=== PATIENT | female | born 1940 | race African-American/Black ===

== ENCOUNTER 2018-11-12 23:02 | Inpatient (IN) | payer MEDICARE, OTHER ==
[~2018-11-12] VITALS: Ht 160 cm; Wt 95.5 kg
[~2018-11-12 23:02] MED LIST: GABA300C18 PO; GLIP10TA13 PO; GLIP5TAB10 PO; INSU100I17 SQ; LISI10TA2 PO; METF500T16 PO; SIMV10TA3 PO
[2018-11-13] VITALS (13 sets, daily range): BP systolic 113–149; BP diastolic 53–65
--- NOTE | 2018-11-13 02:07 | NUR ---
The patient, JOHN IRBY, 77 y/o, F admitted by JOYCE RICHARDS MD, was given written information regarding hospital policies, unit procedures and contact persons. Lizetgowzahida , slippers left in room with patient. Patient did not bring eyeglasses or partials during transfer. Vitals stable, call light in reach, patient resting in bed.
[2018-11-13] MEDS: IV NORMAL SALINE 1000ML BAG 1,000 ML IV SCH ×2 (02:30→07:56)
[2018-11-13 06:31] LABS: BASO % 0 % (0-3); EOS % 0 % (0-3); HEMATOCRIT 25.1 % (36.0-47.0); HEMOGLOBIN 7.8 g/dL (12.0-15.5); LYMPH # 0.9 x10^3/uL (1.0-4.8); LYMPH % 9 % (24-48); MEAN CORPUSCULAR HEMOGLOBIN 29 pg (25-35); MEAN CORPUSCULAR HGB CONC 31 g/dL (31-37); MEAN CORPUSCULAR VOLUME 95 fL (79-100); MONO # 2.2 x10^3/uL (0.0-1.1); MONO % 22 % (0-9); NEUT % 69 % (31-73); PLATELET COUNT 392 x10^3/uL (140-400); RED BLOOD COUNT 2.65 x10^6/uL (3.50-5.40); RED CELL DISTRIBUTION WIDTH 15.9 % (11.5-14.5); WHITE BLOOD COUNT 10.1 x10^3/uL (4.0-11.0)
[2018-11-13 06:49] LABS: CALCIUM 8.4 mg/dL (8.5-10.1); CREATININE 1.1 mg/dL (0.6-1.0); GFR 58.3; POTASSIUM 4.3 mmol/L (3.5-5.1)
[2018-11-13] MEDS: glipiZIDE 5 MG TABLET PO SCH (07:55)
[2018-11-13] MEDS: LISINOPRIL 10 MG TABLET PO SCH (07:56)
[2018-11-13] MEDS: GABAPENTIN 300 MG CAPSULE. PO SCH ×2 (07:56→21:11)
--- NOTE | 2018-11-13 09:06 | PDOC1 ---
History and Physical Date of Admission Date of Admission DATE: 11/13/18 TIME: 09:05 Source Source: Chart review, Patient History of Present Illness History of Present Illness "Genesis" is a 77-year-old female transferred here from [place] with fever, altered mental status. The patient developed a fever of 102 yesterday. and fever in ER, recent COPD exac admit here, confusion per family was worse t benitez baseline, just DC 4 days ago, this AM she reports feeling well, is sitting up, vital better Past Medical History Cardiovascular: CHF, HTN Pulmonary: COPD, Other GI: GERD Musculoskeletal: Osteoarthritis Rheumatologic: Fibromyalgia Endocrine: Diabetes Past Surgical History Past Surgical History: Total hip replacement, Hysterectomy Family History Family History: Diabetes, Hypertension Social History Smoke: Quit ALCOHOL: none Drugs: None Current Medications Current Medications Current Medications Sodium Chloride 1,000 ml @ 100 mls/hr Q10H IV Last administered on 11/13/18at 07:56; Start 11/13/18 at 02:30 Gabapentin (Neurontin) 300 mg BID PO Last administered on 11/13/18at 07:56; Start 11/13/18 at 09:00 Lisinopril (Prinivil) 10 mg DAILY PO Last administered on 11/13/18at 07:56; Start 11/13/18 at 09:00 Simvastatin (Zocor) 10 mg QHS PO ; Start 11/13/18 at 21:00 Glipizide (Glucotrol) 10 mg DAILYAC PO Last administered on 11/13/18at 07:55; Start 11/13/18 at 07:30 Active Scripts Active Simvastatin 10 Mg Tablet 1 Tab PO QHS 30 Days Glipizide 10 Mg Tablet 10 Mg PO DAILY 3 Days Gabapentin 300 Mg Capsule 300 Mg PO TID 30 Days Lisinopril 10 Mg Tablet 1 Tab PO DAILY Reported Novolog Flexpen (Insulin Aspart) 100 Unit/1 Ml Insuln.pen 100 Unit SQ Metformin Hcl 500 Mg Tablet 500 Mg PO Allergies Allergies: Coded Allergies: Penicillins (Verified Allergy, Severe, 11/13/18) THROAT SWELL amoxicillin trihydrate (Verified Allergy, Intermediate, 10/22/18) famotidine (Verified Allergy, Intermediate, 10/22/18) potassium clavulanate (Verified Allergy, Intermediate, 10/22/18) sulfamethoxazole (Verified Allergy, Intermediate, 10/22/18) trimethoprim (Verified Allergy, Intermediate, 10/22/18) I S O L A T I O N *CONTACT* (Verified Allergy, Unknown, 10/21/18) mrsa ROS General: YES: Chills, Night Sweats, Fatigue, Malaise PSYCHOLOGICAL ROS: No: Anxiety, Behavioral Disorder, Concentration difficultie, Decreased libido, Depression, Disorientation, Hallucinations, Hostility, Irritablity, Memory difficulties, Mood Swings, Obsessive thoughts, Physical abuse, Sexual abuse, Sleep disturbances, Suicidal ideation, Other Eyes: No Blurry vision, No Decreased vision, No Double vision, No Dry eyes, No Excessive tearing, No Eye Pain, No Itchy Eyes, No Loss of vision, No Photophobia, No Scotomata, No Uses contacts, No Uses glasses, No Other HEENT: No: Heacaches, Visual Changes, Hearing change, Nasal congestion, Nasal discharge, Oral lesions, Sinus pain, Sore Throat, Epistaxis, Sneezing, Snoring, Tinnitus, Vertigo, Vocal changes, Other Respiratory: No: Cough, Hemoptysis, Orthopnea, Pleuritic Pain, Shortness of breath, SOB with excertion, Sputum Changes, Stridor, Tachypnea, Wheezing, Other Cardiovascular: No Chest Pain, No Palpitations, No Orthopnea, No Paroxysmal Noc. Dyspnea, No Edema, No Lt Headedness, No Other Gastrointestinal: No Nausea, No Vomiting, No Abdominal Pain, No Diarrhea, No Constipation, No Melena, No Hematochezia, No Other Genitourinary: No Dysuria, No Frequency, No Incontinence, No Hematuria, No Retention, No Discharge, No Urgency, No Pain, No Flank Pain, No Other, No , No , No , No , No , No , No Musculoskeletal: No Gait Disturbance, No Joint Pain, No Joint Stiffness, No Joint Swelling, No Muscle Pain, No Muscular Weakness, No Pain In:, No Swelling In:, No Other Neurological: No Behavorial Changes, No Bowel/Bladder ControlChng, No Confusion, No Dizziness, No Gait Disturbance, No Headaches, No Impaired Coord/ balance, No Memory Loss, No Numbness/Tingling, No Seizures, No Speech Problems, No Tremors, No Visual Changes, No Weakness, No Other Skin: Yes Dry Skin; No Eczema, No Hair Changes, No Lumps, No Mole Changes, No Mottling, No Nail Changes, No Pruritus, No Rash, No Skin Lesion Changes, No Other, No Acne Physical Exam General: Alert, Cooperative, mild distress HEENT: Atraumatic Lungs: Clear to auscultation Heart: S1S2 Abdomen: Normal bowel sounds, Soft (obese) Extremities: No clubbing, Normal pulses Skin: No rashes, No significant lesion Neuro: Cranial nerves 3-12 NL Psych/Mental Status: Mood NL Vitals Vitals Vital Signs Date Time Temp Pulse Resp B/P (MAP) Pulse Ox O2 Delivery O2 Flow Rate FiO2 11/13/18 08:02 3.0 11/13/18 07:56 109 141/62 11/13/18 07:00 99.5 24 95 Nasal Cannula 99.5 Labs Labs Laboratory Tests Test 11/13/18 01:45 11/13/18 05:45 11/13/18 07:50 Lactic Acid Level 0.8 mmol/L (0.4-2.0) White Blood Count 10.1 x10^3/uL (4.0-11.0) Red Blood Count 2.65 x10^6/uL (3.50-5.40) Hemoglobin 7.8 g/dL (12.0-15.5) Hematocrit 25.1 % (36.0-47.0) Mean Corpuscular Volume 95 fL (79-100) Mean Corpuscular Hemoglobin 29 pg (25-35) Mean Corpuscular Hemoglobin Concent 31 g/dL (31-37) Red Cell Distribution Width 15.9 % (11.5-14.5) Platelet Count 392 x10^3/uL (140-400) Neutrophils (%) (Auto) 69 % (31-73) Lymphocytes (%) (Auto) 9 % (24-48) Monocytes (%) (Auto) 22 % (0-9) Eosinophils (%) (Auto) 0 % (0-3) Basophils (%) (Auto) 0 % (0-3) Neutrophils # (Auto) 7.0 x10^3/uL (1.8-7.7) Lymphocytes # (Auto) 0.9 x10^3/uL (1.0-4.8) Monocytes # (Auto) 2.2 x10^3/uL (0.0-1.1) Eosinophils # (Auto) 0.0 x10^3/uL (0.0-0.7) Basophils # (Auto) 0.0 x10^3/uL (0.0-0.2) Sodium Level 139 mmol/L (136-145) Potassium Level 4.3 mmol/L (3.5-5.1) Chloride Level 102 mmol/L (98-107) Carbon Dioxide Level 32 mmol/L (21-32) Anion Gap 5 (6-14) Blood Urea Nitrogen 11 mg/dL (7-20) Creatinine 1.1 mg/dL (0.6-1.0) Estimated GFR (Cockcroft-Gault) 58.3 Glucose Level 85 mg/dL (70-99) Calcium Level 8.4 mg/dL (8.5-10.1) Glucose (Fingerstick) 68 mg/dL (70-99) Laboratory Tests Test 11/13/18 01:45 11/13/18 05:45 11/13/18 07:50 Lactic Acid Level 0.8 mmol/L (0.4-2.0) White Blood Count 10.1 x10^3/uL (4.0-11.0) Red Blood Count 2.65 x10^6/uL (3.50-5.40) Hemoglobin 7.8 g/dL (12.0-15.5) Hematocrit 25.1 % (36.0-47.0) Mean Corpuscular Volume 95 fL (79-100) Mean Corpuscular Hemoglobin 29 pg (25-35) Mean Corpuscular Hemoglobin Concent 31 g/dL (31-37) Red Cell Distribution Width 15.9 % (11.5-14.5) Platelet Count 392 x10^3/uL (140-400) Neutrophils (%) (Auto) 69 % (31-73) Lymphocytes (%) (Auto) 9 % (24-48) Monocytes (%) (Auto) 22 % (0-9) Eosinophils (%) (Auto) 0 % (0-3) Basophils (%) (Auto) 0 % (0-3) Neutrophils # (Auto) 7.0 x10^3/uL (1.8-7.7) Lymphocytes # (Auto) 0.9 x10^3/uL (1.0-4.8) Monocytes # (Auto) 2.2 x10^3/uL (0.0-1.1) Eosinophils # (Auto) 0.0 x10^3/uL (0.0-0.7) Basophils # (Auto) 0.0 x10^3/uL (0.0-0.2) Sodium Level 139 mmol/L (136-145) Potassium Level 4.3 mmol/L (3.5-5.1) Chloride Level 102 mmol/L (98-107) Carbon Dioxide Level 32 mmol/L (21-32) Anion Gap 5 (6-14) Blood Urea Nitrogen 11 mg/dL (7-20) Creatinine 1.1 mg/dL (0.6-1.0) Estimated GFR (Cockcroft-Gault) 58.3 Glucose Level 85 mg/dL (70-99) Calcium Level 8.4 mg/dL (8.5-10.1) Glucose (Fingerstick) 68 mg/dL (70-99) VTE Prophylaxis Ordered VTE Prophylaxis Devices: No VTE Pharmacological Prophylaxi: Yes Assessment/Plan Assessment/Plan sepsis hx COPD treat COPD with acute bronchitis, check CXR again PCN allergy acute on chronic encephalopathy obesity, BMI 36 DM2 CAD, recent ND admitted to ICU in transfer from [place], [place] to [facility] KYRIE HUSSEIN MD Nov 13, 2018 09:05
[2018-11-13] MEDS ORDERED: PIP/TAZO PER PHARMACY MC PRN (09:30)
[2018-11-13] MEDS ORDERED: DEXTROSE 50% 25 GM / 50ML DISP.SYRIN. IV PRN (09:30)
[2018-11-13] MEDS: predniSONE 20 MG TABLET PO SCH (09:57)
[2018-11-13] MEDS ORDERED: VANCOMYCIN 2 GM in IV NORMAL SALINE 500ML BAG 500 ML IV ONE (10:00)
[2018-11-13] MEDS: ENOXAPARIN 40 MG/0.4 ML SYRINGE. SQ SCH (10:16)
[2018-11-13] MEDS: AZITHROMYCIN 500 MG in IV NORMAL SALINE 250ML 250 ML IV SCH (10:16)
--- NOTE | 2018-11-13 10:28 | RAD ---
Indication: Sepsis TECHNIQUE: Single AP view of the chest COMPARISON: 10/25/2018 FINDINGS: Heart is normal in size. Evaluation of left lower lobe is limited due to overlying cardiac silhouette. Mild bilateral interstitial opacities. No pneumothorax. Visualized bony thorax within normal limits. IMPRESSION: 1. Limited evaluation of left lung base due to enlarged cardiac silhouette. Underlying consolidation from atelectasis or pneumonia not ruled out. Findings not significantly changed compared to previous exam from 10/25/2018. 2. Mild interstitial edema. Electronically signed by: Kd Ott DO (11/13/2018 10:25 AM) [facility]
[2018-11-13 10:52] LABS: % LYMPHS 6 % (24-48); % MONOS 19 % (0-10); % SEGS 75 % (35-66)
[2018-11-13 10:53] LABS: PLT ESTIMATE ADEQUATE (ADEQUATE)
[2018-11-13] MEDS: VANCOMYCIN PER PHARMACY MC PRN (11:00)
[2018-11-13] MEDS: oxyCODONE/APAP 5/325 1 TAB TABLET PO PRN (11:01)
--- NOTE | 2018-11-13 11:04 | NUR ---
Pharmacy Vancomycin Dosing Note S:Consulted to monitor and dose vancomycin started 11/13/18. O:JOHN IRBY is a 77 year old F with Sepsis Pneumonia . Height: 5 feet, 3 inches Weight: 92.177470 kg [place] Body Weight: 52.40 Adjusted Body Weight: 68.60 Dosing Weight: Actual Other Antibiotics: ZITHROMAX LABS: Last BUN: Last Creatinine: 1.1 Creatinine Clearance: 46 mL/min Last WBC: 10.1 Last Procalcitonin: Tmax (past 24 hours): 99.5 Microbiology: I/O: 0/900 Drug Levels: Last level: on at Last dose given 11/13/18 at 1000 Vancomycin Dosing: Loading Dose: 2000 mg x1 Dosing Weight: Actual Target Trough: 15-20 A: Based on: WEIGHT AND RENAL FUNCTION, 2GM IV VANCOMYCIN BOLUS GIVEN, P: 1. START Vancomycin 1500 mg IV q24h 2. Follow up Trough level on 11/15/18 at 0930 3. Pharmacy will continue to monitor, follow and adjust therapy as needed. ABHILASH [facility], 11/13/18 [id number]
[2018-11-13] MEDS ORDERED: FUROSEMIDE 20 MG/2 ML VIAL. IVP ONE (11:45)
[2018-11-13] MEDS: INSULIN LISPRO 300 UNITS/3 ML INSULN.PEN. SQ SCH ×2 (12:00→17:35)
[2018-11-13] MEDS: IPRATRPIUM/ALBUTEROL 0.5/2.5MG 3 ML NEBU. NEB SCH ×3 (12:14→20:41)
--- NOTE | 2018-11-13 12:39 | CONS ---
DATE OF CONSULTATION: PULMONARY CONSULTATION LOCATION: She is in room #106. ATTENDING PHYSICIAN: Josefina Hurtado M.D. HISTORY OF PRESENT ILLNESS: The patient is a 77-year-old female, who is referred for respiratory distress. She was admitted to [facility] as a transfer from [facility] with fever, altered mental status and sepsis. The patient was a longtime smoker, ending several years ago. She has a diagnosis of COPD. She was diagnosed with lung cancer 4 years ago that was inoperable. She was treated with radiation therapy and chemotherapy. Per the patient and her daughter, who provides much of the history, the tumor has not reoccurred after chemotherapy and radiation therapy. Also, of note, the medical record notes a history of congestive heart failure. However, both the patient and her daughter state that she has not had any heart problems in the past. Previously, the patient did not have shortness of breath several months ago. However, she was very sedentary and typically the most active thing she would be walking room to room. She has had more shortness of breath for the past 2 months. She does note a cough productive of yellow sputum. However, that has not changed in recent days or weeks. The patient was transferred with sepsis. She has been treated with vancomycin and azithromycin. She also is on prednisone 40 mg daily. She notes that her breathing is better since she was admitted to [facility]. PAST MEDICAL HISTORY: Significant for the COPD and lung cancer mentioned above. She also has hypertension and diabetes. Of question as noted is the history of congestive heart failure. She also notes that she has had ovarian cancer in the past. She has also had a total hip replacement and a hysterectomy. FAMILY HISTORY: Positive for hypertension and diabetes. There is no family history of lung problems including lung cancer or COPD. SOCIAL HISTORY: She is a former smoker. 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 REVIEW OF SYSTEMS: A 12-point review of systems was obtained. In addition to what is noted above, she complains of pain in her right hip radiating down her leg. Otherwise, the review of systems was negative. PHYSICAL EXAMINATION: GENERAL: Reveals a female, on oxygen, in no acute distress. VITAL SIGNS: At present, her temperature is 99.8, her heart rate is 106 per minute and regular, her respiratory rate is 20 per minute and nonlabored, her blood pressure is 114/63, her oxygen saturation is 95% on 3 L of oxygen. HEENT: Unremarkable. NECK: There is no obvious JVD, although she is obese. There is no lymphadenopathy. CHEST: She has equal, somewhat diminished breath sounds with bibasilar rales. There are no wheezes, rhonchi or rubs. CARDIOVASCULAR: She has regular rate and rhythm without appreciable murmur or gallop. ABDOMEN: Soft. There are no masses or organomegaly. EXTREMITIES: She has trace pretibial edema. There is no cyanosis or clubbing. LABORATORY DATA: She had a chest x-ray that was done today. She has enlarged cardiovascular silhouette. She has vascular redistribution and possible bilateral edema and possible effusions. Her white blood cell count was 10,100; her hemoglobin was 7.8. Her creatinine is 1.1. IMPRESSION: 1. Acute respiratory failure secondary to chronic obstructive pulmonary disease. Also, I am concerned that she has congestive heart failure contributing to her respiratory failure. By history, the chronic obstructive pulmonary disease likely is an acute exacerbation. 2. Sepsis. 3. Chronic dementia. PLAN: I agree with the empiric antibiotic therapy and prednisone. I am going to add nebulized albuterol and ipratropium 4 times a day. Additionally, I am going to give her 20 mg of Lasix and obtain a BNP and an echocardiogram. I will repeat her chest x-ray tomorrow. Thank you for consulting on this nice lady. If you have any questions, please do not hesitate to contact me. NEGRITO LINDSEY MD DR: CRUZ/doug JOB#: [id number] / [id number]
[2018-11-13] MEDS ORDERED: LACTOBACILLUS RHAMNOSUS GG 1 CAPSULE. PO SCH (21:00)
[2018-11-13] MEDS: SIMVASTATIN 10 MG TABLET PO SCH (21:11)
[2018-11-14 03:41] VITALS: BP 132/60
[2018-11-14 07:17] VITALS: BP 149/65
[2018-11-14] MEDS: IPRATRPIUM/ALBUTEROL 0.5/2.5MG 3 ML NEBU. NEB SCH ×4 (07:26→19:36)
[2018-11-14] MEDS: LISINOPRIL 10 MG TABLET PO SCH (08:31)
[2018-11-14] MEDS: glipiZIDE 5 MG TABLET PO SCH (08:31)
[2018-11-14] MEDS: predniSONE 20 MG TABLET PO SCH (08:31)
[2018-11-14] MEDS: GABAPENTIN 300 MG CAPSULE. PO SCH ×2 (08:31→21:41)
[2018-11-14] MEDS: oxyCODONE/APAP 5/325 1 TAB TABLET PO PRN ×2 (08:32→17:25)
[2018-11-14] MEDS: INSULIN LISPRO 300 UNITS/3 ML INSULN.PEN. SQ SCH ×4 (08:33→17:30)
[2018-11-14 10:25] VITALS: BP 143/67
[2018-11-14] MEDS ORDERED: fentaNYL 25MCG/HR PATCH 1 PATCH PATCH.TD72 TD SCH (10:51)
[2018-11-14] MEDS: AZITHROMYCIN 500 MG in IV NORMAL SALINE 250ML 250 ML IV SCH (11:13)
[2018-11-14] MEDS: ONDANSETRON PF 4 MG/2 ML VIAL. IV PRN ×2 (11:13→17:26)
[2018-11-14] MEDS: ENOXAPARIN 40 MG/0.4 ML SYRINGE. SQ SCH (11:14)
[2018-11-14] MEDS: VANCOMYCIN 1.5 GM in IV NORMAL SALINE 500ML BAG 500 ML IV SCH (11:14)
--- NOTE | 2018-11-14 11:16 | PDOC ---
PULMONARY PROGRESS NOTES Subjective 77 yo female who was admitted to [facility] as transfer from [facility] for sepsis and COPD exacerbation. She was treated with IV antibiotics and steroids with improvement in confusion. In addition to COPD exacerbation, I suspected an element of CHF. She is on steroids, inhaled bronchodilators, and antibiotics. Additionally I gave her a dose of lasix with good urine diuresis. Her BNP was modestly elevated at 494. Her echocardiogram is pending. She is less short of breath. Vitals Vital Signs Date Time Temp Pulse Resp B/P (MAP) Pulse Ox O2 Delivery O2 Flow Rate FiO2 11/14/18 10:25 98.1 95 16 143/67 (92) 96 Nasal Cannula 3.5 98.1 Comments she does complain of nausea General: Alert, No acute distress Lungs: Clear, Other (comfortable, non labored rr of 15 per minute) Cardiovascular: S1, S2 Abdomen: Soft, Non-tender Neuro Exam: Alert, Oriented Extremities: No Edema Labs Laboratory Tests Test 11/13/18 01:30 11/13/18 01:45 11/13/18 05:45 11/13/18 07:50 Nasal Screen MRSA (PCR) Negative (Negative) Lactic Acid Level 0.8 mmol/L (0.4-2.0) White Blood Count 10.1 x10^3/uL (4.0-11.0) Red Blood Count 2.65 x10^6/uL (3.50-5.40) Hemoglobin 7.8 g/dL (12.0-15.5) Hematocrit 25.1 % (36.0-47.0) Mean Corpuscular Volume 95 fL (79-100) Mean Corpuscular Hemoglobin 29 pg (25-35) Mean Corpuscular Hemoglobin Concent 31 g/dL (31-37) Red Cell Distribution Width 15.9 % (11.5-14.5) Platelet Count 392 x10^3/uL (140-400) Neutrophils (%) (Auto) 69 % (31-73) Lymphocytes (%) (Auto) 9 % (24-48) Monocytes (%) (Auto) 22 % (0-9) Eosinophils (%) (Auto) 0 % (0-3) Basophils (%) (Auto) 0 % (0-3) Neutrophils # (Auto) 7.0 x10^3/uL (1.8-7.7) Lymphocytes # (Auto) 0.9 x10^3/uL (1.0-4.8) Monocytes # (Auto) 2.2 x10^3/uL (0.0-1.1) Eosinophils # (Auto) 0.0 x10^3/uL (0.0-0.7) Basophils # (Auto) 0.0 x10^3/uL (0.0-0.2) Segmented Neutrophils % 75 % (35-66) Lymphocytes % 6 % (24-48) Monocytes % 19 % (0-10) Platelet Estimate Adequate (ADEQUATE) Large Platelets Present Sodium Level 139 mmol/L (136-145) Potassium Level 4.3 mmol/L (3.5-5.1) Chloride Level 102 mmol/L (98-107) Carbon Dioxide Level 32 mmol/L (21-32) Anion Gap 5 (6-14) Blood Urea Nitrogen 11 mg/dL (7-20) Creatinine 1.1 mg/dL (0.6-1.0) Estimated GFR (Cockcroft-Gault) 58.3 Glucose Level 85 mg/dL (70-99) Calcium Level 8.4 mg/dL (8.5-10.1) PE-Aot-R-Type Natriuretic Peptide 456 pg/mL (0-449) Procalcitonin < 0.10 ng/mL (0.00-0.10) Glucose (Fingerstick) 68 mg/dL (70-99) Test 11/13/18 12:06 11/13/18 16:42 11/13/18 20:27 11/14/18 07:22 Glucose (Fingerstick) 120 mg/dL (70-99) 299 mg/dL (70-99) 330 mg/dL (70-99) 179 mg/dL (70-99) Laboratory Tests Test 11/13/18 12:06 11/13/18 16:42 11/13/18 20:27 11/14/18 07:22 Glucose (Fingerstick) 120 mg/dL (70-99) 299 mg/dL (70-99) 330 mg/dL (70-99) 179 mg/dL (70-99) Medications Active Scripts Medications Dose Route/Sig Max Daily Dose Days Date Category Simvastatin 10 Mg Tablet 1 Tab PO QHS 30 10/23/18 Rx Glipizide 10 Mg Tablet 10 Mg PO DAILY 3 10/23/18 Rx Gabapentin 300 Mg Capsule 300 Mg PO TID 30 10/23/18 Rx Lisinopril 10 Mg Tablet 1 Tab PO DAILY 10/23/18 Rx Novolog Flexpen (Insulin Aspart) 100 Unit/1 Ml Insuln.pen 100 Unit SQ 07/18/13 Reported Metformin Hcl 500 Mg Tablet 500 Mg PO 07/18/13 Reported Comments no new imaging but again I believe CXR of 11/13 suggestive of CHF Impression . 1. Acute COPD exacerbation -- improving 2. CHF improving 3. Sepsis improving 4. History of lung cancer s/p chemotherapy and radiation therapy Plan . Continue antibiotics, bronchodilators and steroids echocardiogram pending will titrate O2 as tolerated Obtain repeat PA and Lat CXR in NEGRITO DUARTE MD Nov 14, 2018 11:16
[2018-11-14] MEDS: VANCOMYCIN PER PHARMACY MC PRN ×2 (11:47→11:48)
[2018-11-14 14:26] VITALS: BP 139/59
[2018-11-14] MEDS ORDERED: INSULIN LISPRO 300 UNITS/3 ML INSULN.PEN. SQ ONE (17:00)
--- NOTE | 2018-11-14 17:16 | PDOC ---
PROGRESS NOTES Chief Complaint Chief Complaint sepsis COPD with acute bronchitis, acute on chronic encephalopathy improved obesity, BMI 36 DM2, w. hyperglycemia CAD, recent [facility] History of Present Illness History of Present Illness on CVC, better, cont current increase insulin, home dose, add lantus restart metoformin, labs in AM Vitals Vitals Vital Signs Date Time Temp Pulse Resp B/P (MAP) Pulse Ox O2 Delivery O2 Flow Rate FiO2 11/14/18 16:22 Nasal Cannula 3.0 11/14/18 15:28 94 11/14/18 14:26 98.4 106 16 139/59 (85) 98.4 Physical Exam General: Alert, Cooperative, No acute distress Lungs: Clear, Other (comfortable, non labored rr of 15 per minute) Abdomen: Normal bowel sounds, Soft (obese) Extremities: No clubbing, Normal pulses Skin: No rashes, No significant lesion Labs LABS Laboratory Tests Test 11/13/18 20:27 11/14/18 07:22 11/14/18 11:21 11/14/18 16:41 Glucose (Fingerstick) 330 mg/dL (70-99) 179 mg/dL (70-99) 206 mg/dL (70-99) 351 mg/dL (70-99) Comment Review of Relevant I have reviewed the following items myesha (where applicable) has been applied. Labs Laboratory Tests Test 11/13/18 01:30 11/13/18 01:45 11/13/18 05:45 11/13/18 07:50 Nasal Screen MRSA (PCR) Negative (Negative) Lactic Acid Level 0.8 mmol/L (0.4-2.0) White Blood Count 10.1 x10^3/uL (4.0-11.0) Red Blood Count 2.65 x10^6/uL (3.50-5.40) Hemoglobin 7.8 g/dL (12.0-15.5) Hematocrit 25.1 % (36.0-47.0) Mean Corpuscular Volume 95 fL (79-100) Mean Corpuscular Hemoglobin 29 pg (25-35) Mean Corpuscular Hemoglobin Concent 31 g/dL (31-37) Red Cell Distribution Width 15.9 % (11.5-14.5) Platelet Count 392 x10^3/uL (140-400) Neutrophils (%) (Auto) 69 % (31-73) Lymphocytes (%) (Auto) 9 % (24-48) Monocytes (%) (Auto) 22 % (0-9) Eosinophils (%) (Auto) 0 % (0-3) Basophils (%) (Auto) 0 % (0-3) Neutrophils # (Auto) 7.0 x10^3/uL (1.8-7.7) Lymphocytes # (Auto) 0.9 x10^3/uL (1.0-4.8) Monocytes # (Auto) 2.2 x10^3/uL (0.0-1.1) Eosinophils # (Auto) 0.0 x10^3/uL (0.0-0.7) Basophils # (Auto) 0.0 x10^3/uL (0.0-0.2) Segmented Neutrophils % 75 % (35-66) Lymphocytes % 6 % (24-48) Monocytes % 19 % (0-10) Platelet Estimate Adequate (ADEQUATE) Large Platelets Present Sodium Level 139 mmol/L (136-145) Potassium Level 4.3 mmol/L (3.5-5.1) Chloride Level 102 mmol/L (98-107) Carbon Dioxide Level 32 mmol/L (21-32) Anion Gap 5 (6-14) Blood Urea Nitrogen 11 mg/dL (7-20) Creatinine 1.1 mg/dL (0.6-1.0) Estimated GFR (Cockcroft-Gault) 58.3 Glucose Level 85 mg/dL (70-99) Calcium Level 8.4 mg/dL (8.5-10.1) UF-Inv-U-Type Natriuretic Peptide 456 pg/mL (0-449) Procalcitonin < 0.10 ng/mL (0.00-0.10) Glucose (Fingerstick) 68 mg/dL (70-99) Test 11/13/18 12:06 11/13/18 16:42 11/13/18 20:27 11/14/18 07:22 Glucose (Fingerstick) 120 mg/dL (70-99) 299 mg/dL (70-99) 330 mg/dL (70-99) 179 mg/dL (70-99) Test 11/14/18 11:21 11/14/18 16:41 Glucose (Fingerstick) 206 mg/dL (70-99) 351 mg/dL (70-99) Laboratory Tests Test 11/13/18 20:27 11/14/18 07:22 11/14/18 11:21 11/14/18 16:41 Glucose (Fingerstick) 330 mg/dL (70-99) 179 mg/dL (70-99) 206 mg/dL (70-99) 351 mg/dL (70-99) Medications Current Medications Sodium Chloride 1,000 ml @ 100 mls/hr Q10H IV Last administered on 11/13/18 07:56; Start 11/13/18 at 02:30; Stop 11/13/18 at 14:33; Status DC Gabapentin (Neurontin) 300 mg BID PO Last administered on 11/14/18 08:31; Start 11/13/18 at 09:00 Lisinopril (Prinivil) 10 mg DAILY PO Last administered on 11/14/18 08:31; Start 11/13/18 at 09:00 Simvastatin (Zocor) 10 mg QHS PO Last administered on 11/13/18 21:11; Start 11/13/18 at 21:00 Glipizide (Glucotrol) 10 mg DAILYAC PO Last administered on 11/14/18 08:31; Start 11/13/18 at 07:30 Insulin Human Lispro (HumaLOG) 0-5 UNITS TIDWMEALS SQ Last administered on 11/14/18 11:55; Start 11/13/18 at 12:00 Dextrose (Dextrose 50%-Water Syringe) 12.5 gm PRN Q15MIN PRN IV SEE COMMENTS; Start 11/13/18 at 09:30 Vancomycin HCl (Vanco Per Pharmacy) 1 each PRN DAILY PRN MC SEE COMMENTS Last administered on 11/14/18 11:48; Start 11/13/18 at 09:30 Piperacillin Sod/ Tazobactam Sod (Zosyn Per Pharmacy) 1 each PRN DAILY PRN MC SEE COMMENTS; Start 11/13/18 at 09:30; Status UNV Prednisone (Prednisone) 40 mg DAILY PO Last administered on 11/14/18 08:31; Start 11/13/18 at 09:30 Vancomycin HCl 2 gm/Sodium Chloride 500 ml @ 250 mls/hr 1X ONCE IV Last administered on 11/13/18 09:58; Start 11/13/18 at 10:00; Stop 11/13/18 at 11:59; Status DC Azithromycin 500 mg/Sodium Chloride 250 ml @ 250 mls/hr Q24H IV Last administered on 11/14/18 11:13; Start 11/13/18 at 10:00 Enoxaparin Sodium (Lovenox Per Pharmacy Prophylaxis Dosing) 1 each PRN DAILY PRN MC SEE COMMENTS; Start 11/13/18 at 10:15 Enoxaparin Sodium (Lovenox 40mg Syringe) 40 mg Q24H SQ Last administered on 11/14/18 11:14; Start 11/13/18 at 10:15 Oxycodone/ Acetaminophen (Percocet 5/325) 1 tab PRN Q4HRS PRN PO PAIN Last administered on 11/14/18 08:32; Start 11/13/18 at 10:30 Vancomycin HCl 1.5 gm/Sodium Chloride 500 ml @ 250 mls/hr Q24H IV Last administered on 11/14/18 11:14; Start 11/14/18 at 10:00 Vancomycin HCl (Vancomycin Trough Level) 1 each 1X ONCE MC ; Start 11/15/18 at 09:30; Stop 11/15/18 at 09:31 Lactobacillus Rhamnosus (Culturelle) 1 cap BID PO ; Start 11/13/18 at 21:00; Status Cancel Albuterol/ Ipratropium (Duoneb) 3 ml RTQID NEB Last administered on 11/14/18 16:21; Start 11/13/18 at 12:00 Furosemide (Lasix) 20 mg 1X ONCE IVP Last administered on 11/13/18 12:09; Start 11/13/18 at 11:45; Stop 11/13/18 at 11:49; Status DC Fentanyl (Duragesic 25mcg/ Hr Patch) 1 patch Q3DAYS TD Last administered on 11/14/18 11:14; Start 11/14/18 at 10:51 Ondansetron HCl (Zofran) 4 mg PRN Q6HRS PRN IV NAUSEA/VOMITING Last a dministered on 11/14/18 11:13; Start 11/14/18 at 10:45 Insulin Human Lispro (HumaLOG) 13 units 1X ONCE SQ ; Start 11/14/18 at 17:00; Stop 11/14/18 at 17:04; Status DC Active Scripts Active Simvastatin 10 Mg Tablet 1 Tab PO QHS 30 Days Glipizide 10 Mg Tablet 10 Mg PO DAILY 3 Days Gabapentin 300 Mg Capsule 300 Mg PO TID 30 Days Lisinopril 10 Mg Tablet 1 Tab PO DAILY Reported Novolog Flexpen (Insulin Aspart) 100 Unit/1 Ml Insuln.pen 100 Unit SQ Metformin Hcl 500 Mg Tablet 500 Mg PO Vitals/I & O Vital Sign - Last 24 Hours 11/13/18 11/13/18 11/13/18 11/13/18 19:13 20:00 20:41 22:00 Temp 98.8 99.0 98.8 99.0 Pulse 99 106 Resp 16 18 B/P (MAP) 140/64 (89) 123/63 (83) Pulse Ox 97 95 96 O2 Delivery Nasal Cannula Nasal Cannula Nasal Cannula Nasal Cannula O2 Flow Rate 3.0 3.0 3.0 3.5 11/14/18 11/14/18 11/14/18 11/14/18 03:41 07:17 07:27 08:00 Temp 98.7 98.6 98.7 98.6 Pulse 94 96 Resp 16 16 B/P (MAP) 132/60 (84) 149/65 (93) Pulse Ox 97 98 95 O2 Delivery Nasal Cannula Nasal Cannula Nasal Cannula Nasal Cannula O2 Flow Rate 3.5 3.5 3.0 3.0 11/14/18 11/14/18 11/14/18 11/14/18 08:31 08:32 09:39 10:25 Temp 98.1 98.1 Pulse 96 95 Resp 22 16 B/P (MAP) 149/65 143/67 (92) Pulse Ox 95 95 96 O2 Delivery Nasal Cannula Nasal Cannula Nasal Cannula O2 Flow Rate 3.0 3.0 3.5 11/14/18 11/14/18 11/14/18 11/14/18 11:14 12:58 14:26 15:28 Temp 98.4 98.4 Pulse 106 Resp 16 B/P (MAP) 139/59 (85) Pulse Ox 96 94 94 O2 Delivery Nasal Cannula Nasal Cannula Nasal Cannula Nasal Cannula O2 Flow Rate 3.5 3.0 3.5 3.5 11/14/18 16:22 O2 Delivery Nasal Cannula O2 Flow Rate 3.0 Intake and Output 7/20/19 7/20/19 7/21/19 15:00 23:00 07:00 Intake Total 400 ml 100 ml Output Total 150 ml 1650 ml 800 ml Balance 250 ml -1650 ml -700 ml KYRIE HUSSEIN MD Nov 14, 2018 17:16
[2018-11-14] MEDS: metFORMIN 500 MG TABLET PO SCH (17:25)
[2018-11-14 19:17] VITALS: BP 145/70
[2018-11-14] MEDS: SIMVASTATIN 10 MG TABLET PO SCH (21:43)
[2018-11-14] MEDS: INSULIN GLARGINE 300 UNITS/3 ML INSULN.PEN. SQ SCH (21:46)
[2018-11-14 22:10] VITALS: BP 154/72
[2018-11-15 02:01] VITALS: BP 131/83
[2018-11-15 05:19] LABS: BASO % 0 % (0-3); EOS % 0 % (0-3); HEMATOCRIT 23.2 % (36.0-47.0); HEMOGLOBIN 7.3 g/dL (12.0-15.5); LYMPH # 0.7 x10^3/uL (1.0-4.8); LYMPH % 11 % (24-48); MEAN CORPUSCULAR HEMOGLOBIN 29 pg (25-35); MEAN CORPUSCULAR HGB CONC 31 g/dL (31-37); MEAN CORPUSCULAR VOLUME 93 fL (79-100); MONO % 16 % (0-9); NEUT # 4.8 x10^3/uL (1.8-7.7); NEUT % 73 % (31-73); PLATELET COUNT 484 x10^3/uL (140-400); RED BLOOD COUNT 2.49 x10^6/uL (3.50-5.40); RED CELL DISTRIBUTION WIDTH 15.3 % (11.5-14.5); WHITE BLOOD COUNT 6.6 x10^3/uL (4.0-11.0)
[2018-11-15 05:55] LABS: ALBUMIN 2.4 g/dL (3.4-5.0); ALBUMIN/GLOBULIN RATIO 0.6 (1.0-1.7); CALCIUM 8.9 mg/dL (8.5-10.1); CREATININE 1.2 mg/dL (0.6-1.0); GFR 52.7; POTASSIUM 4.4 mmol/L (3.5-5.1); TOTAL BILIRUBIN 0.2 mg/dL (0.2-1.0); TOTAL PROTEIN 6.7 g/dL (6.4-8.2)
[2018-11-15 07:00] VITALS: BP 144/63
[2018-11-15] MEDS: IPRATRPIUM/ALBUTEROL 0.5/2.5MG 3 ML NEBU. NEB SCH ×4 (07:27→20:31)
[2018-11-15] MEDS: INSULIN LISPRO 300 UNITS/3 ML INSULN.PEN. SQ SCH ×6 (08:00→17:34)
[2018-11-15] MEDS: predniSONE 20 MG TABLET PO SCH (08:51)
[2018-11-15] MEDS: LISINOPRIL 10 MG TABLET PO SCH (08:52)
[2018-11-15] MEDS: metFORMIN 500 MG TABLET PO SCH ×2 (08:52→17:28)
[2018-11-15] MEDS: GABAPENTIN 300 MG CAPSULE. PO SCH ×2 (08:52→21:13)
[2018-11-15] MEDS: glipiZIDE 5 MG TABLET PO SCH (08:52)
[2018-11-15] MEDS: oxyCODONE/APAP 5/325 1 TAB TABLET PO PRN ×2 (08:53→17:28)
--- NOTE | 2018-11-15 09:38 | RAD ---
EXAM: PA and Lateral Views of the Chest DATE: 11/15/2018 5:00 AM INDICATION: COPD, dyspnea COMPARISON: 11/13/2018, 10/25/2018 FINDINGS: Exam is limited given technique as exam was performed in wheelchair. In addition the patient's chin obscures the lung apices. Stable moderate cardiomegaly. Aorta is moderately tortuous. There are wedge-shaped opacities in the right hilum extending to the left upper lobe. In addition wedge-shaped airspace opacities are seen in the right upper lobe and bilateral lung bases, particularly dense in the left lung base, likely stable to 11/13/2018. Small left pleural effusion. No obvious pneumothorax. IMPRESSION: 1. Left suprahilar wedge-shaped airspace opacity with associated parenchymal architectural distortion is nonspecific but may be seen with underlying mass. Following resolution of acute process, CT chest is recommended. 2. Bilateral parenchymal airspace opacities, particularly dense in the left lung base, likely stable to 11/13/2018 accounting for differences in projection/technique. Electronically signed by: Emile Perales MD (11/15/2018 9:35 AM) [facility]
--- NOTE | 2018-11-15 09:45 | NUR ---
IP: Pt has a recent hx of + mrsa screen done at [facility] on 10/19/18. Current screen is negative. Pt to remain in contact precautions until a second screen is obtained and verified after 11/20/18.
[2018-11-15] MEDS: AZITHROMYCIN 500 MG in IV NORMAL SALINE 250ML 250 ML IV SCH (09:49)
[2018-11-15] MEDS: VANCOMYCIN 1.5 GM in IV NORMAL SALINE 500ML BAG 500 ML IV SCH (10:00)
[2018-11-15] MEDS: ENOXAPARIN 40 MG/0.4 ML SYRINGE. SQ SCH (10:15)
[2018-11-15 10:39] LABS: VANC TR 12.4 mcg/mL (10.0-20.0)
--- NOTE | 2018-11-15 10:39 | PDOC ---
PULMONARY PROGRESS NOTES Subjective 77 yo female who was admitted to [facility] as transfer from [facility] for sepsis and COPD exacerbation. no soa today Vitals Vital Signs Date Time Temp Pulse Resp B/P (MAP) Pulse Ox O2 Delivery O2 Flow Rate FiO2 11/15/18 08:53 20 Nasal Cannula 3.0 11/15/18 08:52 103 144/63 11/15/18 07:27 99 11/15/18 07:00 98.0 98.0 General: Alert, No acute distress Lungs: Clear Cardiovascular: S1, S2 Abdomen: Soft, Non-tender Neuro Exam: Alert, Oriented Extremities: No Edema Labs Laboratory Tests Test 11/13/18 12:06 11/13/18 16:42 11/13/18 20:27 11/14/18 07:22 Glucose (Fingerstick) 120 mg/dL (70-99) 299 mg/dL (70-99) 330 mg/dL (70-99) 179 mg/dL (70-99) Test 11/14/18 11:21 11/14/18 16:41 11/14/18 21:10 11/15/18 04:45 Glucose (Fingerstick) 206 mg/dL (70-99) 351 mg/dL (70-99) 344 mg/dL (70-99) White Blood Count 6.6 x10^3/uL (4.0-11.0) Red Blood Count 2.49 x10^6/uL (3.50-5.40) Hemoglobin 7.3 g/dL (12.0-15.5) Hematocrit 23.2 % (36.0-47.0) Mean Corpuscular Volume 93 fL (79-100) Mean Corpuscular Hemoglobin 29 pg (25-35) Mean Corpuscular Hemoglobin Concent 31 g/dL (31-37) Red Cell Distribution Width 15.3 % (11.5-14.5) Platelet Count 484 x10^3/uL (140-400) Neutrophils (%) (Auto) 73 % (31-73) Lymphocytes (%) (Auto) 11 % (24-48) Monocytes (%) (Auto) 16 % (0-9) Eosinophils (%) (Auto) 0 % (0-3) Basophils (%) (Auto) 0 % (0-3) Neutrophils # (Auto) 4.8 x10^3/uL (1.8-7.7) Lymphocytes # (Auto) 0.7 x10^3/uL (1.0-4.8) Monocytes # (Auto) 1.0 x10^3/uL (0.0-1.1) Eosinophils # (Auto) 0.0 x10^3/uL (0.0-0.7) Basophils # (Auto) 0.0 x10^3/uL (0.0-0.2) Sodium Level 139 mmol/L (136-145) Potassium Level 4.4 mmol/L (3.5-5.1) Chloride Level 102 mmol/L (98-107) Carbon Dioxide Level 33 mmol/L (21-32) Anion Gap 4 (6-14) Blood Urea Nitrogen 13 mg/dL (7-20) Creatinine 1.2 mg/dL (0.6-1.0) Estimated GFR (Cockcroft-Gault) 52.7 BUN/Creatinine Ratio 11 (6-20) Glucose Level 149 mg/dL (70-99) Calcium Level 8.9 mg/dL (8.5-10.1) Total Bilirubin 0.2 mg/dL (0.2-1.0) Aspartate Amino Transf (AST/SGOT) 19 U/L (15-37) Alanine Aminotransferase (ALT/SGPT) 20 U/L (14-59) Alkaline Phosphatase 56 U/L (46-116) Total Protein 6.7 g/dL (6.4-8.2) Albumin 2.4 g/dL (3.4-5.0) Albumin/Globulin Ratio 0.6 (1.0-1.7) Test 11/15/18 07:51 Glucose (Fingerstick) 89 mg/dL (70-99) Laboratory Tests Test 11/14/18 11:21 11/14/18 16:41 11/14/18 21:10 11/15/18 04:45 Glucose (Fingerstick) 206 mg/dL (70-99) 351 mg/dL (70-99) 344 mg/dL (70-99) White Blood Count 6.6 x10^3/uL (4.0-11.0) Red Blood Count 2.49 x10^6/uL (3.50-5.40) Hemoglobin 7.3 g/dL (12.0-15.5) Hematocrit 23.2 % (36.0-47.0) Mean Corpuscular Volume 93 fL (79-100) Mean Corpuscular Hemoglobin 29 pg (25-35) Mean Corpuscular Hemoglobin Concent 31 g/dL (31-37) Red Cell Distribution Width 15.3 % (11.5-14.5) Platelet Count 484 x10^3/uL (140-400) Neutrophils (%) (Auto) 73 % (31-73) Lymphocytes (%) (Auto) 11 % (24-48) Monocytes (%) (Auto) 16 % (0-9) Eosinophils (%) (Auto) 0 % (0-3) Basophils (%) (Auto) 0 % (0-3) Neutrophils # (Auto) 4.8 x10^3/uL (1.8-7.7) Lymphocytes # (Auto) 0.7 x10^3/uL (1.0-4.8) Monocytes # (Auto) 1.0 x10^3/uL (0.0-1.1) Eosinophils # (Auto) 0.0 x10^3/uL (0.0-0.7) Basophils # (Auto) 0.0 x10^3/uL (0.0-0.2) Sodium Level 139 mmol/L (136-145) Potassium Level 4.4 mmol/L (3.5-5.1) Chloride Level 102 mmol/L (98-107) Carbon Dioxide Level 33 mmol/L (21-32) Anion Gap 4 (6-14) Blood Urea Nitrogen 13 mg/dL (7-20) Creatinine 1.2 mg/dL (0.6-1.0) Estimated GFR (Cockcroft-Gault) 52.7 BUN/Creatinine Ratio 11 (6-20) Glucose Level 149 mg/dL (70-99) Calcium Level 8.9 mg/dL (8.5-10.1) Total Bilirubin 0.2 mg/dL (0.2-1.0) Aspartate Amino Transf (AST/SGOT) 19 U/L (15-37) Alanine Aminotransferase (ALT/SGPT) 20 U/L (14-59) Alkaline Phosphatase 56 U/L (46-116) Total Protein 6.7 g/dL (6.4-8.2) Albumin 2.4 g/dL (3.4-5.0) Albumin/Globulin Ratio 0.6 (1.0-1.7) Test 11/15/18 07:51 Glucose (Fingerstick) 89 mg/dL (70-99) Medications Active Scripts Medications Dose Route/Sig Max Daily Dose Days Date Category Simvastatin 10 Mg Tablet 1 Tab PO QHS 30 10/23/18 Rx Glipizide 10 Mg Tablet 10 Mg PO DAILY 3 10/23/18 Rx Gabapentin 300 Mg Capsule 300 Mg PO TID 30 10/23/18 Rx Lisinopril 10 Mg Tablet 1 Tab PO DAILY 10/23/18 Rx Novolog Flexpen (Insulin Aspart) 100 Unit/1 Ml Insuln.pen 100 Unit SQ 07/18/13 Reported Metformin Hcl 500 Mg Tablet 500 Mg PO 07/18/13 Reported Comments no new imaging but again I believe CXR of 11/13 suggestive of CHF Impression . 1. Acute COPD exacerbation -- improving 2. CHF improving 3. Sepsis improving 4. History of lung cancer s/p chemotherapy and radiation therapy Plan . Continue antibiotics, bronchodilators and steroids echocardiogram pending will titrate O2 as tolerated Repeat cxr reviewed. will do ct chest LOLI CESPEDES MD Nov 15, 2018 10:39
[2018-11-15 11:00] VITALS: BP 110/53
[2018-11-15] MEDS ORDERED: VANCOMYCIN 2 GM in IV NORMAL SALINE 500ML BAG 500 ML IV SCH (12:00)
[2018-11-15] MEDS: VANCOMYCIN PER PHARMACY MC PRN (12:06)
--- NOTE | 2018-11-15 12:13 | NUR ---
Pharmacy Vancomycin Dosing Note S:Consulted to monitor and dose vancomycin started 11/13/18. O:JOHN IRBY is a 77 year old F with Sepsis Pneumonia . Height: 5 feet, 3 inches Weight: 95.392373 kg [place] Body Weight: 52.40 Adjusted Body Weight: 68.60 Dosing Weight: Actual Other Antibiotics: ZITHROMAX LABS: Last BUN: 13 Last Creatinine: 1.2 Creatinine Clearance: 46 mL/min Last WBC: 6.6 Last Procalcitonin: <0.10 Tmax (past 24 hours): 99.8 Microbiology: 11/15 NONE I/O: 1040/3000 Drug Levels: Last Trough level: 12.4 on 11/15/18 at 1000 Last dose given 11/13/18 at 1000 Vancomycin Dosing: Loading Dose: 2000 mg x1 Dosing Weight: Actual Target Trough: 15-20 A: Based on: SUBTHERAPEUTIC TROUGH FOR INDICATION, P: 1. INCREASE DOSE TO Vancomycin 2000 mg IV q24h 2. Follow up Trough level NEEDED IF VANCOMYCIN CONTINUES 3. Pharmacy will continue to monitor, follow and adjust therapy as needed. ANNE STEIN RPH, 11/15/18 [id number]
--- NOTE | 2018-11-15 12:20 | PDOC ---
PROGRESS NOTES Chief Complaint Chief Complaint sepsis COPD with acute bronchitis, acute on chronic encephalopathy improved obesity, BMI 36 DM2, w. hyperglycemia CAD, recent [place] History of Present Illness History of Present Illness on CVC, better, cont current increase insulin, home dose, add lantus restart metoformin, OOB to chair [facility] has CT chest ordered, has PET scan sched for Vitals Vitals Vital Signs Date Time Temp Pulse Resp B/P (MAP) Pulse Ox O2 Delivery O2 Flow Rate FiO2 11/15/18 11:00 98.0 103 20 110/53 (72) 98 Nasal Cannula 2.5 98.0 Physical Exam General: Alert, Cooperative, No acute distress Lungs: Clear Abdomen: Normal bowel sounds, Soft (obese) Extremities: No clubbing, Normal pulses Skin: No rashes, No significant lesion Labs LABS Laboratory Tests Test 11/14/18 16:41 11/14/18 21:10 11/15/18 04:45 11/15/18 07:51 Glucose (Fingerstick) 351 mg/dL (70-99) 344 mg/dL (70-99) 89 mg/dL (70-99) White Blood Count 6.6 x10^3/uL (4.0-11.0) Red Blood Count 2.49 x10^6/uL (3.50-5.40) Hemoglobin 7.3 g/dL (12.0-15.5) Hematocrit 23.2 % (36.0-47.0) Mean Corpuscular Volume 93 fL (79-100) Mean Corpuscular Hemoglobin 29 pg (25-35) Mean Corpuscular Hemoglobin Concent 31 g/dL (31-37) Red Cell Distribution Width 15.3 % (11.5-14.5) Platelet Count 484 x10^3/uL (140-400) Neutrophils (%) (Auto) 73 % (31-73) Lymphocytes (%) (Auto) 11 % (24-48) Monocytes (%) (Auto) 16 % (0-9) Eosinophils (%) (Auto) 0 % (0-3) Basophils (%) (Auto) 0 % (0-3) Neutrophils # (Auto) 4.8 x10^3/uL (1.8-7.7) Lymphocytes # (Auto) 0.7 x10^3/uL (1.0-4.8) Monocytes # (Auto) 1.0 x10^3/uL (0.0-1.1) Eosinophils # (Auto) 0.0 x10^3/uL (0.0-0.7) Basophils # (Auto) 0.0 x10^3/uL (0.0-0.2) Sodium Level 139 mmol/L (136-145) Potassium Level 4.4 mmol/L (3.5-5.1) Chloride Level 102 mmol/L (98-107) Carbon Dioxide Level 33 mmol/L (21-32) Anion Gap 4 (6-14) Blood Urea Nitrogen 13 mg/dL (7-20) Creatinine 1.2 mg/dL (0.6-1.0) Estimated GFR (Cockcroft-Gault) 52.7 BUN/Creatinine Ratio 11 (6-20) Glucose Level 149 mg/dL (70-99) Calcium Level 8.9 mg/dL (8.5-10.1) Total Bilirubin 0.2 mg/dL (0.2-1.0) Aspartate Amino Transf (AST/SGOT) 19 U/L (15-37) Alanine Aminotransferase (ALT/SGPT) 20 U/L (14-59) Alkaline Phosphatase 56 U/L (46-116) Total Protein 6.7 g/dL (6.4-8.2) Albumin 2.4 g/dL (3.4-5.0) Albumin/Globulin Ratio 0.6 (1.0-1.7) Test 11/15/18 10:00 Vancomycin Level Trough 12.4 mcg/mL (10.0-20.0) Vancomycin Last Dose Date 11/14/18 Vancomycin Last Dose Time 1000 Assessment and Plan Assessmemt and Plan Problems Medical Problems: (1) COPD exacerbation Status: Acute (2) Sepsis Status: Acute Comment Review of Relevant I have reviewed the following items myesha (where applicable) has been applied. Labs Laboratory Tests Test 11/13/18 16:42 11/13/18 20:27 11/14/18 07:22 11/14/18 11:21 Glucose (Fingerstick) 299 mg/dL (70-99) 330 mg/dL (70-99) 179 mg/dL (70-99) 206 mg/dL (70-99) Test 11/14/18 16:41 11/14/18 21:10 11/15/18 04:45 11/15/18 07:51 Glucose (Fingerstick) 351 mg/dL (70-99) 344 mg/dL (70-99) 89 mg/dL (70-99) White Blood Count 6.6 x10^3/uL (4.0-11.0) Red Blood Count 2.49 x10^6/uL (3.50-5.40) Hemoglobin 7.3 g/dL (12.0-15.5) Hematocrit 23.2 % (36.0-47.0) Mean Corpuscular Volume 93 fL (79-100) Mean Corpuscular Hemoglobin 29 pg (25-35) Mean Corpuscular Hemoglobin Concent 31 g/dL (31-37) Red Cell Distribution Width 15.3 % (11.5-14.5) Platelet Count 484 x10^3/uL (140-400) Neutrophils (%) (Auto) 73 % (31-73) Lymphocytes (%) (Auto) 11 % (24-48) Monocytes (%) (Auto) 16 % (0-9) Eosinophils (%) (Auto) 0 % (0-3) Basophils (%) (Auto) 0 % (0-3) Neutrophils # (Auto) 4.8 x10^3/uL (1.8-7.7) Lymphocytes # (Auto) 0.7 x10^3/uL (1.0-4.8) Monocytes # (Auto) 1.0 x10^3/uL (0.0-1.1) Eosinophils # (Auto) 0.0 x10^3/uL (0.0-0.7) Basophils # (Auto) 0.0 x10^3/uL (0.0-0.2) Sodium Level 139 mmol/L (136-145) Potassium Level 4.4 mmol/L (3.5-5.1) Chloride Level 102 mmol/L (98-107) Carbon Dioxide Level 33 mmol/L (21-32) Anion Gap 4 (6-14) Blood Urea Nitrogen 13 mg/dL (7-20) Creatinine 1.2 mg/dL (0.6-1.0) Estimated GFR (Cockcroft-Gault) 52.7 BUN/Creatinine Ratio 11 (6-20) Glucose Level 149 mg/dL (70-99) Calcium Level 8.9 mg/dL (8.5-10.1) Total Bilirubin 0.2 mg/dL (0.2-1.0) Aspartate Amino Transf (AST/SGOT) 19 U/L (15-37) Alanine Aminotransferase (ALT/SGPT) 20 U/L (14-59) Alkaline Phosphatase 56 U/L (46-116) Total Protein 6.7 g/dL (6.4-8.2) Albumin 2.4 g/dL (3.4-5.0) Albumin/Globulin Ratio 0.6 (1.0-1.7) Test 11/15/18 10:00 Vancomycin Level Trough 12.4 mcg/mL (10.0-20.0) Vancomycin Last Dose Date 11/14/18 Vancomycin Last Dose Time 1000 Laboratory Tests Test 11/14/18 16:41 11/14/18 21:10 11/15/18 04:45 11/15/18 07:51 Glucose (Fingerstick) 351 mg/dL (70-99) 344 mg/dL (70-99) 89 mg/dL (70-99) White Blood Count 6.6 x10^3/uL (4.0-11.0) Red Blood Count 2.49 x10^6/uL (3.50-5.40) Hemoglobin 7.3 g/dL (12.0-15.5) Hematocrit 23.2 % (36.0-47.0) Mean Corpuscular Volume 93 fL (79-100) Mean Corpuscular Hemoglobin 29 pg (25-35) Mean Corpuscular Hemoglobin Concent 31 g/dL (31-37) Red Cell Distribution Width 15.3 % (11.5-14.5) Platelet Count 484 x10^3/uL (140-400) Neutrophils (%) (Auto) 73 % (31-73) Lymphocytes (%) (Auto) 11 % (24-48) Monocytes (%) (Auto) 16 % (0-9) Eosinophils (%) (Auto) 0 % (0-3) Basophils (%) (Auto) 0 % (0-3) Neutrophils # (Auto) 4.8 x10^3/uL (1.8-7.7) Lymphocytes # (Auto) 0.7 x10^3/uL (1.0-4.8) Monocytes # (Auto) 1.0 x10^3/uL (0.0-1.1) Eosinophils # (Auto) 0.0 x10^3/uL (0.0-0.7) Basophils # (Auto) 0.0 x10^3/uL (0.0-0.2) Sodium Level 139 mmol/L (136-145) Potassium Level 4.4 mmol/L (3.5-5.1) Chloride Level 102 mmol/L (98-107) Carbon Dioxide Level 33 mmol/L (21-32) Anion Gap 4 (6-14) Blood Urea Nitrogen 13 mg/dL (7-20) Creatinine 1.2 mg/dL (0.6-1.0) Estimated GFR (Cockcroft-Gault) 52.7 BUN/Creatinine Ratio 11 (6-20) Glucose Level 149 mg/dL (70-99) Calcium Level 8.9 mg/dL (8.5-10.1) Total Bilirubin 0.2 mg/dL (0.2-1.0) Aspartate Amino Transf (AST/SGOT) 19 U/L (15-37) Alanine Aminotransferase (ALT/SGPT) 20 U/L (14-59) Alkaline Phosphatase 56 U/L (46-116) Total Protein 6.7 g/dL (6.4-8.2) Albumin 2.4 g/dL (3.4-5.0) Albumin/Globulin Ratio 0.6 (1.0-1.7) Test 11/15/18 10:00 Vancomycin Level Trough 12.4 mcg/mL (10.0-20.0) Vancomycin Last Dose Date 11/14/18 Vancomycin Last Dose Time 1000 Medications Current Medications Sodium Chloride 1,000 ml @ 100 mls/hr Q10H IV Last administered on 11/13/18at 07:56; Start 11/13/18 at 02:30; Stop 11/13/18 at 14:33; Status DC Gabapentin (Neurontin) 300 mg BID PO Last administered on 11/15/18at 08:52; Start 11/13/18 at 09:00 Lisinopril (Prinivil) 10 mg DAILY PO Last administered on 11/15/18at 08:52; Start 11/13/18 at 09:00 Simvastatin (Zocor) 10 mg QHS PO Last administered on 11/14/18 21:43; Start 11/13/18 at 21:00 Glipizide (Glucotrol) 10 mg DAILYAC PO Last administered on 11/15/18 08:52; Start 11/13/18 at 07:30 Insulin Human Lispro (HumaLOG) 0-5 UNITS TIDWMEALS SQ Last administered on 11/14at 11:55; Start 11/13/18 at 12:00 Dextrose (Dextrose 50%-Water Syringe) 12.5 gm PRN Q15MIN PRN IV SEE COMMENTS; Start 11/13/18 at 09:30 Vancomycin HCl (Vanco Per Pharmacy) 1 each PRN DAILY PRN MC SEE COMMENTS Last administered on 11/15/18 12:06; Start 11/13/18 at 09:30 Piperacillin Sod/ Tazobactam Sod (Zosyn Per Pharmacy) 1 each PRN DAILY PRN MC SEE COMMENTS; Start 11/13/18 at 09:30; Status UNV Prednisone (Prednisone) 40 mg DAILY PO Last administered on 11/15/18 08:51; Start 11/13/18 at 09:30 Vancomycin HCl 2 gm/Sodium Chloride 500 ml @ 250 mls/hr 1X ONCE IV Last administered on 11/13/18 09:58; Start 11/13/18 at 10:00; Stop 11/13/18 at 11:59; Status DC Azithromycin 500 mg/Sodium Chloride 250 ml @ 250 mls/hr Q24H IV Last administered on 11/15/18 09:49; Start 11/13/18 at 10:00 Enoxaparin Sodium (Lovenox Per Pharmacy Prophylaxis Dosing) 1 each PRN DAILY PRN MC SEE COMMENTS; Start 11/13/18 at 10:15 Enoxaparin Sodium (Lovenox 40mg Syringe) 40 mg Q24H SQ Last administered on 11/14/18at 11:14; Start 11/13/18 at 10:15 Oxycodone/ Acetaminophen (Percocet 5/325) 1 tab PRN Q4HRS PRN PO PAIN Last administered on 11/15/18 08:53; Start 11/13/18 at 10:30 Vancomycin HCl 1.5 gm/Sodium Chloride 500 ml @ 250 mls/hr Q24H IV Last administered on 11/14/18at 11:14; Start 11/14/18 at 10:00; Stop 11/15/18 at 11:17; Status DC Vancomycin HCl (Vancomycin Trough Level) 1 each 1X ONCE MC Last administered on 11/15/18at 09:30; Start 11/15/18 at 09:30; Stop 11/15/18 at 09:31; Status DC Lactobacillus Rhamnosus (Culturelle) 1 cap BID PO ; Start 11/13/18 at 21:00; Status Cancel Albuterol/ Ipratropium (Duoneb) 3 ml RTQID NEB Last administered on 11/15/18at 07:27; Start 11/13/18 at 12:00 Furosemide (Lasix) 20 mg 1X ONCE IVP Last administered on 11/13/18at 12:09; Start 11/13/18 at 11:45; Stop 11/13/18 at 11:49; Status DC Fentanyl (Duragesic 25mcg/ Hr Patch) 1 patch Q3DAYS TD Last administered on at 11:14; Start 11/14/18 at 10:51 Ondansetron HCl (Zofran) 4 mg PRN Q6HRS PRN IV NAUSEA/VOMITING Last administered on 11/14/18at 17:26; Start 11/14/18 at 10:45 Insulin Human Lispro (HumaLOG) 13 units 1X ONCE SQ Last administered on 11/14/18at 17:31; Start 11/14/18 at 17:00; Stop 11/14/18 at 17:04; Status DC Insulin Glargine (Lantus) 10 units QHS SQ Last administered on 11/14/18at 21:46; Start 11/14/18 at 21:00 Metformin HCl (Glucophage) 500 mg BIDWMEALS PO Last administered on 11/15/18at 08:52; Start 11/14/18 at 17:15 Insulin Human Lispro (HumaLOG) 8 units TIDWMEALS SQ ; Start 11/14/18 at 17:30 Lactobacillus Rhamnosus (Culturelle) 1 cap BID PO ; Start 11/15/18 at 21:00 Vancomycin HCl 2 gm/Sodium Chloride 500 ml @ 250 mls/hr Q24H IV ; Start 11/15/18 at 12:00 Active Scripts Active Simvastatin 10 Mg Tablet 1 Tab PO QHS 30 Days Glipizide 10 Mg Tablet 10 Mg PO DAILY 3 Days Gabapentin 300 Mg Capsule 300 Mg PO TID 30 Days Lisinopril 10 Mg Tablet 1 Tab PO DAILY Reported Novolog Flexpen (Insulin Aspart) 100 Unit/1 Ml Insuln.pen 100 Unit SQ Metformin Hcl 500 Mg Tablet 500 Mg PO Vitals/I & O Vital Sign - Last 24 Hours 11/14/18 11/14/18 11/14/18 11/14/18 12:58 14:26 15:28 16:22 Temp 98.4 98.4 Pulse 106 Resp 16 B/P (MAP) 139/59 (85) Pulse Ox 94 94 O2 Delivery Nasal Cannula Nasal Cannula Nasal Cannula Nasal Cannula O2 Flow Rate 3.0 3.5 3.5 3.0 11/14/18 11/14/18 11/14/18 11/14/18 17:25 18:49 19:17 19:36 Temp 98.4 98.4 Pulse 112 Resp B/P (MAP) 145/70 (95) Pulse Ox 94 94 94 O2 Delivery Nasal Cannula Nasal Cannula Nasal Cannula Nasal Cannula O2 Flow Rate 3.0 3.0 3.0 3.0 11/14/18 11/14/18 11/15/18 11/15/18 20:00 22:10 02:01 07:00 Temp 98.9 98.7 98.0 98.9 98.7 98.0 Pulse 106 102 97 Resp 18 18 20 B/P (MAP) 154/72 (99) 131/83 (99) 144/63 (90) Pulse Ox 92 94 97 O2 Delivery Nasal Cannula Nasal Cannula Nasal Cannula Nasal Cannula O2 Flow Rate 3.0 2.5 2.5 2.5 11/15/18 11/15/18 11/15/18 11/15/18 07:27 08:00 08:52 08:53 Pulse 103 Resp 20 B/P (MAP) 144/63 Pulse Ox 99 O2 Delivery Nasal Cannula Nasal Cannula Nasal Cannula O2 Flow Rate 3.0 4.0 3.0 11/15/18 11:00 Temp 98.0 98.0 Pulse 103 Resp 20 B/P (MAP) 110/53 (72) Pulse Ox 98 O2 Delivery Nasal Cannula O2 Flow Rate 2.5 Intake and Output 11/14/18 11/14/1811/15/19 14:59 22:59 06:59 Intake Total 240 ml 800 ml Output Total 1750 ml 1275 ml Balance 240 ml -1750 ml -475 ml KYRIE HUSSEIN MD Nov 15, 2018 12:20
--- NOTE | 2018-11-15 12:49 | NUR ---
SS following for discharge planning. SS reviewed pt chart. Pt is from home and is currently requiring oxygen. Pt has had recent stay at [facility]. PT/OT recommending senior living unit. SS contacted [facility] and spoke with Nori Ziegler. Nori reported that they would not accept back due to non compliance. SS met with pt and family in room to discuss discharge planning, participation, and senior living unit. Pt assured SS she would participate and pt and family requested referral be phoned and faxed to [facility], ; fax [phone]. SS phoned and faxed referral. Pt's family chose [facility] as a second option if denied at [facility]. SS will await acceptance decision from [facility] and will proceed accordingly with discharge planning.
[2018-11-15 15:00] VITALS: BP 146/68
--- NOTE | 2018-11-15 17:12 | RAD ---
CT CHEST WO CONTRAST INDICATION: lung cancer COMPARISON STUDY: CT 10/19/2018. TECHNIQUE: Unenhanced axial images were obtained through the lungs and upper abdomen. Coronal MIP images and coronal and sagittal multiplanar reconstructions were also obtained. FINDINGS: Lungs and Airways: Stable left perihilar opacities with some architectural distortion consistent with posttreatment change. Stable bilateral basilar predominant fibrotic changes. Normal central airways. Pleura: Slightly improved small left pleural effusion with features of loculation. No pneumothorax. Heart and Mediastinum: The visualized thyroid gland is normal in size and attenuation. No axillary or supraclavicular lymphadenopathy. Stable mildly enlarged right lower paratracheal lymph node measuring 1.0 cm (series 2 image 22). Previously described enlarged right hilar lymph node is not well evaluated on this exam due to lack of intravenous contrast. Cardiomegaly. No pericardial effusion. Coronary artery atherosclerotic disease. Atherosclerosis of the thoracic aorta. Small hiatal hernia. Abdomen: The visualized abdominal organs demonstrate no abnormality. Bones and Soft Tissues: Multilevel degenerative changes of the spine. IMPRESSION: 1. No evidence of disease progression. Stable left perihilar post radiation changes. Stable mediastinal lymphadenopathy. Previously described hilar lymphadenopathy is not well evaluated on this exam due to lack of intravenous contrast. 2. Slightly improved small left pleural effusion with features of loculation. Electronically signed by: Patrick Alfonso MD (11/15/2018 5:10 PM) [email or web address]
[2018-11-15 19:00] VITALS: BP 142/61
[2018-11-15] MEDS: SIMVASTATIN 10 MG TABLET PO SCH (21:13)
[2018-11-15] MEDS: LACTOBACILLUS RHAMNOSUS GG 1 CAPSULE. PO SCH (21:13)
[2018-11-15] MEDS: INSULIN GLARGINE 300 UNITS/3 ML INSULN.PEN. SQ SCH (21:19)
[2018-11-15 22:50] VITALS: BP 102/63
[2018-11-16 01:07] LABS: HEMOGLOBIN A1C 8.1 % (4.8-5.6)
[2018-11-16 02:32] VITALS: BP 137/71
[2018-11-16] MEDS ORDERED: POLYETHYLENE GLYCOL 3350 17 GM PACKET. PO PRN (06:30)
[2018-11-16 07:00] VITALS: BP 149/71
[2018-11-16] MEDS ORDERED: PSYLLIUM HUSK (SUGAR FREE) 1 PKT PACKET PO ONE (07:00)
[2018-11-16] MEDS: IPRATRPIUM/ALBUTEROL 0.5/2.5MG 3 ML NEBU. NEB SCH ×2 (07:51→11:39)
[2018-11-16] MEDS: INSULIN LISPRO 300 UNITS/3 ML INSULN.PEN. SQ SCH ×4 (08:00→12:39)
--- NOTE | 2018-11-16 08:24 | PDOC ---
PROGRESS NOTES Chief Complaint Chief Complaint Sepsis COPD with acute bronchitis, acute on chronic encephalopathy improved obesity, BMI 36 DM2, w. hyperglycemia CAD, recent [place] History of Present Illness History of Present Illness Still on O2, decreasing, improved increased insulin, home dose, add lantus OOB to chair DC'd jauregui, no urinary retention. plan SNU has CT chest ordered, has PET scan schedule for Vitals Vitals Vital Signs Date Time Temp Pulse Resp B/P (MAP) Pulse Ox O2 Delivery O2 Flow Rate FiO2 11/16/18 07:52 98 Nasal Cannula 3.0 11/16/18 07:00 97.8 97 18 149/71 (97) 97.8 Physical Exam General: Alert, Cooperative, No acute distress Lungs: Clear Abdomen: Normal bowel sounds, Soft (obese) Extremities: No clubbing, Normal pulses Skin: No rashes, No significant lesion Labs LABS Laboratory Tests Test 11/15/18 10:00 11/15/18 12:37 11/15/18 17:27 11/15/18 20:43 Vancomycin Level Trough 12.4 mcg/mL (10.0-20.0) Vancomycin Last Dose Date 11/14/18 Vancomycin Last Dose Time 1000 Glucose (Fingerstick) 120 mg/dL (70-99) 301 mg/dL (70-99) 282 mg/dL (70-99) Test 11/16/18 07:29 Glucose (Fingerstick) 98 mg/dL (70-99) Assessment and Plan Assessmemt and Plan Problems Medical Problems: (1) CAD (coronary artery disease) Status: Chronic (2) COPD exacerbation Status: Acute (3) DM2 (diabetes mellitus, type 2) Status: Chronic (4) Encephalopathy chronic Status: Acute (5) Myocardial infarction Status: Chronic (6) Obesity (BMI 30-39.9) Status: Chronic (7) Sepsis Status: Acute Comment Review of Relevant I have reviewed the following items myesha (where applicable) has been applied. Labs Laboratory Tests Test 11/14/18 11:21 11/14/18 16:41 11/14/18 21:10 11/15/18 04:45 Glucose (Fingerstick) 206 mg/dL (70-99) 351 mg/dL (70-99) 344 mg/dL (70-99) White Blood Count 6.6 x10^3/uL (4.0-11.0) Red Blood Count 2.49 x10^6/uL (3.50-5.40) Hemoglobin 7.3 g/dL (12.0-15.5) Hematocrit 23.2 % (36.0-47.0) Mean Corpuscular Volume 93 fL (79-100) Mean Corpuscular Hemoglobin 29 pg (25-35) Mean Corpuscular Hemoglobin Concent 31 g/dL (31-37) Red Cell Distribution Width 15.3 % (11.5-14.5) Platelet Count 484 x10^3/uL (140-400) Neutrophils (%) (Auto) 73 % (31-73) Lymphocytes (%) (Auto) 11 % (24-48) Monocytes (%) (Auto) 16 % (0-9) Eosinophils (%) (Auto) 0 % (0-3) Basophils (%) (Auto) 0 % (0-3) Neutrophils # (Auto) 4.8 x10^3/uL (1.8-7.7) Lymphocytes # (Auto) 0.7 x10^3/uL (1.0-4.8) Monocytes # (Auto) 1.0 x10^3/uL (0.0-1.1) Eosinophils # (Auto) 0.0 x10^3/uL (0.0-0.7) Basophils # (Auto) 0.0 x10^3/uL (0.0-0.2) Sodium Level 139 mmol/L (136-145) Potassium Level 4.4 mmol/L (3.5-5.1) Chloride Level 102 mmol/L (98-107) Carbon Dioxide Level 33 mmol/L (21-32) Anion Gap 4 (6-14) Blood Urea Nitrogen 13 mg/dL (7-20) Creatinine 1.2 mg/dL (0.6-1.0) Estimated GFR (Cockcroft-Gault) 52.7 BUN/Creatinine Ratio 11 (6-20) Glucose Level 149 mg/dL (70-99) Hemoglobin A1c 8.1 % (4.8-5.6) Calcium Level 8.9 mg/dL (8.5-10.1) Total Bilirubin 0.2 mg/dL (0.2-1.0) Aspartate Amino Transf (AST/SGOT) 19 U/L (15-37) Alanine Aminotransferase (ALT/SGPT) 20 U/L (14-59) Alkaline Phosphatase 56 U/L (46-116) Total Protein 6.7 g/dL (6.4-8.2) Albumin 2.4 g/dL (3.4-5.0) Albumin/Globulin Ratio 0.6 (1.0-1.7) Test 11/15/18 07:51 11/15/18 10:00 11/15/18 12:37 11/15/18 17:27 Glucose (Fingerstick) 89 mg/dL (70-99) 120 mg/dL (70-99) 301 mg/dL (70-99) Vancomycin Level Trough 12.4 mcg/mL (10.0-20.0) Vancomycin Last Dose Date 11/14/18 Vancomycin Last Dose Time 1000 Test 11/15/18 20:43 11/16/18 07:29 Glucose (Fingerstick) 282 mg/dL (70-99) 98 mg/dL (70-99) Laboratory Tests Test 11/15/18 10:00 11/15/18 12:37 11/15/18 17:27 11/15/18 20:43 Vancomycin Level Trough 12.4 mcg/mL (10.0-20.0) Vancomycin Last Dose Date 11/14/18 Vancomycin Last Dose Time 1000 Glucose (Fingerstick) 120 mg/dL (70-99) 301 mg/dL (70-99) 282 mg/dL (70-99) Test 11/16/18 07:29 Glucose (Fingerstick) 98 mg/dL (70-99) Medications Current Medications Sodium Chloride 1,000 ml @ 100 mls/hr Q10H IV Last administered on 11/13/18at 07:56; Start 11/13/18 at 02:30; Stop 11/13/18 at 14:33; Status DC Gabapentin (Neurontin) 300 mg BID PO Last administered on 11/15/18at 21:13; Start 11/13/18 at 09:00 Lisinopril (Prinivil) 10 mg DAILY PO Last administered on 11/15/18at 08:52; Start 11/13/18 at 09:00 Simvastatin (Zocor) 10 mg QHS PO Last administered on 11/15/18at 21:13; Start 11/13/18 at 21:00 Glipizide (Glucotrol) 10 mg DAILYAC PO Last administered on 11/15/18 08:52; Start 11/13/18 at 07:30 Insulin Human Lispro (HumaLOG) 0-5 UNITS TIDWMEALS SQ Last administered on 11/15/18at 17:32; Start 11/13/18 at 12:00 Dextrose (Dextrose 50%-Water Syringe) 12.5 gm PRN Q15MIN PRN IV SEE COMMENTS; Start 11/13/18 at 09:30 Vancomycin HCl (Vanco Per Pharmacy) 1 each PRN DAILY PRN MC SEE COMMENTS Last administered on 11/15/18at 12:06; Start 11/13/18 at 09:30 Piperacillin Sod/ Tazobactam Sod (Zosyn Per Pharmacy) 1 each PRN DAILY PRN MC SEE COMMENTS; Start 11/13/18 at 09:30; Status UNV Prednisone (Prednisone) 40 mg DAILY PO Last administered on 11/15/18 08:51; Start 11/13/18 at 09:30 Vancomycin HCl 2 gm/Sodium Chloride 500 ml @ 250 mls/hr 1X ONCE IV Last administered on 11/13/18 09:58; Start 11/13/18 at 10:00; Stop 11/13/18 at 11:59; Status DC Azithromycin 500 mg/Sodium Chloride 250 ml @ 250 mls/hr Q24H IV Last administered on 11/15/18at 09:49; Start 11/13/18 at 10:00 Enoxaparin Sodium (Lovenox Per Pharmacy Prophylaxis Dosing) 1 each PRN DAILY PRN MC SEE COMMENTS; Start 11/13/18 at 10:15 Enoxaparin Sodium (Lovenox 40mg Syringe) 40 mg Q24H SQ Last administered on 11/14/18at 11:14; Start 11/13/18 at 10:15 Oxycodone/ Acetaminophen (Percocet 5/325) 1 tab PRN Q4HRS PRN PO PAIN Last administered on 11/15/18 17:28; Start 11/13/18 at 10:30 Vancomycin HCl 1.5 gm/Sodium Chloride 500 ml @ 250 mls/hr Q24H IV Last administered on 11/14/18at 11:14; Start 11/14/18 at 10:00; Stop 11/15/18 at 11:17; Status DC Vancomycin HCl (Vancomycin Trough Level) 1 each 1X ONCE MC Last administered on 11/15/18 09:30; Start 11/15/18 at 09:30; Stop 11/15/18 at 09:31; Status DC Lactobacillus Rhamnosus (Culturelle) 1 cap BID PO ; Start 11/13/18 at 21:00; Status Cancel Albuterol/ Ipratropium (Duoneb) 3 ml RTQID NEB Last administered on 11/16/18 07:51; Start 11/13/18 at 12:00 Furosemide (Lasix) 20 mg 1X ONCE IVP Last administered on 11/13/18 12:09; Start 11/13/18 at 11:45; Stop 11/13/18 at 11:49; Status DC Fentanyl (Duragesic 25mcg/ Hr Patch) 1 patch Q3DAYS TD Last administered on 11/14/18 11:14; Start 11/14/18 at 10:51 Ondansetron HCl (Zofran) 4 mg PRN Q6HRS PRN IV NAUSEA/VOMITING Last administered on 11/14/18 17:26; Start 11/14/18 at 10:45 Insulin Human Lispro (HumaLOG) 13 units 1X ONCE SQ Last administered on 11/14/18 17:31; Start 11/14/18 at 17:00; Stop 11/14/18 at 17:04; Status DC Insulin Glargine (Lantus) 10 units QHS SQ Last administered on 11/15/18 21:19; Start 11/14/18 at 21:00 Metformin HCl (Glucophage) 500 mg BIDWMEALS PO Last administered on 11/15/18 17:28; Start 11/14/18 at 17:15 Insulin Human Lispro (HumaLOG) 8 units TIDWMEALS SQ Last administered on 11/15/18 17:34; Start 11/14/18 at 17:30 Lactobacillus Rhamnosus (Culturelle) 1 cap BID PO Last administered on 11/15/18at 21:13; Start 11/15/18 at 21:00 Vancomycin HCl 2 gm/Sodium Chloride 500 ml @ 250 mls/hr Q24H IV Last administered on 11/15/18at 12:37; Start 11/15/18 at 12:00 Polyethylene Glycol (miraLAX PACKET) 17 gm PRN BID PRN PO CONSTIPATION 1ST CHOICE Last administered on 11/16/18at 06:33; Start 11/16/18 at 06:30 Psyllium Hydrophilic Mucilloid (Metamucil Fiber Packet) 1 pkt 1X ONCE PO Last administered on 11/16/18at 06:33; Start 11/16/18 at 07:00; Stop 11/16/18 at 07:01; Status DC Active Scripts Active Simvastatin 10 Mg Tablet 1 Tab PO QHS 30 Days Glipizide 10 Mg Tablet 10 Mg PO DAILY 3 Days Gabapentin 300 Mg Capsule 300 Mg PO TID 30 Days Lisinopril 10 Mg Tablet 1 Tab PO DAILY Reported Novolog Flexpen (Insulin Aspart) 100 Unit/1 Ml Insuln.pen 100 Unit SQ Metformin Hcl 500 Mg Tablet 500 Mg PO Vitals/I & O Vital Sign - Last 24 Hours 11/15/18 11/15/18 11/15/18 11/15/18 08:52 08:53 11:00 12:26 Temp 98.0 98.0 Pulse 103 103 Resp 20 20 B/P (MAP) 144/63 110/53 (72) Pulse Ox 98 O2 Delivery Nasal Cannula Nasal Cannula Nasal Cannula O2 Flow Rate 3.0 2.5 3.0 11/15/18 11/15/18 11/15/18 11/15/18 15:00 15:55 17:28 19:00 Temp 98.4 98.3 98.4 98.3 Pulse 101 109 Resp 20 18 18 B/P (MAP) 146/68 (94) 142/61 (88) Pulse Ox 92 96 93 O2 Delivery Room Air Nasal Cannula Nasal Cannula Nasal Cannula O2 Flow Rate 3.0 3.0 3.0 11/15/18 11/15/18 11/15/18 11/16/18 20:32 21:59 22:50 02:32 Temp 97.5 98.2 97.5 98.2 Pulse 96 91 Resp 18 18 B/P (MAP) 102/63 (76) 137/71 (93) Pulse Ox 95 93 97 O2 Delivery Nasal Cannula Nasal Cannula Nasal Cannula Nasal Cannula O2 Flow Rate 3.0 3.0 3.0 3.0 11/16/18 11/16/18 07:00 07:52 Temp 97.8 97.8 Pulse 97 Resp 18 B/P (MAP) 149/71 (97) Pulse Ox 99 98 O2 Delivery Nasal Cannula Nasal Cannula O2 Flow Rate 3.0 3.0 Intake and Output 11/15/18 11/15/18 11/16/18 15:00 23:00 07:00 Intake Total 120 ml 240 ml Output Total 1050 ml Balance 120 ml -810 ml EMRE HODGE MD Nov 16, 2018 08:24
[2018-11-16] MEDS: GABAPENTIN 300 MG CAPSULE. PO SCH (09:38)
[2018-11-16] MEDS: metFORMIN 500 MG TABLET PO SCH (09:38)
[2018-11-16] MEDS: LISINOPRIL 10 MG TABLET PO SCH (09:38)
[2018-11-16] MEDS: predniSONE 20 MG TABLET PO SCH (09:39)
[2018-11-16] MEDS: LACTOBACILLUS RHAMNOSUS GG 1 CAPSULE. PO SCH (09:39)
[2018-11-16] MEDS: glipiZIDE 5 MG TABLET PO SCH (09:39)
[2018-11-16] MEDS: AZITHROMYCIN 500 MG in IV NORMAL SALINE 250ML 250 ML IV SCH (09:40)
[2018-11-16] MEDS: ENOXAPARIN 40 MG/0.4 ML SYRINGE. SQ SCH (09:43)
--- NOTE | 2018-11-16 10:11 | PDOC ---
PULMONARY PROGRESS NOTES Subjective 77 yo female who was admitted to [facility] as transfer from [facility] for sepsis and COPD exacerbation. no soa clinically better Vitals Vital Signs Date Time Temp Pulse Resp B/P (MAP) Pulse Ox O2 Delivery O2 Flow Rate FiO2 11/16/18 09:38 97 149/71 11/16/18 07:52 98 Nasal Cannula 3.0 11/16/18 07:00 97.8 18 97.8 General: Alert, No acute distress Lungs: Clear Cardiovascular: S1, S2 Abdomen: Soft, Non-tender Neuro Exam: Alert, Oriented Extremities: No Edema Labs Laboratory Tests Test 11/14/18 11:21 11/14/18 16:41 11/14/18 21:10 11/15/18 04:45 Glucose (Fingerstick) 206 mg/dL (70-99) 351 mg/dL (70-99) 344 mg/dL (70-99) White Blood Count 6.6 x10^3/uL (4.0-11.0) Red Blood Count 2.49 x10^6/uL (3.50-5.40) Hemoglobin 7.3 g/dL (12.0-15.5) Hematocrit 23.2 % (36.0-47.0) Mean Corpuscular Volume 93 fL (79-100) Mean Corpuscular Hemoglobin 29 pg (25-35) Mean Corpuscular Hemoglobin Concent 31 g/dL (31-37) Red Cell Distribution Width 15.3 % (11.5-14.5) Platelet Count 484 x10^3/uL (140-400) Neutrophils (%) (Auto) 73 % (31-73) Lymphocytes (%) (Auto) 11 % (24-48) Monocytes (%) (Auto) 16 % (0-9) Eosinophils (%) (Auto) 0 % (0-3) Basophils (%) (Auto) 0 % (0-3) Neutrophils # (Auto) 4.8 x10^3/uL (1.8-7.7) Lymphocytes # (Auto) 0.7 x10^3/uL (1.0-4.8) Monocytes # (Auto) 1.0 x10^3/uL (0.0-1.1) Eosinophils # (Auto) 0.0 x10^3/uL (0.0-0.7) Basophils # (Auto) 0.0 x10^3/uL (0.0-0.2) Sodium Level 139 mmol/L (136-145) Potassium Level 4.4 mmol/L (3.5-5.1) Chloride Level 102 mmol/L (98-107) Carbon Dioxide Level 33 mmol/L (21-32) Anion Gap 4 (6-14) Blood Urea Nitrogen 13 mg/dL (7-20) Creatinine 1.2 mg/dL (0.6-1.0) Estimated GFR (Cockcroft-Gault) 52.7 BUN/Creatinine Ratio 11 (6-20) Glucose Level 149 mg/dL (70-99) Hemoglobin A1c 8.1 % (4.8-5.6) Calcium Level 8.9 mg/dL (8.5-10.1) Total Bilirubin 0.2 mg/dL (0.2-1.0) Aspartate Amino Transf (AST/SGOT) 19 U/L (15-37) Alanine Aminotransferase (ALT/SGPT) 20 U/L (14-59) Alkaline Phosphatase 56 U/L (46-116) Total Protein 6.7 g/dL (6.4-8.2) Albumin 2.4 g/dL (3.4-5.0) Albumin/Globulin Ratio 0.6 (1.0-1.7) Test 11/15/18 07:51 11/15/18 10:00 11/15/18 12:37 11/15/18 17:27 Glucose (Fingerstick) 89 mg/dL (70-99) 120 mg/dL (70-99) 301 mg/dL (70-99) Vancomycin Level Trough 12.4 mcg/mL (10.0-20.0) Vancomycin Last Dose Date 11/14/18 Vancomycin Last Dose Time 1000 Test 11/15/18 20:43 11/16/18 07:29 Glucose (Fingerstick) 282 mg/dL (70-99) 98 mg/dL (70-99) Laboratory Tests Test 11/15/18 12:37 11/15/18 17:27 11/15/18 20:43 11/16/18 07:29 Glucose (Fingerstick) 120 mg/dL (70-99) 301 mg/dL (70-99) 282 mg/dL (70-99) 98 mg/dL (70-99) Medications Active Scripts Medications Dose Route/Sig Max Daily Dose Days Date Category Simvastatin 10 Mg Tablet 1 Tab PO QHS 30 10/23/18 Rx Glipizide 10 Mg Tablet 10 Mg PO DAILY 3 10/23/18 Rx Gabapentin 300 Mg Capsule 300 Mg PO TID 30 10/23/18 Rx Lisinopril 10 Mg Tablet 1 Tab PO DAILY 10/23/18 Rx Novolog Flexpen (Insulin Aspart) 100 Unit/1 Ml Insuln.pen 100 Unit SQ 07/18/13 Reported Metformin Hcl 500 Mg Tablet 500 Mg PO 07/18/[address] CHEST 1. No evidence of disease progression. Stable left perihilar post radiation changes. Stable mediastinal lymphadenopathy. Previously described hilar lymphadenopathy is not well evaluated on this exam due to lack of intravenous contrast. 2. Slightly improved small left pleural effusion with features of loculation. Electronically signed by: Patrick Alfonso MD (11/15/2018 5:10 PM) [id number] Impression . 1. Acute COPD exacerbation -- improved 2. ?CHF 3. Sepsis improved 4. History of lung cancer s/p chemotherapy and radiation therapy Plan . Continue antibiotics, bronchodilators and steroids echocardiogram P will titrate O2 as tolerated ct chest reviewed. post radiation changes left. no disease progression stable. dc plans per PCP LOLI CESPEDES MD Nov 16, 2018 10:11
[2018-11-16 11:00] VITALS: BP 132/75
[2018-11-16] MEDS ORDERED: DOXY100C2 PO (13:56)
[2018-11-16] MEDS ORDERED: INSU100I13 SQ (13:56)
[2018-11-16] MEDS ORDERED: IPRA3AMP29 NEB (13:56)
[2018-11-16] MEDS ORDERED: PRED20TA PO (13:56)
[2018-11-16] MEDS ORDERED: INSU100I11 SQ (13:56)
[2018-11-16] MEDS ORDERED: LACT1CAP19 PO (13:56)
[2018-11-16] MEDS ORDERED: POLY17PO28 PO (13:56)
--- NOTE | 2018-11-16 13:57 | SNU/HH DC ---
DISCHARGE ORDERS DISCHARGE INFORMATION: DISCHARGE DATE: Nov 16, 2018 FINAL DIAGNOSIS Problems Medical Problems: (1) CAD (coronary artery disease) Status: Chronic (2) COPD exacerbation Status: Acute (3) DM2 (diabetes mellitus, type 2) Status: Chronic (4) Encephalopathy chronic Status: Acute (5) Myocardial infarction Status: Chronic (6) Obesity (BMI 30-39.9) Status: Chronic (7) Sepsis Status: Acute CONDITION ON DISCHARGE: Stable CODE STATUS: Code Status: Full USP: SNF STAY <30 DAYS: Yes POST DISCHARGE ORDERS: ACTIVITY ORDERS: Activity as tolerated WEIGHT BEARING STATUS: As tolerated DIET AFTER DISCHARGE: ADA CHECKS AFTER DISCHARGE: CHECKS AFTER DISCHARGE: Check blood press - daily, Check blood sugar, ac/hs, Weigh Yourself Daily TREATMENT/EQUIPMENT ORDERS: RESPIRATORY EQUIPMENT NEEDED: Oxygen, Nebulizer Physical Therapy For: Evalulation/Treatment Occupational Therapy For: Evaluation/Treatment DISCHARGE MEDICATIONS: Home Meds Active Scripts Doxycycline Hyclate (DOXYCYCLINE HYCLATE) 100 Mg Capsule, 1 CAP PO BID for COPD for 7 Days, #14 CAP Prov:EMRE HODGE MD 11/16/18 Prednisone (PREDNISONE) 20 Mg Tablet, 40 MG PO DAILY for COPD for 5 Days, #10 TAB Prov:EMRE HODGE MD 11/16/18 Insulin Lispro (HUMALOG) 100 Unit/1 Ml Insuln.pen, 8 UNITS SQ TIDWMEALS for DM2 for 30 Days, #1 EACH + Sliding scale 1u for every 50mg/dL > 150mg/dL Call MD for glucose > 350 If glucose < 100, sliding scale only Prov:EMRE HODGE MD 11/16/18 Insulin Glargine,Hum.rec.anlog (LANTUS SOLOSTAR) 100 Unit/1 Ml Insuln.pen, 10 UNITS SQ QHS for DM2 for 30 Days, #1 EACH Prov:EMRE HODGE MD 11/16/18 Lactobacillus Rhamnosus Gg (CULTURELLE) 1 Each Cap.sprink, 1 CAP PO BID for antibiotic diarrhea for 10 Days, #20 CAP Prov:EMRE HODGE MD 11/16/18 Polyethylene Glycol 3350 (POLYETHYLENE GLYCOL 3350) 17 Gm Powd.pack, 17 GM PO PRN BID PRN for CONSTIPATION 1ST CHOICE for 30 Days, #60 PKT Prov:EMRE HODGE MD 11/16/18 Ipratropium/Albuterol Sulfate (DUONEB 0.5-3(2.5) MG/3 ML) 3 Ml Ampul.neb, 3 ML NEB RTQID for COPD for 30 Days, #120 EACH Prov:EMRE HODGE MD 11/16/18 Simvastatin (SIMVASTATIN) 10 Mg Tablet, 1 TAB PO QHS for hld for 30 Days, #30 TAB 5 Refills Prov:WOODROW JACOB MD 10/23/18 Glipizide (GLIPIZIDE) 10 Mg Tablet, 10 MG PO DAILY for dm for 3 Days, #3 TAB Prov:WOODROW JACOB MD 10/23/18 Gabapentin (GABAPENTIN) 300 Mg Capsule, 300 MG PO TID for NEUROGENIC PAIN for 30 Days, #90 CAP Prov:WOODROW JACOB MD 10/23/18 Lisinopril (LISINOPRIL) 10 Mg Tablet, 1 TAB PO DAILY for htn, #30 TAB 5 Refills Prov:WOODROW JACOB MD 10/23/18 Reported Medications Metformin Hcl (METFORMIN HCL) 500 Mg Tablet, 500 MG PO 07/18/13 Discontinued Reported Medications Insulin Aspart (NOVOLOG FLEXPEN) 100 Unit/1 Ml Insuln.pen, 100 UNIT SQ 07/18/13 EMRE HODGE MD Nov 16, 2018 13:57
--- NOTE | 2018-11-16 14:04 | PDOC3 ---
Discharge Summary Visit Information Date of Admission: Nov 13, 2018 Date of Discharge: Nov 16, 2018 Admitting Diagnosis: Acute hypoxic respiratory failure Final Diagnosis Problems Medical Problems: (1) CAD (coronary artery disease) Status: Chronic (2) COPD exacerbation Status: Acute (3) DM2 (diabetes mellitus, type 2) Status: Chronic (4) Encephalopathy chronic Status: Acute (5) Myocardial infarction Status: Chronic (6) Obesity (BMI 30-39.9) Status: Chronic (7) Sepsis Status: Acute Brief Hospital Course Allergies Allergies Coded Allergies Type Severity Reaction Last Updated Verified Penicillins Allergy Severe 11/13/18 Yes amoxicillin trihydrate Allergy Intermediate 10/22/18 Yes famotidine Allergy Intermediate 10/22/18 Yes potassium clavulanate Allergy Intermediate 10/22/18 Yes sulfamethoxazole Allergy Intermediate 10/22/18 Yes trimethoprim Allergy Intermediate 10/22/18 Yes I S O L A T I O N *CONTACT* Allergy Unknown 10/21/18 Yes Vital Signs Vital Signs Date Time Temp Pulse Resp B/P (MAP) Pulse Ox O2 Delivery O2 Flow Rate FiO2 11/16/18 11:40 96 Nasal Cannula 3.0 11/16/18 11:00 97.7 101 20 132/75 (94) 97.7 Lab Results Laboratory Tests Test 11/14/18 16:41 11/14/18 21:10 11/15/18 04:45 11/15/18 07:51 Glucose (Fingerstick) 351 mg/dL (70-99) 344 mg/dL (70-99) 89 mg/dL (70-99) White Blood Count 6.6 x10^3/uL (4.0-11.0) Red Blood Count 2.49 x10^6/uL (3.50-5.40) Hemoglobin 7.3 g/dL (12.0-15.5) Hematocrit 23.2 % (36.0-47.0) Mean Corpuscular Volume 93 fL (79-100) Mean Corpuscular Hemoglobin 29 pg (25-35) Mean Corpuscular Hemoglobin Concent 31 g/dL (31-37) Red Cell Distribution Width 15.3 % (11.5-14.5) Platelet Count 484 x10^3/uL (140-400) Neutrophils (%) (Auto) 73 % (31-73) Lymphocytes (%) (Auto) 11 % (24-48) Monocytes (%) (Auto) 16 % (0-9) Eosinophils (%) (Auto) 0 % (0-3) Basophils (%) (Auto) 0 % (0-3) Neutrophils # (Auto) 4.8 x10^3/uL (1.8-7.7) Lymphocytes # (Auto) 0.7 x10^3/uL (1.0-4.8) Monocytes # (Auto) 1.0 x10^3/uL (0.0-1.1) Eosinophils # (Auto) 0.0 x10^3/uL (0.0-0.7) Basophils # (Auto) 0.0 x10^3/uL (0.0-0.2) Sodium Level 139 mmol/L (136-145) Potassium Level 4.4 mmol/L (3.5-5.1) Chloride Level 102 mmol/L (98-107) Carbon Dioxide Level 33 mmol/L (21-32) Anion Gap 4 (6-14) Blood Urea Nitrogen 13 mg/dL (7-20) Creatinine 1.2 mg/dL (0.6-1.0) Estimated GFR (Cockcroft-Gault) 52.7 BUN/Creatinine Ratio 11 (6-20) Glucose Level 149 mg/dL (70-99) Hemoglobin A1c 8.1 % (4.8-5.6) Calcium Level 8.9 mg/dL (8.5-10.1) Total Bilirubin 0.2 mg/dL (0.2-1.0) Aspartate Amino Transf (AST/SGOT) 19 U/L (15-37) Alanine Aminotransferase (ALT/SGPT) 20 U/L (14-59) Alkaline Phosphatase 56 U/L (46-116) Total Protein 6.7 g/dL (6.4-8.2) Albumin 2.4 g/dL (3.4-5.0) Albumin/Globulin Ratio 0.6 (1.0-1.7) Test 11/15/18 10:00 11/15/18 12:37 11/15/18 17:27 11/15/18 20:43 Vancomycin Level Trough 12.4 mcg/mL (10.0-20.0) Vancomycin Last Dose Date 11/14/18 Vancomycin Last Dose Time 1000 Glucose (Fingerstick) 120 mg/dL (70-99) 301 mg/dL (70-99) 282 mg/dL (70-99) Test 11/16/18 07:29 11/16/18 11:01 Glucose (Fingerstick) 98 mg/dL (70-99) 117 mg/dL (70-99) Laboratory Tests Test 11/15/18 17:27 11/15/18 20:43 11/16/18 07:29 11/16/18 11:01 Glucose (Fingerstick) 301 mg/dL (70-99) 282 mg/dL (70-99) 98 mg/dL (70-99) 117 mg/dL (70-99) Brief Hospital Course Ms Abbott is a 77-year-old female w/ PMHx COPD, DM2, Chronic encephalopathy, lung cancer, who was admitted for respiratory distress. She was admitted to [facility] as a transfer from [facility] with fever, altered mental status and sepsis. The patient was a longtime smoker, ending several years ago. She has a diagnosis of COPD. She was diagnosed with lung cancer 4 years ago that was inoperable. She was treated with radiation therapy and chemotherapy. Per the patient and her daughter, who provides much of the history, the tumor has not reoccurred after chemotherapy and radiation therapy. Also, of note, the medical record notes a history of congestive heart failure. However, both the patient and her daughter state that she has not had any heart problems in the past. Previously, the patient did not have shortness of breath several months ago. However, she was very sedentary and typically the most active thing she would be walking room to room. She has had more shortness of breath for the past 2 months. She does note a cough productive of yellow sputum. However, that has not changed in recent days or weeks. The patient was transferred with sepsis. She was been treated with vancomycin and azithromycin. She also is on prednisone 40 mg daily. She notes that her breathing is better since she was admitted to [facility]. She underwent CT chest showing radiation changes and small left pleural effusion present for years. Sepsis COPD with acute bronchitis, acute on chronic encephalopathy improved obesity, BMI 36 DM2, w. hyperglycemia CAD, recent [facility] Has PET scan schedule for Greater than 30 minutes spent on discharge. Discharge Information Condition at Discharge: Improved Follow Up: Weeks (2) Disposition/Orders: D/C to Another Facility Scheduled Doxycycline Hyclate (Doxycycline Hyclate) 100 Mg Capsule, 1 CAP PO BID for COPD for 7 Days, #14 Prescribed by: EMRE HODGE MD on 11/16/18 1356 Gabapentin (Gabapentin) 300 Mg Capsule, 300 MG PO TID for NEUROGENIC PAIN for 30 Days, #90 Prescribed by: NIDIA TROY on 10/23/18 1000 Last Action: Continued on 11/13/18219 by Rina Arredondo Glipizide (Glipizide) 10 Mg Tablet, 10 MG PO DAILY for dm for 3 Days, #3 Prescribed by: NIDIA TROY on 10/23/18999 Last Action: Converted on 11/13/18219 by Rina Arredondo Insulin Glargine,Hum.rec.anlog (Lantus Solostar) 100 Unit/1 Ml Insuln.pen, 10 UNITS SQ QHS for DM2 for 30 Days, #1 Prescribed by: EMRE HODGE MD on 11/16/18 1356 Insulin Lispro (Humalog) 100 Unit/1 Ml Insuln.pen, 8 UNITS SQ TIDWMEALS for DM2 for 30 Days, #1 + Sliding scale 1u for every 50mg/dL > 150mg/dL Call MD for glucose > 350 If glucose < 100, sliding scale only Prescribed by: EMRE HODGE MD on 11/16/18 1356 Ipratropium/Albuterol Sulfate (Duoneb 0.5-3(2.5) Mg/3 Ml) 3 Ml Ampul.neb, 3 ML NEB RTQID for COPD for 30 Days, #120 Prescribed by: EMRE HODGE MD on 11/16/18 1356 Lactobacillus Rhamnosus Gg (Culturelle) 1 Each Cap.sprink, 1 CAP PO BID for antibiotic diarrhea for 10 Days, #20 Prescribed by: EMRE HODGE MD on 11/16/18 1356 Lisinopril (Lisinopril) 10 Mg Tablet, 1 TAB PO DAILY for htn, #30 Ref 5 Prescribed by: NIDIA TROY on 10/23/18 1000 Last Action: Continued on 11/13/18219 by Rina Arredondo Prednisone (Prednisone) 20 Mg Tablet, 40 MG PO DAILY for COPD for 5 Days, #10 Prescribed by: EMRE HODGE MD on 11/16/18 1356 Simvastatin (Simvastatin) 10 Mg Tablet, 1 TAB PO QHS for hld for 30 Days, #30 Ref 5 Prescribed by: NIDIA TROY on 10/23/18 1000 Last Action: Continued on 11/13/18 0220 by Rina Arredondo Scheduled PRN Polyethylene Glycol 3350 (Polyethylene Glycol 3350) 17 Gm Powd.pack, 17 GM PO PRN BID PRN for CONSTIPATION 1ST CHOICE for 30 Days, #60 Prescribed by: EMRE HODGE MD on 11/16/18 1356 Miscellaneous Medications Metformin Hcl (Metformin Hcl) 500 Mg Tablet, 500 MG PO, (Reported) Entered as Reported by: DEXTER PRINCE on 07/18/13 1022 Discontinued Medications Insulin Aspart (Novolog Flexpen) 100 Unit/1 Ml Insuln.pen, 100 UNIT SQ, (Reported) Entered as Reported by: DEXTER PRINCE on 07/18/13 1022 EMRE HODGE MD Nov 16, 2018 14:04
--- NOTE | 2018-11-16 14:38 | NUR ---
SS following up with discharge planning. Discharge orders received for [facility]pc unit. Pt accepted at [facility]. SS phoned and faxed discharge orders to [facility], ; fax [phone]. Pt will discharge today and go to [facility] at 1515 via wheelchair transport arranged by [facility]. Pt, pt's family, and pt's RN notified.
== END 2018-11-16 15:30 | DRG 871 ==
LOC: 1 WEST ICU 11-13 01:03 → 2 NORTH 11-13 13:31 → 5 NORTH 11-15 19:36
PROVIDERS: ADMIT Internal Medicine; ATTEND Internal Medicine
DX: A41.9 Sepsis, unspecified organism (principal); J96.00 Acute respiratory failure, unspecified whether with hypoxia or hypercapnia; G93.40 Encephalopathy, unspecified; J44.1 Chronic obstructive pulmonary disease with (acute) exacerbation; J44.0 Chronic obstructive pulmonary disease with (acute) lower respiratory infection; J20.9 Acute bronchitis, unspecified; I50.9 Heart failure, unspecified; I11.0 Hypertensive heart disease with heart failure; E11.65 Type 2 diabetes mellitus with hyperglycemia; E66.9 Obesity, unspecified; F03.90 Unspecified dementia, unspecified severity, without behavioral disturbance, psychotic disturbance, mood disturbance, and anxiety; I25.10 Atherosclerotic heart disease of native coronary artery without angina pectoris; K21.9 Gastro-esophageal reflux disease without esophagitis; Z96.649 Presence of unspecified artificial hip joint; M19.90 Unspecified osteoarthritis, unspecified site; M79.7 Fibromyalgia; Z82.49 Family history of ischemic heart disease and other diseases of the circulatory system; Z68.37 Body mass index [BMI] 37.0-37.9, adult; I25.2 Old myocardial infarction; Z83.3 Family history of diabetes mellitus; Z85.118 Personal history of other malignant neoplasm of bronchus and lung; Z85.43 Personal history of malignant neoplasm of ovary; Z87.891 Personal history of nicotine dependence; Z88.0 Allergy status to penicillin; Z90.710 Acquired absence of both cervix and uterus; Z92.21 Personal history of antineoplastic chemotherapy; Z92.3 Personal history of irradiation; Z79.899 Other long term (current) drug therapy; Z79.84 Long term (current) use of oral hypoglycemic drugs; Z88.1 Allergy status to other antibiotic agents; Z88.8 Allergy status to other drugs, medicaments and biological substances
CPT/HCPCS: 36415; 71045; 71046; 71250; 80048; 80053; 80202; 82962; 83036; 83605; 83880; 84145; 85007; 85025; 87641; 94640; 94760; J0456; J1650; J1815; J1940; J2405; J3370; J7030; J7040; J7050; J7512; J7620

== ENCOUNTER → 2019-01-06 | Outpatient (CLI) | payer MEDICARE, OTHER ==
[~2019-01-06] MED LIST changes: +DOXY100C2 PO; +INSU100I11 SQ; +INSU100I13 SQ; +IPRA3AMP29 NEB; +LACT1CAP19 PO; +POLY17PO28 PO; +PRED20TA PO
--- NOTE | 2019-01-07 11:18 | RAD ---
Examination: PET W CT SKULL TO MIDTHIGH History: Left lower lobe cancer initial staging Comparison/Correlation: 11/15/2018 CT chest without contrast FINDINGS: Net dose 15.82 mCi F-18 FDG was administered intravenously for purposes of PET/CT exam. Blood glucose level at the time of radiotracer administration was 179 mg/dL. Imaging was performed from the skull base to the proximal thighs. Hepatic reference uptake is SUV max of 1.7 . Uptake of radiotracer involving visualized head and neck is unremarkable. Left perihilar scarring and posterior basilar pleural thickening is evident. SUV max of up to 1.6 is noted. There is no suspicious intense uptake of radiotracer. No abnormal uptake involving mediastinal lymph nodes. No enlarged lymph nodes. Right paratracheal lymph node reported on CT chest exam without contrast 8 11/15/2018 is slightly smaller in size in the interval with no abnormal uptake. Left thoracoplasty at the posterior region noted. Hiatal hernia is moderate size. No abnormal uptake identified within the abdomen or pelvis. Umbilical hernia containing omental fat and nonstrenuous noted bowel loops noted. Diverticulosis of the colon is present. Right hip and prosthesis is present. Surgical clips at the left lower pelvic region evident. No radiopaque collecting system calculi. Abdominal aortic morphology is unremarkable. Minimal anterolisthesis of L4 relation L5. IMPRESSION: No abnormal uptake of radiotracer to suggest active primary neoplastic process, metastatic disease, or lymphadenopathy. PQRS Compliance Statement: One or more of the following individualized dose reduction techniques were utilized for this examination: 1. Automated exposure control 2. Adjustment of the mA and/or kV according to patient size 3. Use of iterative reconstruction technique Electronically signed by: Miguel Angel Salazar MD (01/07/2019 11:15 AM) [facility]
== END | disposition home or self-care (01) ==
LOC: PETSC 08:18
PROVIDERS: ATTEND Internal Medicine Hematology & Oncology
DX: C34.32 Malignant neoplasm of lower lobe, left bronchus or lung (principal); J98.4 Other disorders of lung; K42.9 Umbilical hernia without obstruction or gangrene; K57.30 Diverticulosis of large intestine without perforation or abscess without bleeding; R59.0 Localized enlarged lymph nodes; Z88.0 Allergy status to penicillin; Z88.2 Allergy status to sulfonamides; Z88.8 Allergy status to other drugs, medicaments and biological substances
CPT/HCPCS: 78815; A9552

== ENCOUNTER 2019-02-03 21:22 | Inpatient (IN) | payer MEDICARE, OTHER ==
[~2019-02-03] VITALS: Ht 160 cm; Wt 89.8 kg
[~2019-02-03 21:22] MED LIST changes: +SIMV10TA15 PO; -SIMV10TA3 PO
[2019-02-04] VITALS (23 sets, daily range): BP systolic 125–183; BP diastolic 48–90
[2019-02-04] MEDS ORDERED: ACETAMINOPHEN 325 MG TABLET. PO PRN (02:30)
[2019-02-04] MEDS ORDERED: ONDANSETRON PF 4 MG/2 ML VIAL. IVP PRN (02:30)
--- NOTE | 2019-02-04 02:30 | NUR ---
Pt arrived on unit at 0040. Alert to self, VSS, on 3LNC , accompanied by 2 EMS workers via [employer]. Pt settled into room and hooked up to monitors. Pt oriented to ICU routines, safety policies, no smoking policy, visitation rules, diet, call light, and bathroom usage. NIH stroke scale conducted and score of 14 concluded. Provider paged at [phone]. Provider paged again at [phone]. Connected to provider via answering service. Provider updated on pt status, care and interventions from [facility] to [facility], TPA infusion information and NIH information. Provider ordered consult of Dr. Marlow in AM, MRI w/o contrast during day, NPO diet status, Speech, OT, & PT consult, lipid panel, CBC, and BMP lab testing in am. Provider also ordered NS 1000 mL bag to run at 80 mL's/ hr one time, Zofran 4 mg IVP Q6H PRN, Tylenol 650mg Q6H PRN, and Morphine 1 mg IVP Q2H PRN. Will continue to assess and monitor for pt status change.
[2019-02-04] MEDS ORDERED: IV NORMAL SALINE 1000ML BAG 1,000 ML IV ONE (03:00)
[2019-02-04 06:36] LABS: BASO % 0 % (0-3); EOS % 1 % (0-3); HEMATOCRIT 27.2 % (36.0-47.0); HEMOGLOBIN 8.5 g/dL (12.0-15.5); LYMPH # 0.9 x10^3/uL (1.0-4.8); LYMPH % 10 % (24-48); MEAN CORPUSCULAR HEMOGLOBIN 27 pg (25-35); MEAN CORPUSCULAR HGB CONC 31 g/dL (31-37); MEAN CORPUSCULAR VOLUME 87 fL (79-100); MONO % 12 % (0-9); NEUT # 6.6 x10^3/uL (1.8-7.7); NEUT % 78 % (31-73); PLATELET COUNT 526 x10^3/uL (140-400); RED BLOOD COUNT 3.14 x10^6/uL (3.50-5.40); RED CELL DISTRIBUTION WIDTH 16.4 % (11.5-14.5); WHITE BLOOD COUNT 8.5 x10^3/uL (4.0-11.0)
[2019-02-04 06:53] LABS: CALCIUM 8.7 mg/dL (8.5-10.1); CREATININE 1.1 mg/dL (0.6-1.0); GFR 58.1; POTASSIUM 4.3 mmol/L (3.5-5.1)
[2019-02-04 07:23] LABS: CHOLESTEROL/HDL RATIO 2.8
[2019-02-04] MEDS ORDERED: CONTRAST GIVEN. MC PRN (09:00)
[2019-02-04] MEDS ORDERED: IOHEXOL 350 MG/ML 100 ML VIAL. IV ONE (09:00)
--- NOTE | 2019-02-04 09:13 | NUR ---
IP: Pt has a hx of + mrsa screen on 10/19/18 with one documented negative on 11/13/18. Pt to remain in contact precautions. Due to initiation of Nozin on admission, the second mrsa screen will need to wait until next adm.
--- NOTE | 2019-02-04 09:44 | RAD ---
CLINICAL HISTORY: code stroke- post TPA- no improvement COMPARISON: None available. TECHNIQUE: CT angiogram of the head and neck was performed following the administration of IV contrast. Multiplanar reconstructed images were obtained including 3D reconstructed images performed on an independent work station. Stenosis if present in the carotid arteries were measured using NASCET criteria. PQRS compliance statement - One or more of the following individualized dose reduction techniques were utilized for this study: 1. Automated exposure control 2. Adjustment of the mA and/or kV according to patient size 3. Use of iterative reconstruction technique FINDINGS: Exam is limited by extensive venous contamination, may be related to phase of contrast bolus. No definite AV malformation or AV fistula is identified. CTA of the intracranial circulation reveals no obvious high-grade stenosis or occlusion of the intracranial internal carotid arteries. The anterior cerebral arteries are well visualized and without evidence of stenosis or occlusion. The middle cerebral arteries are well visualized and without evidence of stenosis or occlusion. The posterior cerebral arteries are well visualized and without evidence of stenosis or occlusion. The vertebral basilar system is normal with no evidence of stenosis or occlusion. In the neck, the origins of the great vessels are unremarkable. The common carotid arteries, bilaterally are normal with no evidence of significant stenosis or occlusion. The internal carotid arteries are normal bilaterally with no evidence of stenosis. The vertebral arteries in the neck are well visualized bilaterally and unremarkable. Small left pleural effusion. Biapical airspace opacities are partially profiled IMPRESSION: 1. Limited examination given extensive venous contamination, possibly related to phase of contrast. No obvious AV malformation or AV fistula is seen. 2. Within these constraints, no evidence for high-grade stenosis of the intracranial circulation or the extracranial carotid or vertebral arteries. 3. Small left pleural effusion. Nonspecific biapical airspace opacities are partially profiled Electronically signed by: Emile Perales MD (02/04/2019 9:41 AM) [facility]
--- NOTE | 2019-02-04 11:21 | NUR ---
Order received from Dr. Hoover to have PICC line placed. Patient failed ST eval. TPN ordered.
--- NOTE | 2019-02-04 11:38 | HP ---
ADMIT DATE: 02/04/2019 CHIEF COMPLAINT: Right-sided weakness and shortness of breath. HISTORY OF PRESENT ILLNESS: The patient is a pleasant 78-year-old female, who presented to [facility] ER with stroke symptoms. She was given TPA, but really did not improve her symptoms much. She also developed respiratory failure and was brought to our Intensive Care Unit where she is currently being examined in room-107. PAST MEDICAL HISTORY: Asthma, hyperlipidemia, hypertension, neuropathy, diabetes. ALLERGIES: MULTIPLE, INCLUDING PENICILLIN, AMOXICILLIN, FAMOTIDINE, CLAVULANIC ACID, SULFA, TRIMETHOPRIM. FAMILY HISTORY: Hypertension. SOCIAL HISTORY: I do not think she drinks, smokes or take drugs. MEDICATIONS: Reviewed, please refer to the MRAD. REVIEW OF SYSTEMS: Unable to obtain. The patient is very obtunded. She is in the ICU on a Ventimask. PHYSICAL EXAMINATION: VITALS: Within normal limits and are stable. GENERAL: She is very weak and not talking. HEENT: She has a Ventimask on. NECK: Supple, no JVD, no thyromegaly was noted. LUNGS: She has some wheezing. HEART: RRR, S1, S2 present. Peripheral pulses intact, no obvious murmurs were noted. ABDOMEN: Her abdomen is distended and obese. EXTREMITIES: Without any cyanosis, clubbing, or edema. Pedal pulses intact, Homans sign is negative. NEUROLOGIC: She is not responding much. She does move the left a little bit. Pupils are equally round and reactive to light and accommodation. PSYCHIATRIC: Normal affect, normal mood. Stable. SKIN: No ulcerations or rashes, good skin turgor, no jaundice. VASCULAR: Good capillary refill, neurovascular bundle appears to be intact. LABORATORY DATA: White count is 8.5, hemoglobin 8.5 as well, platelets 526. Electrolytes: Sodium 146, potassium 4.3, chloride 108, bicarb 31, BUN 10, creatinine 1.1, glucose 116. ASSESSMENT AND PLAN: Stroke and respiratory failure. The patient has been admitted. We will consult Neurology and Pulmonary Medicine. DuoNebs, O2 per Ventimask, PT, OT, and speech therapy. We are going to get a PICC line to start TPN because I do not think she is going to be able to swallow well. DVT prophylaxis. Home meds if possible. Prognosis is extremely guarded at best. TOTAL TIME: 32 minutes. CLAY LEMUS DO DR: JUSTIN/doug JOB#: [id number] / [id number]
--- NOTE | 2019-02-04 12:14 | NUR ---
PICC Pre-Insertion Note Allergies and reactions PCN, Augmentin, Bactrim, Pepcid INR n/a BUN 10 Cr 1.1 Platelets 526 Blood culture done n/a blood culture results Order Verified yes Consent signed yes Previous PICC placement unknown Past Medical/Surgical history and current diagnosis reviewed yes Patient Medical /Surgical History Related to PICC line placement Cancer Diabetes Special considerations for PICC line placement none PICC placement indication Multiple/ Frequent blood draws, Poor peripheral intravenous access name of PICC Nurse Amy Ferguson RN Addendum: 02/04/19 at 1255 by KHANH FERGUSON RN Amended: Links added.
[2019-02-04 12:27] LABS: MAGNESIUM 1.8 mg/dL (1.8-2.4); PHOSPHORUS 4.4 mg/dL (2.6-4.7)
--- NOTE | 2019-02-04 12:37 | NUR ---
PICC Insertion Note Procedure: Following complete explanation of the PICC procedure including the indications, risks, and potential complications, informed consent was obtained. The possibility for infection was discussed along with signs, symptoms, and prevention. All the questions were answered. Written and verbal patient education was provided. Hand hygiene performed. Standardized central line checklist was utilized. The patient was placed in the supine position, the arm was prepped with chlorhexidine and patient draped with maximum sterile barrier. 2 mL 1% lidocaine was infiltrated into the skin to provide local anesthesia. A thorough assessment of Right upper extremity completed. Using real-time ultrasound guidance and standardized micro puncture set, the Basilic vein was punctured and a peel away sheath was placed using the modified Seldinger technique. A tip location device was used to ensure adequate catheter placement. The catheter was secured using a securement device and an antimicrobial patch was applied directly on the insertion site followed by a transparent dressing. All ports withdraw blood and flush without resistance. Patient tolerated the procedure without apparent complication(s). Triple Lumen Power PICC placement successful and uncomplicated. Placement verified by EKG tip confirmation system and/or chest x-ray. Tip located in the CAJ/SVC. Complications: none Catheter trimmed at 41cm with 1cm visible at insertion site.
[2019-02-04] MEDS: TPN PER PHARMACY MC PRN (13:03)
--- NOTE | 2019-02-04 13:03 | NUR ---
Pharmacy TPN Dosing Note S: JOHN IRBY is a 78 year old F Currently receiving Central Continuous TPN started 02/04/19 B:Pertinent PMH: CVA, failed swallow study Height: 5 feet, 3 inches Weight: 90.2 kg Current diet: NPO LABS: Sodium: 146 Potassium: 4.3 Chloride: 108 Calcium: 8.7 Magnesium: 1.8 CO2: 31 SCr: 1.1 Glucose: 114 TPN FORMULA: TPN TYPE: Central Continuous AMINO ACIDS: 60 gm DEXTROSE: 195 gm LIPIDS: 20 gm SODIUM CHLORIDE: 45 mEq POTASSIUM CHLORIDE: 50 mEq POTASSIUM PHOSPHATE: 13.6 mmol MAGNESIUM: 10 mEq CALCIUM: 10 mEq MULTIPLE VITAMIN: 10 ml TRACE ELEMENTS: 1 ml TPN PLAN: -Start standard macronutrients. -Start standard TPN with a reduced amount of NaCl. -CMP, mag, phos, triglycerides tomorrow. R: Begin TPN @ 63 ml/hr and above formula. Will monitor electrolytes, glucose, and tolerance to TPN. DOMINICK OLSON [facility], 02/04/19 [id number]
--- NOTE | 2019-02-04 14:53 | RAD ---
EXAMINATION: Magnetic resonance imaging (MRI) of the brain and brainstem without contrast 02/04/2019 1:25 PM HISTORY: CVA syndrome with right-sided weakness. TECHNIQUE: Multiplanar multi-weighted MRI of the brain and brainstem was performed without intravenous contrast using the general brain protocol. COMPARISON: None available. FINDINGS: Evaluation is limited by motion. The scalp and calvarium are normal. The superior sagittal sinus demonstrates normal venous flow. The corpus callosum is normal in shape and signal intensity. The posterior fossa is unremarkable. The pituitary and sella are normal. The brainstem and craniocervical junction are unremarkable. A small to moderate territory of diffusion signal hyperintensity is identified involving the left parietal lobe with involvement of the left post central gyrus. There is a small focus of diffusion signal hyperintensity involving the right parietal lobe. There is corresponding low signal on ADC maps. Corresponding areas of cytotoxic edema are noted in the left parietal lobe and to a far lesser extent right parietal lobe. The susceptibility weighted sequences reveal no evidence of acute or chronic hemorrhage. The ventricles are normal in size and position without evidence of hydrocephalus. The paranasal sinuses are normal. The visualized portions of the mastoids are unremarkable. The orbits appear normal. Normal flow voids are demonstrated in the carotid arteries and basilar artery. IMPRESSION: Acute small to moderate territory infarct is noted involving the left parietal lobe with involvement of the left post central gyrus. Acute small territory infarct noted in the right parietal lobe. There is associated cytotoxic edema without significant mass effect or midline shift. No acute intracranial hemorrhage. FOR INTERNAL CODING PURPOSES Critical result: Findings discussed with Tejal , the patient's nurse, at 02/04/2019 2:47 PM. RESULT CODE: (C) Electronically signed by: Sara Luna MD (02/04/2019 2:50 PM) [id number]
--- NOTE | 2019-02-04 15:45 | PDOC2 ---
NEUROLOGY CONSULT Date of Admission Date of Admission IMPRESSION: Acute small to moderate territory infarct involving the left parietal lobe, left post central gyrus. Acute small territory infarct in the right parietal lobe. Embolic stroke etiology. Cerebral cytotoxic edema. Metabolic encephalopathy. Respiratory failure/distress. HTN. HLD. DM? Thrombocytosis? Obesity. RECOMMENDATIONS/PLAN: TPA was administrated on 02/03/19. ASA 300 mg RC daily, 1st dose 24-hours after TPA. Statin HS. Echo + Bubble study. Treat medical diseases. Please consult Cardiology. OT/PT. Discussed with her daughter and granddaughter in all detail at bedside in ICU on 02/04/19. CTA: No acute large vessel blockage. MRI: See above infarcts. HISTORY OF PRESENT ILLNESS: The patient is a 78-year-old AA female who was brought to [place]'s ER with symptoms of chest pain. While in the ER of [place], she has symptoms of mental status changes and right side weakness. Her NIH scores were 17. After all criteria were met, TPA was offered and was administrated. She was then transfe rred to [facility]. Her symptoms slightly improved. CTA was performed in [facility] which did not showed acute abnormalities. MRI revealed above infarcts. PAST MEDICAL HISTORY: Asthma, hyperlipidemia, hypertension, neuropathy, diabetes. PAST SURGERY HISTORY: No major surgery recently. ALLERGIES: MULTIPLE, INCLUDING PENICILLIN, AMOXICILLIN, FAMOTIDINE, CLAVULANIC ACID, SULFA, TRIMETHOPRIM. FAMILY HISTORY: Hypertension. MEDICATIONS: Refer to [facility] SOCIAL HISTORY: Lives at home. Denies current smoking, drinking, and illicit drug use. REVIEW OF SYSTEMS: Constitutional: Obesity. Head: No traumatic brain or head injury. Skin: No edema, or rash. Ear: No infection. Eyes: No vision loss or color blindness. Nose: No bleeding or purulent discharges. Hearing: Hearing decrease. Neck: No injury. Breast: No history of cancer, masses,or discharges. Cardiac: HTN, HLD. Pulmonary: No COPD. GI: No GI ulcer, GI bleeding. Urinary/genital: UTI. Endocrinologic: Diabetes Mellitus? Obesity. Skeletomuscular: Generalized weakness. Neurological: see HP. Psychiatric: Denies drug use/abuse. Otherwise, not [id number] review of systems. PHYSICAL EXAMINATION: General appearance is in acute distress. HEENT: Normocephalic and nontraumatic. Eyes, nose, ears, and throat are unremarkable. Neck is supple. No lymphadenopathy. No crepitus. Cardiovascular: S1, S2, seemed regular rate and rhythm. Pulmonary: Decreased to auscultation bilaterally. Abdomen: Bowel sounds are positive. Extremities: No rash, lesions, or edema. No restriction of range of motion NEUROLOGICAL EXAMINATION: Decreased response. Not able to follow commands. Not oriented to time, place and person. PERRL. EOMI. CN: no acute focal findings. Muscle tone: decreased. Muscle strength: Unable to access. DTR: 1 Plantar reflex: Neutral response bilaterally Gait: not examined in bed. Sensory exam: Withdraw response noted to stimuli.. Not able to access cerebellar signs.. F-T-N test not performed due to not follow commands. Current Medications Current Medications Current Medications Ondansetron HCl (Zofran) 4 mg PRN Q6HRS PRN IVP NAUSEA/VOMITING 1ST CHOICE; Start 02/04/19 at 02:30 Acetaminophen (Tylenol) 650 mg PRN Q6HRS PRN PO MILD PAIN 1-3; Start 02/04/19 at 02:30 Sodium Chloride 1,000 ml @ 80 mls/hr 1X ONCE IV Last administered on 02/04/19at 04:07; Start 02/04/19 at 03:00; Stop 02/04/19 at 15:29 Morphine Sulfate (Morphine Sulfate) 1 mg PRN Q2HR PRN IV SEVERE PAIN 7-10; Start 02/04/19 at 02:30 Iohexol (Omnipaque 350 Mg/ml) 75 ml 1X ONCE IV Last administered on 02/04/19at 09:07; Start 02/04/19 at 09:00; Stop 02/04/19 at 09:01; Status DC Info (CONTRAST GIVEN -- Rx MONITORING) 1 each PRN DAILY PRN MC SEE COMMENTS; Start 02/04/19 at 09:00; Stop 02/06/19 at 08:59 Info (Tpn Per Pharmacy) 1 each PRN DAILY PRN MC SEE COMMENTS Last administered on 02/04/19at 13:03; Start 02/04/19 at 11:30 Sodium Chloride 45 meq/Potassium Chloride 50 meq/ Potassium Phosphate 13.6 mmol/Magnesium Sulfate 10 meq/ Calcium Gluconate 10 meq/ Multivitamins 10 ml/Chromium/ Copper/Manganese/ Seleni/Zn 1 ml/ Total Parenteral Nutrition/Amino Acids/Dextrose/ Fat Emulsion Intravenous 1,512 ml @ 63 mls/hr TPN CONT IV ; Start 02/04/19 at 22:00; Stop 02/05/19 at 21:59 Aspirin (Aspirin Rectal Supp) 300 mg DAILY [place] ; Start 02/05/19 at 01:00; Status UNV Active Scripts Active Doxycycline Hyclate 100 Mg Capsule 1 Cap PO BID 7 Days Prednisone 20 Mg Tablet 40 Mg PO DAILY 5 Days Humalog (Insulin Lispro) 100 Unit/1 Ml Insuln.pen 8 Units SQ TIDWMEALS 30 Days + Sliding scale 1u for every 50mg/dL > 150mg/dL Call MD for glucose > 350 If glucose < 100, sliding scale only Lantus Solostar (Insulin Glargine,Hum.rec.anlog) 100 Unit/1 Ml Insuln.pen 10 Units SQ QHS 30 Days Culturelle (Lactobacillus Rhamnosus Gg) 1 Each Cap.sprink 1 Cap PO BID 10 Days Polyethylene Glycol 3350 17 Gm Powd.pack 17 Gm PO PRN BID PRN 30 Days Duoneb 0.5-3(2.5) Mg/3 Ml (Albuterol/Ipratropium) 3 Ml Ampul.neb 3 Ml NEB RTQID 30 Days Simvastatin 10 Mg Tablet 1 Tab PO QHS 30 Days Glipizide 10 Mg Tablet 10 Mg PO DAILY 3 Days Gabapentin 300 Mg Capsule 300 Mg PO TID 30 Days Lisinopril 10 Mg Tablet 1 Tab PO DAILY Reported Metformin Hcl 500 Mg Tablet 500 Mg PO Allergies Allergies: Allergies Coded Allergies Type Severity Reaction Last Updated Verified Penicillins Allergy Severe 11/13/18 Yes amoxicillin trihydrate Allergy Intermediate 10/22/18 Yes famotidine Allergy Intermediate 10/22/18 Yes potassium clavulanate Allergy Intermediate 10/22/18 Yes sulfamethoxazole Allergy Intermediate 10/22/18 Yes trimethoprim Allergy Intermediate 10/22/18 Yes I S O L A T I O N *CONTACT* Allergy Unknown 02/04/19 Yes ROS Review of System The patient denies any associated fevers, chills, headache, ear pain, rhinorrhea, sore throat, stiff neck, productive cough, chest pain, shortness of breath, back or flank pain, abdominal pain, nausea, vomiting, diarrhea, constipation, dysuria, rash, numbness, weakness, tingling, incontinence, difficulty ambulating, or diaphoresis. Physical Exam Physical Exam General: Well developed, well nourished, no acute distress, well appearing HEENT: Pupils equally round and reactive to light, EOMI, no discharge, normal conjunctiva Neck: Supple, no nuchal rigidity, no JVD, trachea midline, no tenderness Cardiac: RRR, no murmurs, no gallops, no rubs Chest/Lungs: CTAB, no wheeze, no rhonchi, no crackles Abdomen: soft, non-distended, no guarding, no peritoneal signs, non-tender Back: No tenderness Extremities: no edema, pulses intact, non-tender,capillary refill <3 sec bilateral upper and lower extremities, Neuro: Alert and oriented x 4, no focal deficits, normal speech Vitals Vitals: Vital Signs Date Time Temp Pulse Resp B/P (MAP) Pulse Ox O2 Delivery O2 Flow Rate FiO2 02/04/19 12:00 Venturi Mask 15.0 02/04/19 10:00 102 25 127/48 (74) 96 02/04/19 08:00 99.2 99.2 Labs Labs Laboratory Tests Test 02/04/19 06:25 White Blood Count 8.5 x10^3/uL (4.0-11.0) Red Blood Count 3.14 x10^6/uL (3.50-5.40) Hemoglobin 8.5 g/dL (12.0-15.5) Hematocrit 27.2 % (36.0-47.0) Mean Corpuscular Volume 87 fL (79-100) Mean Corpuscular Hemoglobin 27 pg (25-35) Mean Corpuscular Hemoglobin Concent 31 g/dL (31-37) Red Cell Distribution Width 16.4 % (11.5-14.5) Platelet Count 526 x10^3/uL (140-400) Neutrophils (%) (Auto) 78 % (31-73) Lymphocytes (%) (Auto) 10 % (24-48) Monocytes (%) (Auto) 12 % (0-9) Eosinophils (%) (Auto) 1 % (0-3) Basophils (%) (Auto) 0 % (0-3) Neutrophils # (Auto) 6.6 x10^3/uL (1.8-7.7) Lymphocytes # (Auto) 0.9 x10^3/uL (1.0-4.8) Monocytes # (Auto) 1.0 x10^3/uL (0.0-1.1) Eosinophils # (Auto) 0.0 x10^3/uL (0.0-0.7) Basophils # (Auto) 0.0 x10^3/uL (0.0-0.2) Sodium Level 146 mmol/L (136-145) Potassium Level 4.3 mmol/L (3.5-5.1) Chloride Level 108 mmol/L (98-107) Carbon Dioxide Level 31 mmol/L (21-32) Anion Gap 7 (6-14) Blood Urea Nitrogen 10 mg/dL (7-20) Creatinine 1.1 mg/dL (0.6-1.0) Estimated GFR (Cockcroft-Gault) 58.1 Glucose Level 114 mg/dL (70-99) Calcium Level 8.7 mg/dL (8.5-10.1) Phosphorus Level 4.4 mg/dL (2.6-4.7) Magnesium Level 1.8 mg/dL (1.8-2.4) Triglycerides Level 70 mg/dL (0-150) Cholesterol Level 113 mg/dL (0-200) LDL Cholesterol, Calculated 59 mg/dL (0-100) VLDL Cholesterol, Calculated 14 mg/dL (0-40) Non-HDL Cholesterol Calculated 73 mg/dL (0-129) HDL Cholesterol 40 mg/dL (40-60) Cholesterol/HDL Ratio 2.8 Laboratory Tests Test 02/04/19 06:25 White Blood Count 8.5 x10^3/uL (4.0-11.0) Red Blood Count 3.14 x10^6/uL (3.50-5.40) Hemoglobin 8.5 g/dL (12.0-15.5) Hematocrit 27.2 % (36.0-47.0) Mean Corpuscular Volume 87 fL (79-100) Mean Corpuscular Hemoglobin 27 pg (25-35) Mean Corpuscular Hemoglobin Concent 31 g/dL (31-37) Red Cell Distribution Width 16.4 % (11.5-14.5) Platelet Count 526 x10^3/uL (140-400) Neutrophils (%) (Auto) 78 % (31-73) Lymphocytes (%) (Auto) 10 % (24-48) Monocytes (%) (Auto) 12 % (0-9) Eosinophils (%) (Auto) 1 % (0-3) Basophils (%) (Auto) 0 % (0-3) Neutrophils # (Auto) 6.6 x10^3/uL (1.8-7.7) Lymphocytes # (Auto) 0.9 x10^3/uL (1.0-4.8) Monocytes # (Auto) 1.0 x10^3/uL (0.0-1.1) Eosinophils # (Auto) 0.0 x10^3/uL (0.0-0.7) Basophils # (Auto) 0.0 x10^3/uL (0.0-0.2) Sodium Level 146 mmol/L (136-145) Potassium Level 4.3 mmol/L (3.5-5.1) Chloride Level 108 mmol/L (98-107) Carbon Dioxide Level 31 mmol/L (21-32) Anion Gap 7 (6-14) Blood Urea Nitrogen 10 mg/dL (7-20) Creatinine 1.1 mg/dL (0.6-1.0) Estimated GFR (Cockcroft-Gault) 58.1 Glucose Level 114 mg/dL (70-99) Calcium Level 8.7 mg/dL (8.5-10.1) Phosphorus Level 4.4 mg/dL (2.6-4.7) Magnesium Level 1.8 mg/dL (1.8-2.4) Triglycerides Level 70 mg/dL (0-150) Cholesterol Level 113 mg/dL (0-200) LDL Cholesterol, Calculated 59 mg/dL (0-100) VLDL Cholesterol, Calculated 14 mg/dL (0-40) Non-HDL Cholesterol Calculated 73 mg/dL (0-129) HDL Cholesterol 40 mg/dL (40-60) Cholesterol/HDL Ratio 2.8 SUSAN GU MD Feb 04, 2019 15:45
--- NOTE | 2019-02-04 16:23 | NUR ---
SS following for discharge planning. SS reviewed pt chart. Pt is from home and is currently requiring oxygen support. Pt had previous stay at [place], ; fax [phone], in October of 2018. SS will continue to follow for discharge planning.
[2019-02-04] MEDS ORDERED: FENT1PAT17 TD (17:12)
[2019-02-04] MEDS ORDERED: OMEP20CA10 PO (17:12)
[2019-02-04] MEDS ORDERED: IBUP-1060 PO (17:12)
[2019-02-04] MEDS: fentaNYL 50MCG/HR PATCH 1 PATCH PATCH.TD72 TD SCH (19:20)
[2019-02-04] MEDS: SIMVASTATIN 10 MG TABLET PO SCH (20:10)
[2019-02-04] MEDS: MORPHINE SULFATE 2 MG/ML VIAL. IV PRN (20:57)
[2019-02-04] MEDS ORDERED: AMINO ACID IV SCH ×10 (22:00)
[2019-02-04] MEDS ORDERED: DEXTROSE 70% IV SCH ×10 (22:00)
[2019-02-04] MEDS ORDERED: [UNRECOGNIZED DRUG - OTHER] IV SCH ×10 (22:00)
[2019-02-04] MEDS ORDERED: TOTAL PARENTERAL NUTRITION IV SCH ×10 (22:00)
[2019-02-05] VITALS (14 sets, daily range): BP systolic 106–180; BP diastolic 49–80
[2019-02-05 06:51] LABS: ALBUMIN 2.9 g/dL (3.4-5.0); ALBUMIN/GLOBULIN RATIO 0.6 (1.0-1.7); CALCIUM 8.8 mg/dL (8.5-10.1); GFR 64.9; POTASSIUM 4.2 mmol/L (3.5-5.1); TOTAL BILIRUBIN 0.3 mg/dL (0.2-1.0); TOTAL PROTEIN 7.4 g/dL (6.4-8.2)
[2019-02-05 06:55] LABS: MAGNESIUM 1.7 mg/dL (1.8-2.4); PHOSPHORUS 2.7 mg/dL (2.6-4.7)
[2019-02-05 07:18] LABS: BASO # 0.1 x10^3/uL (0.0-0.2); BASO % 1 % (0-3); EOS % 0 % (0-3); HEMATOCRIT 25.7 % (36.0-47.0); LYMPH # 1.4 x10^3/uL (1.0-4.8); LYMPH % 18 % (24-48); MEAN CORPUSCULAR HEMOGLOBIN 27 pg (25-35); MEAN CORPUSCULAR HGB CONC 31 g/dL (31-37); MEAN CORPUSCULAR VOLUME 87 fL (79-100); MONO % 12 % (0-9); NEUT # 5.3 x10^3/uL (1.8-7.7); NEUT % 68 % (31-73); PLATELET COUNT 386 x10^3/uL (140-400); RED BLOOD COUNT 2.95 x10^6/uL (3.50-5.40); RED CELL DISTRIBUTION WIDTH 16.1 % (11.5-14.5); WHITE BLOOD COUNT 7.8 x10^3/uL (4.0-11.0)
[2019-02-05] MEDS ORDERED: ALTEPLASE 1MG SYRINGE. INT CAT ONE (11:00)
--- NOTE | 2019-02-05 11:07 | PDOC ---
[employer] PROGRESS NOTE Chief Complaint Chief Complaint Stroke History of Present Illness History of Present Illness 02/05/19 Pt was seen and examined in the ICU Pt is pleasantly confused, but awake Mg2+: 1.7 Echo and bubble study recommended by neurology Acute small to moderate territorial infarct involving left parietal lobe Charts and labs reviewed DW RN Vitals/I&O Vitals/I&O: Vital Signs Date Time Temp Pulse Resp B/P (MAP) Pulse Ox O2 Delivery O2 Flow Rate FiO2 02/05/19 10:00 96 22 154/72 (99) 98 Nasal Cannula 3.0 02/05/19 08:00 99.0 99.0 I & O 02/04/19 02/04/19 02/05/19 14:59 22:59 06:59 Intake Total 900 ml Output Total 2 ml 1 ml Balance -2 ml -1 ml 900 ml Physical Exam General: Alert, No acute distress Lungs: Clear Abdomen: Normal bowel sounds Extremities: No clubbing, No cyanosis Skin: No rashes, No breakdown Labs Labs: Laboratory Tests Test 02/04/19 16:04 02/05/19 06:15 Glucose (Fingerstick) 115 mg/dL (70-99) White Blood Count 7.8 x10^3/uL (4.0-11.0) Red Blood Count 2.95 x10^6/uL (3.50-5.40) Hemoglobin 8.0 g/dL (12.0-15.5) Hematocrit 25.7 % (36.0-47.0) Mean Corpuscular Volume 87 fL (79-100) Mean Corpuscular Hemoglobin 27 pg (25-35) Mean Corpuscular Hemoglobin Concent 31 g/dL (31-37) Red Cell Distribution Width 16.1 % (11.5-14.5) Platelet Count 386 x10^3/uL (140-400) Neutrophils (%) (Auto) 68 % (31-73) Lymphocytes (%) (Auto) 18 % (24-48) Monocytes (%) (Auto) 12 % (0-9) Eosinophils (%) (Auto) 0 % (0-3) Basophils (%) (Auto) 1 % (0-3) Neutrophils # (Auto) 5.3 x10^3/uL (1.8-7.7) Lymphocytes # (Auto) 1.4 x10^3/uL (1.0-4.8) Monocytes # (Auto) 1.0 x10^3/uL (0.0-1.1) Eosinophils # (Auto) 0.0 x10^3/uL (0.0-0.7) Basophils # (Auto) 0.1 x10^3/uL (0.0-0.2) Sodium Level 142 mmol/L (136-145) Potassium Level 4.2 mmol/L (3.5-5.1) Chloride Level 103 mmol/L (98-107) Carbon Dioxide Level 32 mmol/L (21-32) Anion Gap 7 (6-14) Blood Urea Nitrogen 6 mg/dL (7-20) Creatinine 1.0 mg/dL (0.6-1.0) Estimated GFR (Cockcroft-Gault) 64.9 BUN/Creatinine Ratio 6 (6-20) Glucose Level 150 mg/dL (70-99) Calcium Level 8.8 mg/dL (8.5-10.1) Phosphorus Level 2.7 mg/dL (2.6-4.7) Magnesium Level 1.7 mg/dL (1.8-2.4) Total Bilirubin 0.3 mg/dL (0.2-1.0) Aspartate Amino Transf (AST/SGOT) 19 U/L (15-37) Alanine Aminotransferase (ALT/SGPT) 11 U/L (14-59) Alkaline Phosphatase 47 U/L (46-116) Total Protein 7.4 g/dL (6.4-8.2) Albumin 2.9 g/dL (3.4-5.0) Albumin/Globulin Ratio 0.6 (1.0-1.7) Triglycerides Level 91 mg/dL (0-150) Review of Systems Review of Systems: No nausea, no vomiting No chest pain, no palpitations Assessment and Plan Assessmemt and Plan Assessment Acute ischemic stroke Right sided hemiparesis Plan ICU monitoring PT/OT ASA 300 mg RC daily Speech therapy Home meds DVT prophylaxis Full code Comment Review of Relevant I have reviewed the following items myesha (where applicable) has been applied. Medications: Current Medications Medications (Trade) Dose Ordered Sig/James Route PRN Reason Start Time Stop Time Status Last Admin Dose Admin Info (Tpn Per Pharmacy) 1 each PRN DAILY PRN MC SEE COMMENTS 02/04/19 11:30 02/04/19 13:03 Sodium Chloride 45 meq/Potassium Chloride 50 meq/ Potassium Phosphate 13.6 mmol/Magnesium Sulfate 10 meq/ Calcium Gluconate 10 meq/ Multivitamins 10 ml/Chromium/ Copper/Manganese/ Seleni/Zn 1 ml/ Total Parenteral Nutrition/Amino Acids/Dextrose/ Fat Emulsion Intravenous 1,512 ml @ 63 mls/hr TPN CONT IV 02/04/19 22:00 02/05/19 21:59 02/04/19 22:37 Fentanyl (Duragesic 50mcg/ Hr Patch) 1 patch Q72H TD 02/04/19 18:45 02/04/19 19:20 CLAY LEMUS III DO Feb 05, 2019 11:06
[2019-02-05] MEDS ORDERED: MAGNESIUM SULFATE 2GM 50 ML IV ONE (11:30)
--- NOTE | 2019-02-05 12:21 | PDOC ---
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 Status-post alteplase HTN. HLD. DM? Thrombocytosis? Obesity. Plan ASA 300 mg RC daily, 1st dose 24-hours after TPA. Statin HS. Echo + Bubble study. Consult Cardiology for embolic workup, discussed with Dr Mejia. OT/PT/ST. Okay to transfer to [facility]. Subjective No complaints Objective Vital Signs Date Time Temp Pulse Resp B/P (MAP) Pulse Ox O2 Delivery O2 Flow Rate FiO2 02/05/19 11:00 96 20 159/66 (97) 98 Nasal Cannula 3.0 02/05/19 08:00 99.0 99.0 Intake and Output 02/05/19 07:00 Intake Total 900 ml Output Total 3 ml Balance 897 ml Intake IV Total 900 ml Output Urine Total 3 ml # Voids 2 PHYSICAL EXAM Alert. Echolalia and perseveration, no meaningful response to questions. He does follow some simple commands PERRL. EOMI. CN: no focal findings. Muscle tone: normal. Muscle strength: 3/5, worse on right DTR: 1+ Plantar reflex: silent Gait: not examined in bed. Sensory exam: no abnormal findings. Cerebellar: not cooperative Review of Relevant I have reviewed the following items myesha (where applicable) has been applied. Labs Laboratory Tests Test 02/04/19 06:25 02/04/19 16:04 02/05/19 06:15 White Blood Count 8.5 x10^3/uL (4.0-11.0) 7.8 x10^3/uL (4.0-11.0) Red Blood Count 3.14 x10^6/uL (3.50-5.40) 2.95 x10^6/uL (3.50-5.40) Hemoglobin 8.5 g/dL (12.0-15.5) 8.0 g/dL (12.0-15.5) Hematocrit 27.2 % (36.0-47.0) 25.7 % (36.0-47.0) Mean Corpuscular Volume 87 fL (79-100) 87 fL (79-100) Mean Corpuscular Hemoglobin 27 pg (25-35) 27 pg (25-35) Mean Corpuscular Hemoglobin Concent 31 g/dL (31-37) 31 g/dL (31-37) Red Cell Distribution Width 16.4 % (11.5-14.5) 16.1 % (11.5-14.5) Platelet Count 526 x10^3/uL (140-400) 386 x10^3/uL (140-400) Neutrophils (%) (Auto) 78 % (31-73) 68 % (31-73) Lymphocytes (%) (Auto) 10 % (24-48) 18 % (24-48) Monocytes (%) (Auto) 12 % (0-9) 12 % (0-9) Eosinophils (%) (Auto) 1 % (0-3) 0 % (0-3) Basophils (%) (Auto) 0 % (0-3) 1 % (0-3) Neutrophils # (Auto) 6.6 x10^3/uL (1.8-7.7) 5.3 x10^3/uL (1.8-7.7) Lymphocytes # (Auto) 0.9 x10^3/uL (1.0-4.8) 1.4 x10^3/uL (1.0-4.8) Monocytes # (Auto) 1.0 x10^3/uL (0.0-1.1) 1.0 x10^3/uL (0.0-1.1) Eosinophils # (Auto) 0.0 x10^3/uL (0.0-0.7) 0.0 x10^3/uL (0.0-0.7) Basophils # (Auto) 0.0 x10^3/uL (0.0-0.2) 0.1 x10^3/uL (0.0-0.2) Sodium Level 146 mmol/L (136-145) 142 mmol/L (136-145) Potassium Level 4.3 mmol/L (3.5-5.1) 4.2 mmol/L (3.5-5.1) Chloride Level 108 mmol/L (98-107) 103 mmol/L (98-107) Carbon Dioxide Level 31 mmol/L (21-32) 32 mmol/L (21-32) Anion Gap 7 (6-14) 7 (6-14) Blood Urea Nitrogen 10 mg/dL (7-20) 6 mg/dL (7-20) Creatinine 1.1 mg/dL (0.6-1.0) 1.0 mg/dL (0.6-1.0) Estimated GFR (Cockcroft-Gault) 58.1 64.9 Glucose Level 114 mg/dL (70-99) 150 mg/dL (70-99) Calcium Level 8.7 mg/dL (8.5-10.1) 8.8 mg/dL (8.5-10.1) Phosphorus Level 4.4 mg/dL (2.6-4.7) 2.7 mg/dL (2.6-4.7) Magnesium Level 1.8 mg/dL (1.8-2.4) 1.7 mg/dL (1.8-2.4) Triglycerides Level 70 mg/dL (0-150) 91 mg/dL (0-150) Cholesterol Level 113 mg/dL (0-200) LDL Cholesterol, Calculated 59 mg/dL (0-100) VLDL Cholesterol, Calculated 14 mg/dL (0-40) Non-HDL Cholesterol Calculated 73 mg/dL (0-129) HDL Cholesterol 40 mg/dL (40-60) Cholesterol/HDL Ratio 2.8 Vitamin B12 Level 226 pg/mL (247-911) Thyroid Stimulating Hormone (TSH) 0.863 uIU/mL (0.358-3.74) Glucose (Fingerstick) 115 mg/dL (70-99) BUN/Creatinine Ratio 6 (6-20) Total Bilirubin 0.3 mg/dL (0.2-1.0) Aspartate Amino Transf (AST/SGOT) 19 U/L (15-37) Alanine Aminotransferase (ALT/SGPT) 11 U/L (14-59) Alkaline Phosphatase 47 U/L (46-116) Total Protein 7.4 g/dL (6.4-8.2) Albumin 2.9 g/dL (3.4-5.0) Albumin/Globulin Ratio 0.6 (1.0-1.7) Laboratory Tests Test 02/04/19 16:04 02/05/19 06:15 Glucose (Fingerstick) 115 mg/dL (70-99) White Blood Count 7.8 x10^3/uL (4.0-11.0) Red Blood Count 2.95 x10^6/uL (3.50-5.40) Hemoglobin 8.0 g/dL (12.0-15.5) Hematocrit 25.7 % (36.0-47.0) Mean Corpuscular Volume 87 fL (79-100) Mean Corpuscular Hemoglobin 27 pg (25-35) Mean Corpuscular Hemoglobin Concent 31 g/dL (31-37) Red Cell Distribution Width 16.1 % (11.5-14.5) Platelet Count 386 x10^3/uL (140-400) Neutrophils (%) (Auto) 68 % (31-73) Lymphocytes (%) (Auto) 18 % (24-48) Monocytes (%) (Auto) 12 % (0-9) Eosinophils (%) (Auto) 0 % (0-3) Basophils (%) (Auto) 1 % (0-3) Neutrophils # (Auto) 5.3 x10^3/uL (1.8-7.7) Lymphocytes # (Auto) 1.4 x10^3/uL (1.0-4.8) Monocytes # (Auto) 1.0 x10^3/uL (0.0-1.1) Eosinophils # (Auto) 0.0 x10^3/uL (0.0-0.7) Basophils # (Auto) 0.1 x10^3/uL (0.0-0.2) Sodium Level 142 mmol/L (136-145) Potassium Level 4.2 mmol/L (3.5-5.1) Chloride Level 103 mmol/L (98-107) Carbon Dioxide Level 32 mmol/L (21-32) Anion Gap 7 (6-14) Blood Urea Nitrogen 6 mg/dL (7-20) Creatinine 1.0 mg/dL (0.6-1.0) Estimated GFR (Cockcroft-Gault) 64.9 BUN/Creatinine Ratio 6 (6-20) Glucose Level 150 mg/dL (70-99) Calcium Level 8.8 mg/dL (8.5-10.1) Phosphorus Level 2.7 mg/dL (2.6-4.7) Magnesium Level 1.7 mg/dL (1.8-2.4) Total Bilirubin 0.3 mg/dL (0.2-1.0) Aspartate Amino Transf (AST/SGOT) 19 U/L (15-37) Alanine Aminotransferase (ALT/SGPT) 11 U/L (14-59) Alkaline Phosphatase 47 U/L (46-116) Total Protein 7.4 g/dL (6.4-8.2) Albumin 2.9 g/dL (3.4-5.0) Albumin/Globulin Ratio 0.6 (1.0-1.7) Triglycerides Level 91 mg/dL (0-150) Medications Current Medications Ondansetron HCl (Zofran) 4 mg PRN Q6HRS PRN IVP NAUSEA/VOMITING 1ST CHOICE; Start 02/04/19 at 02:30 Acetaminophen (Tylenol) 650 mg PRN Q6HRS PRN PO MILD PAIN 1-3; Start 02/04/19 at 02:30 Sodium Chloride 1,000 ml @ 80 mls/hr 1X ONCE IV Last administered on 02/04/19at 04:07; Start 02/04/19 at 03:00; Stop 02/04/19 at 15:29; Status DC Morphine Sulfate (Morphine Sulfate) 1 mg PRN Q2HR PRN IV SEVERE PAIN 7-10 Last administered on 02/04/19at 20:57; Start 02/04/19 at 02:30 Iohexol (Omnipaque 350 Mg/ml) 75 ml 1X ONCE IV Last administered on 02/04/19at 09:07; Start 02/04/19 at 09:00; Stop 02/04/19 at 09:01; Status DC Info (CONTRAST GIVEN -- Rx MONITORING) 1 each PRN DAILY PRN MC SEE COMMENTS; Start 02/04/19 at 09:00; Stop 02/06/19 at 08:59 Info (Tpn Per Pharmacy) 1 each PRN DAILY PRN MC SEE COMMENTS Last administered on 02/04/19at 13:03; Start 02/04/19 at 11:30 Sodium Chloride 45 meq/Potassium Chloride 50 meq/ Potassium Phosphate 13.6 mmol/Magnesium Sulfate 10 meq/ Calcium Gluconate 10 meq/ Multivitamins 10 ml/Chromium/ Copper/Manganese/ Seleni/Zn 1 ml/ Total Parenteral Nutrition/Amino Acids/Dextrose/ Fat Emulsion Intravenous 1,512 ml @ 63 mls/hr TPN CONT IV Last administered on 02/04/19at 22:37; Start 02/04/19 at 22:00; Stop 02/05/19 at 21:59 Aspirin (Aspirin Rectal Supp) 300 mg DAILY [place] ; Start 02/05/19 at 09:00 Simvastatin (Zocor) 10 mg QHS PO ; Start 02/04/19 at 21:00 Fentanyl (Duragesic 50mcg/ Hr Patch) 1 patch Q72H TD Last administered on 02/04/19at 19:20; Start 02/04/19 at 18:45 Alteplase, Recombinant (Cathflo For Central Catheter Clearance) 1 mg 1X ONCE INT CAT Last administered on 02/05/19at 12:08; Start 02/05/19 at 11:00; Stop 02/05/19 at 11:01; Status DC Magnesium Sulfate 50 ml @ 25 mls/hr 1X ONCE IV Last administered on 02/05/19at 12:08; Start 02/05/19 at 11:30; Stop 02/05/19 at 13:29 Sodium Chloride 45 meq/Potassium Chloride 40 meq/ Potassium Phosphate 17 mmol/ Magnesium Sulfate 10 meq/Calcium Gluconate 10 meq/ Multivitamins 10 ml/Chromium/ Copper/Manganese/ Seleni/Zn 1 ml/ Total Parenteral Nutrition/Amino Acids/D extrose/ Fat Emulsion Intravenous 1,512 ml @ 63 mls/hr TPN CONT IV ; Start 02/05/19 at 22:00; Stop 02/06/19 at 21:59 Active Scripts Active Doxycycline Hyclate 100 Mg Capsule 1 Cap PO BID 7 Days Prednisone 20 Mg Tablet 40 Mg PO DAILY 5 Days Humalog (Insulin Lispro) 100 Unit/1 Ml Insuln.pen 8 Units SQ TIDWMEALS 30 Days + Sliding scale 1u for every 50mg/dL > 150mg/dL Call MD for glucose > 350 If glucose < 100, sliding scale only Lantus Solostar (Insulin Glargine,Hum.rec.anlog) 100 Unit/1 Ml Insuln.pen 10 Units SQ QHS 30 Days Culturelle (Lactobacillus Rhamnosus Gg) 1 Each Cap.sprink 1 Cap PO BID 10 Days Polyethylene Glycol 3350 17 Gm Powd.pack 17 Gm PO PRN BID PRN 30 Days Duoneb 0.5-3(2.5) Mg/3 Ml (Albuterol/Ipratropium) 3 Ml Ampul.neb 3 Ml NEB RTQID 30 Days Simvastatin 10 Mg Tablet 1 Tab PO QHS 30 Days Glipizide 10 Mg Tablet 10 Mg PO DAILY 3 Days Gabapentin 300 Mg Capsule 300 Mg PO TID 30 Days Lisinopril 10 Mg Tablet 1 Tab PO DAILY Reported FENTANYL 50mcg/hr (Fentanyl) 1 Each Patch.td72 1 Patch TD Q72H Ibuprofen 800 Mg Tablet 800 Mg PO PRN Q8HRS PRN Omeprazole 20 Mg Capsule.dr 2 Cap PO DAILY Metformin Hcl 500 Mg Tablet 500 Mg PO BID Vitals/I & O Vital Sign - Last 24 Hours 02/04/19 02/04/19 02/04/19 02/04/19 15:00 15:00 16:00 17:00 Temp 98.7 99.0 98.7 99.0 Pulse 101 105 104 Resp 12 16 25 B/P (MAP) 133/54 (80) 151/59 (89) 155/58 (90) Pulse Ox 98 98 96 O2 Delivery Venturi Mask Venturi Mask Venturi Mask Venturi Mask O2 Flow Rate 15.0 15.0 15.0 15.0 02/04/19 02/04/19 02/04/19 02/04/19 18:00 19:00 19:20 20:00 Temp 99.1 99.1 Pulse 103 100 104 Resp 28 28 16 B/P (MAP) 148/60 (89) 161/62 (95) 159/59 (92) Pulse Ox 96 96 96 98 O2 Delivery Venturi Mask Venturi Mask Venturi Mask Venturi Mask O2 Flow Rate 15.0 15.0 15.0 15.0 02/04/19 02/04/19 02/04/19 02/04/19 20:00 20:57 21:00 21:00 Pulse 100 102 Resp 28 20 B/P (MAP) 161/62 (95) 156/71 (99) Pulse Ox 96 96 96 O2 Delivery Venturi Mask Venturi Mask Venturi Mask Venturi Mask O2 Flow Rate 15.0 15.0 15.0 15.0 02/04/19 02/04/19 02/04/19 02/04/19 21:27 22:00 23:00 23:20 Pulse 104 100 Resp 15 15 B/P (MAP) 158/68 (98) 161/65 (97) Pulse Ox 96 96 96 96 O2 Delivery Venturi Mask Venturi Mask Venturi Mask Venturi Mask O2 Flow Rate 15.0 15.0 15.0 15.0 02/04/19 02/05/19 02/05/19 02/05/19 23:58 01:00 02:00 03:00 Pulse 105 99 99 Resp 15 15 15 B/P (MAP) 141/61 (87) 157/63 (94) Pulse Ox 96 96 100 O2 Delivery Venturi Mask Venturi Mask Venturi Mask Nasal Cannula O2 Flow Rate 15.0 15.0 15.0 5.0 02/05/19 02/05/19 02/05/19 02/05/19 04:00 04:01 05:00 06:00 Temp 98.6 98.6 Pulse 90 90 98 Resp 16 16 24 B/P (MAP) 118/49 (72) 106/55 (72) 177/76 (109) Pulse Ox 98 98 98 O2 Delivery Nasal Cannula Nasal Cannula Nasal Cannula Nasal Cannula O2 Flow Rate 5.0 3.0 3.0 3.0 02/05/19 02/05/19 02/05/19 02/05/19 07:00 08:00 08:00 09:00 Temp 99.0 99.0 Pulse 99 96 98 Resp 24 20 24 B/P (MAP) 140/63 (88) 135/60 (85) 160/74 (102) Pulse Ox 98 98 98 O2 Delivery Nasal Cannula Nasal Cannula Nasal Cannula Nasal Cannula O2 Flow Rate 3.0 3.0 3.0 3.0 02/05/19 02/05/19 10:00 11:00 Pulse 96 96 Resp 22 20 B/P (MAP) 154/72 (99) 159/66 (97) Pulse Ox 98 98 O2 Delivery Nasal Cannula Nasal Cannula O2 Flow Rate 3.0 3.0 Intake and Output 02/04/19 02/04/19 02/05/19 15:00 23:00 07:00 Intake Total 900 ml Output Total 2 ml 1 ml Balance -2 ml -1 ml 900 ml Images Magnetic resonance imaging (MRI) of the brain and brainstem without contrast 02/04/2019 1:25 PM HISTORY: CVA syndrome with right-sided weakness. TECHNIQUE: Multiplanar multi-weighted MRI of the brain and brainstem was performed without intravenous contrast using the general brain protocol. COMPARISON: None available. FINDINGS: Evaluation is limited by motion. The scalp and calvarium are normal. The superior sagittal sinus demonstrates normal venous flow. The corpus callosum is normal in shape and signal intensity. The posterior fossa is unremarkable. The pituitary and sella are normal. The brainstem and craniocervical junction are unremarkable. A small to moderate territory of diffusion signal hyperintensity is identified involving the left parietal lobe with involvement of the left post central gyrus. There is a small focus of diffusion signal hyperintensity involving the right parietal lobe. There is corresponding low signal on ADC maps. Corresponding areas of cytotoxic edema are noted in the left parietal lobe and to a far lesser extent right parietal lobe. The susceptibility weighted sequences reveal no evidence of acute or chronic hemorrhage. The ventricles are normal in size and position without evidence of hydrocephalus. The paranasal sinuses are normal. The visualized portions of the mastoids are unremarkable. The orbits appear normal. Normal flow voids are demonstrated in the carotid arteries and basilar artery. IMPRESSION: Acute small to moderate territory infarct is noted involving the left parietal lobe with involvement of the left post central gyrus. Acute small territory infarct noted in the right parietal lobe. There is associated cytotoxic edema without significant mass effect or midline shift. No acute intracranial hemorrhage. CT ANGIOGRAPHY HEAD AND NECK CLINICAL HISTORY: code stroke- post TPA- no improvement COMPARISON: None available. TECHNIQUE: CT angiogram of the head and neck was performed following the administration of IV contrast. Multiplanar reconstructed images were obtained including 3D reconstructed images performed on an independent work station. Stenosis if present in the carotid arteries were measured using NASCET criteria. PQRS compliance statement - One or more of the following individualized dose reduction techniques were utilized for this study: 1. Automated exposure control 2. Adjustment of the mA and/or kV according to patient size 3. Use of iterative reconstruction technique FINDINGS: Exam is limited by extensive venous contamination, may be related to phase of contrast bolus. No definite AV malformation or AV fistula is identified. CTA of the intracranial circulation reveals no obvious high-grade stenosis or occlusion of the intracranial internal carotid arteries. The anterior cerebral arteries are well visualized and without evidence of stenosis or occlusion. The middle cerebral arteries are well visualized and without evidence of stenosis or occlusion. The posterior cerebral arteries are well visualized and without evidence of stenosis or occlusion. The vertebral basilar system is normal with no evidence of stenosis or occlusion. In the neck, the origins of the great vessels are unremarkable. The common carotid arteries, bilaterally are normal with no evidence of significant stenosis or occlusion. The internal carotid arteries are normal bilaterally with no evidence of stenosis. The vertebral arteries in the neck are well visualized bilaterally and unremarkable. Small left pleural effusion. Biapical airspace opacities are partially profiled IMPRESSION: 1. Limited examination given extensive venous contamination, possibly related to phase of contrast. No obvious AV malformation or AV fistula is seen. 2. Within these constraints, no evidence for high-grade stenosis of the intracranial circulation or the extracranial carotid or vertebral arteries. 3. Small left pleural effusion. Nonspecific biapical airspace opacities are partially profiled ABRAHAM FAIRBANKS MD Feb 05, 2019 12:21
[2019-02-05] MEDS: ASPIRIN RECTAL 300 MG SUPP. PR SCH (12:28)
[2019-02-05] MEDS: TPN PER PHARMACY MC PRN (13:20)
--- NOTE | 2019-02-05 13:20 | NUR ---
Pharmacy TPN Dosing Note S: JOHN IRBY is a 78 year old F Currently receiving Central Continuous TPN started 02/04/19 B:Pertinent PMH: CVA, failed swallow study Height: 5 feet, 3 inches Weight: 89.8 kg Current diet: NPO LABS: Sodium: 142 Potassium: 4.2 Chloride: 103 Calcium: 8.8 Corrected Calcium: 9.68 Magnesium: 1.7 CO2: 32 SCr: 1.0 Glucose: 150 Albumin: 2.9 AST: 19 ALT: 11 TPN FORMULA: TPN TYPE: Central Continuous AMINO ACIDS: 70 gm DEXTROSE: 225 gm LIPIDS: 20 gm SODIUM CHLORIDE: 45 mEq POTASSIUM CHLORIDE: 40 mEq POTASSIUM PHOSPHATE: 17 mmol MAGNESIUM: 10 mEq CALCIUM: 10 mEq MULTIPLE VITAMIN: 10 ml TRACE ELEMENTS: 1 ml TPN PLAN: -Macros adjusted per dietary recs. -Serum mag low - bolus ordered for outside of TPN. No change to TPN. -Serum phos trending down, increase KPhos to 17 mmol/day. Reduce KCl as serum potassium is stable. -BMP, mag, phos tomorrow. R: Continue TPN @ current rate and with above changes. Will monitor electrolytes, glucose, and tolerance to TPN. DOMINICK OLSON [facility], 02/05/19 1321
--- NOTE | 2019-02-05 13:57 | PDOC2 ---
CARDIOLOGY CONSULT NOTE CHEIF COMPLAINT: Evaluate for embolic stroke HPI: 78-year-old woman with strokes and multiple areas and cardial disease and asked to evaluate her for embolic phenomenon. History is quite limited as the patient is confused. She only nods yes to her name. Denies any chest pain. She was admitted in October with a near syncopal episode and workup at that time including echocardiogram did not reveal any significant cardiac pathology. PMHX: Lung cancer status post chemoradiation Hypertension Dyslipidemia COPD Chronic diastolic heart failure SOCHX: Prior smoker. No alcohol, tobacco or illicit drug use FAMHX: Noncontributory CURRENT MEDS: Current Medications Medications (Trade) Dose Ordered Sig/James Route PRN Reason Start Time Stop Time Status Last Admin Dose Admin Sodium Chloride 45 meq/Potassium Chloride 50 meq/ Potassium Phosphate 13.6 mmol/Magnesium Sulfate 10 meq/ Calcium Gluconate 10 meq/ Multivitamins 10 ml/Chromium/ Copper/Manganese/ Seleni/Zn 1 ml/ Total Parenteral Nutrition/Amino Acids/Dextrose/ Fat Emulsion Intravenous 1,512 ml @ 63 mls/hr TPN CONT IV 02/04/19 22:00 02/05/19 21:59 02/04/19 22:37 Aspirin (Aspirin Rectal Supp) 300 mg DAILY [place] 02/05/19 09:00 02/05/19 12:28 Fentanyl (Duragesic 50mcg/ Hr Patch) 1 patch Q72H TD 02/04/19 18:45 02/04/19 19:20 Alteplase, Recombinant (Cathflo For Central Catheter Clearance) 1 mg 1X ONCE INT CAT 02/05/19 11:00 02/05/19 11:01 DC 02/05/19 12:08 Magnesium Sulfate 50 ml @ 25 mls/hr 1X ONCE IV 02/05/19 11:30 02/05/19 13:29 DC 02/05/19 12:08 ALLERGIES: Allergies Coded Allergies Type Severity Reaction Last Updated Verified Penicillins Allergy Severe 11/13/18 Yes amoxicillin trihydrate Allergy Intermediate 10/22/18 Yes famotidine Allergy Intermediate 10/22/18 Yes potassium clavulanate Allergy Intermediate 10/22/18 Yes sulfamethoxazole Allergy Intermediate 10/22/18 Yes trimethoprim Allergy Intermediate 10/22/18 Yes I S O L A T I O N *CONTACT* Allergy Unknown 02/04/19 Yes ROS: Unable to be obtained PHYSICAL EXAM: Vital Signs/I&O: Vital Signs Date Time Temp Pulse Resp B/P (MAP) Pulse Ox O2 Delivery O2 Flow Rate FiO2 02/05/19 11:00 96 20 159/66 (97) 98 Nasal Cannula 3.0 02/05/19 08:00 99.0 99.0 I & O 02/04/19 02/04/19 02/05/19 15:00 23:00 07:00 Intake Total 900 ml Output Total 2 ml 1 ml Balance -2 ml -1 ml 900 ml Physical Exam: Alert and oriented to self only Head and neck exam unremarkable cardiac regular rate and rhythm without any murmurs Lungs are clear anteriorly Abdomen is soft Trace lower extremity edema bilaterally Neurologic exam deferred DIAGNOSTIC TESTING: Lab Laboratory Tests Test 02/04/19 16:04 02/05/19 06:15 Glucose (Fingerstick) 115 mg/dL (70-99) H White Blood Count 7.8 x10^3/uL (4.0-11.0) Red Blood Count 2.95 x10^6/uL (3.50-5.40) L Hemoglobin 8.0 g/dL (12.0-15.5) L Hematocrit 25.7 % (36.0-47.0) L Mean Corpuscular Volume 87 fL (79-100) Mean Corpuscular Hemoglobin 27 pg (25-35) Mean Corpuscular Hemoglobin Concent 31 g/dL (31-37) Red Cell Distribution Width 16.1 % (11.5-14.5) H Platelet Count 386 x10^3/uL (140-400) Neutrophils (%) (Auto) 68 % (31-73) Lymphocytes (%) (Auto) 18 % (24-48) L Monocytes (%) (Auto) 12 % (0-9) H Eosinophils (%) (Auto) 0 % (0-3) Basophils (%) (Auto) 1 % (0-3) Neutrophils # (Auto) 5.3 x10^3/uL (1.8-7.7) Lymphocytes # (Auto) 1.4 x10^3/uL (1.0-4.8) Monocytes # (Auto) 1.0 x10^3/uL (0.0-1.1) Eosinophils # (Auto) 0.0 x10^3/uL (0.0-0.7) Basophils # (Auto) 0.1 x10^3/uL (0.0-0.2) Sodium Level 142 mmol/L (136-145) Potassium Level 4.2 mmol/L (3.5-5.1) Chloride Level 103 mmol/L (98-107) Carbon Dioxide Level 32 mmol/L (21-32) Anion Gap 7 (6-14) Blood Urea Nitrogen 6 mg/dL (7-20) L Creatinine 1.0 mg/dL (0.6-1.0) Estimated GFR (Cockcroft-Gault) 64.9 BUN/Creatinine Ratio 6 (6-20) Glucose Level 150 mg/dL (70-99) H Calcium Level 8.8 mg/dL (8.5-10.1) Phosphorus Level 2.7 mg/dL (2.6-4.7) Total Bilirubin 0.3 mg/dL (0.2-1.0) Aspartate Amino Transf (AST/SGOT) 19 U/L (15-37) Alkaline Phosphatase 47 U/L (46-116) Total Protein 7.4 g/dL (6.4-8.2) Albumin 2.9 g/dL (3.4-5.0) L Albumin/Globulin Ratio 0.6 (1.0-1.7) L Laboratory Tests 02/05/19 06:15 ASSESSMENT: 1. Multiple area of cerebrovascular infarcts 2. Prior history of malignancy in multiple cardiovascular comorbidities as noted above. PLAN: 1. At her last visit in October she was due to have a event monitor and this did not occur is a patient was unable to follow-up with us. 2. After discussion of goals of care based on family's wishes we could consider a transesophageal echocardiogram on Thursday with a outpatient event recorder to rule out any occult atrial fibrillation. Otherwise continue risk factor modification. Supportive care from a cardiac standpoint. STEFANO DODD MD Feb 05, 2019 13:57
[2019-02-05] MEDS: SIMVASTATIN 10 MG TABLET PO SCH (21:00)
[2019-02-05] MEDS: MORPHINE SULFATE 2 MG/ML VIAL. IV PRN (21:04)
[2019-02-05] MEDS ORDERED: TOTAL PARENTERAL NUTRITION IV SCH ×10 (22:00)
[2019-02-05] MEDS ORDERED: DEXTROSE 70% IV SCH ×10 (22:00)
[2019-02-05] MEDS ORDERED: [UNRECOGNIZED DRUG - OTHER] IV SCH ×10 (22:00)
[2019-02-05] MEDS ORDERED: AMINO ACID IV SCH ×10 (22:00)
[2019-02-06] MEDS ORDERED: ALTEPLASE 1MG SYRINGE. INT CAT ONE ×4 (02:30→13:00)
[2019-02-06 03:09] VITALS: BP 141/55
[2019-02-06 08:20] VITALS: BP 154/66
--- NOTE | 2019-02-06 08:37 | RAD ---
PORTABLE CHEST 1V History: PICC placement Comparison: 02/03/2019 Findings: Single view of the chest is submitted. There is now a right upper extremity PICC with the tip in the superior aspect of the superior vena cava. Pericardial cardiac silhouette is again enlarged. Left hemidiaphragm is again obscured with left base opacity as seen previously. There is improved aeration of the mid left hemithorax and right lung base. There is probable small right pleural effusion as seen previously. No pneumothorax is identified. Perihilar opacity greater on the left is similar. Impression: 1. There is now a right upper extremity PICC, tip in the superior aspect of the superior vena cava. 2. There is again obscuration of the left hemidiaphragm likely component of pleural fluid with adjacent atelectasis/infiltrate although somewhat improved aeration of the right lung base and mid left hemithorax. 3. There is again enlargement of the pericardial cardiac silhouette. Electronically signed by: Patrick Olson MD (02/06/2019 8:33 AM) [facility]
[2019-02-06] MEDS: ASPIRIN RECTAL 300 MG SUPP. PR SCH (10:08)
--- NOTE | 2019-02-06 10:29 | PDOC ---
PROGRESS NOTES Chief Complaint Chief Complaint impression Stroke Acute small to moderate territory infarct is noted involving the left parietal lobe with involvement of the left post central gyrus. Acute small territory infarct noted in the right parietal lobe. There is associated cytotoxic edema without significant mass effect or midline shift. No acute intracranial hemorrhage. mild pulmonary hypertension morbid obesity no evidence for high-grade stenosis of the intracranial circulation or the extracranial carotid or vertebral arteries. problems * Lethargic * Confused * Agitated * * * plan transesophageal echo 02/07 History of Present Illness History of Present Illness 02/06/19 Pt examined Acute small to moderate territory infarct is noted involving the left parietal lobe with involvement of the left post central gyrus. Acute small territory infarct noted in the right parietal lobe. There is associated cytotoxic edema without significant mass effect or midline shift. No acute intracranial hemorrhage. Pt is pleasantly confused, but awake Mg2+: 1.7 recheck pending B12 LOW Echo and bubble study recommended by neurology Acute small to moderate territorial infarct involving left parietal lobe Charts and labs reviewed npo await transthoracic and transesophageal echocardiograms, and placement of event monitor OT/PT/ST. 36 min pt exam, chart review, > 50% of time spent with exam, chart review, pt care coordination Vitals Vitals Vital Signs Date Time Temp Pulse Resp B/P (MAP) Pulse Ox O2 Delivery O2 Flow Rate FiO2 02/06/19 08:20 98.9 95 20 154/66 (95) 99 Room Air 98.9 02/05/19 21:34 4.0 Physical Exam General: Alert, Cooperative, No acute distress Lungs: Clear Abdomen: Normal bowel sounds, Soft Extremities: No clubbing, No cyanosis Skin: No rashes, No breakdown Labs LABS Tricuspid Valve TR P. Velocity 287cm/s RAP ESTIMATE 3mmHg TR Peak Gr. 33mmHg RVSP 36mmHg Pulmonary Vein S1 Velocity 47.0cm/s S2 Velocity 34.55cm/s D2 Velocity 34.5cm/s LEFT VENTRICLE The left ventricle is normal size. There is mild concentric left ventricular hypertrophy. LV systolic function is low normal. EF 50% There is normal LV segmental wall motion. Transmitral Doppler flow pattern is Grade I-abnormal relaxation pattern. RIGHT VENTRICLE The right ventricle is normal size. The right ventricular systolic function is normal. ATRIA The left atrium size is normal. The right atrium size is normal. The interatrial septum is intact with no evidence for an atrial septal defect or patent foramen ovale as noted on 2-D or Doppler imaging. AORTIC VALVE The aortic valve is calcified but opens well. Doppler and Color Flow revealed no significant aortic regurgitation. There is no significant aortic valvular stenosis. MITRAL VALVE The mitral valve is calcified but opens well. There is no evidence of mitral valve prolapse. There is no mitral valve stenosis. Doppler and Color-flow revealed trace mitral regurgitation. TRICUSPID VALVE The tricuspid valve is normal in structure and function. Doppler and Color Flow revealed trace tricuspid regurgitation. There is mild pulmonary hypertension. The PA pressure was estimated at 36 mmHg. There is no tricuspid valve stenosis. PULMONIC VALVE Doppler and Color Flow revealed trace pulmonic valvular regurgitation. There is no pulmonic valvular stenosis. GREAT VESSELS The aortic root is normal in size. The ascending aorta is normal in size. The IVC is normal in size and collapses >50% with inspiration. PERICARDIAL EFFUSION There is no evidence of significant pericardial effusion. Critical Notification Critical Value: No <Conclusion> LV systolic function is low normal. EF 50% There is normal LV segmental wall motion. Doppler and Color Flow revealed trace tricuspid regurgitation. There is mild pulmonary hypertension. The PA pressure was estimated at 36 mmHg. Signed by : Stefano Mejia, Electronically Approved : 10/25/2018 14:07:36 FINDINGS: Exam is limited by extensive venous contamination, may be related to phase of contrast bolus. No definite AV malformation or AV fistula is identified. CTA of the intracranial circulation reveals no obvious high-grade stenosis or occlusion of the intracranial internal carotid arteries. The anterior cerebral arteries are well visualized and without evidence of stenosis or occlusion. The middle cerebral arteries are well visualized and without evidence of stenosis or occlusion. The posterior cerebral arteries are well visualized and without evidence of stenosis or occlusion. The vertebral basilar system is normal with no evidence of stenosis or occlusion. In the neck, the origins of the great vessels are unremarkable. The common carotid arteries, bilaterally are normal with no evidence of significant stenosis or occlusion. The internal carotid arteries are normal bilaterally with no evidence of stenosis. The vertebral arteries in the neck are well visualized bilaterally and unremarkable. Small left pleural effusion. Biapical airspace opacities are partially profiled IMPRESSION: 1. Limited examination given extensive venous contamination, possibly related to phase of contrast. No obvious AV malformation or AV fistula is seen. 2. Within these constraints, no evidence for high-grade stenosis of the intracranial circulation or the extracranial carotid or vertebral arteries. 3. Small left pleural effusion. Nonspecific biapical airspace opacities are partially profiled Electronically signed by: Emile Perales MD (02/04/2019 9:41 AM) [facility] APPROVED REPORT EXAM: Two-dimensional and M-mode echocardiogram with Doppler and color Doppler. Other Information Quality : Fair Technically limited study due to body habitus. INDICATION COPD Lung Cancer, Unresponsive 2D DIMENSIONS RVDd 2.9 (2.9-3.5cm) Left Atrium(2D) 3.1 (1.6-4.0cm) IVSd 1.3 (0.7-1.1cm) Aortic Root(2D) 3.3 (2.0-3.7cm) LVDd 4.1 (3.9-5.9cm) LVOT Diameter 2.1 (1.8-2.4cm) PWd 1.2 (0.7-1.1cm) LVDs 3.2 (2.5-4.0cm) FS (%) 22.4 % SV 33.9 ml LVEF(%) 55.0 (>50%) Aortic Valve AoV Peak Bishop. 115.8cm/s AoV VTI 19.5cm AO Peak GR. 5.4mmHg LVOT VTI 21.79cm AO Mean GR. 3mmHg JAZZ (VTI) 3.78cm2 Mitral Valve MV E Velocity 91.4cm/s MV DECEL TIME 143ms MV A Velocity 110.8cm/s E/A Ratio 0.8 TDI Lateral E' P. V 10.82cm/s Medial E' P. V 9.71cm/s E/Lateral E' 8.4 E/Medial E' 9.4 Tricuspid Valve TR P. Velocity 287cm/s RAP ESTIMATE 3mmHg TR Peak Gr. 33mmHg RVSP 36mmHg Pulmonary Vein S1 Velocity 47.0cm/s S2 Velocity 34.55cm/s D2 Velocity 34.5cm/s LEFT VENTRICLE The left ventricle is normal size. There is mild concentric left ventricular hypertrophy. LV systolic function is low normal. EF 50% There is normal LV segmental wall motion. Transmitral Doppler flow pattern is Grade I-abnormal relaxation pattern. RIGHT VENTRICLE The right ventricle is normal size. The right ventricular systolic function is normal. ATRIA The left atrium size is normal. The right atrium size is normal. The interatrial septum is intact with no evidence for an atrial septal defect or patent foramen ovale as noted on 2-D or Doppler imaging. AORTIC VALVE The aortic valve is calcified but opens well. Doppler and Color Flow revealed no significant aortic regurgitation. There is no significant aortic valvular stenosis. MITRAL VALVE The mitral valve is calcified but opens well. There is no evidence of mitral valve prolapse. There is no mitral valve stenosis. Doppler and Color-flow revealed trace mitral regurgitation. TRICUSPID VALVE The tricuspid valve is normal in structure and function. Doppler and Color Flow revealed trace tricuspid regurgitation. There is mild pulmonary hypertension. The PA pressure was estimated at 36 mmHg. There is no tricuspid valve stenosis. PULMONIC VALVE Doppler and Color Flow revealed trace pulmonic valvular regurgitation. There is no pulmonic valvular stenosis. GREAT VESSELS The aortic root is normal in size. The ascending aorta is normal in size. The IVC is normal in size and collapses >50% with inspiration. PERICARDIAL EFFUSION There is no evidence of significant pericardial effusion. Critical Notification Critical Value: No <Conclusion> LV systolic function is low normal. EF 50% There is normal LV segmental wall motion. Doppler and Color Flow revealed trace tricuspid regurgitation. There is mild pulmonary hypertension. The PA pressure was estimated at 36 mmHg. Signed by : Stefano Mejia, Electronically Approved : 10/25/2018 14:07:36 DICTATED and SIGNED BY: STEFANO MEJIA MD DATE: 10/25/18 1407 PATIENT: JOHN IRBY ACCOUNT: [id number] : 1940 LOCATION: [facility] ICU AGE: 78 SEX: F EXAM STATUS: ADM IN ORD. 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 *CALL [phone] PROCEDURE: BRAIN W/O CONTRAST EXAMINATION: Magnetic resonance imaging (MRI) of the brain and brainstem without contrast 02/04/2019 1:25 PM HISTORY: CVA syndrome with right-sided weakness. TECHNIQUE: Multiplanar multi-weighted MRI of the brain and brainstem was performed without intravenous contrast using the general brain protocol. COMPARISON: None available. FINDINGS: Evaluation is limited by motion. The scalp and calvarium are normal. The superior sagittal sinus demonstrates normal venous flow. The corpus callosum is normal in shape and signal intensity. The posterior fossa is unremarkable. The pituitary and sella are normal. The brainstem and craniocervical junction are unremarkable. A small to moderate territory of diffusion signal hyperintensity is identified involving the left parietal lobe with involvement of the left post central gyrus. There is a small focus of diffusion signal hyperintensity involving the right parietal lobe. There is corresponding low signal on ADC maps. Corresponding areas of cytotoxic edema are noted in the left parietal lobe and to a far lesser extent right parietal lobe. The susceptibility weighted sequences reveal no evidence of acute or chronic hemorrhage. The ventricles are normal in size and position without evidence of hydrocephalus. The paranasal sinuses are normal. The visualized portions of the mastoids are unremarkable. The orbits appear normal. Normal flow voids are demonstrated in the carotid arteries and basilar artery. IMPRESSION: Acute small to moderate territory infarct is noted involving the left parietal lobe with involvement of the left post central gyrus. Acute small territory infarct noted in the right parietal lobe. There is associated cytotoxic edema without significant mass effect or midline shift. No acute intracranial hemorrhage. FOR INTERNAL CODING PURPOSES Critical result: Findings discussed with Tejal , the patient's nurse, at 02/04/2019 2:47 PM. RESULT CODE: (C) Electronically signed by: Sara Luna MD (02/04/2019 2:50 PM) [facility] Assessment and Plan Assessmemt and Plan * Carol Quesada MA, L/CCC-[employer] Medical Dx. * Adm from [facility] p.TPA for CVA; respiratory failure at adm. PMHx: Asthma, hyperlipidemia, hypertension, neuropathy, diabetes. MRI 02/04: Acute small to moderate territory infarct is noted involving the left parietal lobe with involvement of the left post central gyrus. Acute small territory infarct noted in the right parietal lobe. There is associated cytotoxic edema without significant mass effect or midline shift. No acute intracranial hemorrhage. Current Chest Xray * none this adm Reason For Referral * acute CVA Relevant Precautions * Communication Impaired O2 Requirements * Nasal Cannula Behavioral Characteristics * Lethargic * Confused * Agitated Current Diet Consistency * NPO Prior Functional Status * No known sp/sw deficit Other Related Factors * Pt put lips together tightly& turned head Pain Score * 0 Pain Scale Type * PAINAD Additional Information * No verbalizations. Pt said "um-hmm" several times w/intermit eye opening. Additional Information - Oral Motor * Refused to open mouth for Additional Information - Swallowing - General * Dtr Peaches present. Will re-attempt 02/06 as pt able,available. Comment Review of Relevant I have reviewed the following items myesha (where applicable) has been applied. Labs Laboratory Tests Test 02/04/19 16:04 02/05/19 06:15 Glucose (Fingerstick) 115 mg/dL (70-99) White Blood Count 7.8 x10^3/uL (4.0-11.0) Red Blood Count 2.95 x10^6/uL (3.50-5.40) Hemoglobin 8.0 g/dL (12.0-15.5) Hematocrit 25.7 % (36.0-47.0) Mean Corpuscular Volume 87 fL (79-100) Mean Corpuscular Hemoglobin 27 pg (25-35) Mean Corpuscular Hemoglobin Concent 31 g/dL (31-37) Red Cell Distribution Width 16.1 % (11.5-14.5) Platelet Count 386 x10^3/uL (140-400) Neutrophils (%) (Auto) 68 % (31-73) Lymphocytes (%) (Auto) 18 % (24-48) Monocytes (%) (Auto) 12 % (0-9) Eosinophils (%) (Auto) 0 % (0-3) Basophils (%) (Auto) 1 % (0-3) Neutrophils # (Auto) 5.3 x10^3/uL (1.8-7.7) Lymphocytes # (Auto) 1.4 x10^3/uL (1.0-4.8) Monocytes # (Auto) 1.0 x10^3/uL (0.0-1.1) Eosinophils # (Auto) 0.0 x10^3/uL (0.0-0.7) Basophils # (Auto) 0.1 x10^3/uL (0.0-0.2) Sodium Level 142 mmol/L (136-145) Potassium Level 4.2 mmol/L (3.5-5.1) Chloride Level 103 mmol/L (98-107) Carbon Dioxide Level 32 mmol/L (21-32) Anion Gap 7 (6-14) Blood Urea Nitrogen 6 mg/dL (7-20) Creatinine 1.0 mg/dL (0.6-1.0) Estimated GFR (Cockcroft-Gault) 64.9 BUN/Creatinine Ratio 6 (6-20) Glucose Level 150 mg/dL (70-99) Calcium Level 8.8 mg/dL (8.5-10.1) Phosphorus Level 2.7 mg/dL (2.6-4.7) Magnesium Level 1.7 mg/dL (1.8-2.4) Total Bilirubin 0.3 mg/dL (0.2-1.0) Aspartate Amino Transf (AST/SGOT) 19 U/L (15-37) Alanine Aminotransferase (ALT/SGPT) 11 U/L (14-59) Alkaline Phosphatase 47 U/L (46-116) Total Protein 7.4 g/dL (6.4-8.2) Albumin 2.9 g/dL (3.4-5.0) Albumin/Globulin Ratio 0.6 (1.0-1.7) Triglycerides Level 91 mg/dL (0-150) Medications Current Medications Ondansetron HCl (Zofran) 4 mg PRN Q6HRS PRN IVP NAUSEA/VOMITING 1ST CHOICE; Start 02/04/19 at 02:30 Acetaminophen (Tylenol) 650 mg PRN Q6HRS PRN PO MILD PAIN 1-3; Start 02/04/19 at 02:30 Sodium Chloride 1,000 ml @ 80 mls/hr 1X ONCE IV Last administered on 02/04/19at 04:07; Start 02/04/19 at 03:00; Stop 02/04/19 at 15:29; Status DC Morphine Sulfate (Morphine Sulfate) 1 mg PRN Q2HR PRN IV SEVERE PAIN 7-10 Last administered on 02/05/19at 21:04; Start 02/04/19 at 02:30 Iohexol (Omnipaque 350 Mg/ml) 75 ml 1X ONCE IV Last administered on 02/04/19at 09:07; Start 02/04/19 at 09:00; Stop 02/04/19 at 09:01; Status DC Info (CONTRAST GIVEN -- Rx MONITORING) 1 each PRN DAILY PRN MC SEE COMMENTS; Start 02/04/19 at 09:00; Stop 02/06/19 at 08:59; Status DC Info (Tpn Per Pharmacy) 1 each PRN DAILY PRN MC SEE COMMENTS Last administered on 02/05/19at 13:20; Start 02/04/19 at 11:30 Sodium Chloride 45 meq/Potassium Chloride 50 meq/ Potassium Phosphate 13.6 mmol/Magnesium Sulfate 10 meq/ Calcium Gluconate 10 meq/ Multivitamins 10 ml/Chromium/ Copper/Manganese/ Seleni/Zn 1 ml/ Total Parenteral Nutrition/Amino Acids/Dextrose/ Fat Emulsion Intravenous 1,512 ml @ 63 mls/hr TPN CONT IV Last administered on 02/04/19at 22:37; Start 02/04/19 at 22:00; Stop 02/05/19 at 21:59; Status DC Aspirin (Aspirin Rectal Supp) 300 mg DAILY ME Last administered on 02/06/19at 10:08; Start 02/05/19 at 09:00 Simvastatin (Zocor) 10 mg QHS PO Last administered on 02/05/19at 21:00; Start 02/04/19 at 21:00 Fentanyl (Duragesic 50mcg/ Hr Patch) 1 patch Q72H TD Last administered on 02/04/19at 19:20; Start 02/04/19 at 18:45 Alteplase, Recombinant (Cathflo For Central Catheter Clearance) 1 mg 1X ONCE INT CAT Last administered on 02/05/19at 12:08; Start 02/05/19 at 11:00; Stop 02/05/19 at 11:01; Status DC Magnesium Sulfate 50 ml @ 25 mls/hr 1X ONCE IV Last administered on 02/05/19at 12:08; Start 02/05/19 at 11:30; Stop 02/05/19 at 13:29; Status DC Sodium Chloride 45 meq/Potassium Chloride 40 meq/ Potassium Phosphate 17 mmol/ Magnesium Sulfate 10 meq/Calcium Gluconate 10 meq/ Multivitamins 10 ml/Chromium/ Copper/Manganese/ Seleni/Zn 1 ml/ Total Parenteral Nutrition/Amino Acids/Dextrose/ Fat Emulsion Intravenous 1,512 ml @ 63 mls/hr TPN CONT IV Last administered on 02/05/19at 22:35; Start 02/05/19 at 22:00; Stop 02/06/19 at 21:59 Alteplase, Recombinant (Cathflo For Central Catheter Clearance) 1 mg 1X ONCE INT CAT Last administered on 02/06/19at 02:39; Start 02/06/19 at 02:30; Stop 02/06/19 at 02:31; Status DC Alteplase, Recombinant (Cathflo For Central Catheter Clearance) 1 mg 1X ONCE INT CAT Last administered on 02/06/19at 04:14; Start 02/06/19 at 05:00; Stop 02/06/19 at 05:01; Status DC Alteplase, Recombinant (Cathflo For Central Catheter Clearance) 1 mg 1X ONCE INT CAT Last administered on 02/06/19at 10:13; Start 02/06/19 at 10:30; Stop 02/06/19 at 10:31 Active Scripts Active Doxycycline Hyclate 100 Mg Capsule 1 Cap PO BID 7 Days Prednisone 20 Mg Tablet 40 Mg PO DAILY 5 Days Humalog (Insulin Lispro) 100 Unit/1 Ml Insuln.pen 8 Units SQ TIDWMEALS 30 Days + Sliding scale 1u for every 50mg/dL > 150mg/dL Call MD for glucose > 350 If glucose < 100, sliding scale only Lantus Solostar (Insulin Glargine,Hum.rec.anlog) 100 Unit/1 Ml Insuln.pen 10 Units SQ QHS 30 Days Culturelle (Lactobacillus Rhamnosus Gg) 1 Each Cap.sprink 1 Cap PO BID 10 Days Polyethylene Glycol 3350 17 Gm Powd.pack 17 Gm PO PRN BID PRN 30 Days Duoneb 0.5-3(2.5) Mg/3 Ml (Albuterol/Ipratropium) 3 Ml Ampul.neb 3 Ml NEB RTQID 30 Days Simvastatin 10 Mg Tablet 1 Tab PO QHS 30 Days Glipizide 10 Mg Tablet 10 Mg PO DAILY 3 Days Gabapentin 300 Mg Capsule 300 Mg PO TID 30 Days Lisinopril 10 Mg Tablet 1 Tab PO DAILY Reported FENTANYL 50mcg/hr (Fentanyl) 1 Each Patch.td72 1 Patch TD Q72H Ibuprofen 800 Mg Tablet 800 Mg PO PRN Q8HRS PRN Omeprazole 20 Mg Capsule.dr 2 Cap PO DAILY Metformin Hcl 500 Mg Tablet 500 Mg PO BID Vitals/I & O Vital Sign - Last 24 Hours 10/12/19 02/05/19 02/05/19 02/05/19 11:00 14:45 16:00 19:47 Temp 98.0 98.0 98.7 98.0 98.0 98.7 Pulse 96 99 99 99 Resp 20 16 60 18 B/P (MAP) 159/66 (97) 180/80 (113) 180/80 (113) 146/60 (88) Pulse Ox 98 96 96 95 O2 Delivery Nasal Cannula Nasal Cannula Nasal Cannula Room Air O2 Flow Rate 3.0 3.0 3.0 02/05/19 02/05/19 02/06/19 02/06/19 21:34 23:00 03:09 08:20 Temp 99.4 99.1 98.9 99.4 99.1 98.9 Pulse 99 90 95 Resp 18 20 20 B/P (MAP) 130/52 (78) 141/55 (83) 154/66 (95) Pulse Ox 95 96 99 O2 Delivery Nasal Cannula Room Air Room Air Room Air O2 Flow Rate 4.0 MICHELLE PINZON MD Feb 06, 2019 10:29
--- NOTE | 2019-02-06 11:32 | PDOC ---
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 Status-post alteplase HTN. HLD. DM? Thrombocytosis? Obesity. Plan ASA 300 mg RC daily Statin HS. Echo + Bubble study. Cardiology consult appreciated await transthoracic and transesophageal echocardiograms, and placement of event monitor OT/PT/ST. Subjective none Objective Vital Signs Date Time Temp Pulse Resp B/P (MAP) Pulse Ox O2 Delivery O2 Flow Rate FiO2 02/06/19 08:20 98.9 95 20 154/66 (95) 99 Room Air 98.9 02/05/19 21:34 4.0 PHYSICAL EXAM Alert. Expressive and receptive aphasia, does follow a few commands. PERRL. EOMI. CN: no focal findings. Muscle tone: normal. Muscle strength: 3/5, worse on right DTR: 1+ Plantar reflex: silent Gait: not examined in bed. Sensory exam: no abnormal findings. Cerebellar: not cooperative Review of Relevant I have reviewed the following items myesha (where applicable) has been applied. Labs Laboratory Tests Test 02/04/19 16:04 02/05/19 06:15 02/06/19 10:48 Glucose (Fingerstick) 115 mg/dL (70-99) 176 mg/dL (70-99) White Blood Count 7.8 x10^3/uL (4.0-11.0) Red Blood Count 2.95 x10^6/uL (3.50-5.40) Hemoglobin 8.0 g/dL (12.0-15.5) Hematocrit 25.7 % (36.0-47.0) Mean Corpuscular Volume 87 fL (79-100) Mean Corpuscular Hemoglobin 27 pg (25-35) Mean Corpuscular Hemoglobin Concent 31 g/dL (31-37) Red Cell Distribution Width 16.1 % (11.5-14.5) Platelet Count 386 x10^3/uL (140-400) Neutrophils (%) (Auto) 68 % (31-73) Lymphocytes (%) (Auto) 18 % (24-48) Monocytes (%) (Auto) 12 % (0-9) Eosinophils (%) (Auto) 0 % (0-3) Basophils (%) (Auto) 1 % (0-3) Neutrophils # (Auto) 5.3 x10^3/uL (1.8-7.7) Lymphocytes # (Auto) 1.4 x10^3/uL (1.0-4.8) Monocytes # (Auto) 1.0 x10^3/uL (0.0-1.1) Eosinophils # (Auto) 0.0 x10^3/uL (0.0-0.7) Basophils # (Auto) 0.1 x10^3/uL (0.0-0.2) Sodium Level 142 mmol/L (136-145) Potassium Level 4.2 mmol/L (3.5-5.1) Chloride Level 103 mmol/L (98-107) Carbon Dioxide Level 32 mmol/L (21-32) Anion Gap 7 (6-14) Blood Urea Nitrogen 6 mg/dL (7-20) Creatinine 1.0 mg/dL (0.6-1.0) Estimated GFR (Cockcroft-Gault) 64.9 BUN/Creatinine Ratio 6 (6-20) Glucose Level 150 mg/dL (70-99) Calcium Level 8.8 mg/dL (8.5-10.1) Phosphorus Level 2.7 mg/dL (2.6-4.7) Magnesium Level 1.7 mg/dL (1.8-2.4) Total Bilirubin 0.3 mg/dL (0.2-1.0) Aspartate Amino Transf (AST/SGOT) 19 U/L (15-37) Alanine Aminotransferase (ALT/SGPT) 11 U/L (14-59) Alkaline Phosphatase 47 U/L (46-116) Total Protein 7.4 g/dL (6.4-8.2) Albumin 2.9 g/dL (3.4-5.0) Albumin/Globulin Ratio 0.6 (1.0-1.7) Triglycerides Level 91 mg/dL (0-150) Laboratory Tests Test 02/06/19 10:48 Glucose (Fingerstick) 176 mg/dL (70-99) Medications Current Medications Ondansetron HCl (Zofran) 4 mg PRN Q6HRS PRN IVP NAUSEA/VOMITING 1ST CHOICE; Start 02/04/19 at 02:30 Acetaminophen (Tylenol) 650 mg PRN Q6HRS PRN PO MILD PAIN 1-3; Start 02/04/19 at 02:30 Sodium Chloride 1,000 ml @ 80 mls/hr 1X ONCE IV Last administered on 02/04/19 04:07; Start 02/04/19 at 03:00; Stop 02/04/19 at 15:29; Status DC Morphine Sulfate (Morphine Sulfate) 1 mg PRN Q2HR PRN IV SEVERE PAIN 7-10 Last administered on 02/05/19at 21:04; Start 02/04/19 at 02:30 Iohexol (Omnipaque 350 Mg/ml) 75 ml 1X ONCE IV Last administered on 02/04/19at 09:07; Start 02/04/19 at 09:00; Stop 02/04/19 at 09:01; Status DC Info (CONTRAST GIVEN -- Rx MONITORING) 1 each PRN DAILY PRN MC SEE COMMENTS; Start 02/04/19 at 09:00; Stop 02/06/19 at 08:59; Status DC Info (Tpn Per Pharmacy) 1 each PRN DAILY PRN MC SEE COMMENTS Last administered on 02/05/19at 13:20; Start 02/04/19 at 11:30 Sodium Chloride 45 meq/Potassium Chloride 50 meq/ Potassium Phosphate 13.6 mmol /Magnesium Sulfate 10 meq/ Calcium Gluconate 10 meq/ Multivitamins 10 ml/Chromium/ Copper/Manganese/ Seleni/Zn 1 ml/ Total Parenteral Nutrition/Amino Acids/Dextrose/ Fat Emulsion Intravenous 1,512 ml @ 63 mls/hr TPN CONT IV Last administered on 02/04/19 22:37; Start 02/04/19 at 22:00; Stop 02/05/19 at 21:59; Status DC Aspirin (Aspirin Rectal Supp) 300 mg DAILY DE Last administered on 02/06/19at 10:08; Start 02/05/19 at 09:00 Simvastatin (Zocor) 10 mg QHS PO Last administered on 02/05/19 21:00; Start 02/04/19 at 21:00 Fentanyl (Duragesic 50mcg/ Hr Patch) 1 patch Q72H TD Last administered on 02/04/19at 19:20; Start 02/04/19 at 18:45 Alteplase, Recombinant (Cathflo For Central Catheter Clearance) 1 mg 1X ONCE INT CAT Last administered on 02/05/19at 12:08; Start 02/05/19 at 11:00; Stop 02/05/19 at 11:01; Status DC Magnesium Sulfate 50 ml @ 25 mls/hr 1X ONCE IV Last administered on 02/05/19at 12:08; Start 02/05/19 at 11:30; Stop 02/05/19 at 13:29; Status DC Sodium Chloride 45 meq/Potassium Chloride 40 meq/ Potassium Phosphate 17 mmol/ Magnesium Sulfate 10 meq/Calcium Gluconate 10 meq/ Multivitamins 10 ml/Chromium/ Copper/Manganese/ Seleni/Zn 1 ml/ Total Parenteral Nutrition/Amino Acids/Dextrose/ Fat Emulsion Intravenous 1,512 ml @ 63 mls/hr TPN CONT IV Last administered on 02/05/19at 22:35; Start 02/05/19 at 22:00; Stop 02/06/19 at 21:59 Alteplase, Recombinant (Cathflo For Central Catheter Clearance) 1 mg 1X ONCE INT CAT Last administered on 02/06/19at 02:39; Start 02/06/19 at 02:30; Stop 02/06/19 at 02:31; Status DC Alteplase, Recombinant (Cathflo For Central Catheter Clearance) 1 mg 1X ONCE INT CAT Last administered on 02/06/19at 04:14; Start 02/06/19 at 05:00; Stop 02/06/19 at 05:01; Status DC Alteplase, Recombinant (Cathflo For Central Catheter Clearance) 1 mg 1X ONCE INT CAT Last administered on 02/06/19at 10:13; Start 02/06/19 at 10:30; Stop 02/06/19 at 10:31; Status DC Active Scripts Active Doxycycline Hyclate 100 Mg Capsule 1 Cap PO BID 7 Days Prednisone 20 Mg Tablet 40 Mg PO DAILY 5 Days Humalog (Insulin Lispro) 100 Unit/1 Ml Insuln.pen 8 Units SQ TIDWMEALS 30 Days + Sliding scale 1u for every 50mg/dL > 150mg/dL Call MD for glucose > 350 If glucose < 100, sliding scale only Lantus Solostar (Insulin Glargine,Hum.rec.anlog) 100 Unit/1 Ml Insuln.pen 10 Units SQ QHS 30 Days Culturelle (Lactobacillus Rhamnosus Gg) 1 Each Cap.sprink 1 Cap PO BID 10 Days Polyethylene Glycol 3350 17 Gm Powd.pack 17 Gm PO PRN BID PRN 30 Days Duoneb 0.5-3(2.5) Mg/3 Ml (Albuterol/Ipratropium) 3 Ml Ampul.neb 3 Ml NEB RTQID 30 Days Simvastatin 10 Mg Tablet 1 Tab PO QHS 30 Days Glipizide 10 Mg Tablet 10 Mg PO DAILY 3 Days Gabapentin 300 Mg Capsule 300 Mg PO TID 30 Days Lisinopril 10 Mg Tablet 1 Tab PO DAILY Reported FENTANYL 50mcg/hr (Fentanyl) 1 Each Patch.td72 1 Patch TD Q72H Ibuprofen 800 Mg Tablet 800 Mg PO PRN Q8HRS PRN Omeprazole 20 Mg Capsule.dr 2 Cap PO DAILY Metformin Hcl 500 Mg Tablet 500 Mg PO BID Vitals/I & O Vital Sign - Last 24 Hours 02/05/19 02/05/19 02/05/19 02/05/19 14:45 16:00 19:47 21:34 Temp 98.0 98.0 98.7 98.0 98.0 98.7 Pulse 99 99 99 Resp 16 60 18 B/P (MAP) 180/80 (113) 180/80 (113) 146/60 (88) Pulse Ox 96 96 95 O2 Delivery Nasal Cannula Nasal Cannula Room Air Nasal Cannula O2 Flow Rate 3.0 3.0 4.0 02/05/19 02/06/19 02/06/19 23:00 03:09 08:20 Temp 99.4 99.1 98.9 99.4 99.1 98.9 Pulse 99 90 95 Resp 18 20 20 B/P (MAP) 130/52 (78) 141/55 (83) 154/66 (95) Pulse Ox 95 96 99 O2 Delivery Room Air Room Air Room Air ABRAHAM FAIRBANKS MD Feb 06, 2019 11:32
[2019-02-06 12:01] VITALS: BP 147/64
[2019-02-06 12:47] LABS: BASO # 0.1 x10^3/uL (0.0-0.2); BASO % 1 % (0-3); EOS # 0.1 x10^3/uL (0.0-0.7); EOS % 1 % (0-3); HEMATOCRIT 24.5 % (36.0-47.0); HEMOGLOBIN 7.9 g/dL (12.0-15.5); LYMPH % 12 % (24-48); MEAN CORPUSCULAR HEMOGLOBIN 28 pg (25-35); MEAN CORPUSCULAR HGB CONC 32 g/dL (31-37); MEAN CORPUSCULAR VOLUME 86 fL (79-100); MONO # 0.9 x10^3/uL (0.0-1.1); MONO % 11 % (0-9); NEUT # 6.3 x10^3/uL (1.8-7.7); NEUT % 76 % (31-73); PLATELET COUNT 407 x10^3/uL (140-400); RED BLOOD COUNT 2.85 x10^6/uL (3.50-5.40); RED CELL DISTRIBUTION WIDTH 15.7 % (11.5-14.5); WHITE BLOOD COUNT 8.3 x10^3/uL (4.0-11.0)
[2019-02-06 13:00] LABS: MAGNESIUM 1.8 mg/dL (1.8-2.4); PHOSPHORUS 1.8 mg/dL (2.6-4.7)
[2019-02-06 13:01] LABS: ALBUMIN 2.8 g/dL (3.4-5.0); ALBUMIN/GLOBULIN RATIO 0.6 (1.0-1.7); CALCIUM 9.5 mg/dL (8.5-10.1); CREATININE 0.9 mg/dL (0.6-1.0); GFR 73.3; TOTAL BILIRUBIN 0.3 mg/dL (0.2-1.0); TOTAL PROTEIN 7.3 g/dL (6.4-8.2)
[2019-02-06] MEDS ORDERED: POLYETHYLENE GLYCOL 3350 17 GM PACKET. PO PRN (13:15)
[2019-02-06] MEDS: TPN PER PHARMACY MC PRN (13:39)
--- NOTE | 2019-02-06 13:40 | NUR ---
Pharmacy TPN Dosing Note S: JOHN IRBY is a 78 year old F Currently receiving Central Continuous TPN started 02/04/19 B:Pertinent PMH: CVA, failed swallow study Height: 5 feet, 3 inches Weight: 89.994244 kg Current diet: NPO LABS: Sodium: 140 Potassium: 4.0 Chloride: 102 Calcium: 9.5 Corrected Calcium: 10.46 Magnesium: 1.8 CO2: 35 SCr: 0.9 Glucose: 180 Albumin: 2.8 AST: 21 ALT: 9 TPN FORMULA: TPN TYPE: Central Continuous AMINO ACIDS: 70 gm DEXTROSE: 225 gm LIPIDS: 20 gm SODIUM CHLORIDE: 45 mEq SODIUM ACETATE: mEq SODIUM PHOSPHATE: mmol POTASSIUM CHLORIDE: 40 mEq POTASSIUM ACETATE: mEq POTASSIUM PHOSPHATE: 27 mmol MAGNESIUM: 15 mEq CALCIUM: 10 mEq INSULIN: - units MULTIPLE VITAMIN: 10 ml TRACE ELEMENTS: 1 ml(s) TPN PLAN: -Phos has been dropping rapidly, today 1.8, will give 20mmol NaPhos bolus and increase KPhos to 27mmol -Received mag bolus yesterday, still borderline low at 1.8, will increase mag to 15meq -labs in the am R: Continue TPN as written above. Will monitor electrolytes, glucose, and tolerance to TPN. SEBASTIAN BRANTLEY RPH, 02/06/19 [id number]
[2019-02-06] MEDS ORDERED: SODIUM PHOSPHATE 20 MMOL in IV DEXTROSE 5% 250 ML IV ONE (14:00)
[2019-02-06] MEDS: LACTOBACILLUS RHAMNOSUS GG 1 CAPSULE. PO SCH ×2 (14:17→21:45)
[2019-02-06] MEDS: GABAPENTIN 300 MG CAPSULE. PO SCH ×2 (14:17→21:45)
[2019-02-06] MEDS: PANTOPRAZOLE 40 MG TABLET.DR. PO SCH (14:17)
[2019-02-06] MEDS: LISINOPRIL 10 MG TABLET PO SCH (14:17)
[2019-02-06 16:02] VITALS: BP 172/78
[2019-02-06] MEDS: IPRATRPIUM/ALBUTEROL 0.5/2.5MG 3 ML NEBU. NEB SCH ×2 (16:57→19:38)
[2019-02-06] MEDS: INSULIN LISPRO 300 UNITS/3 ML VIAL. SQ SCH (17:00)
--- NOTE | 2019-02-06 19:36 | NUR ---
Pt PICC line still hard to flush and draw back blood after multiple cathflo administrations. Dr. Degroot notified, orders recieved, and contacted the director of campus recreation PICC nurse. Cameron from [facility] called in to assess PICC line. Over wire exchange attempted but unsuccessful so PICC placed in the right brachial with no complications. 41 cm inserted internally with 6 cm externally. Ok to use PICC per MONALISA Barnes.
[2019-02-06 19:47] VITALS: BP 169/65
[2019-02-06] MEDS ORDERED: ONDANSETRON PF 4 MG/2 ML VIAL. IVP PRN (20:15)
[2019-02-06] MEDS ORDERED: cloNIDine HCL 0.1 MG TABLET PO PRN (20:15)
[2019-02-06] MEDS ORDERED: DEXTROSE 50% 25 GM / 50ML DISP.SYRIN. IV PRN (20:15)
[2019-02-06] MEDS ORDERED: SIMVASTATIN 10 MG TABLET PO SCH (21:00)
[2019-02-06] MEDS: SIMVASTATIN 10 MG TABLET PO SCH (21:45)
[2019-02-06] MEDS: INSULIN GLARGINE SYRINGE. SQ SCH (21:54)
[2019-02-06] MEDS ORDERED: [UNRECOGNIZED DRUG - OTHER] IV SCH ×10 (22:00)
[2019-02-06] MEDS ORDERED: AMINO ACID IV SCH ×10 (22:00)
[2019-02-06] MEDS ORDERED: DEXTROSE 70% IV SCH ×10 (22:00)
[2019-02-06] MEDS ORDERED: TOTAL PARENTERAL NUTRITION IV SCH ×10 (22:00)
[2019-02-06 23:00] VITALS: BP 186/85
--- NOTE | 2019-02-06 23:51 | RAD ---
Chest AP portable at 1756: Reason for examination: Verify PICC line placement. Comparison is made to previous study dated 02/06/2019 at 0728. PICC line is present on the right with the tip in the region of superior vena cava/right atrial junction. Heart size continues to be enlarged but unchanged. Lung duval show increased interstitial markings and bilateral pleural effusions with minimal change since previous exam. No acute bony abnormalities are seen. IMPRESSION: Right PICC line present with the tip at the superior vena cava/right atrial junction. Cardiomegaly. Increased interstitial markings and bilateral pleural effusions without change. Electronically signed by: Marie Dolan MD (02/06/2019 11:48 PM) [id number]
[2019-02-07 03:44] VITALS: BP 160/88
[2019-02-07 05:36] LABS: BASO % 1 % (0-3); EOS # 0.3 x10^3/uL (0.0-0.7); EOS % 4 % (0-3); HEMATOCRIT 23.7 % (36.0-47.0); HEMOGLOBIN 7.7 g/dL (12.0-15.5); LYMPH # 0.9 x10^3/uL (1.0-4.8); LYMPH % 12 % (24-48); MEAN CORPUSCULAR HEMOGLOBIN 27 pg (25-35); MEAN CORPUSCULAR HGB CONC 32 g/dL (31-37); MEAN CORPUSCULAR VOLUME 85 fL (79-100); MONO % 13 % (0-9); NEUT # 5.3 x10^3/uL (1.8-7.7); NEUT % 71 % (31-73); PLATELET COUNT 425 x10^3/uL (140-400); WHITE BLOOD COUNT 7.6 x10^3/uL (4.0-11.0)
[2019-02-07 05:53] LABS: ALBUMIN 2.6 g/dL (3.4-5.0); ALBUMIN/GLOBULIN RATIO 0.6 (1.0-1.7); CALCIUM 8.8 mg/dL (8.5-10.1); CREATININE 0.9 mg/dL (0.6-1.0); GFR 73.3; MAGNESIUM 1.7 mg/dL (1.8-2.4); PHOSPHORUS 2.4 mg/dL (2.6-4.7); POTASSIUM 3.8 mmol/L (3.5-5.1); TOTAL BILIRUBIN 0.3 mg/dL (0.2-1.0); TOTAL PROTEIN 7.1 g/dL (6.4-8.2)
[2019-02-07 07:00] VITALS: BP 156/85
[2019-02-07] MEDS: IPRATRPIUM/ALBUTEROL 0.5/2.5MG 3 ML NEBU. NEB SCH ×4 (07:34→19:24)
--- NOTE | 2019-02-07 08:23 | PDOC ---
PROGRESS NOTES Chief Complaint Chief Complaint Acute CVA - s/p tPA on 02/03/19 -Acute small to moderate territory infarct is noted involving the left parietal lobe with involvement of the left post central gyrus. Pulmonary hypertension Cerebral cytotoxic edema Metabolic encephalopathy Respiratory failure/distress HTN. HLD. DM Thrombocytosis Obesity plan transesophageal echo 02/07 History of Present Illness History of Present Illness Today Pt is pleasantly confused, but awake Mg2+: 1.7 recheck pending B12 LOW Echo and bubble study recommended by neurology Acute small to moderate territorial infarct involving left parietal lobe Charts and labs reviewed npo await transthoracic and transesophageal echocardiograms, and placement of event monitor OT/PT/ST. 02/06/19 - Pt examined. Acute small to moderate territory infarct is noted involving the left parietal lobe with involvement of the left post central gyrus. Acute small territory infarct noted in the right parietal lobe. There is associated cytotoxic edema without significant mass effect or midline shift. No acute intracranial hemorrhage. 36 min pt exam, chart review, > 50% of time spent with exam, chart review, pt care coordination Vitals Vitals Vital Signs Date Time Temp Pulse Resp B/P (MAP) Pulse Ox O2 Delivery O2 Flow Rate FiO2 02/07/19 07:35 98 Nasal Cannula 3.0 02/07/19 07:00 97.2 93 18 156/85 (108) 97.2 Physical Exam General: Alert, Cooperative, No acute distress Lungs: Clear Abdomen: Normal bowel sounds, Soft Extremities: No clubbing, No cyanosis Skin: No rashes, No breakdown Labs LABS Laboratory Tests Test 02/06/19 10:48 02/06/19 12:30 02/06/19 16:31 02/06/19 20:57 Glucose (Fingerstick) 176 mg/dL (70-99) 177 mg/dL (70-99) 164 mg/dL (70-99) White Blood Count 8.3 x10^3/uL (4.0-11.0) Red Blood Count 2.85 x10^6/uL (3.50-5.40) Hemoglobin 7.9 g/dL (12.0-15.5) Hematocrit 24.5 % (36.0-47.0) Mean Corpuscular Volume 86 fL (79-100) Mean Corpuscular Hemoglobin 28 pg (25-35) Mean Corpuscular Hemoglobin Concent 32 g/dL (31-37) Red Cell Distribution Width 15.7 % (11.5-14.5) Platelet Count 407 x10^3/uL (140-400) Neutrophils (%) (Auto) 76 % (31-73) Lymphocytes (%) (Auto) 12 % (24-48) Monocytes (%) (Auto) 11 % (0-9) Eosinophils (%) (Auto) 1 % (0-3) Basophils (%) (Auto) 1 % (0-3) Neutrophils # (Auto) 6.3 x10^3/uL (1.8-7.7) Lymphocytes # (Auto) 1.0 x10^3/uL (1.0-4.8) Monocytes # (Auto) 0.9 x10^3/uL (0.0-1.1) Eosinophils # (Auto) 0.1 x10^3/uL (0.0-0.7) Basophils # (Auto) 0.1 x10^3/uL (0.0-0.2) Sodium Level 140 mmol/L (136-145) Potassium Level 4.0 mmol/L (3.5-5.1) Chloride Level 102 mmol/L (98-107) Carbon Dioxide Level 35 mmol/L (21-32) Anion Gap 3 (6-14) Blood Urea Nitrogen 11 mg/dL (7-20) Creatinine 0.9 mg/dL (0.6-1.0) Estimated GFR (Cockcroft-Gault) 73.3 BUN/Creatinine Ratio 12 (6-20) Glucose Level 180 mg/dL (70-99) Calcium Level 9.5 mg/dL (8.5-10.1) Phosphorus Level 1.8 mg/dL (2.6-4.7) Magnesium Level 1.8 mg/dL (1.8-2.4) Total Bilirubin 0.3 mg/dL (0.2-1.0) Aspartate Amino Transf (AST/SGOT) 21 U/L (15-37) Alanine Aminotransferase (ALT/SGPT) 9 U/L (14-59) Alkaline Phosphatase 48 U/L (46-116) Total Protein 7.3 g/dL (6.4-8.2) Albumin 2.8 g/dL (3.4-5.0) Albumin/Globulin Ratio 0.6 (1.0-1.7) Test 02/07/19 00:56 02/07/19 04:51 02/07/19 05:29 02/07/19 07:16 Glucose (Fingerstick) 266 mg/dL (70-99) 272 mg/dL (70-99) 272 mg/dL (70-99) White Blood Count 7.6 x10^3/uL (4.0-11.0) Red Blood Count 2.80 x10^6/uL (3.50-5.40) Hemoglobin 7.7 g/dL (12.0-15.5) Hematocrit 23.7 % (36.0-47.0) Mean Corpuscular Volume 85 fL (79-100) Mean Corpuscular Hemoglobin 27 pg (25-35) Mean Corpuscular Hemoglobin Concent 32 g/dL (31-37) Red Cell Distribution Width 16.0 % (11.5-14.5) Platelet Count 425 x10^3/uL (140-400) Neutrophils (%) (Auto) 71 % (31-73) Lymphocytes (%) (Auto) 12 % (24-48) Monocytes (%) (Auto) 13 % (0-9) Eosinophils (%) (Auto) 4 % (0-3) Basophils (%) (Auto) 1 % (0-3) Neutrophils # (Auto) 5.3 x10^3/uL (1.8-7.7) Lymphocytes # (Auto) 0.9 x10^3/uL (1.0-4.8) Monocytes # (Auto) 1.0 x10^3/uL (0.0-1.1) Eosinophils # (Auto) 0.3 x10^3/uL (0.0-0.7) Basophils # (Auto) 0.0 x10^3/uL (0.0-0.2) Sodium Level 139 mmol/L (136-145) Potassium Level 3.8 mmol/L (3.5-5.1) Chloride Level 102 mmol/L (98-107) Carbon Dioxide Level 36 mmol/L (21-32) Anion Gap 1 (6-14) Blood Urea Nitrogen 9 mg/dL (7-20) Creatinine 0.9 mg/dL (0.6-1.0) Estimated GFR (Cockcroft-Gault) 73.3 BUN/Creatinine Ratio 10 (6-20) Glucose Level 273 mg/dL (70-99) Calcium Level 8.8 mg/dL (8.5-10.1) Phosphorus Level 2.4 mg/dL (2.6-4.7) Magnesium Level 1.7 mg/dL (1.8-2.4) Total Bilirubin 0.3 mg/dL (0.2-1.0) Aspartate Amino Transf (AST/SGOT) 18 U/L (15-37) Alanine Aminotransferase (ALT/SGPT) 11 U/L (14-59) Alkaline Phosphatase 43 U/L (46-116) Total Protein 7.1 g/dL (6.4-8.2) Albumin 2.6 g/dL (3.4-5.0) Albumin/Globulin Ratio 0.6 (1.0-1.7) Comment Review of Relevant I have reviewed the following items myesha (where applicable) has been applied. Labs Laboratory Tests Test 02/06/19 10:48 02/06/19 12:30 02/06/19 16:31 02/06/19 20:57 Glucose (Fingerstick) 176 mg/dL (70-99) 177 mg/dL (70-99) 164 mg/dL (70-99) White Blood Count 8.3 x10^3/uL (4.0-11.0) Red Blood Count 2.85 x10^6/uL (3.50-5.40) Hemoglobin 7.9 g/dL (12.0-15.5) Hematocrit 24.5 % (36.0-47.0) Mean Corpuscular Volume 86 fL (79-100) Mean Corpuscular Hemoglobin 28 pg (25-35) Mean Corpuscular Hemoglobin Concent 32 g/dL (31-37) Red Cell Distribution Width 15.7 % (11.5-14.5) Platelet Count 407 x10^3/uL (140-400) Neutrophils (%) (Auto) 76 % (31-73) Lymphocytes (%) (Auto) 12 % (24-48) Monocytes (%) (Auto) 11 % (0-9) Eosinophils (%) (Auto) 1 % (0-3) Basophils (%) (Auto) 1 % (0-3) Neutrophils # (Auto) 6.3 x10^3/uL (1.8-7.7) Lymphocytes # (Auto) 1.0 x10^3/uL (1.0-4.8) Monocytes # (Auto) 0.9 x10^3/uL (0.0-1.1) Eosinophils # (Auto) 0.1 x10^3/uL (0.0-0.7) Basophils # (Auto) 0.1 x10^3/uL (0.0-0.2) Sodium Level 140 mmol/L (136-145) Potassium Level 4.0 mmol/L (3.5-5.1) Chloride Level 102 mmol/L (98-107) Carbon Dioxide Level 35 mmol/L (21-32) Anion Gap 3 (6-14) Blood Urea Nitrogen 11 mg/dL (7-20) Creatinine 0.9 mg/dL (0.6-1.0) Estimated GFR (Cockcroft-Gault) 73.3 BUN/Creatinine Ratio 12 (6-20) Glucose Level 180 mg/dL (70-99) Calcium Level 9.5 mg/dL (8.5-10.1) Phosphorus Level 1.8 mg/dL (2.6-4.7) Magnesium Level 1.8 mg/dL (1.8-2.4) Total Bilirubin 0.3 mg/dL (0.2-1.0) Aspartate Amino Transf (AST/SGOT) 21 U/L (15-37) Alanine Aminotransferase (ALT/SGPT) 9 U/L (14-59) Alkaline Phosphatase 48 U/L (46-116) Total Protein 7.3 g/dL (6.4-8.2) Albumin 2.8 g/dL (3.4-5.0) Albumin/Globulin Ratio 0.6 (1.0-1.7) Test 02/07/19 00:56 02/07/19 04:51 02/07/19 05:29 02/07/19 07:16 Glucose (Fingerstick) 266 mg/dL (70-99) 272 mg/dL (70-99) 272 mg/dL (70-99) White Blood Count 7.6 x10^3/uL (4.0-11.0) Red Blood Count 2.80 x10^6/uL (3.50-5.40) Hemoglobin 7.7 g/dL (12.0-15.5) Hematocrit 23.7 % (36.0-47.0) Mean Corpuscular Volume 85 fL (79-100) Mean Corpuscular Hemoglobin 27 pg (25-35) Mean Corpuscular Hemoglobin Concent 32 g/dL (31-37) Red Cell Distribution Width 16.0 % (11.5-14.5) Platelet Count 425 x10^3/uL (140-400) Neutrophils (%) (Auto) 71 % (31-73) Lymphocytes (%) (Auto) 12 % (24-48) Monocytes (%) (Auto) 13 % (0-9) Eosinophils (%) (Auto) 4 % (0-3) Basophils (%) (Auto) 1 % (0-3) Neutrophils # (Auto) 5.3 x10^3/uL (1.8-7.7) Lymphocytes # (Auto) 0.9 x10^3/uL (1.0-4.8) Monocytes # (Auto) 1.0 x10^3/uL (0.0-1.1) Eosinophils # (Auto) 0.3 x10^3/uL (0.0-0.7) Basophils # (Auto) 0.0 x10^3/uL (0.0-0.2) Sodium Level 139 mmol/L (136-145) Potassium Level 3.8 mmol/L (3.5-5.1) Chloride Level 102 mmol/L (98-107) Carbon Dioxide Level 36 mmol/L (21-32) Anion Gap 1 (6-14) Blood Urea Nitrogen 9 mg/dL (7-20) Creatinine 0.9 mg/dL (0.6-1.0) Estimated GFR (Cockcroft-Gault) 73.3 BUN/Creatinine Ratio 10 (6-20) Glucose Level 273 mg/dL (70-99) Calcium Level 8.8 mg/dL (8.5-10.1) Phosphorus Level 2.4 mg/dL (2.6-4.7) Magnesium Level 1.7 mg/dL (1.8-2.4) Total Bilirubin 0.3 mg/dL (0.2-1.0) Aspartate Amino Transf (AST/SGOT) 18 U/L (15-37) Alanine Aminotransferase (ALT/SGPT) 11 U/L (14-59) Alkaline Phosphatase 43 U/L (46-116) Total Protein 7.1 g/dL (6.4-8.2) Albumin 2.6 g/dL (3.4-5.0) Albumin/Globulin Ratio 0.6 (1.0-1.7) Laboratory Tests Test 02/06/19 10:48 02/06/19 12:30 02/06/19 16:31 02/06/19 20:57 Glucose (Fingerstick) 176 mg/dL (70-99) 177 mg/dL (70-99) 164 mg/dL (70-99) White Blood Count 8.3 x10^3/uL (4.0-11.0) Red Blood Count 2.85 x10^6/uL (3.50-5.40) Hemoglobin 7.9 g/dL (12.0-15.5) Hematocrit 24.5 % (36.0-47.0) Mean Corpuscular Volume 86 fL (79-100) Mean Corpuscular Hemoglobin 28 pg (25-35) Mean Corpuscular Hemoglobin Concent 32 g/dL (31-37) Red Cell Distribution Width 15.7 % (11.5-14.5) Platelet Count 407 x10^3/uL (140-400) Neutrophils (%) (Auto) 76 % (31-73) Lymphocytes (%) (Auto) 12 % (24-48) Monocytes (%) (Auto) 11 % (0-9) Eosinophils (%) (Auto) 1 % (0-3) Basophils (%) (Auto) 1 % (0-3) Neutrophils # (Auto) 6.3 x10^3/uL (1.8-7.7) Lymphocytes # (Auto) 1.0 x10^3/uL (1.0-4.8) Monocytes # (Auto) 0.9 x10^3/uL (0.0-1.1) Eosinophils # (Auto) 0.1 x10^3/uL (0.0-0.7) Basophils # (Auto) 0.1 x10^3/uL (0.0-0.2) Sodium Level 140 mmol/L (136-145) Potassium Level 4.0 mmol/L (3.5-5.1) Chloride Level 102 mmol/L (98-107) Carbon Dioxide Level 35 mmol/L (21-32) Anion Gap 3 (6-14) Blood Urea Nitrogen 11 mg/dL (7-20) Creatinine 0.9 mg/dL (0.6-1.0) Estimated GFR (Cockcroft-Gault) 73.3 BUN/Creatinine Ratio 12 (6-20) Glucose Level 180 mg/dL (70-99) Calcium Level 9.5 mg/dL (8.5-10.1) Phosphorus Level 1.8 mg/dL (2.6-4.7) Magnesium Level 1.8 mg/dL (1.8-2.4) Total Bilirubin 0.3 mg/dL (0.2-1.0) Aspartate Amino Transf (AST/SGOT) 21 U/L (15-37) Alanine Aminotransferase (ALT/SGPT) 9 U/L (14-59) Alkaline Phosphatase 48 U/L (46-116) Total Protein 7.3 g/dL (6.4-8.2) Albumin 2.8 g/dL (3.4-5.0) Albumin/Globulin Ratio 0.6 (1.0-1.7) Test 02/07/19 00:56 02/07/19 04:51 02/07/19 05:29 02/07/19 07:16 Glucose (Fingerstick) 266 mg/dL (70-99) 272 mg/dL (70-99) 272 mg/dL (70-99) White Blood Count 7.6 x10^3/uL (4.0-11.0) Red Blood Count 2.80 x10^6/uL (3.50-5.40) Hemoglobin 7.7 g/dL (12.0-15.5) Hematocrit 23.7 % (36.0-47.0) Mean Corpuscular Volume 85 fL (79-100) Mean Corpuscular Hemoglobin 27 pg (25-35) Mean Corpuscular Hemoglobin Concent 32 g/dL (31-37) Red Cell Distribution Width 16.0 % (11.5-14.5) Platelet Count 425 x10^3/uL (140-400) Neutrophils (%) (Auto) 71 % (31-73) Lymphocytes (%) (Auto) 12 % (24-48) Monocytes (%) (Auto) 13 % (0-9) Eosinophils (%) (Auto) 4 % (0-3) Basophils (%) (Auto) 1 % (0-3) Neutrophils # (Auto) 5.3 x10^3/uL (1.8-7.7) Lymphocytes # (Auto) 0.9 x10^3/uL (1.0-4.8) Monocytes # (Auto) 1.0 x10^3/uL (0.0-1.1) Eosinophils # (Auto) 0.3 x10^3/uL (0.0-0.7) Basophils # (Auto) 0.0 x10^3/uL (0.0-0.2) Sodium Level 139 mmol/L (136-145) Potassium Level 3.8 mmol/L (3.5-5.1) Chloride Level 102 mmol/L (98-107) Carbon Dioxide Level 36 mmol/L (21-32) Anion Gap 1 (6-14) Blood Urea Nitrogen 9 mg/dL (7-20) Creatinine 0.9 mg/dL (0.6-1.0) Estimated GFR (Cockcroft-Gault) 73.3 BUN/Creatinine Ratio 10 (6-20) Glucose Level 273 mg/dL (70-99) Calcium Level 8.8 mg/dL (8.5-10.1) Phosphorus Level 2.4 mg/dL (2.6-4.7) Magnesium Level 1.7 mg/dL (1.8-2.4) Total Bilirubin 0.3 mg/dL (0.2-1.0) Aspartate Amino Transf (AST/SGOT) 18 U/L (15-37) Alanine Aminotransferase (ALT/SGPT) 11 U/L (14-59) Alkaline Phosphatase 43 U/L (46-116) Total Protein 7.1 g/dL (6.4-8.2) Albumin 2.6 g/dL (3.4-5.0) Albumin/Globulin Ratio 0.6 (1.0-1.7) Medications Current Medications Ondansetron HCl (Zofran) 4 mg PRN Q6HRS PRN IVP NAUSEA/VOMITING 1ST CHOICE; Start 02/04/19 at 02:30 Acetaminophen (Tylenol) 650 mg PRN Q6HRS PRN PO MILD PAIN 1-3; Start 02/04/19 at 02:30 Sodium Chloride 1,000 ml @ 80 mls/hr 1X ONCE IV Last administered on 02/04/19at 04:07; Start 02/04/19 at 03:00; Stop 02/04/19 at 15:29; Status DC Morphine Sulfate (Morphine Sulfate) 1 mg PRN Q2HR PRN IV SEVERE PAIN 7-10 Last administered on 02/05/19at 21:04; Start 02/04/19 at 02:30 Iohexol (Omnipaque 350 Mg/ml) 75 ml 1X ONCE IV Last administered on 02/04/19 09:07; Start 02/04/19 at 09:00; Stop 02/04/19 at 09:01; Status DC Info (CONTRAST GIVEN -- Rx MONITORING) 1 each PRN DAILY PRN MC SEE COMMENTS; Start 02/04/19 at 09:00; Stop 02/06/19 at 08:59; Status DC Info (Tpn Per Pharmacy) 1 each PRN DAILY PRN MC SEE COMMENTS Last administered on 02/06/19at 13:39; Start 02/04/19 at 11:30 Sodium Chloride 45 meq/Potassium Chloride 50 meq/ Potassium Phosphate 13.6 mmol/Magnesium Sulfate 10 meq/ Calcium Gluconate 10 meq/ Multivitamins 10 ml/Chromium/ Copper/Manganese/ Seleni/Zn 1 ml/ Total Parenteral Nutrition/Amino Acids/Dextrose/ Fat Emulsion Intravenous 1,512 ml @ 63 mls/hr TPN CONT IV Last administered on 02/04/19 22:37; Start 02/04/19 at 22:00; Stop 02/05/19 at 21:59; Status DC Aspirin (Aspirin Rectal Supp) 300 mg DAILY DC Last administered on 02/06/19at 10:08; Start 02/05/19 at 09:00 Simvastatin (Zocor) 10 mg QHS PO Last administered on 02/06/19 21:45; Start 02/04/19 at 21:00 Fentanyl (Duragesic 50mcg/ Hr Patch) 1 patch Q72H TD Last administered on 02/04/19at 19:20; Start 02/04/19 at 18:45 Alteplase, Recombinant (Cathflo For Central Catheter Clearance) 1 mg 1X ONCE INT CAT Last administered on 02/05/19at 12:08; Start 02/05/19 at 11:00; Stop 02/05/19 at 11:01; Status DC Magnesium Sulfate 50 ml @ 25 mls/hr 1X ONCE IV Last administered on 02/05/19at 12:08; Start 02/05/19 at 11:30; Stop 02/05/19 at 13:29; Status DC Sodium Chloride 45 meq/Potassium Chloride 40 meq/ Potassium Phosphate 17 mmol/ Magnesium Sulfate 10 meq/Calcium Gluconate 10 meq/ Multivitamins 10 ml/Chromium/ Copper/Manganese/ Seleni/Zn 1 ml/ Total Parenteral Nutrition/Amino Acids/Dextrose/ Fat Emulsion Intravenous 1,512 ml @ 63 mls/hr TPN CONT IV Last administered on 02/05/19at 22:35; Start 02/05/19 at 22:00; Stop 02/06/19 at 21:59; Status DC Alteplase, Recombinant (Cathflo For Central Catheter Clearance) 1 mg 1X ONCE INT CAT Last administered on 02/06/19at 02:39; Start 02/06/19 at 02:30; Stop 02/06/19 at 02:31; Status DC Alteplase, Recombinant (Cathflo For Central Catheter Clearance) 1 mg 1X ONCE INT CAT Last administered on 02/06/19at 04:14; Start 02/06/19 at 05:00; Stop 02/06/19 at 05:01; Status DC Alteplase, Recombinant (Cathflo For Central Catheter Clearance) 1 mg 1X ONCE INT CAT Last administered on 02/06/19at 10:13; Start 02/06/19 at 10:30; Stop 02/06/19 at 10:31; Status DC Alteplase, Recombinant (Cathflo For Central Catheter Clearance) 1 mg 1X ONCE INT CAT Last administered on 02/06/19at 13:21; Start 02/06/19 at 13:00; Stop 02/06/19 at 13:01; Status DC Gabapentin (Neurontin) 300 mg TID PO Last administered on 02/06/19at 21:45; Start 02/06/19 at 14:00 Insulin Human Lispro (HumaLOG) 8 units TIDWMEALS SQ ; Start 02/06/19 at 17:00 Albuterol/ Ipratropium (Duoneb) 3 ml RTQID NEB Last administered on 02/07/19at 07:34; Start 02/06/19 at 16:00 Lactobacillus Rhamnosus (Culturelle) 1 cap BID PO Last administered on 02/06/19at 21:45; Start 02/06/19 at 14:00 Lisinopril (Prinivil) 10 mg DAILY PO Last administered on 02/06/19at 14:17; Start 02/06/19 at 15:00 Polyethylene Glycol (miraLAX PACKET) 17 gm PRN BID PRN PO CONSTIPATION 1ST CHOICE; Start 02/06/19 at 13:15 Simvastatin (Zocor) 10 mg QHS PO ; Start 02/06/19 at 21:00; Stop 02/06/19 at 13:30; Status DC Insulin Glargine (Lantus Syringe) 10 unit QHS SQ Last administered on at 21:54; Start 02/06/19 at 21:00 Pantoprazole Sodium (Protonix) 40 mg DAILYAC PO Last administered on 02/06/19at 14:17; Start 02/06/19 at 14:00 Sodium Phosphate 20 mmol/Dextrose 256.6667 ml @ 64.167 m... 1X ONCE IV Last administered on 02/06/19at 19:14; Start 02/06/19 at 14:00; Stop 02/06/19 at 17:59; Status DC Sodium Chloride 45 meq/Potassium Chloride 40 meq/ Potassium Phosphate 27 mmol/ Magnesium Sulfate 15 meq/Calcium Gluconate 10 meq/ Multivitamins 10 ml/Chromium/ Copper/Manganese/ Seleni/Zn 1 ml/ Total Parenteral Nutrition/Amino Acids/Dextrose/ Fat Emulsion Intravenous 1,512 ml @ 63 mls/hr TPN CONT IV Last administered on 02/06/19at 22:32; Start 02/06/19 at 22:00; Stop 02/07/19 at 21:59 Clonidine HCl (Catapres) 0.1 mg PRN Q1HR PRN PO HYPERTENSION; Start 02/06/19 at 20:15 Ondansetron HCl (Zofran) 4 mg PRN Q6HRS PRN IVP NAUSEA/VOMITING; Start 02/06/19 at 20:15; Status UNV Insulin Human Lispro (HumaLOG) 0-9 UNITS TIDWMEALS SQ ; Start 02/07/19 at 08:00 Dextrose (Dextrose 50%-Water Syringe) 12.5 gm PRN Q15MIN PRN IV SEE COMMENTS; Start 02/06/19 at 20:15 Active Scripts Active Doxycycline Hyclate 100 Mg Capsule 1 Cap PO BID 7 Days Prednisone 20 Mg Tablet 40 Mg PO DAILY 5 Days Humalog (Insulin Lispro) 100 Unit/1 Ml Insuln.pen 8 Units SQ TIDWMEALS 30 Days + Sliding scale 1u for every 50mg/dL > 150mg/dL Call MD for glucose > 350 If glucose < 100, sliding scale only Lantus Solostar (Insulin Glargine,Hum.rec.anlog) 100 Unit/1 Ml Insuln.pen 10 Units SQ QHS 30 Days Culturelle (Lactobacillus Rhamnosus Gg) 1 Each Cap.sprink 1 Cap PO BID 10 Days Polyethylene Glycol 3350 17 Gm Powd.pack 17 Gm PO PRN BID PRN 30 Days Duoneb 0.5-3(2.5) Mg/3 Ml (Albuterol/Ipratropium) 3 Ml Ampul.neb 3 Ml NEB RTQID 30 Days Simvastatin 10 Mg Tablet 1 Tab PO QHS 30 Days Glipizide 10 Mg Tablet 10 Mg PO DAILY 3 Days Gabapentin 300 Mg Capsule 300 Mg PO TID 30 Days Lisinopril 10 Mg Tablet 1 Tab PO DAILY Reported FENTANYL 50mcg/hr (Fentanyl) 1 Each Patch.td72 1 Patch TD Q72H Ibuprofen 800 Mg Tablet 800 Mg PO PRN Q8HRS PRN Omeprazole 20 Mg Capsule.dr 2 Cap PO DAILY Metformin Hcl 500 Mg Tablet 500 Mg PO BID Vitals/I & O Vital Sign - Last 24 Hours 02/06/19 02/06/19 02/06/19 02/06/19 12:01 14:17 16:02 16:57 Temp 99.5 99.5 99.5 99.5 Pulse 91 91 95 Resp 18 20 B/P (MAP) 147/64 (91) 147/64 172/78 (109) Pulse Ox 98 98 98 O2 Delivery Nasal Cannula Nasal Cannula Nasal Cannula O2 Flow Rate 4.0 4.0 4.0 02/06/19 02/06/19 02/06/19 02/06/19 19:39 19:47 20:00 23:00 Temp 98.6 98.7 98.6 98.7 Pulse 98 109 Resp 20 20 B/P (MAP) 169/65 (99) 186/85 (118) Pulse Ox 100 97 95 O2 Delivery Nasal Cannula Room Air Nasal Cannula Nasal Cannula O2 Flow Rate 3.0 3.0 2.0 02/07/19 02/07/19 02/07/19 03:44 07:00 07:35 Temp 98.8 97.2 98.8 97.2 Pulse 95 93 Resp 20 18 B/P (MAP) 160/88 (112) 156/85 (108) Pulse Ox 98 96 98 O2 Delivery Nasal Cannula Nasal Cannula Nasal Cannula O2 Flow Rate 2.0 2.0 3.0 Intake and Output 02/06/19 02/06/19 02/07/19 14:59 22:59 06:59 Intake Total 0 ml 0 ml Balance 0 ml 0 ml EMRE HODGE MD Feb 07, 2019 08:23
[2019-02-07] MEDS ORDERED: MAGNESIUM SULFATE 4GM 100 ML IV ONE (08:30)
[2019-02-07] MEDS: PANTOPRAZOLE 40 MG TABLET.DR. PO SCH (08:38)
[2019-02-07] MEDS: LACTOBACILLUS RHAMNOSUS GG 1 CAPSULE. PO SCH ×2 (08:38→21:44)
[2019-02-07] MEDS: ASPIRIN RECTAL 300 MG SUPP. PR SCH (08:38)
[2019-02-07] MEDS: LISINOPRIL 10 MG TABLET PO SCH (08:39)
[2019-02-07] MEDS: GABAPENTIN 300 MG CAPSULE. PO SCH ×3 (08:39→21:44)
[2019-02-07] MEDS: INSULIN LISPRO 300 UNITS/3 ML VIAL. SQ SCH ×6 (08:57→17:00)
--- NOTE | 2019-02-07 10:35 | NUR ---
Communication Evaluation: Please refer to full report in intervention section for additional information. Impressions: Moderate Aphasia. Pt evaluated at bedside. Western Aphasia Battery Bedside-Revised administered w/ pt having a score of 30 (100=normal). Pt exhibited deficits in spontaneous speech (both content and fluency) as well as auditory comprehension. Pt's repetition was limited to 1-3 words, she was able to name basic objects at 75% but unable to produce any items in categories. Pt recognizes her name in writing but was unable to read a sentence. Recommendations: ST to f/u for dysphagia and aphasia per POC. Recommend ST services at discharge. D/w pt's daughter Mary Mayer via phone. Extensive conversion w/ daughter reporting pt has had a significant change in communication, that she was a "real big talker prior to hospitalization and would have long conversations". Pt's dysphagia also d/w daughter who reports pt is a very picky eater and daughter will provide a list of preferences to RN when she visits this afternoon.
[2019-02-07] MEDS: TPN PER PHARMACY MC PRN (10:52)
--- NOTE | 2019-02-07 10:52 | NUR ---
Pharmacy TPN Dosing Note S: JOHN IRBY is a 78 year old F Currently receiving Central Continuous TPN started 02/04/19 B:Pertinent PMH: CVA, failed swallow study Current diet: DYSPHAGIA LABS: Sodium: 139 Potassium: 3.8 Chloride: 102 Calcium: 8.8 Corrected Calcium: 9.92 Magnesium: 1.7 CO2: 36 SCr: 0.9 Glucose: 272 Albumin: 2.6 AST: 18 ALT: 11 TPN FORMULA: TPN TYPE: Central Continuous AMINO ACIDS: 70 gm DEXTROSE: 225 gm LIPIDS: 20 gm SODIUM CHLORIDE: 45 mEq SODIUM ACETATE: - mEq SODIUM PHOSPHATE: - mmol POTASSIUM CHLORIDE: 40 mEq POTASSIUM ACETATE: - mEq POTASSIUM PHOSPHATE: 27 mmol MAGNESIUM: 15 mEq CALCIUM: 10 mEq INSULIN: - units MULTIPLE VITAMIN: 10 ml TRACE ELEMENTS: 1 ml(s) TPN PLAN: -Phos up slightly, today 2.4, will repeat 20mmol NaPhos bolus. -Mag bolus 4gm today per provider. -cont same TPN -labs in the am R: Continue TPN Will monitor electrolytes, glucose, and tolerance to TPN. RENAE ENGLE RP, 02/07/19 1050
--- NOTE | 2019-02-07 11:24 | CARD ---
MR#: [id number] Date of Study: 02/06/2019 Ordering Physician: SUSAN GU, Referring Physician: SUSAN GU, Tech: Blanca Avila APPROVED REPORT EXAM: Two-dimensional and M-mode echocardiogram with Doppler and color Doppler. Other Information HR: 98bpm Technically limited study due to body habitus. INDICATION neurologic changes Echo Enhancing Agent Indication: Rule Out Septal Defect Agent/Amount Used: Agitated Saline 10mL 2D DIMENSIONS RVDd3.6 (2.9-3.5cm)Left Atrium(2D)2.7 (1.6-4.0cm) IVSd1.1 (0.7-1.1cm)Aortic Root(2D)3.3 (2.0-3.7cm) LVDd4.5 (3.9-5.9cm)LVOT Diameter2.0 (1.8-2.4cm) PWd1.0 (0.7-1.1cm)LVDs2.5 (2.5-4.0cm) FS (%) 44.9 %SV72.2 ml Aortic Valve AoV Peak Bishop.115.8cm/sAoV VTI23.6cm AO Peak GR.5.4mmHgLVOT VTI 18.75cm AO Mean GR.4mmHg Mitral Valve MV E Uacnwmhe70.1cm/sMV A Ffssjtxw854.0cm/s E/A Ratio0.8 TDI Lateral E' P. V7.14cm/sMedial E' P. V5.41cm/s E/Lateral E'12.1E/Medial E'15.9 Tricuspid Valve TR P. Eujpqcdc874mp/sRAP EBNIBBGV3elOh TR Peak Gr.55dmViEXEG38yvAl Pulmonary Vein S1 Wfkwkksd55.2cm/sS2 Lwvlxope12.93cm/s D2 Jlafyaik79.9cm/sPVa [id number] LEFT VENTRICLE The left ventricle is normal size. There is borderline to mild concentric left ventricular hypertroph y. The left ventricular systolic function is normal and the ejection fraction is within normal range. The Ejection Fraction is 60-65%. There is normal LV segmental wall motion. Transmitral Doppler flow pattern is Grade I-abnormal relaxation pattern. RIGHT VENTRICLE The right ventricle is borderline dilated. The right ventricle is borderline hypertrophied. The right ventricular systolic function is normal. ATRIA The left atrium is borderline dilated. The right atrium size is normal. The interatrial septum is int act with no evidence for an atrial septal defect or patent foramen ovale as noted on 2-D or Doppler i maging. Bubble study was negative. AORTIC VALVE The aortic valve is normal in structure and function. Doppler and Color Flow revealed no significant aortic regurgitation. There is no significant aortic valvular stenosis. MITRAL VALVE The mitral valve is normal in structure and function. There is no evidence of mitral valve prolapse. There is no mitral valve stenosis. Doppler and Color-flow revealed trace mitral regurgitation. TRICUSPID VALVE The tricuspid valve is not well visualized. Doppler and Color Flow revealed trace tricuspid regurgita tion with an estimated PAP of 44 mmHg. There is no tricuspid valve stenosis. PULMONIC VALVE The pulmonic valve is not well visualized. Doppler and Color Flow revealed no pulmonic valvular regur gitation. GREAT VESSELS The aortic root is normal in size. The IVC is normal in size and collapses >50% with inspiration. PERICARDIAL EFFUSION There is a trace pericardial effusion with no hemodynamic significance. Critical Notification Critical Value: No <Conclusion> The left ventricle is normal size. The left ventricular systolic function is normal and the ejection fraction is within normal range. The Ejection Fraction is 60-65%. There is borderline to mild concentric left ventricular hypertrophy. The left atrium is borderline dilated. The right atrium size is normal. The interatrial septum is intact with no evidence for an atrial septal defect or patent foramen ovale as noted on 2-D or Doppler imaging. Bubble study was negative. Doppler and Color Flow revealed no significant aortic regurgitation. There is no significant aortic valvular stenosis. Doppler and Color-flow revealed trace mitral regurgitation. Doppler and Color Flow revealed trace tricuspid regurgitation with an estimated PAP of 44 mmHg. Signed by : Jarvis Lee MD Electronically Approved : 02/07/2019 09:34:28
[2019-02-07 11:45] VITALS: BP 148/80
[2019-02-07] MEDS ORDERED: SODIUM PHOSPHATE 20 MMOL in IV DEXTROSE 5% 250 ML IV ONE (12:00)
--- NOTE | 2019-02-07 13:26 | PDOC ---
CARDIO Progress Notes Date and Time Date of Service 02/07/19 Time of Evaluation 1310 Subjective Subjective: No Chest Pain, No shortness of breath, No Palpitations Vitals Vitals Vital Signs Date Time Temp Pulse Resp B/P (MAP) Pulse Ox O2 Delivery O2 Flow Rate FiO2 02/07/19 11:45 97.9 92 18 148/80 (102) 96 Nasal Cannula 2.0 97.9 Weight Weight [ ] Input and Output Intake and Output Intake and Output 02/07/19 07:00 Intake Total 0 ml Balance 0 ml Intake Oral 0 ml # Voids 2 Laboratory Labs Laboratory Tests Test 02/06/19 16:31 02/06/19 20:57 02/07/19 00:56 02/07/19 04:51 Glucose (Fingerstick) 177 mg/dL (70-99) 164 mg/dL (70-99) 266 mg/dL (70-99) 272 mg/dL (70-99) Test 02/07/19 05:29 02/07/19 07:16 02/07/19 11:02 White Blood Count 7.6 x10^3/uL (4.0-11.0) Red Blood Count 2.80 x10^6/uL (3.50-5.40) Hemoglobin 7.7 g/dL (12.0-15.5) Hematocrit 23.7 % (36.0-47.0) Mean Corpuscular Volume 85 fL (79-100) Mean Corpuscular Hemoglobin 27 pg (25-35) Mean Corpuscular Hemoglobin Concent 32 g/dL (31-37) Red Cell Distribution Width 16.0 % (11.5-14.5) Platelet Count 425 x10^3/uL (140-400) Neutrophils (%) (Auto) 71 % (31-73) Lymphocytes (%) (Auto) 12 % (24-48) Monocytes (%) (Auto) 13 % (0-9) Eosinophils (%) (Auto) 4 % (0-3) Basophils (%) (Auto) 1 % (0-3) Neutrophils # (Auto) 5.3 x10^3/uL (1.8-7.7) Lymphocytes # (Auto) 0.9 x10^3/uL (1.0-4.8) Monocytes # (Auto) 1.0 x10^3/uL (0.0-1.1) Eosinophils # (Auto) 0.3 x10^3/uL (0.0-0.7) Basophils # (Auto) 0.0 x10^3/uL (0.0-0.2) Sodium Level 139 mmol/L (136-145) Potassium Level 3.8 mmol/L (3.5-5.1) Chloride Level 102 mmol/L (98-107) Carbon Dioxide Level 36 mmol/L (21-32) Anion Gap 1 (6-14) Blood Urea Nitrogen 9 mg/dL (7-20) Creatinine 0.9 mg/dL (0.6-1.0) Estimated GFR (Cockcroft-Gault) 73.3 BUN/Creatinine Ratio 10 (6-20) Glucose Level 273 mg/dL (70-99) Calcium Level 8.8 mg/dL (8.5-10.1) Phosphorus Level 2.4 mg/dL (2.6-4.7) Magnesium Level 1.7 mg/dL (1.8-2.4) Total Bilirubin 0.3 mg/dL (0.2-1.0) Aspartate Amino Transf (AST/SGOT) 18 U/L (15-37) Alanine Aminotransferase (ALT/SGPT) 11 U/L (14-59) Alkaline Phosphatase 43 U/L (46-116) Total Protein 7.1 g/dL (6.4-8.2) Albumin 2.6 g/dL (3.4-5.0) Albumin/Globulin Ratio 0.6 (1.0-1.7) Glucose (Fingerstick) 272 mg/dL (70-99) 261 mg/dL (70-99) Physical Exam HEENT: Neck Supple W Full Motion Chest: Symmetric LUNGS: Clear to Auscultation, Other (diminished bases) Heart: S1S2, RRR Abdomen: Soft N/T Extremities: No Edema, Other (right-sided weakness) Neurology: alert, follow commands, other ( Expressive aphasia) Assessment Assessment 1. Acute CVA; infarcts involving multiple areas. s/p tPA. Bubble study negative, no evidence of ASD/PFO. Burst of SVT noted on tele, but not AFIB thus far per recorded events 2. Hypertension; mildly elevated 3. Hyperlipidemia; statin 4. Chronic diastolic CHF; Echo with preserved LV systolic function. Appears compensated 5. Diabetes, II 6. Hypomagnesemia 7. Non-small cell lung CA; stage III. s/p previous chemo, radiation therapy 8. COPD Recommendations Secondary prevention Convert ASA to oral Increase lisinopril for better BP control Add low-dose BB for rate control Supportive care Will arrange outpatient event monitor prior to DC SEBASTIAN WILD APRN Feb 07, 2019 13:25
--- NOTE | 2019-02-07 13:35 | PDOC ---
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 Status-post alteplase HTN. HLD. DM? Thrombocytosis? Obesity. Is on dysphagia I diet No atrial septal defect on TTE Plan ASA 300 mg RC daily Statin HS. Cardiology consult appreciated await transthoracic and transesophageal echocardiograms, and placement of event monitor OT/PT/ST. Needs SNU Subjective No complaints Objective Vital Signs Date Time Temp Pulse Resp B/P (MAP) Pulse Ox O2 Delivery O2 Flow Rate FiO2 02/07/19 11:45 97.9 92 18 148/80 (102) 96 Nasal Cannula 2.0 97.9 Intake and Output 02/07/19 07:00 Intake Total 0 ml Balance 0 ml Intake Oral 0 ml # Voids 2 PHYSICAL EXAM Alert. Aphasia is much better, she could name and repeat and follow commands, even knows that she is in the hospital. PERRL. EOMI. CN: no focal findings. Muscle tone: normal. Muscle strength: 3/5, worse on right DTR: 1+ Plantar reflex: silent Gait: not examined in bed. Sensory exam: no abnormal findings. Cerebellar: not cooperative Review of Relevant I have reviewed the following items myesha (where applicable) has been applied. Labs Laboratory Tests Test 02/06/19 10:48 02/06/19 12:30 02/06/19 16:31 02/06/19 20:57 Glucose (Fingerstick) 176 mg/dL (70-99) 177 mg/dL (70-99) 164 mg/dL (70-99) White Blood Count 8.3 x10^3/uL (4.0-11.0) Red Blood Count 2.85 x10^6/uL (3.50-5.40) Hemoglobin 7.9 g/dL (12.0-15.5) Hematocrit 24.5 % (36.0-47.0) Mean Corpuscular Volume 86 fL (79-100) Mean Corpuscular Hemoglobin 28 pg (25-35) Mean Corpuscular Hemoglobin Concent 32 g/dL (31-37) Red Cell Distribution Width 15.7 % (11.5-14.5) Platelet Count 407 x10^3/uL (140-400) Neutrophils (%) (Auto) 76 % (31-73) Lymphocytes (%) (Auto) 12 % (24-48) Monocytes (%) (Auto) 11 % (0-9) Eosinophils (%) (Auto) 1 % (0-3) Basophils (%) (Auto) 1 % (0-3) Neutrophils # (Auto) 6.3 x10^3/uL (1.8-7.7) Lymphocytes # (Auto) 1.0 x10^3/uL (1.0-4.8) Monocytes # (Auto) 0.9 x10^3/uL (0.0-1.1) Eosinophils # (Auto) 0.1 x10^3/uL (0.0-0.7) Basophils # (Auto) 0.1 x10^3/uL (0.0-0.2) Sodium Level 140 mmol/L (136-145) Potassium Level 4.0 mmol/L (3.5-5.1) Chloride Level 102 mmol/L (98-107) Carbon Dioxide Level 35 mmol/L (21-32) Anion Gap 3 (6-14) Blood Urea Nitrogen 11 mg/dL (7-20) Creatinine 0.9 mg/dL (0.6-1.0) Estimated GFR (Cockcroft-Gault) 73.3 BUN/Creatinine Ratio 12 (6-20) Glucose Level 180 mg/dL (70-99) Calcium Level 9.5 mg/dL (8.5-10.1) Phosphorus Level 1.8 mg/dL (2.6-4.7) Magnesium Level 1.8 mg/dL (1.8-2.4) Total Bilirubin 0.3 mg/dL (0.2-1.0) Aspartate Amino Transf (AST/SGOT) 21 U/L (15-37) Alanine Aminotransferase (ALT/SGPT) 9 U/L (14-59) Alkaline Phosphatase 48 U/L (46-116) Total Protein 7.3 g/dL (6.4-8.2) Albumin 2.8 g/dL (3.4-5.0) Albumin/Globulin Ratio 0.6 (1.0-1.7) Test 02/07/19 00:56 02/07/19 04:51 02/07/19 05:29 02/07/19 07:16 Glucose (Fingerstick) 266 mg/dL (70-99) 272 mg/dL (70-99) 272 mg/dL (70-99) White Blood Count 7.6 x10^3/uL (4.0-11.0) Red Blood Count 2.80 x10^6/uL (3.50-5.40) Hemoglobin 7.7 g/dL (12.0-15.5) Hematocrit 23.7 % (36.0-47.0) Mean Corpuscular Volume 85 fL (79-100) Mean Corpuscular Hemoglobin 27 pg (25-35) Mean Corpuscular Hemoglobin Concent 32 g/dL (31-37) Red Cell Distribution Width 16.0 % (11.5-14.5) Platelet Count 425 x10^3/uL (140-400) Neutrophils (%) (Auto) 71 % (31-73) Lymphocytes (%) (Auto) 12 % (24-48) Monocytes (%) (Auto) 13 % (0-9) Eosinophils (%) (Auto) 4 % (0-3) Basophils (%) (Auto) 1 % (0-3) Neutrophils # (Auto) 5.3 x10^3/uL (1.8-7.7) Lymphocytes # (Auto) 0.9 x10^3/uL (1.0-4.8) Monocytes # (Auto) 1.0 x10^3/uL (0.0-1.1) Eosinophils # (Auto) 0.3 x10^3/uL (0.0-0.7) Basophils # (Auto) 0.0 x10^3/uL (0.0-0.2) Sodium Level 139 mmol/L (136-145) Potassium Level 3.8 mmol/L (3.5-5.1) Chloride Level 102 mmol/L (98-107) Carbon Dioxide Level 36 mmol/L (21-32) Anion Gap 1 (6-14) Blood Urea Nitrogen 9 mg/dL (7-20) Creatinine 0.9 mg/dL (0.6-1.0) Estimated GFR (Cockcroft-Gault) 73.3 BUN/Creatinine Ratio 10 (6-20) Glucose Level 273 mg/dL (70-99) Calcium Level 8.8 mg/dL (8.5-10.1) Phosphorus Level 2.4 mg/dL (2.6-4.7) Magnesium Level 1.7 mg/dL (1.8-2.4) Total Bilirubin 0.3 mg/dL (0.2-1.0) Aspartate Amino Transf (AST/SGOT) 18 U/L (15-37) Alanine Aminotransferase (ALT/SGPT) 11 U/L (14-59) Alkaline Phosphatase 43 U/L (46-116) Total Protein 7.1 g/dL (6.4-8.2) Albumin 2.6 g/dL (3.4-5.0) Albumin/Globulin Ratio 0.6 (1.0-1.7) Test 02/07/19 11:02 Glucose (Fingerstick) 261 mg/dL (70-99) Laboratory Tests Test 02/06/19 16:31 02/06/19 20:57 02/07/19 00:56 02/07/19 04:51 Glucose (Fingerstick) 177 mg/dL (70-99) 164 mg/dL (70-99) 266 mg/dL (70-99) 272 mg/dL (70-99) Test 02/07/19 05:29 02/07/19 07:16 02/07/19 11:02 White Blood Count 7.6 x10^3/uL (4.0-11.0) Red Blood Count 2.80 x10^6/uL (3.50-5.40) Hemoglobin 7.7 g/dL (12.0-15.5) Hematocrit 23.7 % (36.0-47.0) Mean Corpuscular Volume 85 fL (79-100) Mean Corpuscular Hemoglobin 27 pg (25-35) Mean Corpuscular Hemoglobin Concent 32 g/dL (31-37) Red Cell Distribution Width 16.0 % (11.5-14.5) Platelet Count 425 x10^3/uL (140-400) Neutrophils (%) (Auto) 71 % (31-73) Lymphocytes (%) (Auto) 12 % (24-48) Monocytes (%) (Auto) 13 % (0-9) Eosinophils (%) (Auto) 4 % (0-3) Basophils (%) (Auto) 1 % (0-3) Neutrophils # (Auto) 5.3 x10^3/uL (1.8-7.7) Lymphocytes # (Auto) 0.9 x10^3/uL (1.0-4.8) Monocytes # (Auto) 1.0 x10^3/uL (0.0-1.1) Eosinophils # (Auto) 0.3 x10^3/uL (0.0-0.7) Basophils # (Auto) 0.0 x10^3/uL (0.0-0.2) Sodium Level 139 mmol/L (136-145) Potassium Level 3.8 mmol/L (3.5-5.1) Chloride Level 102 mmol/L (98-107) Carbon Dioxide Level 36 mmol/L (21-32) Anion Gap 1 (6-14) Blood Urea Nitrogen 9 mg/dL (7-20) Creatinine 0.9 mg/dL (0.6-1.0) Estimated GFR (Cockcroft-Gault) 73.3 BUN/Creatinine Ratio 10 (6-20) Glucose Level 273 mg/dL (70-99) Calcium Level 8.8 mg/dL (8.5-10.1) Phosphorus Level 2.4 mg/dL (2.6-4.7) Magnesium Level 1.7 mg/dL (1.8-2.4) Total Bilirubin 0.3 mg/dL (0.2-1.0) Aspartate Amino Transf (AST/SGOT) 18 U/L (15-37) Alanine Aminotransferase (ALT/SGPT) 11 U/L (14-59) Alkaline Phosphatase 43 U/L (46-116) Total Protein 7.1 g/dL (6.4-8.2) Albumin 2.6 g/dL (3.4-5.0) Albumin/Globulin Ratio 0.6 (1.0-1.7) Glucose (Fingerstick) 272 mg/dL (70-99) 261 mg/dL (70-99) Medications Current Medications Ondansetron HCl (Zofran) 4 mg PRN Q6HRS PRN IVP NAUSEA/VOMITING 1ST CHOICE; Start 02/04/19 at 02:30 Acetaminophen (Tylenol) 650 mg PRN Q6HRS PRN PO MILD PAIN 1-3; Start 02/04/19 at 02:30 Sodium Chloride 1,000 ml @ 80 mls/hr 1X ONCE IV Last administered on 02/04/19at 04:07; Start 02/04/19 at 03:00; Stop 02/04/19 at 15:29; Status DC Morphine Sulfate (Morphine Sulfate) 1 mg PRN Q2HR PRN IV PAIN Last administered on 02/05/19 21:04; Start 02/04/19 at 02:30 Iohexol (Omnipaque 350 Mg/ml) 75 ml 1X ONCE IV Last administered on 02/04/19 09:07; Start 02/04/19 at 09:00; Stop 02/04/19 at 09:01; Status DC Info (CONTRAST GIVEN -- Rx MONITORING) 1 each PRN DAILY PRN MC SEE COMMENTS; Start 02/04/19 at 09:00; Stop 02/06/19 at 08:59; Status DC Info (Tpn Per Pharmacy) 1 each PRN DAILY PRN MC SEE COMMENTS Last administered on 02/07/19 10:52; Start 02/04/19 at 11:30 Sodium Chloride 45 meq/Potassium Chloride 50 meq/ Potassium Phosphate 13.6 mmol/Magnesium Sulfate 10 meq/ Calcium Gluconate 10 meq/ Multivitamins 10 ml/Chromium/ Copper/Manganese/ Seleni/Zn 1 ml/ Total Parenteral Nutrition/Amino Acids/Dextrose/ Fat Emulsion Intravenous 1,512 ml @ 63 mls/hr TPN CONT IV Last administered on 02/04/19 22:37; Start 02/04/19 at 22:00; Stop 02/05/19 at 21:59; Status DC Aspirin (Aspirin Rectal Supp) 300 mg DAILY TN Last administered on 02/07/19 08:38; Start 02/05/19 at 09:00 Simvastatin (Zocor) 10 mg QHS PO Last administered on 02/06/19 21:45; Start 02/04/19 at 21:00 Fentanyl (Duragesic 50mcg/ Hr Patch) 1 patch Q72H TD Last administered on 02/04/19 19:20; Start 02/04/19 at 18:45 Alteplase, Recombinant (Cathflo For Central Catheter Clearance) 1 mg 1X ONCE INT CAT Last administered on 02/05/19 12:08; Start 02/05/19 at 11:00; Stop 02/05/19 at 11:01; Status DC Magnesium Sulfate 50 ml @ 25 mls/hr 1X ONCE IV Last administered on 10/12/19at 12:08; Start 02/05/19 at 11:30; Stop 02/05/19 at 13:29; Status DC Sodium Chloride 45 meq/Potassium Chloride 40 meq/ Potassium Phosphate 17 mmol/ Magnesium Sulfate 10 meq/Calcium Gluconate 10 meq/ Multivitamins 10 ml/Chromium/ Copper/Manganese/ Seleni/Zn 1 ml/ Total Parenteral Nutrition/Amino Acids/Dextrose/ Fat Emulsion Intravenous 1,512 ml @ 63 mls/hr TPN CONT IV Last administered on 02/05/19at 22:35; Start 02/05/19 at 22:00; Stop 02/06/19 at 21:59; Status DC Alteplase, Recombinant (Cathflo For Central Catheter Clearance) 1 mg 1X ONCE INT CAT Last administered on 02/06/19at 02:39; Start 02/06/19 at 02:30; Stop 02/06/19 at 02:31; Status DC Alteplase, Recombinant (Cathflo For Central Catheter Clearance) 1 mg 1X ONCE INT CAT Last administered on 02/06/19at 04:14; Start 02/06/19 at 05:00; Stop 02/06/19 at 05:01; Status DC Alteplase, Recombinant (Cathflo For Central Catheter Clearance) 1 mg 1X ONCE INT CAT Last administered on 02/06/19at 10:13; Start 02/06/19 at 10:30; Stop 02/06/19 at 10:31; Status DC Alteplase, Recombinant (Cathflo For Central Catheter Clearance) 1 mg 1X ONCE INT CAT Last administered on 02/06/19at 13:21; Start 02/06/19 at 13:00; Stop 02/06/19 at 13:01; Status DC Gabapentin (Neurontin) 300 mg TID PO Last administered on 02/07/19at 08:39; Start 02/06/19 at 14:00 Insulin Human Lispro (HumaLOG) 8 units TIDWMEALS SQ Last administered on 02/07/19at 12:40; Start 02/06/19 at 17:00 Albuterol/ Ipratropium (Duoneb) 3 ml RTQID NEB Last administered on 02/07/19at 11:44; Start 02/06/19 at 16:00 Lactobacillus Rhamnosus (Culturelle) 1 cap BID PO Last administered on 02/07/19 08:38; Start 02/06/19 at 14:00 Lisinopril (Prinivil) 10 mg DAILY PO Last administered on 02/07/19 08:39; Start 02/06/19 at 15:00 Polyethylene Glycol (miraLAX PACKET) 17 gm PRN BID PRN PO CONSTIPATION 1ST CHOICE; Start 02/06/19 at 13:15 Simvastatin (Zocor) 10 mg QHS PO ; Start 02/06/19 at 21:00; Stop 02/06/19 at 13:30; Status DC Insulin Glargine (Lantus Syringe) 10 unit QHS SQ Last administered on 02/06/19 21:54; Start 02/06/19 at 21:00 Pantoprazole Sodium (Protonix) 40 mg DAILYAC PO Last administered on 02/07/19 08:38; Start 02/06/19 at 14:00 Sodium Phosphate 20 mmol/Dextrose 256.6667 ml @ 64.167 m... 1X ONCE IV Last administered on 02/06/19at 19:14; Start 02/06/19 at 14:00; Stop 02/06/19 at 17:59; Status DC Sodium Chloride 45 meq/Potassium Chloride 40 meq/ Potassium Phosphate 27 mmol/ Magnesium Sulfate 15 meq/Calcium Gluconate 10 meq/ Multivitamins 10 ml/Chromium/ Copper/Manganese/ Seleni/Zn 1 ml/ Total Parenteral Nutrition/Amino Acids/De xtrose/ Fat Emulsion Intravenous 1,512 ml @ 63 mls/hr TPN CONT IV Last administered on 02/06/19at 22:32; Start 02/06/19 at 22:00; Stop 02/07/19 at 21:59 Clonidine HCl (Catapres) 0.1 mg PRN Q1HR PRN PO HYPERTENSION; Start 02/06/19 at 20:15 Ondansetron HCl (Zofran) 4 mg PRN Q6HRS PRN IVP NAUSEA/VOMITING; Start 02/06/19 at 20:15; Status UNV Insulin Human Lispro (HumaLOG) 0-9 UNITS TIDWMEALS SQ Last administered on 02/07/19at 12:41; Start 02/07/19 at 08:00 Dextrose (Dextrose 50%-Water Syringe) 12.5 gm PRN Q15MIN PRN IV SEE COMMENTS; Start 02/06/19 at 20:15 Magnesium Sulfate 100 ml @ 25 mls/hr 1X ONCE IV Last administered on 02/07/19at 08:39; Start 02/07/19 at 08:30; Stop 02/07/19 at 12:29; Status DC Sodium Phosphate 20 mmol/Dextrose 256.6667 ml @ 64.167 m... 1X ONCE IV Last administered on 02/07/19at 12:30; Start 02/07/19 at 12:00; Stop 02/07/19 at 15:59 Sodium Chloride 45 meq/Potassium Chloride 40 meq/ Potassium Phosphate 27 mmol/ Magnesium Sulfate 15 meq/Calcium Gluconate 10 meq/ Multivitamins 10 ml/Chromium/ Copper/Manganese/ Seleni/Zn 1 ml/ Total Parenteral Nutrition/Amino Acids/Dextrose/ Fat Emulsion Intravenous 1,512 ml @ 63 mls/hr TPN CONT IV ; Start 02/07/19 at 22:00; Stop 02/08/19 at 21:59 Active Scripts Active Doxycycline Hyclate 100 Mg Capsule 1 Cap PO BID 7 Days Prednisone 20 Mg Tablet 40 Mg PO DAILY 5 Days Humalog (Insulin Lispro) 100 Unit/1 Ml Insuln.pen 8 Units SQ TIDWMEALS 30 Days + Sliding scale 1u for every 50mg/dL > 150mg/dL Call MD for glucose > 350 If glucose < 100, sliding scale only Lantus Solostar (Insulin Glargine,Hum.rec.anlog) 100 Unit/1 Ml Insuln.pen 10 Units SQ QHS 30 Days Culturelle (Lactobacillus Rhamnosus Gg) 1 Each Cap.sprink 1 Cap PO BID 10 Days Polyethylene Glycol 3350 17 Gm Powd.pack 17 Gm PO PRN BID PRN 30 Days Duoneb 0.5-3(2.5) Mg/3 Ml (Albuterol/Ipratropium) 3 Ml Ampul.neb 3 Ml NEB RTQID 30 Days Simvastatin 10 Mg Tablet 1 Tab PO QHS 30 Days Glipizide 10 Mg Tablet 10 Mg PO DAILY 3 Days Gabapentin 300 Mg Capsule 300 Mg PO TID 30 Days Lisinopril 10 Mg Tablet 1 Tab PO DAILY Reported FENTANYL 50mcg/hr (Fentanyl) 1 Each Patch.td72 1 Patch TD Q72H Ibuprofen 800 Mg Tablet 800 Mg PO PRN Q8HRS PRN Omeprazole 20 Mg Capsule.dr 2 Cap PO DAILY Metformin Hcl 500 Mg Tablet 500 Mg PO BID Vitals/I & O Vital Sign - Last 24 Hours 02/06/19 02/06/19 02/06/19 02/06/19 14:17 16:02 16:57 19:39 Temp 99.5 99.5 Pulse 91 95 Resp 20 B/P (MAP) 147/64 172/78 (109) Pulse Ox 98 98 100 O2 Delivery Nasal Cannula Nasal Cannula Nasal Cannula O2 Flow Rate 4.0 4.0 3.0 02/06/19 02/06/19 02/06/19 02/07/19 19:47 20:00 23:00 03:44 Temp 98.6 98.7 98.8 98.6 98.7 98.8 Pulse 98 109 95 Resp 20 20 20 B/P (MAP) 169/65 (99) 186/85 (118) 160/88 (112) Pulse Ox 97 95 98 O2 Delivery Room Air Nasal Cannula Nasal Cannula Nasal Cannula O2 Flow Rate 3.0 2.0 2.0 02/07/19 02/07/19 02/07/19 02/07/19 07:00 07:35 08:15 08:39 Temp 97.2 97.2 Pulse 93 93 Resp 18 B/P (MAP) 156/85 (108) 156/85 Pulse Ox 96 98 O2 Delivery Nasal Cannula Nasal Cannula Nasal Cannula O2 Flow Rate 2.0 3.0 3.0 02/07/19 02/07/19 11:44 11:45 Temp 97.9 97.9 Pulse 92 Resp 18 B/P (MAP) 148/80 (102) Pulse Ox 99 96 O2 Delivery Nasal Cannula Nasal Cannula O2 Flow Rate 3.0 2.0 Intake and Output 02/06/19 02/06/19 02/07/19 15:00 23:00 07:00 Intake Total 0 ml 0 ml Balance 0 ml 0 ml Images LEFT VENTRICLE The left ventricle is normal size. There is borderline to mild concentric left ventricular hypertrophy. The left ventricular systolic function is normal and the ejection fraction is within normal range. The Ejection Fraction is 60-65%. There is normal LV segmental wall motion. Transmitral Doppler flow pattern is Grade I-abnormal relaxation pattern. RIGHT VENTRICLE The right ventricle is borderline dilated. The right ventricle is borderline hypertrophied. The right ventricular systolic function is normal. ATRIA The left atrium is borderline dilated. The right atrium size is normal. The interatrial septum is intact with no evidence for an atrial septal defect or patent foramen ovale as noted on 2-D or Doppler imaging. Bubble study was negative. AORTIC VALVE The aortic valve is normal in structure and function. Doppler and Color Flow revealed no significant aortic regurgitation. There is no significant aortic valvular stenosis. MITRAL VALVE The mitral valve is normal in structure and function. There is no evidence of mi tral valve prolapse. There is no mitral valve stenosis. Doppler and Color-flow revealed trace mitral regurgitation. TRICUSPID VALVE The tricuspid valve is not well visualized. Doppler and Color Flow revealed trace tricuspid regurgitation with an estimated PAP of 44 mmHg. There is no tricuspid valve stenosis. PULMONIC VALVE The pulmonic valve is not well visualized. Doppler and Color Flow revealed no pulmonic valvular regurgitation. GREAT VESSELS The aortic root is normal in size. The IVC is normal in size and collapses >50% with inspiration. PERICARDIAL EFFUSION There is a trace pericardial effusion with no hemodynamic significance. Critical Notification Critical Value: No <Conclusion> The left ventricle is normal size. The left ventricular systolic function is normal and the ejection fraction is within normal range. The Ejection Fraction is 60-65%. There is borderline to mild concentric left ventricular hypertrophy. The left atrium is borderline dilated. The right atrium size is normal. The interatrial septum is intact with no evidence for an atrial septal defect or patent foramen ovale as noted on 2-D or Doppler imaging. Bubble study was negative. Doppler and Color Flow revealed no significant aortic regurgitation. There is no significant aortic valvular stenosis. Doppler and Color-flow revealed trace mitral regurgitation. Doppler and Color Flow revealed trace tricuspid regurgitation with an estimated PAP of 44 mmHg. ABRAHAM FAIRBANKS MD Feb 07, 2019 13:35
[2019-02-07 15:43] VITALS: BP 150/76
[2019-02-07] MEDS: fentaNYL 50MCG/HR PATCH 1 PATCH PATCH.TD72 TD SCH (18:20)
[2019-02-07 19:30] VITALS: BP 146/62
[2019-02-07] MEDS: METOPROLOL TART IMMED RELEASE 25 MG TABLET. PO SCH (21:45)
[2019-02-07] MEDS: SIMVASTATIN 10 MG TABLET PO SCH (21:45)
[2019-02-07] MEDS: INSULIN GLARGINE SYRINGE. SQ SCH (21:50)
[2019-02-07] MEDS ORDERED: DEXTROSE 70% IV SCH ×10 (22:00)
[2019-02-07] MEDS ORDERED: [UNRECOGNIZED DRUG - OTHER] IV SCH ×10 (22:00)
[2019-02-07] MEDS ORDERED: TOTAL PARENTERAL NUTRITION IV SCH ×10 (22:00)
[2019-02-07] MEDS ORDERED: AMINO ACID IV SCH ×10 (22:00)
[2019-02-07 23:30] VITALS: BP 145/69
[2019-02-08 03:30] VITALS: BP 139/62
[2019-02-08 06:47] LABS: BASO % 0 % (0-3); EOS # 0.3 x10^3/uL (0.0-0.7); EOS % 3 % (0-3); HEMATOCRIT 24.3 % (36.0-47.0); HEMOGLOBIN 7.8 g/dL (12.0-15.5); LYMPH # 1.2 x10^3/uL (1.0-4.8); LYMPH % 16 % (24-48); MEAN CORPUSCULAR HEMOGLOBIN 27 pg (25-35); MEAN CORPUSCULAR HGB CONC 32 g/dL (31-37); MEAN CORPUSCULAR VOLUME 85 fL (79-100); MONO # 0.9 x10^3/uL (0.0-1.1); MONO % 12 % (0-9); NEUT # 5.4 x10^3/uL (1.8-7.7); NEUT % 69 % (31-73); PLATELET COUNT 432 x10^3/uL (140-400); RED BLOOD COUNT 2.86 x10^6/uL (3.50-5.40); RED CELL DISTRIBUTION WIDTH 16.1 % (11.5-14.5); WHITE BLOOD COUNT 7.8 x10^3/uL (4.0-11.0)
[2019-02-08 06:58] LABS: ALBUMIN 2.6 g/dL (3.4-5.0); ALBUMIN/GLOBULIN RATIO 0.6 (1.0-1.7); CALCIUM 8.7 mg/dL (8.5-10.1); GFR 64.9; MAGNESIUM 2.3 mg/dL (1.8-2.4); PHOSPHORUS 3.1 mg/dL (2.6-4.7); POTASSIUM 4.5 mmol/L (3.5-5.1); TOTAL BILIRUBIN 0.2 mg/dL (0.2-1.0); TOTAL PROTEIN 7.2 g/dL (6.4-8.2)
[2019-02-08 07:58] VITALS: BP 151/80
[2019-02-08] MEDS: IPRATRPIUM/ALBUTEROL 0.5/2.5MG 3 ML NEBU. NEB SCH ×3 (08:25→20:44)
[2019-02-08] MEDS: ASPIRIN ENTERIC COATED 325 MG TABLET.DR. PO SCH (08:47)
[2019-02-08] MEDS: PANTOPRAZOLE 40 MG TABLET.DR. PO SCH (08:47)
[2019-02-08] MEDS: LACTOBACILLUS RHAMNOSUS GG 1 CAPSULE. PO SCH ×2 (08:47→21:00)
[2019-02-08] MEDS: LISINOPRIL 20 MG TABLET PO SCH (08:48)
[2019-02-08] MEDS: METOPROLOL TART IMMED RELEASE 25 MG TABLET. PO SCH ×2 (08:48→21:00)
[2019-02-08] MEDS: GABAPENTIN 300 MG CAPSULE. PO SCH ×3 (08:49→21:00)
[2019-02-08] MEDS: INSULIN LISPRO 300 UNITS/3 ML VIAL. SQ SCH ×6 (09:02→17:53)
--- NOTE | 2019-02-08 10:19 | NUR ---
JANETTE following pt. Spoke with pt who is declining SNU or HH and just wants to go home. Pt reports she lives at home by her self and uses home 02. Pt agreeable with Rhonda speaking with her daughter, Sonja, about this. SW spoke with pt's daughter and she would like pt to go to [facility]. She will also discuss this with pt when she visits her today. Pt's daughter states pt is not safe to go home and will need rehabilitation. PT/OT on hold yesterday but per RN they should be able to see pt today. Spoke with Macarena at [facility] and they are not able to do TPN. Discussed with Physician. JANETTE will fax referral once PT/OT notes are in EMR. Will continue to follow.
[2019-02-08 11:46] VITALS: BP 96/44
--- NOTE | 2019-02-08 11:48 | PDOC ---
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 Status-post alteplase HTN. HLD. DM? Thrombocytosis? Obesity. Is on dysphagia I diet No atrial septal defect on TTE Plan Oral aspirin Statin HS. Cardiology consult appreciated await placement of event monitor OT/PT/ST. Can she sustain nutrition? May need PEG Needs SNU Subjective no complaints Objective Vital Signs Date Time Temp Pulse Resp B/P (MAP) Pulse Ox O2 Delivery O2 Flow Rate FiO2 02/08/19 11:36 Nasal Cannula 3.0 02/08/19 08:48 91 151/80 02/08/19 07:58 98.2 18 95 98.2 Intake and Output 02/08/19 06:59 Intake Total 0 ml Balance 0 ml Intake Oral 0 ml # Voids 8 PHYSICAL EXAM Alert. Names and repeats, follows commands, knows that she is in the hospital. PERRL. EOMI. CN: no focal findings. Muscle tone: normal. Muscle strength: 3/5, worse on right DTR: 1+ Plantar reflex: silent Gait: not examined in bed. Sensory exam: no abnormal findings. Cerebellar: not cooperative Review of Relevant I have reviewed the following items myesha (where applicable) has been applied. Labs Laboratory Tests Test 02/06/19 12:30 02/06/19 16:31 02/06/19 20:57 02/07/19 00:56 White Blood Count 8.3 x10^3/uL (4.0-11.0) Red Blood Count 2.85 x10^6/uL (3.50-5.40) Hemoglobin 7.9 g/dL (12.0-15.5) Hematocrit 24.5 % (36.0-47.0) Mean Corpuscular Volume 86 fL (79-100) Mean Corpuscular Hemoglobin 28 pg (25-35) Mean Corpuscular Hemoglobin Concent 32 g/dL (31-37) Red Cell Distribution Width 15.7 % (11.5-14.5) Platelet Count 407 x10^3/uL (140-400) Neutrophils (%) (Auto) 76 % (31-73) Lymphocytes (%) (Auto) 12 % (24-48) Monocytes (%) (Auto) 11 % (0-9) Eosinophils (%) (Auto) 1 % (0-3) Basophils (%) (Auto) 1 % (0-3) Neutrophils # (Auto) 6.3 x10^3/uL (1.8-7.7) Lymphocytes # (Auto) 1.0 x10^3/uL (1.0-4.8) Monocytes # (Auto) 0.9 x10^3/uL (0.0-1.1) Eosinophils # (Auto) 0.1 x10^3/uL (0.0-0.7) Basophils # (Auto) 0.1 x10^3/uL (0.0-0.2) Sodium Level 140 mmol/L (136-145) Potassium Level 4.0 mmol/L (3.5-5.1) Chloride Level 102 mmol/L (98-107) Carbon Dioxide Level 35 mmol/L (21-32) Anion Gap 3 (6-14) Blood Urea Nitrogen 11 mg/dL (7-20) Creatinine 0.9 mg/dL (0.6-1.0) Estimated GFR (Cockcroft-Gault) 73.3 BUN/Creatinine Ratio 12 (6-20) Glucose Level 180 mg/dL (70-99) Calcium Level 9.5 mg/dL (8.5-10.1) Phosphorus Level 1.8 mg/dL (2.6-4.7) Magnesium Level 1.8 mg/dL (1.8-2.4) Total Bilirubin 0.3 mg/dL (0.2-1.0) Aspartate Amino Transf (AST/SGOT) 21 U/L (15-37) Alanine Aminotransferase (ALT/SGPT) 9 U/L (14-59) Alkaline Phosphatase 48 U/L (46-116) Total Protein 7.3 g/dL (6.4-8.2) Albumin 2.8 g/dL (3.4-5.0) Albumin/Globulin Ratio 0.6 (1.0-1.7) Glucose (Fingerstick) 177 mg/dL (70-99) 164 mg/dL (70-99) 266 mg/dL (70-99) Test 02/07/19 04:51 02/07/19 05:29 02/07/19 07:16 02/07/19 11:02 Glucose (Fingerstick) 272 mg/dL (70-99) 272 mg/dL (70-99) 261 mg/dL (70-99) White Blood Count 7.6 x10^3/uL (4.0-11.0) Red Blood Count 2.80 x10^6/uL (3.50-5.40) Hemoglobin 7.7 g/dL (12.0-15.5) Hematocrit 23.7 % (36.0-47.0) Mean Corpuscular Volume 85 fL (79-100) Mean Corpuscular Hemoglobin 27 pg (25-35) Mean Corpuscular Hemoglobin Concent 32 g/dL (31-37) Red Cell Distribution Width 16.0 % (11.5-14.5) Platelet Count 425 x10^3/uL (140-400) Neutrophils (%) (Auto) 71 % (31-73) Lymphocytes (%) (Auto) 12 % (24-48) Monocytes (%) (Auto) 13 % (0-9) Eosinophils (%) (Auto) 4 % (0-3) Basophils (%) (Auto) 1 % (0-3) Neutrophils # (Auto) 5.3 x10^3/uL (1.8-7.7) Lymphocytes # (Auto) 0.9 x10^3/uL (1.0-4.8) Monocytes # (Auto) 1.0 x10^3/uL (0.0-1.1) Eosinophils # (Auto) 0.3 x10^3/uL (0.0-0.7) Basophils # (Auto) 0.0 x10^3/uL (0.0-0.2) Sodium Level 139 mmol/L (136-145) Potassium Level 3.8 mmol/L (3.5-5.1) Chloride Level 102 mmol/L (98-107) Carbon Dioxide Level 36 mmol/L (21-32) Anion Gap 1 (6-14) Blood Urea Nitrogen 9 mg/dL (7-20) Creatinine 0.9 mg/dL (0.6-1.0) Estimated GFR (Cockcroft-Gault) 73.3 BUN/Creatinine Ratio 10 (6-20) Glucose Level 273 mg/dL (70-99) Calcium Level 8.8 mg/dL (8.5-10.1) Phosphorus Level 2.4 mg/dL (2.6-4.7) Magnesium Level 1.7 mg/dL (1.8-2.4) Total Bilirubin 0.3 mg/dL (0.2-1.0) Aspartate Amino Transf (AST/SGOT) 18 U/L (15-37) Alanine Aminotransferase (ALT/SGPT) 11 U/L (14-59) Alkaline Phosphatase 43 U/L (46-116) Total Protein 7.1 g/dL (6.4-8.2) Albumin 2.6 g/dL (3.4-5.0) Albumin/Globulin Ratio 0.6 (1.0-1.7) Test 02/07/19 17:32 02/07/19 21:08 02/08/19 06:17 02/08/19 06:40 Glucose (Fingerstick) 190 mg/dL (70-99) 211 mg/dL (70-99) 306 mg/dL (70-99) White Blood Count 7.8 x10^3/uL (4.0-11.0) Red Blood Count 2.86 x10^6/uL (3.50-5.40) Hemoglobin 7.8 g/dL (12.0-15.5) Hematocrit 24.3 % (36.0-47.0) Mean Corpuscular Volume 85 fL (79-100) Mean Corpuscular Hemoglobin 27 pg (25-35) Mean Corpuscular Hemoglobin Concent 32 g/dL (31-37) Red Cell Distribution Width 16.1 % (11.5-14.5) Platelet Count 432 x10^3/uL (140-400) Neutrophils (%) (Auto) 69 % (31-73) Lymphocytes (%) (Auto) 16 % (24-48) Monocytes (%) (Auto) 12 % (0-9) Eosinophils (%) (Auto) 3 % (0-3) Basophils (%) (Auto) 0 % (0-3) Neutrophils # (Auto) 5.4 x10^3/uL (1.8-7.7) Lymphocytes # (Auto) 1.2 x10^3/uL (1.0-4.8) Monocytes # (Auto) 0.9 x10^3/uL (0.0-1.1) Eosinophils # (Auto) 0.3 x10^3/uL (0.0-0.7) Basophils # (Auto) 0.0 x10^3/uL (0.0-0.2) Sodium Level 137 mmol/L (136-145) Potassium Level 4.5 mmol/L (3.5-5.1) Chloride Level 102 mmol/L (98-107) Carbon Dioxide Level 32 mmol/L (21-32) Anion Gap 3 (6-14) Blood Urea Nitrogen 12 mg/dL (7-20) Creatinine 1.0 mg/dL (0.6-1.0) Estimated GFR (Cockcroft-Gault) 64.9 BUN/Creatinine Ratio 12 (6-20) Glucose Level 312 mg/dL (70-99) Calcium Level 8.7 mg/dL (8.5-10.1) Phosphorus Level 3.1 mg/dL (2.6-4.7) Magnesium Level 2.3 mg/dL (1.8-2.4) Total Bilirubin 0.2 mg/dL (0.2-1.0) Aspartate Amino Transf (AST/SGOT) 14 U/L (15-37) Alanine Aminotransferase (ALT/SGPT) 8 U/L (14-59) Alkaline Phosphatase 44 U/L (46-116) Total Protein 7.2 g/dL (6.4-8.2) Albumin 2.6 g/dL (3.4-5.0) Albumin/Globulin Ratio 0.6 (1.0-1.7) Test 02/08/19 07:23 02/08/19 11:20 Glucose (Fingerstick) 286 mg/dL (70-99) 163 mg/dL (70-99) Laboratory Tests Test 02/07/19 17:32 02/07/19 21:08 02/08/19 06:17 02/08/19 06:40 Glucose (Fingerstick) 190 mg/dL (70-99) 211 mg/dL (70-99) 306 mg/dL (70-99) White Blood Count 7.8 x10^3/uL (4.0-11.0) Red Blood Count 2.86 x10^6/uL (3.50-5.40) Hemoglobin 7.8 g/dL (12.0-15.5) Hematocrit 24.3 % (36.0-47.0) Mean Corpuscular Volume 85 fL (79-100) Mean Corpuscular Hemoglobin 27 pg (25-35) Mean Corpuscular Hemoglobin Concent 32 g/dL (31-37) Red Cell Distribution Width 16.1 % (11.5-14.5) Platelet Count 432 x10^3/uL (140-400) Neutrophils (%) (Auto) 69 % (31-73) Lymphocytes (%) (Auto) 16 % (24-48) Monocytes (%) (Auto) 12 % (0-9) Eosinophils (%) (Auto) 3 % (0-3) Basophils (%) (Auto) 0 % (0-3) Neutrophils # (Auto) 5.4 x10^3/uL (1.8-7.7) Lymphocytes # (Auto) 1.2 x10^3/uL (1.0-4.8) Monocytes # (Auto) 0.9 x10^3/uL (0.0-1.1) Eosinophils # (Auto) 0.3 x10^3/uL (0.0-0.7) Basophils # (Auto) 0.0 x10^3/uL (0.0-0.2) Sodium Level 137 mmol/L (136-145) Potassium Level 4.5 mmol/L (3.5-5.1) Chloride Level 102 mmol/L (98-107) Carbon Dioxide Level 32 mmol/L (21-32) Anion Gap 3 (6-14) Blood Urea Nitrogen 12 mg/dL (7-20) Creatinine 1.0 mg/dL (0.6-1.0) Estimated GFR (Cockcroft-Gault) 64.9 BUN/Creatinine Ratio 12 (6-20) Glucose Level 312 mg/dL (70-99) Calcium Level 8.7 mg/dL (8.5-10.1) Phosphorus Level 3.1 mg/dL (2.6-4.7) Magnesium Level 2.3 mg/dL (1.8-2.4) Total Bilirubin 0.2 mg/dL (0.2-1.0) Aspartate Amino Transf (AST/SGOT) 14 U/L (15-37) Alanine Aminotransferase (ALT/SGPT) 8 U/L (14-59) Alkaline Phosphatase 44 U/L (46-116) Total Protein 7.2 g/dL (6.4-8.2) Albumin 2.6 g/dL (3.4-5.0) Albumin/Globulin Ratio 0.6 (1.0-1.7) Test 02/08/19 07:23 02/08/19 11:20 Glucose (Fingerstick) 286 mg/dL (70-99) 163 mg/dL (70-99) Medications Current Medications Ondansetron HCl (Zofran) 4 mg PRN Q6HRS PRN IVP NAUSEA/VOMITING 1ST CHOICE; Start 02/04/19 at 02:30 Acetaminophen (Tylenol) 650 mg PRN Q6HRS PRN PO MILD PAIN 1-3; Start 02/04/19 at 02:30 Sodium Chloride 1,000 ml @ 80 mls/hr 1X ONCE IV Last administered on 02/04/19at 04:07; Start 02/04/19 at 03:00; Stop 02/04/19 at 15:29; Status DC Morphine Sulfate (Morphine Sulfate) 1 mg PRN Q2HR PRN IV PAIN Last administered on 02/05/19at 21:04; Start 02/04/19 at 02:30 Iohexol (Omnipaque 350 Mg/ml) 75 ml 1X ONCE IV Last administered on 02/04/19at 09:07; Start 02/04/19 at 09:00; Stop 02/04/19 at 09:01; Status DC Info (CONTRAST GIVEN -- Rx MONITORING) 1 each PRN DAILY PRN MC SEE COMMENTS; Start 02/04/19 at 09:00; Stop 02/06/19 at 08:59; Status DC Info (Tpn Per Pharmacy) 1 each PRN DAILY PRN MC SEE COMMENTS Last administered on 02/07/19at 10:52; Start 02/04/19 at 11:30 Sodium Chloride 45 meq/Potassium Chloride 50 meq/ Potassium Phosphate 13.6 mmol/Magnesium Sulfate 10 meq/ Calcium Gluconate 10 meq/ Multivitamins 10 ml/Chromium/ Copper/Manganese/ Seleni/Zn 1 ml/ Total Parenteral Nutrition/Amino Acids/Dextrose/ Fat Emulsion Intravenous 1,512 ml @ 63 mls/hr TPN CONT IV Last administered on 02/04/19at 22:37; Start 02/04/19 at 22:00; Stop 02/05/19 at 21:59; Status DC Aspirin (Aspirin Rectal Supp) 300 mg DAILY VT Last administered on 02/07/19at 08:38; Start 02/05/19 at 09:00; Stop 02/07/19 at 17:03; Status DC Simvastatin (Zocor) 10 mg QHS PO Last administered on 02/07/19at 21:45; Start 02/04/19 at 21:00 Fentanyl (Duragesic 50mcg/ Hr Patch) 1 patch Q72H TD Last administered on 02/07/19at 18:20; Start 02/04/19 at 18:45 Alteplase, Recombinant (Cathflo For Central Catheter Clearance) 1 mg 1X ONCE INT CAT Last administered on 02/05/19at 12:08; Start 02/05/19 at 11:00; Stop 02/05/19 at 11:01; Status DC Magnesium Sulfate 50 ml @ 25 mls/hr 1X ONCE IV Last administered on 02/05/19at 12:08; Start 02/05/19 at 11:30; Stop 02/05/19 at 13:29; Status DC Sodium Chloride 45 meq/Potassium Chloride 40 meq/ Potassium Phosphate 17 mmol/ Magnesium Sulfate 10 meq/Calcium Gluconate 10 meq/ Multivitamins 10 ml/Chromium/ Copper/Manganese/ Seleni/Zn 1 ml/ Total Parenteral Nutrition/Amino Acids/Dextrose/ Fat Emulsion Intravenous 1,512 ml @ 63 mls/hr TPN CONT IV Last administered on 02/05/19at 22:35; Start 02/05/19 at 22:00; Stop 02/06/19 at 21:59; Status DC Alteplase, Recombinant (Cathflo For Central Catheter Clearance) 1 mg 1X ONCE INT CAT Last administered on 02/06/19at 02:39; Start 02/06/19 at 02:30; Stop 02/06/19 at 02:31; Status DC Alteplase, Recombinant (Cathflo For Central Catheter Clearance) 1 mg 1X ONCE INT CAT Last administered on 02/06/19at 04:14; Start 02/06/19 at 05:00; Stop 02/06/19 at 05:01; Status DC Alteplase, Recombinant (Cathflo For Central Catheter Clearance) 1 mg 1X ONCE INT CAT Last administered on 02/06/19at 10:13; Start 02/06/19 at 10:30; Stop 02/06/19 at 10:31; Status DC Alteplase, Recombinant (Cathflo For Central Catheter Clearance) 1 mg 1X ONCE INT CAT Last administered on 02/06/19at 13:21; Start 02/06/19 at 13:00; Stop 02/06/19 at 13:01; Status DC Gabapentin (Neurontin) 300 mg TID PO Last administered on 02/08/19at 08:49; St art 02/06/19 at 14:00 Insulin Human Lispro (HumaLOG) 8 units TIDWMEALS SQ Last administered on 02/08/19at 09:02; Start 02/06/19 at 17:00 Albuterol/ Ipratropium (Duoneb) 3 ml RTQID NEB Last administered on 02/08/19at 11:35; Start 02/06/19 at 16:00 Lactobacillus Rhamnosus (Culturelle) 1 cap BID PO Last administered on 02/08/19at 08:47; Start 02/06/19 at 14:00 Lisinopril (Prinivil) 10 mg DAILY PO Last administered on 02/07/19at 08:39; Start 02/06/19 at 15:00; Stop 02/07/19 at 17:03; Status DC Polyethylene Glycol (miraLAX PACKET) 17 gm PRN BID PRN PO CONSTIPATION 1ST CHOICE; Start 02/06/19 at 13:15 Simvastatin (Zocor) 10 mg QHS PO ; Start 02/06/19 at 21:00; Stop 02/06/19 at 13:30; Status DC Insulin Glargine (Lantus Syringe) 10 unit QHS SQ Last administered on 02/07/19at 21:50; Start 02/06/19 at 21:00 Pantoprazole Sodium (Protonix) 40 mg DAILYAC PO Last administered on 02/08/19at 08:47; Start 02/06/19 at 14:00 Sodium Phosphate 20 mmol/Dextrose 256.6667 ml @ 64.167 m... 1X ONCE IV Last administered on 02/06/19at 19:14; Start 02/06/19 at 14:00; Stop 02/06/19 at 17:59; Status DC Sodium Chloride 45 meq/Potassium Chloride 40 meq/ Potassium Phosphate 27 mmol/ Magnesium Sulfate 15 meq/Calcium Gluconate 10 meq/ Multivitamins 10 ml/Chromium/ Copper/Manganese/ Seleni/Zn 1 ml/ Total Parenteral Nutrition/Amino Acids/Dextrose/ Fat Emulsion Intravenous 1,512 ml @ 63 mls/hr TPN CONT IV Last administered on 02/06/19at 22:32; Start 02/06/19 at 22:00; Stop 02/07/19 at 21:59; Status DC Clonidine HCl (Catapres) 0.1 mg PRN Q1HR PRN PO HYPERTENSION; Start 02/06/19 at 20:15 Ondansetron HCl (Zofran) 4 mg PRN Q6HRS PRN IVP NAUSEA/VOMITING; Start 02/06/19 at 20:15; Status UNV Insulin Human Lispro (HumaLOG) 0-9 UNITS TIDWMEALS SQ Last administered on 02/08/19at 09:02; Start 02/07/19 at 08:00 Dextrose (Dextrose 50%-Water Syringe) 12.5 gm PRN Q15MIN PRN IV SEE COMMENTS; Start 02/06/19 at 20:15 Magnesium Sulfate 100 ml @ 25 mls/hr 1X ONCE IV Last administered on 02/07/19at 08:39; Start 02/07/19 at 08:30; Stop 02/07/19 at 12:29; Status DC Sodium Phosphate 20 mmol/Dextrose 256.6667 ml @ 64.167 m... 1X ONCE IV Last administered on 02/07/19at 12:30; Start 02/07/19 at 12:00; Stop 02/07/19 at 15:59; Status DC Sodium Chloride 45 meq/Potassium Chloride 40 meq/ Potassium Phosphate 27 mmol/ Magnesium Sulfate 15 meq/Calcium Gluconate 10 meq/ Multivitamins 10 ml/Chromium/ Copper/Manganese/ Seleni/Zn 1 ml/ Total Parenteral Nutrition/Amino Acids/Dextrose/ Fat Emulsion Intravenous 1,512 ml @ 63 mls/hr TPN CONT IV Last administered on 02/07/19at 21:44; Start 02/07/19 at 22:00; Stop 02/08/19 at 21:59 Lisinopril (Prinivil) 20 mg DAILY PO Last administered on 02/08/19at 08:48; Start 02/08/19 at 09:00 Metoprolol Tartrate (Lopressor) 25 mg BID PO Last administered on 02/08/19at 08:48; Start 02/07/19 at 21:00 Aspirin (Ecotrin) 325 mg DAILYWBKFT PO Last administered on 02/08/19at 08:47; Start 02/08/19 at 08:00 Active Scripts Active Doxycycline Hyclate 100 Mg Capsule 1 Cap PO BID 7 Days Prednisone 20 Mg Tablet 40 Mg PO DAILY 5 Days Humalog (Insulin Lispro) 100 Unit/1 Ml Insuln.pen 8 Units SQ TIDWMEALS 30 Days + Sliding scale 1u for every 50mg/dL > 150mg/dL Call MD for glucose > 350 If glucose < 100, sliding scale only Lantus Solostar (Insulin Glargine,Hum.rec.anlog) 100 Unit/1 Ml Insuln.pen 10 Units SQ QHS 30 Days Culturelle (Lactobacillus Rhamnosus Gg) 1 Each Cap.sprink 1 Cap PO BID 10 Days Polyethylene Glycol 3350 17 Gm Powd.pack 17 Gm PO PRN BID PRN 30 Days Duoneb 0.5-3(2.5) Mg/3 Ml (Albuterol/Ipratropium) 3 Ml Ampul.neb 3 Ml NEB RTQID 30 Days Simvastatin 10 Mg Tablet 1 Tab PO QHS 30 Days Glipizide 10 Mg Tablet 10 Mg PO DAILY 3 Days Gabapentin 300 Mg Capsule 300 Mg PO TID 30 Days Lisinopril 10 Mg Tablet 1 Tab PO DAILY Reported FENTANYL 50mcg/hr (Fentanyl) 1 Each Patch.td72 1 Patch TD Q72H Ibuprofen 800 Mg Tablet 800 Mg PO PRN Q8HRS PRN Omeprazole 20 Mg Capsule.dr 2 Cap PO DAILY Metformin Hcl 500 Mg Tablet 500 Mg PO BID Vitals/I & O Vital Sign - Last 24 Hours 02/07/19 02/07/19 02/07/19 02/07/19 11:44 11:45 15:43 15:53 Temp 97.9 98.4 97.9 98.4 Pulse 92 94 Resp 18 18 B/P (MAP) 148/80 (102) 150/76 (100) Pulse Ox 99 96 94 O2 Delivery Nasal Cannula Nasal Cannula Nasal Cannula Nasal Cannula O2 Flow Rate 3.0 2.0 2.0 3.0 02/07/19 02/07/19 02/07/19 02/07/19 18:20 19:00 19:24 19:30 Temp 98.7 98.7 Pulse 95 Resp 18 17 B/P (MAP) 146/62 (90) Pulse Ox 96 95 O2 Delivery Nasal Cannula Nasal Cannula Nasal Cannula Nasal Cannula O2 Flow Rate 3.0 3.0 3.0 3.0 02/07/19 02/07/19 02/08/19 02/08/19 21:45 23:30 03:30 07:58 Temp 98.4 99.0 98.2 98.4 99.0 98.2 Pulse 95 82 82 91 Resp 18 18 18 B/P (MAP) 146/62 145/69 (94) 139/62 (87) 151/80 (103) Pulse Ox 97 97 95 O2 Delivery Nasal Cannula Nasal Cannula Room Air O2 Flow Rate 3.0 3.0 02/08/19 02/08/19 02/08/19 02/08/19 08:15 08:26 08:48 08:48 Pulse 91 91 B/P (MAP) 151/80 151/80 O2 Delivery Nasal Cannula Nasal Cannula O2 Flow Rate 3.0 3.0 02/08/19 11:36 O2 Delivery Nasal Cannula O2 Flow Rate 3.0 Intake and Output 02/07/19 02/07/19 02/08/19 14:59 22:59 06:59 Intake Total 0 ml 0 ml Balance 0 ml 0 ml ABRAHAM FAIRBANKS MD Feb 08, 2019 11:48
--- NOTE | 2019-02-08 12:07 | PDOC ---
PROGRESS NOTES Chief Complaint Chief Complaint Acute CVA - s/p tPA on 02/03/19 -Acute small to moderate territory infarct is noted involving the left parietal lobe with involvement of the left post central gyrus. Pulmonary hypertension Cerebral cytotoxic edema Metabolic encephalopathy Respiratory failure/distress HTN. HLD. DM Thrombocytosis Obesity PErsistent dysphagia - TPN, plus dysphagia 1 diet plan transesophageal echo 02/07 History of Present Illness History of Present Illness History of Present Illness History of Present Illness Still < 50% poor PO intake on dysphagia diet Tpn running ONly pPLace can take TPN BEing screened for [facility] but they will not take TPN or maximiliano Otherwise medical issues cleared, can take PO meds STill full code on chart, no fam member at bedside that i can discuss code status PLAN: MAy get palliative re code status and goals of po intake JANETTE pro on [facility] screen- dw her and she aware of my plan/goal of care ASA pR - change to PO since on dysphagia Vitals Vitals Vital Signs Date Time Temp Pulse Resp B/P (MAP) Pulse Ox O2 Delivery O2 Flow Rate FiO2 02/08/19 11:46 98.4 87 18 96/44 (61) 94 Nasal Cannula 3.0 98.4 Physical Exam General: Alert, Cooperative, No acute distress Lungs: Clear Abdomen: Normal bowel sounds, Soft Extremities: No clubbing, No cyanosis Skin: No rashes, No breakdown Labs LABS Laboratory Tests Test 02/07/19 17:32 02/07/19 21:08 02/08/19 06:17 02/08/19 06:40 Glucose (Fingerstick) 190 mg/dL (70-99) 211 mg/dL (70-99) 306 mg/dL (70-99) White Blood Count 7.8 x10^3/uL (4.0-11.0) Red Blood Count 2.86 x10^6/uL (3.50-5.40) Hemoglobin 7.8 g/dL (12.0-15.5) Hematocrit 24.3 % (36.0-47.0) Mean Corpuscular Volume 85 fL (79-100) Mean Corpuscular Hemoglobin 27 pg (25-35) Mean Corpuscular Hemoglobin Concent 32 g/dL (31-37) Red Cell Distribution Width 16.1 % (11.5-14.5) Platelet Count 432 x10^3/uL (140-400) Neutrophils (%) (Auto) 69 % (31-73) Lymphocytes (%) (Auto) 16 % (24-48) Monocytes (%) (Auto) 12 % (0-9) Eosinophils (%) (Auto) 3 % (0-3) Basophils (%) (Auto) 0 % (0-3) Neutrophils # (Auto) 5.4 x10^3/uL (1.8-7.7) Lymphocytes # (Auto) 1.2 x10^3/uL (1.0-4.8) Monocytes # (Auto) 0.9 x10^3/uL (0.0-1.1) Eosinophils # (Auto) 0.3 x10^3/uL (0.0-0.7) Basophils # (Auto) 0.0 x10^3/uL (0.0-0.2) Sodium Level 137 mmol/L (136-145) Potassium Level 4.5 mmol/L (3.5-5.1) Chloride Level 102 mmol/L (98-107) Carbon Dioxide Level 32 mmol/L (21-32) Anion Gap 3 (6-14) Blood Urea Nitrogen 12 mg/dL (7-20) Creatinine 1.0 mg/dL (0.6-1.0) Estimated GFR (Cockcroft-Gault) 64.9 BUN/Creatinine Ratio 12 (6-20) Glucose Level 312 mg/dL (70-99) Calcium Level 8.7 mg/dL (8.5-10.1) Phosphorus Level 3.1 mg/dL (2.6-4.7) Magnesium Level 2.3 mg/dL (1.8-2.4) Total Bilirubin 0.2 mg/dL (0.2-1.0) Aspartate Amino Transf (AST/SGOT) 14 U/L (15-37) Alanine Aminotransferase (ALT/SGPT) 8 U/L (14-59) Alkaline Phosphatase 44 U/L (46-116) Total Protein 7.2 g/dL (6.4-8.2) Albumin 2.6 g/dL (3.4-5.0) Albumin/Globulin Ratio 0.6 (1.0-1.7) Test 02/08/19 07:23 02/08/19 11:20 Glucose (Fingerstick) 286 mg/dL (70-99) 163 mg/dL (70-99) Review of Systems Review of Systems dementia, limited rOS Comment Review of Relevant I have reviewed the following items myesha (where applicable) has been applied. Labs Laboratory Tests Test 02/06/19 12:30 02/06/19 16:31 02/06/19 20:57 02/07/19 00:56 White Blood Count 8.3 x10^3/uL (4.0-11.0) Red Blood Count 2.85 x10^6/uL (3.50-5.40) Hemoglobin 7.9 g/dL (12.0-15.5) Hematocrit 24.5 % (36.0-47.0) Mean Corpuscular Volume 86 fL (79-100) Mean Corpuscular Hemoglobin 28 pg (25-35) Mean Corpuscular Hemoglobin Concent 32 g/dL (31-37) Red Cell Distribution Width 15.7 % (11.5-14.5) Platelet Count 407 x10^3/uL (140-400) Neutrophils (%) (Auto) 76 % (31-73) Lymphocytes (%) (Auto) 12 % (24-48) Monocytes (%) (Auto) 11 % (0-9) Eosinophils (%) (Auto) 1 % (0-3) Basophils (%) (Auto) 1 % (0-3) Neutrophils # (Auto) 6.3 x10^3/uL (1.8-7.7) Lymphocytes # (Auto) 1.0 x10^3/uL (1.0-4.8) Monocytes # (Auto) 0.9 x10^3/uL (0.0-1.1) Eosinophils # (Auto) 0.1 x10^3/uL (0.0-0.7) Basophils # (Auto) 0.1 x10^3/uL (0.0-0.2) Sodium Level 140 mmol/L (136-145) Potassium Level 4.0 mmol/L (3.5-5.1) Chloride Level 102 mmol/L (98-107) Carbon Dioxide Level 35 mmol/L (21-32) Anion Gap 3 (6-14) Blood Urea Nitrogen 11 mg/dL (7-20) Creatinine 0.9 mg/dL (0.6-1.0) Estimated GFR (Cockcroft-Gault) 73.3 BUN/Creatinine Ratio 12 (6-20) Glucose Level 180 mg/dL (70-99) Calcium Level 9.5 mg/dL (8.5-10.1) Phosphorus Level 1.8 mg/dL (2.6-4.7) Magnesium Level 1.8 mg/dL (1.8-2.4) Total Bilirubin 0.3 mg/dL (0.2-1.0) Aspartate Amino Transf (AST/SGOT) 21 U/L (15-37) Alanine Aminotransferase (ALT/SGPT) 9 U/L (14-59) Alkaline Phosphatase 48 U/L (46-116) Total Protein 7.3 g/dL (6.4-8.2) Albumin 2.8 g/dL (3.4-5.0) Albumin/Globulin Ratio 0.6 (1.0-1.7) Glucose (Fingerstick) 177 mg/dL (70-99) 164 mg/dL (70-99) 266 mg/dL (70-99) Test 02/07/19 04:51 02/07/19 05:29 02/07/19 07:16 02/07/19 11:02 Glucose (Fingerstick) 272 mg/dL (70-99) 272 mg/dL (70-99) 261 mg/dL (70-99) White Blood Count 7.6 x10^3/uL (4.0-11.0) Red Blood Count 2.80 x10^6/uL (3.50-5.40) Hemoglobin 7.7 g/dL (12.0-15.5) Hematocrit 23.7 % (36.0-47.0) Mean Corpuscular Volume 85 fL (79-100) Mean Corpuscular Hemoglobin 27 pg (25-35) Mean Corpuscular Hemoglobin Concent 32 g/dL (31-37) Red Cell Distribution Width 16.0 % (11.5-14.5) Platelet Count 425 x10^3/uL (140-400) Neutrophils (%) (Auto) 71 % (31-73) Lymphocytes (%) (Auto) 12 % (24-48) Monocytes (%) (Auto) 13 % (0-9) Eosinophils (%) (Auto) 4 % (0-3) Basophils (%) (Auto) 1 % (0-3) Neutrophils # (Auto) 5.3 x10^3/uL (1.8-7.7) Lymphocytes # (Auto) 0.9 x10^3/uL (1.0-4.8) Monocytes # (Auto) 1.0 x10^3/uL (0.0-1.1) Eosinophils # (Auto) 0.3 x10^3/uL (0.0-0.7) Basophils # (Auto) 0.0 x10^3/uL (0.0-0.2) Sodium Level 139 mmol/L (136-145) Potassium Level 3.8 mmol/L (3.5-5.1) Chloride Level 102 mmol/L (98-107) Carbon Dioxide Level 36 mmol/L (21-32) Anion Gap 1 (6-14) Blood Urea Nitrogen 9 mg/dL (7-20) Creatinine 0.9 mg/dL (0.6-1.0) Estimated GFR (Cockcroft-Gault) 73.3 BUN/Creatinine Ratio 10 (6-20) Glucose Level 273 mg/dL (70-99) Calcium Level 8.8 mg/dL (8.5-10.1) Phosphorus Level 2.4 mg/dL (2.6-4.7) Magnesium Level 1.7 mg/dL (1.8-2.4) Total Bilirubin 0.3 mg/dL (0.2-1.0) Aspartate Amino Transf (AST/SGOT) 18 U/L (15-37) Alanine Aminotransferase (ALT/SGPT) 11 U/L (14-59) Alkaline Phosphatase 43 U/L (46-116) Total Protein 7.1 g/dL (6.4-8.2) Albumin 2.6 g/dL (3.4-5.0) Albumin/Globulin Ratio 0.6 (1.0-1.7) Test 02/07/19 17:32 02/07/19 21:08 02/08/19 06:17 02/08/19 06:40 Glucose (Fingerstick) 190 mg/dL (70-99) 211 mg/dL (70-99) 306 mg/dL (70-99) White Blood Count 7.8 x10^3/uL (4.0-11.0) Red Blood Count 2.86 x10^6/uL (3.50-5.40) Hemoglobin 7.8 g/dL (12.0-15.5) Hematocrit 24.3 % (36.0-47.0) Mean Corpuscular Volume 85 fL (79-100) Mean Corpuscular Hemoglobin 27 pg (25-35) Mean Corpuscular Hemoglobin Concent 32 g/dL (31-37) Red Cell Distribution Width 16.1 % (11.5-14.5) Platelet Count 432 x10^3/uL (140-400) Neutrophils (%) (Auto) 69 % (31-73) Lymphocytes (%) (Auto) 16 % (24-48) Monocytes (%) (Auto) 12 % (0-9) Eosinophils (%) (Auto) 3 % (0-3) Basophils (%) (Auto) 0 % (0-3) Neutrophils # (Auto) 5.4 x10^3/uL (1.8-7.7) Lymphocytes # (Auto) 1.2 x10^3/uL (1.0-4.8) Monocytes # (Auto) 0.9 x10^3/uL (0.0-1.1) Eosinophils # (Auto) 0.3 x10^3/uL (0.0-0.7) Basophils # (Auto) 0.0 x10^3/uL (0.0-0.2) Sodium Level 137 mmol/L (136-145) Potassium Level 4.5 mmol/L (3.5-5.1) Chloride Level 102 mmol/L (98-107) Carbon Dioxide Level 32 mmol/L (21-32) Anion Gap 3 (6-14) Blood Urea Nitrogen 12 mg/dL (7-20) Creatinine 1.0 mg/dL (0.6-1.0) Estimated GFR (Cockcroft-Gault) 64.9 BUN/Creatinine Ratio 12 (6-20) Glucose Level 312 mg/dL (70-99) Calcium Level 8.7 mg/dL (8.5-10.1) Phosphorus Level 3.1 mg/dL (2.6-4.7) Magnesium Level 2.3 mg/dL (1.8-2.4) Total Bilirubin 0.2 mg/dL (0.2-1.0) Aspartate Amino Transf (AST/SGOT) 14 U/L (15-37) Alanine Aminotransferase (ALT/SGPT) 8 U/L (14-59) Alkaline Phosphatase 44 U/L (46-116) Total Protein 7.2 g/dL (6.4-8.2) Albumin 2.6 g/dL (3.4-5.0) Albumin/Globulin Ratio 0.6 (1.0-1.7) Test 02/08/19 07:23 02/08/19 11:20 Glucose (Fingerstick) 286 mg/dL (70-99) 163 mg/dL (70-99) Laboratory Tests Test 02/07/19 17:32 02/07/19 21:08 02/08/19 06:17 02/08/19 06:40 Glucose (Fingerstick) 190 mg/dL (70-99) 211 mg/dL (70-99) 306 mg/dL (70-99) White Blood Count 7.8 x10^3/uL (4.0-11.0) Red Blood Count 2.86 x10^6/uL (3.50-5.40) Hemoglobin 7.8 g/dL (12.0-15.5) Hematocrit 24.3 % (36.0-47.0) Mean Corpuscular Volume 85 fL (79-100) Mean Corpuscular Hemoglobin 27 pg (25-35) Mean Corpuscular Hemoglobin Concent 32 g/dL (31-37) Red Cell Distribution Width 16.1 % (11.5-14.5) Platelet Count 432 x10^3/uL (140-400) Neutrophils (%) (Auto) 69 % (31-73) Lymphocytes (%) (Auto) 16 % (24-48) Monocytes (%) (Auto) 12 % (0-9) Eosinophils (%) (Auto) 3 % (0-3) Basophils (%) (Auto) 0 % (0-3) Neutrophils # (Auto) 5.4 x10^3/uL (1.8-7.7) Lymphocytes # (Auto) 1.2 x10^3/uL (1.0-4.8) Monocytes # (Auto) 0.9 x10^3/uL (0.0-1.1) Eosinophils # (Auto) 0.3 x10^3/uL (0.0-0.7) Basophils # (Auto) 0.0 x10^3/uL (0.0-0.2) Sodium Level 137 mmol/L (136-145) Potassium Level 4.5 mmol/L (3.5-5.1) Chloride Level 102 mmol/L (98-107) Carbon Dioxide Level 32 mmol/L (21-32) Anion Gap 3 (6-14) Blood Urea Nitrogen 12 mg/dL (7-20) Creatinine 1.0 mg/dL (0.6-1.0) Estimated GFR (Cockcroft-Gault) 64.9 BUN/Creatinine Ratio 12 (6-20) Glucose Level 312 mg/dL (70-99) Calcium Level 8.7 mg/dL (8.5-10.1) Phosphorus Level 3.1 mg/dL (2.6-4.7) Magnesium Level 2.3 mg/dL (1.8-2.4) Total Bilirubin 0.2 mg/dL (0.2-1.0) Aspartate Amino Transf (AST/SGOT) 14 U/L (15-37) Alanine Aminotransferase (ALT/SGPT) 8 U/L (14-59) Alkaline Phosphatase 44 U/L (46-116) Total Protein 7.2 g/dL (6.4-8.2) Albumin 2.6 g/dL (3.4-5.0) Albumin/Globulin Ratio 0.6 (1.0-1.7) Test 02/08/19 07:23 02/08/19 11:20 Glucose (Fingerstick) 286 mg/dL (70-99) 163 mg/dL (70-99) Medications Current Medications Ondansetron HCl (Zofran) 4 mg PRN Q6HRS PRN IVP NAUSEA/VOMITING 1ST CHOICE; Start 02/04/19 at 02:30 Acetaminophen (Tylenol) 650 mg PRN Q6HRS PRN PO MILD PAIN 1-3; Start 02/04/19 at 02:30 Sodium Chloride 1,000 ml @ 80 mls/hr 1X ONCE IV Last administered on 02/04/19at 04:07; Start 02/04/19 at 03:00; Stop 02/04/19 at 15:29; Status DC Morphine Sulfate (Morphine Sulfate) 1 mg PRN Q2HR PRN IV PAIN Last administered on 02/05/19 21:04; Start 02/04/19 at 02:30 Iohexol (Omnipaque 350 Mg/ml) 75 ml 1X ONCE IV Last administered on 02/04/19 09:07; Start 02/04/19 at 09:00; Stop 02/04/19 at 09:01; Status DC Info (CONTRAST GIVEN -- Rx MONITORING) 1 each PRN DAILY PRN MC SEE COMMENTS; Start 02/04/19 at 09:00; Stop 02/06/19 at 08:59; Status DC Info (Tpn Per Pharmacy) 1 each PRN DAILY PRN MC SEE COMMENTS Last administered on 02/07/19at 10:52; Start 02/04/19 at 11:30 Sodium Chloride 45 meq/Potassium Chloride 50 meq/ Potassium Phosphate 13.6 mmol/Magnesium Sulfate 10 meq/ Calcium Gluconate 10 meq/ Multivitamins 10 ml/Chromium/ Copper/Manganese/ Seleni/Zn 1 ml/ Total Parenteral Nutrition/Amino Acids/Dextrose/ Fat Emulsion Intravenous 1,512 ml @ 63 mls/hr TPN CONT IV Last administered on 02/04/19 22:37; Start 02/04/19 at 22:00; Stop 02/05/19 at 21:59; Status DC Aspirin (Aspirin Rectal Supp) 300 mg DAILY HI Last administered on 02/07/19 08:38; Start 02/05/19 at 09:00; Stop 02/07/19 at 17:03; Status DC Simvastatin (Zocor) 10 mg QHS PO Last administered on 02/07/19 21:45; Start 02/04/19 at 21:00 Fentanyl (Duragesic 50mcg/ Hr Patch) 1 patch Q72H TD Last administered on 02/07/19 18:20; Start 02/04/19 at 18:45 Alteplase, Recombinant (Cathflo For Central Catheter Clearance) 1 mg 1X ONCE INT CAT Last administered on 02/05/19 12:08; Start 02/05/19 at 11:00; Stop 02/05/19 at 11:01; Status DC Magnesium Sulfate 50 ml @ 25 mls/hr 1X ONCE IV Last administered on 02/05/19 12:08; Start 02/05/19 at 11:30; Stop 02/05/19 at 13:29; Status DC Sodium Chloride 45 meq/Potassium Chloride 40 meq/ Potassium Phosphate 17 mmol/ Magnesium Sulfate 10 meq/Calcium Gluconate 10 meq/ Multivitamins 10 ml/Chromium/ Copper/Manganese/ Seleni/Zn 1 ml/ Total Parenteral Nutrition/Amino Acids/Dextrose/ Fat Emulsion Intravenous 1,512 ml @ 63 mls/hr TPN CONT IV Last administered on 02/05/19at 22:35; Start 02/05/19 at 22:00; Stop 02/06/19 at 21:59; Status DC Alteplase, Recombinant (Cathflo For Central Catheter Clearance) 1 mg 1X ONCE INT CAT Last administered on 02/06/19at 02:39; Start 02/06/19 at 02:30; Stop 02/06/19 at 02:31; Status DC Alteplase, Recombinant (Cathflo For Central Catheter Clearance) 1 mg 1X ONCE INT CAT Last administered on 02/06/19at 04:14; Start 02/06/19 at 05:00; Stop 02/06/19 at 05:01; Status DC Alteplase, Recombinant (Cathflo For Central Catheter Clearance) 1 mg 1X ONCE INT CAT Last administered on 02/06/19at 10:13; Start 02/06/19 at 10:30; Stop 02/06/19 at 10:31; Status DC Alteplase, Recombinant (Cathflo For Central Catheter Clearance) 1 mg 1X ONCE INT CAT Last administered on 02/06/19at 13:21; Start 02/06/19 at 13:00; Stop 02/06/19 at 13:01; Status DC Gabapentin (Neurontin) 300 mg TID PO Last administered on 02/08/19at 08:49; Start 02/06/19 at 14:00 Insulin Human Lispro (HumaLOG) 8 units TIDWMEALS SQ Last administered on 02/08/19at 09:02; Start 02/06/19 at 17:00 Albuterol/ Ipratropium (Duoneb) 3 ml RTQID NEB Last administered on 02/08/19at 11:35; Start 02/06/19 at 16:00 Lactobacillus Rhamnosus (Culturelle) 1 cap BID PO Last administered on 02/08/19at 08:47; Start 02/06/19 at 14:00 Lisinopril (Prinivil) 10 mg DAILY PO Last administered on 02/07/19at 08:39; Start 02/06/19 at 15:00; Stop 02/07/19 at 17:03; Status DC Polyethylene Glycol (miraLAX PACKET) 17 gm PRN BID PRN PO CONSTIPATION 1ST CHOICE; Start 02/06/19 at 13:15 Simvastatin (Zocor) 10 mg QHS PO ; Start 02/06/19 at 21:00; Stop 02/06/19 at 13:30; Status DC Insulin Glargine (Lantus Syringe) 10 unit QHS SQ Last administered on 02/07/19at 21:50; Start 02/06/19 at 21:00 Pantoprazole Sodium (Protonix) 40 mg DAILYAC PO Last administered on 02/08/19at 08:47; Start 02/06/19 at 14:00 Sodium Phosphate 20 mmol/Dextrose 256.6667 ml @ 64.167 m... 1X ONCE IV Last administered on 02/06/19at 19:14; Start 02/06/19 at 14:00; Stop 02/06/19 at 17:59; Status DC Sodium Chloride 45 meq/Potassium Chloride 40 meq/ Potassium Phosphate 27 mmol/ Magnesium Sulfate 15 meq/Calcium Gluconate 10 meq/ Multivitamins 10 ml/Chromium/ Copper/Manganese/ Seleni/Zn 1 ml/ Total Parenteral Nutrition/Amino Acids/Dextrose/ Fat Emulsion Intravenous 1,512 ml @ 63 mls/hr TPN CONT IV Last administered on 02/06/19at 22:32; Start 02/06/19 at 22:00; Stop 02/07/19 at 21:59; Status DC Clonidine HCl (Catapres) 0.1 mg PRN Q1HR PRN PO HYPERTENSION; Start 02/06/19 at 20:15 Ondansetron HCl (Zofran) 4 mg PRN Q6HRS PRN IVP NAUSEA/VOMITING; Start 02/06/19 at 20:15; Status UNV Insulin Human Lispro (HumaLOG) 0-9 UNITS TIDWMEALS SQ Last administered on at 09:02; Start 02/07/19 at 08:00 Dextrose (Dextrose 50%-Water Syringe) 12.5 gm PRN Q15MIN PRN IV SEE COMMENTS; Start 02/06/19 at 20:15 Magnesium Sulfate 100 ml @ 25 mls/hr 1X ONCE IV Last administered on 02/07/19at 08:39; Start 02/07/19 at 08:30; Stop 02/07/19 at 12:29; Status DC Sodium Phosphate 20 mmol/Dextrose 256.6667 ml @ 64.167 m... 1X ONCE IV Last administered on 02/07/19at 12:30; Start 02/07/19 at 12:00; Stop 02/07/19 at 15:59; Status DC Sodium Chloride 45 meq/Potassium Chloride 40 meq/ Potassium Phosphate 27 mmol/ Magnesium Sulfate 15 meq/Calcium Gluconate 10 meq/ Multivitamins 10 ml/Chromium/ Copper/Manganese/ Seleni/Zn 1 ml/ Total Parenteral Nutrition/Amino Acids/Dextrose/ Fat Emulsion Intravenous 1,512 ml @ 63 mls/hr TPN CONT IV Last administered on 02/07/19at 21:44; Start 02/07/19 at 22:00; Stop 02/08/19 at 21:59 Lisinopril (Prinivil) 20 mg DAILY PO Last administered on 02/08/19at 08:48; Start 02/08/19 at 09:00 Metoprolol Tartrate (Lopressor) 25 mg BID PO Last administered on 02/08/19 08:48; Start 02/07/19 at 21:00 Aspirin (Ecotrin) 325 mg DAILYWBKFT PO Last administered on 02/08/19at 08:47; Start 02/08/19 at 08:00 Active Scripts Active Doxycycline Hyclate 100 Mg Capsule 1 Cap PO BID 7 Days Prednisone 20 Mg Tablet 40 Mg PO DAILY 5 Days Humalog (Insulin Lispro) 100 Unit/1 Ml Insuln.pen 8 Units SQ TIDWMEALS 30 Days + Sliding scale 1u for every 50mg/dL > 150mg/dL Call MD for glucose > 350 If glucose < 100, sliding scale only Lantus Solostar (Insulin Glargine,Hum.rec.anlog) 100 Unit/1 Ml Insuln.pen 10 Units SQ QHS 30 Days Culturelle (Lactobacillus Rhamnosus Gg) 1 Each Cap.sprink 1 Cap PO BID 10 Days Polyethylene Glycol 3350 17 Gm Powd.pack 17 Gm PO PRN BID PRN 30 Days Duoneb 0.5-3(2.5) Mg/3 Ml (Albuterol/Ipratropium) 3 Ml Ampul.neb 3 Ml NEB RTQID 30 Days Simvastatin 10 Mg Tablet 1 Tab PO QHS 30 Days Glipizide 10 Mg Tablet 10 Mg PO DAILY 3 Days Gabapentin 300 Mg Capsule 300 Mg PO TID 30 Days Lisinopril 10 Mg Tablet 1 Tab PO DAILY Reported FENTANYL 50mcg/hr (Fentanyl) 1 Each Patch.td72 1 Patch TD Q72H Ibuprofen 800 Mg Tablet 800 Mg PO PRN Q8HRS PRN Omeprazole 20 Mg Capsule.dr 2 Cap PO DAILY Metformin Hcl 500 Mg Tablet 500 Mg PO BID Vitals/I & O Vital Sign - Last 24 Hours 02/07/19 02/07/19 02/07/19 02/07/19 15:43 15:53 18:20 19:00 Temp 98.4 98.4 Pulse 94 Resp 18 18 B/P (MAP) 150/76 (100) Pulse Ox 94 O2 Delivery Nasal Cannula Nasal Cannula Nasal Cannula Nasal Cannula O2 Flow Rate 2.0 3.0 3.0 3.0 02/07/19 02/07/19 02/07/19 02/07/19 19:24 19:30 21:45 23:30 Temp 98.7 98.4 98.7 98.4 Pulse 95 95 82 Resp 17 18 B/P (MAP) 146/62 (90) 146/62 145/69 (94) Pulse Ox 96 95 97 O2 Delivery Nasal Cannula Nasal Cannula Nasal Cannula O2 Flow Rate 3.0 3.0 3.0 02/08/19 02/08/19 02/08/19 02/08/19 03:30 07:58 08:15 08:26 Temp 99.0 98.2 99.0 98.2 Pulse 82 91 Resp 18 18 B/P (MAP) 139/62 (87) 151/80 (103) Pulse Ox 97 95 O2 Delivery Nasal Cannula Room Air Nasal Cannula Nasal Cannula O2 Flow Rate 3.0 3.0 3.0 02/08/19 02/08/19 02/08/19 02/08/19 08:48 08:48 11:36 11:46 Temp 98.4 98.4 Pulse 91 91 87 Resp 18 B/P (MAP) 151/80 151/80 96/44 (61) Pulse Ox 94 O2 Delivery Nasal Cannula Nasal Cannula O2 Flow Rate 3.0 3.0 Intake and Output 02/07/19 02/07/19 02/08/19 15:00 23:00 07:00 Intake Total 0 ml 0 ml Balance 0 ml 0 ml STEFFANY SILVA MD Feb 08, 2019 12:07
--- NOTE | 2019-02-08 12:51 | NUR ---
JANETTE spoke with pt's daughter again regarding SNUs that take TPN. Daughter does not want [facility] and [facility] is [place] far for family. Daughter believes pt is not eating well because she does not like hospital food. 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 Daughter states she will come to [facility] and bring pt food to eat and encourage her. Pt's daughter does not believe pt will need TPN upon dc. Discussed this with Physician. JANETTE phoned and faxed referral to [facility]. Pt acceptance and admission pending. PC also consulted to address code status. Will continue to follow.
[2019-02-08] MEDS: TPN PER PHARMACY MC PRN (13:28)
--- NOTE | 2019-02-08 13:31 | NUR ---
Pharmacy TPN Dosing Note S: JOHN IRBY is a 78 year old F Currently receiving Central Continuous TPN started 02/04/19 B:Pertinent PMH: CVA, failed swallow study Height: 5 feet, 3 inches Weight: 89.334018 kg Current diet: DYSPHAGIA LABS: Sodium: 137 Potassium: 4.5 Chloride: 102 Calcium: 8.7 Corrected Calcium: 9.82 Magnesium: 2.3 CO2: 32 SCr: 1.0 Glucose: 163 Albumin: 2.6 AST: 14 ALT: 8 TPN FORMULA: TPN TYPE: Central Continuous AMINO ACIDS: 70 gm DEXTROSE: 225 gm LIPIDS: 20 gm SODIUM CHLORIDE: 45 mEq POTASSIUM CHLORIDE: 40 mEq POTASSIUM PHOSPHATE: 27 mmol MAGNESIUM: 15 mEq CALCIUM: 10 mEq MULTIPLE VITAMIN: 10 ml TRACE ELEMENTS: 1 ml(s) TPN PLAN: All lites WNL. K+ trending up so will watch. Continue same TPN. R: Continue TPN Will monitor electrolytes, glucose, and tolerance to TPN. Frantz Byrne, [facility], 02/08/19 [id number]
--- NOTE | 2019-02-08 15:09 | NUR ---
SW following pt. SW spoke with pt and pt's daughter. Pt was able to eat the soup her daughter brought for her. Sonja reports pt will eat as long as it is seasoned well. Pt's daughter wants to see how pt does with eating and does not think TPN is necessary. Her first preference is [facility] without TPN and if pt has to go to [facility] with TPN, daughter is agreeable with [facility] eval as well. Discussed about pt's former DPOAs and Sonja report one is and one is bed bound. SW asked pt who would she would want to make decision for her in event she is not able to do so and pt pointed to her daughter and said her daughter's name. Plan 1. SW assisted pt in completing new AD and pt listed her daughter, Sonja as her DPOA. Pt and daughter provided with original, copies to take home. A copy placed on pt's chart. 2. SW faxed referral to [facility]. Pt acceptance and admission pending. Spoke with Macarena at [facility] regarding nutrition, acceptance pending. 3. Discussed with Palliative Care, continue Full code. 4. Will continue to follow.
--- NOTE | 2019-02-08 16:49 | PDOC ---
CARDIO Progress Notes Date and Time Date of Service 02/08/19 Time of Evaluation 1320 Subjective Subjective: No Chest Pain, No shortness of breath, No Palpitations Vitals Vitals Vital Signs Date Time Temp Pulse Resp B/P (MAP) Pulse Ox O2 Delivery O2 Flow Rate FiO2 02/08/19 11:46 98.4 87 18 96/44 (61) 94 Nasal Cannula 3.0 98.4 Weight Weight [ ] Input and Output Intake and Output Intake and Output 02/08/19 07:00 Intake Total 0 ml Balance 0 ml Intake Oral 0 ml # Voids 8 Laboratory Labs Laboratory Tests Test 02/07/19 17:32 02/07/19 21:08 02/08/19 06:17 02/08/19 06:40 Glucose (Fingerstick) 190 mg/dL (70-99) 211 mg/dL (70-99) 306 mg/dL (70-99) White Blood Count 7.8 x10^3/uL (4.0-11.0) Red Blood Count 2.86 x10^6/uL (3.50-5.40) Hemoglobin 7.8 g/dL (12.0-15.5) Hematocrit 24.3 % (36.0-47.0) Mean Corpuscular Volume 85 fL (79-100) Mean Corpuscular Hemoglobin 27 pg (25-35) Mean Corpuscular Hemoglobin Concent 32 g/dL (31-37) Red Cell Distribution Width 16.1 % (11.5-14.5) Platelet Count 432 x10^3/uL (140-400) Neutrophils (%) (Auto) 69 % (31-73) Lymphocytes (%) (Auto) 16 % (24-48) Monocytes (%) (Auto) 12 % (0-9) Eosinophils (%) (Auto) 3 % (0-3) Basophils (%) (Auto) 0 % (0-3) Neutrophils # (Auto) 5.4 x10^3/uL (1.8-7.7) Lymphocytes # (Auto) 1.2 x10^3/uL (1.0-4.8) Monocytes # (Auto) 0.9 x10^3/uL (0.0-1.1) Eosinophils # (Auto) 0.3 x10^3/uL (0.0-0.7) Basophils # (Auto) 0.0 x10^3/uL (0.0-0.2) Sodium Level 137 mmol/L (136-145) Potassium Level 4.5 mmol/L (3.5-5.1) Chloride Level 102 mmol/L (98-107) Carbon Dioxide Level 32 mmol/L (21-32) Anion Gap 3 (6-14) Blood Urea Nitrogen 12 mg/dL (7-20) Creatinine 1.0 mg/dL (0.6-1.0) Estimated GFR (Cockcroft-Gault) 64.9 BUN/Creatinine Ratio 12 (6-20) Glucose Level 312 mg/dL (70-99) Calcium Level 8.7 mg/dL (8.5-10.1) Phosphorus Level 3.1 mg/dL (2.6-4.7) Magnesium Level 2.3 mg/dL (1.8-2.4) Total Bilirubin 0.2 mg/dL (0.2-1.0) Aspartate Amino Transf (AST/SGOT) 14 U/L (15-37) Alanine Aminotransferase (ALT/SGPT) 8 U/L (14-59) Alkaline Phosphatase 44 U/L (46-116) Total Protein 7.2 g/dL (6.4-8.2) Albumin 2.6 g/dL (3.4-5.0) Albumin/Globulin Ratio 0.6 (1.0-1.7) Test 02/08/19 07:23 02/08/19 11:20 Glucose (Fingerstick) 286 mg/dL (70-99) 163 mg/dL (70-99) Physical Exam HEENT: Neck Supple W Full Motion Chest: Symmetric LUNGS: Clear to Auscultation, Other (diminished bases) Heart: S1S2, RRR Abdomen: Soft N/T Extremities: No Edema, Other (right-sided weakness) Neurology: alert, follow commands, other ( Expressive aphasia) Assessment Assessment 1. Acute CVA; infarcts involving multiple areas. s/p tPA. Bubble study negative, no evidence of ASD/PFO. Unable to review tele from overnight as it had been discontinued. 2. Hypertension; mildly elevated 3. Hyperlipidemia; statin 4. Chronic diastolic CHF; Echo with preserved LV systolic function. Appears compensated 5. Diabetes, II 6. Hypomagnesemia 7. Non-small cell lung CA; stage III. s/p previous chemo, radiation therapy 8. COPD Recommendations Secondary prevention ASA, statin therapy Supportive care Will arrange outpatient event monitor and followup. SEBASTIAN WILD APRN Feb 08, 2019 16:49
--- NOTE | 2019-02-08 16:54 | PDOC2 ---
PALLIATIVE CARE Palliative Care Note Palliative Care Consult requested by Dr. Mooney to address code status, po food options, dobhoff /tpn options. Medical Assessment per medical record; Acute CVA - s/p tPA on 02/03/19 -Acute small to moderate territory infarct is noted involving the left parietal lobe with involvement of the left post central gyrus. Pulmonary hypertension Cerebral cytotoxic edema Metabolic encephalopathy Respiratory failure/distress HTN. HLD. DM Thrombocytosis Obesity PErsistent dysphagia - TPN, plus dysphagia 1 diet Medical POA and AD obtained from Medical records. Met with daughter Sonja. States that AD is not current for POA (oen person and the other bed bound and unable to make decisions for patient) but living will portion remains the same. She is working with Kay SAVAGE to complete new document. Code Status; Daughter requests patient remain full code. Patient alert. Points towards her daughter when asked who she would want to make her health care decisions. Patient eating soup. Diet posted. Kay SAVAGE assisting with discharge plans; Palliative Care will sign off. SIMEON EDWARDS Feb 08, 2019 16:54
[2019-02-08 19:00] VITALS: BP 115/48
[2019-02-08] MEDS: SIMVASTATIN 10 MG TABLET PO SCH (21:00)
[2019-02-08] MEDS: INSULIN GLARGINE SYRINGE. SQ SCH (21:16)
[2019-02-08] MEDS ORDERED: TOTAL PARENTERAL NUTRITION IV SCH ×10 (22:00)
[2019-02-08] MEDS ORDERED: AMINO ACID IV SCH ×10 (22:00)
[2019-02-08] MEDS ORDERED: DEXTROSE 70% IV SCH ×10 (22:00)
[2019-02-08] MEDS ORDERED: [UNRECOGNIZED DRUG - OTHER] IV SCH ×10 (22:00)
[2019-02-08 23:00] VITALS: BP 139/63
[2019-02-09 03:00] VITALS: BP 114/54
[2019-02-09 06:55] LABS: ALBUMIN 2.6 g/dL (3.4-5.0); ALBUMIN/GLOBULIN RATIO 0.6 (1.0-1.7); CALCIUM 9.1 mg/dL (8.5-10.1); CREATININE 1.1 mg/dL (0.6-1.0); GFR 58.1; MAGNESIUM 1.8 mg/dL (1.8-2.4); PHOSPHORUS 3.5 mg/dL (2.6-4.7); POTASSIUM 5.1 mmol/L (3.5-5.1); TOTAL BILIRUBIN 0.1 mg/dL (0.2-1.0); TOTAL PROTEIN 7.3 g/dL (6.4-8.2)
[2019-02-09 06:58] LABS: BASO % 0 % (0-3); EOS # 0.2 x10^3/uL (0.0-0.7); EOS % 2 % (0-3); HEMOGLOBIN 7.6 g/dL (12.0-15.5); LYMPH # 1.2 x10^3/uL (1.0-4.8); LYMPH % 17 % (24-48); MEAN CORPUSCULAR HEMOGLOBIN 27 pg (25-35); MEAN CORPUSCULAR HGB CONC 32 g/dL (31-37); MEAN CORPUSCULAR VOLUME 85 fL (79-100); MONO # 0.9 x10^3/uL (0.0-1.1); MONO % 13 % (0-9); NEUT # 4.5 x10^3/uL (1.8-7.7); NEUT % 67 % (31-73); PLATELET COUNT 453 x10^3/uL (140-400); RED BLOOD COUNT 2.81 x10^6/uL (3.50-5.40); RED CELL DISTRIBUTION WIDTH 16.1 % (11.5-14.5); WHITE BLOOD COUNT 6.8 x10^3/uL (4.0-11.0)
[2019-02-09 07:00] VITALS: BP 126/57
[2019-02-09] MEDS: INSULIN LISPRO 300 UNITS/3 ML VIAL. SQ SCH ×6 (08:24→19:06)
[2019-02-09] MEDS: IPRATRPIUM/ALBUTEROL 0.5/2.5MG 3 ML NEBU. NEB SCH ×4 (08:35→19:40)
[2019-02-09] MEDS: LISINOPRIL 20 MG TABLET PO SCH (09:00)
--- NOTE | 2019-02-09 09:45 | PDOC ---
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 Status-post alteplase HTN. HLD. DM? Thrombocytosis? Obesity. Is on dysphagia I diet No atrial septal defect on TTE Plan Oral aspirin Statin HS. Cardiology consult appreciated await placement of event monitor OT/PT/ST. Can she sustain nutrition? May need PEG, daughter told [facility] patient just doesn't like the hospital food Needs SNU Subjective no complaints Objective Vital Signs Date Time Temp Pulse Resp B/P (MAP) Pulse Ox O2 Delivery O2 Flow Rate FiO2 02/09/19 08:37 97 Nasal Cannula 3.0 02/09/19 07:00 97.8 93 18 126/57 (80) 97.8 PHYSICAL EXAM Alert. Names and repeats, follows commands, knows that she is in the hospital. PERRL. EOMI. CN: no focal findings. Muscle tone: normal. Muscle strength: 3/5, worse on right DTR: 1+ Plantar reflex: silent Gait: not examined in bed. Sensory exam: no abnormal findings. Cerebellar: not cooperative Review of Relevant I have reviewed the following items myesha (where applicable) has been applied. Labs Laboratory Tests Test 02/07/19 11:02 02/07/19 17:32 02/07/19 21:08 02/08/19 06:17 Glucose (Fingerstick) 261 mg/dL (70-99) 190 mg/dL (70-99) 211 mg/dL (70-99) 306 mg/dL (70-99) Test 02/08/19 06:40 02/08/19 07:23 02/08/19 11:20 02/08/19 17:37 White Blood Count 7.8 x10^3/uL (4.0-11.0) Red Blood Count 2.86 x10^6/uL (3.50-5.40) Hemoglobin 7.8 g/dL (12.0-15.5) Hematocrit 24.3 % (36.0-47.0) Mean Corpuscular Volume 85 fL (79-100) Mean Corpuscular Hemoglobin 27 pg (25-35) Mean Corpuscular Hemoglobin Concent 32 g/dL (31-37) Red Cell Distribution Width 16.1 % (11.5-14.5) Platelet Count 432 x10^3/uL (140-400) Neutrophils (%) (Auto) 69 % (31-73) Lymphocytes (%) (Auto) 16 % (24-48) Monocytes (%) (Auto) 12 % (0-9) Eosinophils (%) (Auto) 3 % (0-3) Basophils (%) (Auto) 0 % (0-3) Neutrophils # (Auto) 5.4 x10^3/uL (1.8-7.7) Lymphocytes # (Auto) 1.2 x10^3/uL (1.0-4.8) Monocytes # (Auto) 0.9 x10^3/uL (0.0-1.1) Eosinophils # (Auto) 0.3 x10^3/uL (0.0-0.7) Basophils # (Auto) 0.0 x10^3/uL (0.0-0.2) Sodium Level 137 mmol/L (136-145) Potassium Level 4.5 mmol/L (3.5-5.1) Chloride Level 102 mmol/L (98-107) Carbon Dioxide Level 32 mmol/L (21-32) Anion Gap 3 (6-14) Blood Urea Nitrogen 12 mg/dL (7-20) Creatinine 1.0 mg/dL (0.6-1.0) Estimated GFR (Cockcroft-Gault) 64.9 BUN/Creatinine Ratio 12 (6-20) Glucose Level 312 mg/dL (70-99) Calcium Level 8.7 mg/dL (8.5-10.1) Phosphorus Level 3.1 mg/dL (2.6-4.7) Magnesium Level 2.3 mg/dL (1.8-2.4) Total Bilirubin 0.2 mg/dL (0.2-1.0) Aspartate Amino Transf (AST/SGOT) 14 U/L (15-37) Alanine Aminotransferase (ALT/SGPT) 8 U/L (14-59) Alkaline Phosphatase 44 U/L (46-116) Total Protein 7.2 g/dL (6.4-8.2) Albumin 2.6 g/dL (3.4-5.0) Albumin/Globulin Ratio 0.6 (1.0-1.7) Glucose (Fingerstick) 286 mg/dL (70-99) 163 mg/dL (70-99) 225 mg/dL (70-99) Test 02/08/19 21:06 02/09/19 00:32 02/09/19 06:15 02/09/19 08:13 Glucose (Fingerstick) 305 mg/dL (70-99) 277 mg/dL (70-99) 309 mg/dL (70-99) White Blood Count 6.8 x10^3/uL (4.0-11.0) Red Blood Count 2.81 x10^6/uL (3.50-5.40) Hemoglobin 7.6 g/dL (12.0-15.5) Hematocrit 24.0 % (36.0-47.0) Mean Corpuscular Volume 85 fL (79-100) Mean Corpuscular Hemoglobin 27 pg (25-35) Mean Corpuscular Hemoglobin Concent 32 g/dL (31-37) Red Cell Distribution Width 16.1 % (11.5-14.5) Platelet Count 453 x10^3/uL (140-400) Neutrophils (%) (Auto) 67 % (31-73) Lymphocytes (%) (Auto) 17 % (24-48) Monocytes (%) (Auto) 13 % (0-9) Eosinophils (%) (Auto) 2 % (0-3) Basophils (%) (Auto) 0 % (0-3) Neutrophils # (Auto) 4.5 x10^3/uL (1.8-7.7) Lymphocytes # (Auto) 1.2 x10^3/uL (1.0-4.8) Monocytes # (Auto) 0.9 x10^3/uL (0.0-1.1) Eosinophils # (Auto) 0.2 x10^3/uL (0.0-0.7) Basophils # (Auto) 0.0 x10^3/uL (0.0-0.2) Sodium Level 139 mmol/L (136-145) Potassium Level 5.1 mmol/L (3.5-5.1) Chloride Level 99 mmol/L (98-107) Carbon Dioxide Level 37 mmol/L (21-32) Anion Gap 3 (6-14) Blood Urea Nitrogen 14 mg/dL (7-20) Creatinine 1.1 mg/dL (0.6-1.0) Estimated GFR (Cockcroft-Gault) 58.1 BUN/Creatinine Ratio 13 (6-20) Glucose Level 298 mg/dL (70-99) Calcium Level 9.1 mg/dL (8.5-10.1) Phosphorus Level 3.5 mg/dL (2.6-4.7) Magnesium Level 1.8 mg/dL (1.8-2.4) Total Bilirubin 0.1 mg/dL (0.2-1.0) Aspartate Amino Transf (AST/SGOT) 19 U/L (15-37) Alanine Aminotransferase (ALT/SGPT) 8 U/L (14-59) Alkaline Phosphatase 48 U/L (46-116) Total Protein 7.3 g/dL (6.4-8.2) Albumin 2.6 g/dL (3.4-5.0) Albumin/Globulin Ratio 0.6 (1.0-1.7) Laboratory Tests Test 02/08/19 11:20 02/08/19 17:37 02/08/19 21:06 02/09/19 00:32 Glucose (Fingerstick) 163 mg/dL (70-99) 225 mg/dL (70-99) 305 mg/dL (70-99) 277 mg/dL (70-99) Test 02/09/19 06:15 02/09/19 08:13 White Blood Count 6.8 x10^3/uL (4.0-11.0) Red Blood Count 2.81 x10^6/uL (3.50-5.40) Hemoglobin 7.6 g/dL (12.0-15.5) Hematocrit 24.0 % (36.0-47.0) Mean Corpuscular Volume 85 fL (79-100) Mean Corpuscular Hemoglobin 27 pg (25-35) Mean Corpuscular Hemoglobin Concent 32 g/dL (31-37) Red Cell Distribution Width 16.1 % (11.5-14.5) Platelet Count 453 x10^3/uL (140-400) Neutrophils (%) (Auto) 67 % (31-73) Lymphocytes (%) (Auto) 17 % (24-48) Monocytes (%) (Auto) 13 % (0-9) Eosinophils (%) (Auto) 2 % (0-3) Basophils (%) (Auto) 0 % (0-3) Neutrophils # (Auto) 4.5 x10^3/uL (1.8-7.7) Lymphocytes # (Auto) 1.2 x10^3/uL (1.0-4.8) Monocytes # (Auto) 0.9 x10^3/uL (0.0-1.1) Eosinophils # (Auto) 0.2 x10^3/uL (0.0-0.7) Basophils # (Auto) 0.0 x10^3/uL (0.0-0.2) Sodium Level 139 mmol/L (136-145) Potassium Level 5.1 mmol/L (3.5-5.1) Chloride Level 99 mmol/L (98-107) Carbon Dioxide Level 37 mmol/L (21-32) Anion Gap 3 (6-14) Blood Urea Nitrogen 14 mg/dL (7-20) Creatinine 1.1 mg/dL (0.6-1.0) Estimated GFR (Cockcroft-Gault) 58.1 BUN/Creatinine Ratio 13 (6-20) Glucose Level 298 mg/dL (70-99) Calcium Level 9.1 mg/dL (8.5-10.1) Phosphorus Level 3.5 mg/dL (2.6-4.7) Magnesium Level 1.8 mg/dL (1.8-2.4) Total Bilirubin 0.1 mg/dL (0.2-1.0) Aspartate Amino Transf (AST/SGOT) 19 U/L (15-37) Alanine Aminotransferase (ALT/SGPT) 8 U/L (14-59) Alkaline Phosphatase 48 U/L (46-116) Total Protein 7.3 g/dL (6.4-8.2) Albumin 2.6 g/dL (3.4-5.0) Albumin/Globulin Ratio 0.6 (1.0-1.7) Glucose (Fingerstick) 309 mg/dL (70-99) Medications Current Medications Ondansetron HCl (Zofran) 4 mg PRN Q6HRS PRN IVP NAUSEA/VOMITING 1ST CHOICE; Start 02/04/19 at 02:30 Acetaminophen (Tylenol) 650 mg PRN Q6HRS PRN PO MILD PAIN 1-3; Start 02/04/19 at 02:30 Sodium Chloride 1,000 ml @ 80 mls/hr 1X ONCE IV Last administered on 02/04/19 04:07; Start 02/04/19 at 03:00; Stop 02/04/19 at 15:29; Status DC Morphine Sulfate (Morphine Sulfate) 1 mg PRN Q2HR PRN IV PAIN Last administered on 02/05/19 21:04; Start 02/04/19 at 02:30 Iohexol (Omnipaque 350 Mg/ml) 75 ml 1X ONCE IV Last administered on 02/04/19at 09:07; Start 02/04/19 at 09:00; Stop 02/04/19 at 09:01; Status DC Info (CONTRAST GIVEN -- Rx MONITORING) 1 each PRN DAILY PRN MC SEE COMMENTS; Start 02/04/19 at 09:00; Stop 02/06/19 at 08:59; Status DC Info (Tpn Per Pharmacy) 1 each PRN DAILY PRN MC SEE COMMENTS Last administered on 02/08/19at 13:28; Start 02/04/19 at 11:30 Sodium Chloride 45 meq/Potassium Chloride 50 meq/ Potassium Phosphate 13.6 mmol/Magnesium Sulfate 10 meq/ Calcium Gluconate 10 meq/ Multivitamins 10 ml/Chromium/ Copper/Manganese/ Seleni/Zn 1 ml/ Total Parenteral Nutrition/Amino Acids/Dextrose/ Fat Emulsion Intravenous 1,512 ml @ 63 mls/hr TPN CONT IV Last administered on 02/04/19at 22:37; Start 02/04/19 at 22:00; Stop 02/05/19 at 21:59; Status DC Aspirin (Aspirin Rectal Supp) 300 mg DAILY OH Last administered on 02/07/19at 08:38; Start 02/05/19 at 09:00; Stop 02/07/19 at 17:03; Status DC Simvastatin (Zocor) 10 mg QHS PO Last administered on 02/08/19 21:00; Start 02/04/19 at 21:00 Fentanyl (Duragesic 50mcg/ Hr Patch) 1 patch Q72H TD Last administered on 02/07/19at 18:20; Start 02/04/19 at 18:45 Alteplase, Recombinant (Cathflo For Central Catheter Clearance) 1 mg 1X ONCE INT CAT Last administered on 02/05/19at 12:08; Start 02/05/19 at 11:00; Stop 02/05/19 at 11:01; Status DC Magnesium Sulfate 50 ml @ 25 mls/hr 1X ONCE IV Last administered on 02/05/19at 12:08; Start 02/05/19 at 11:30; Stop 02/05/19 at 13:29; Status DC Sodium Chloride 45 meq/Potassium Chloride 40 meq/ Potassium Phosphate 17 mmol/ Magnesium Sulfate 10 meq/Calcium Gluconate 10 meq/ Multivitamins 10 ml/Chromium/ Copper/Manganese/ Seleni/Zn 1 ml/ Total Parenteral Nutrition/Amino Acids/Dextrose/ Fat Emulsion Intravenous 1,512 ml @ 63 mls/hr TPN CONT IV Last administered on 02/05/19at 22:35; Start 02/05/19 at 22:00; Stop 02/06/19 at 21:59; Status DC Alteplase, Recombinant (Cathflo For Central Catheter Clearance) 1 mg 1X ONCE INT CAT Last administered on 02/06/19at 02:39; Start 02/06/19 at 02:30; Stop 02/06/19 at 02:31; Status DC Alteplase, Recombinant (Cathflo For Central Catheter Clearance) 1 mg 1X ONCE INT CAT Last administered on 02/06/19at 04:14; Start 02/06/19 at 05:00; Stop 02/06/19 at 05:01; Status DC Alteplase, Recombinant (Cathflo For Central Catheter Clearance) 1 mg 1X ONCE INT CAT Last administered on 02/06/19at 10:13; Start 02/06/19 at 10:30; Stop 02/06/19 at 10:31; Status DC Alteplase, Recombinant (Cathflo For Central Catheter Clearance) 1 mg 1X ONCE INT CAT Last administered on 02/06/19at 13:21; Start 02/06/19 at 13:00; Stop 02/06/19 at 13:01; Status DC Gabapentin (Neurontin) 300 mg TID PO Last administered on 02/08/19at 21:00; Start 02/06/19 at 14:00 Insulin Human Lispro (HumaLOG) 8 units TIDWMEALS SQ Last administered on 02/09/19at 08:24; Start 02/06/19 at 17:00 Albuterol/ Ipratropium (Duoneb) 3 ml RTQID NEB Last administered on 02/09/19 08:35; Start 02/06/19 at 16:00 Lactobacillus Rhamnosus (Culturelle) 1 cap BID PO Last administered on 02/08/19 21:00; Start 02/06/19 at 14:00 Lisinopril (Prinivil) 10 mg DAILY PO Last administered on 02/07/19 08:39; Start 02/06/19 at 15:00; Stop 02/07/19 at 17:03; Status DC Polyethylene Glycol (miraLAX PACKET) 17 gm PRN BID PRN PO CONSTIPATION 1ST CHOICE; Start 02/06/19 at 13:15 Simvastatin (Zocor) 10 mg QHS PO ; Start 02/06/19 at 21:00; Stop 02/06/19 at 13:30; Status DC Insulin Glargine (Lantus Syringe) 10 unit QHS SQ Last administered on 02/08/19 21:16; Start 02/06/19 at 21:00 Pantoprazole Sodium (Protonix) 40 mg DAILYAC PO Last administered on 02/08/19 08:47; Start 02/06/19 at 14:00 Sodium Phosphate 20 mmol/Dextrose 256.6667 ml @ 64.167 m... 1X ONCE IV Last administered on 02/06/19 19:14; Start 02/06/19 at 14:00; Stop 02/06/19 at 17:59; Status DC Sodium Chloride 45 meq/Potassium Chloride 40 meq/ Potassium Phosphate 27 mmol/ Magnesium Sulfate 15 meq/Calcium Gluconate 10 meq/ Multivitamins 10 ml/Chromium/ Copper/Manganese/ Seleni/Zn 1 ml/ Total Parenteral Nutrition/Amino Acids/Dextrose/ Fat Emulsion Intravenous 1,512 ml @ 63 mls/hr TPN CONT IV Last administered on 02/06/19 22:32; Start 02/06/19 at 22:00; Stop 02/07/19 at 21:59; Status DC Clonidine HCl (Catapres) 0.1 mg PRN Q1HR PRN PO HYPERTENSION; Start 02/06/19 at 20:15 Ondansetron HCl (Zofran) 4 mg PRN Q6HRS PRN IVP NAUSEA/VOMITING; Start 02/06/19 at 20:15; Status UNV Insulin Human Lispro (HumaLOG) 0-9 UNITS TIDWMEALS SQ Last administered on 10/15/19at 17:52; Start 02/07/19 at 08:00 Dextrose (Dextrose 50%-Water Syringe) 12.5 gm PRN Q15MIN PRN IV SEE COMMENTS; Start 02/06/19 at 20:15 Magnesium Sulfate 100 ml @ 25 mls/hr 1X ONCE IV Last administered on 02/07/19at 08:39; Start 02/07/19 at 08:30; Stop 02/07/19 at 12:29; Status DC Sodium Phosphate 20 mmol/Dextrose 256.6667 ml @ 64.167 m... 1X ONCE IV Last administered on 02/07/19at 12:30; Start 02/07/19 at 12:00; Stop 02/07/19 at 15:59; Status DC Sodium Chloride 45 meq/Potassium Chloride 40 meq/ Potassium Phosphate 27 mmol/ Magnesium Sulfate 15 meq/Calcium Gluconate 10 meq/ Multivitamins 10 ml/Chromium/ Copper/Manganese/ Seleni/Zn 1 ml/ Total Parenteral Nutrition/Amino Acids/Dextrose/ Fat Emulsion Intravenous 1,512 ml @ 63 mls/hr TPN CONT IV Last administered on 02/07/19at 21:44; Start 02/07/19 at 22:00; Stop 02/08/19 at 21:59; Status DC Lisinopril (Prinivil) 20 mg DAILY PO Last administered on 02/08/19at 08:48; Start 02/08/19 at 09:00 Metoprolol Tartrate (Lopressor) 25 mg BID PO Last administered on 02/08/19at 08:48; Start 02/07/19 at 21:00 Aspirin (Ecotrin) 325 mg DAILYWBKFT PO Last administered on 02/08/19at 08:47; Start 02/08/19 at 08:00 Sodium Chloride 45 meq/Potassium Chloride 40 meq/ Potassium Phosphate 27 mmol/ Magnesium Sulfate 15 meq/Calcium Gluconate 10 meq/ Multivitamins 10 ml/Chromium/ Copper/Manganese/ Seleni/Zn 1 ml/ Total Parenteral Nutrition/Amino Acids/Dextrose/ Fat Emulsion Intravenous 1,512 ml @ 63 mls/hr TPN CONT IV Last administered on 02/08/19at 22:40; Start 02/08/19 at 22:00; Stop 02/09/19 at 21:59 Active Scripts Active Doxycycline Hyclate 100 Mg Capsule 1 Cap PO BID 7 Days Prednisone 20 Mg Tablet 40 Mg PO DAILY 5 Days Humalog (Insulin Lispro) 100 Unit/1 Ml Insuln.pen 8 Units SQ TIDWMEALS 30 Days + Sliding scale 1u for every 50mg/dL > 150mg/dL Call MD for glucose > 350 If glucose < 100, sliding scale only Lantus Solostar (Insulin Glargine,Hum.rec.anlog) 100 Unit/1 Ml Insuln.pen 10 Units SQ QHS 30 Days Culturelle (Lactobacillus Rhamnosus Gg) 1 Each Cap.sprink 1 Cap PO BID 10 Days Polyethylene Glycol 3350 17 Gm Powd.pack 17 Gm PO PRN BID PRN 30 Days Duoneb 0.5-3(2.5) Mg/3 Ml (Albuterol/Ipratropium) 3 Ml Ampul.neb 3 Ml NEB RTQID 30 Days Simvastatin 10 Mg Tablet 1 Tab PO QHS 30 Days Glipizide 10 Mg Tablet 10 Mg PO DAILY 3 Days Gabapentin 300 Mg Capsule 300 Mg PO TID 30 Days Lisinopril 10 Mg Tablet 1 Tab PO DAILY Reported FENTANYL 50mcg/hr (Fentanyl) 1 Each Patch.td72 1 Patch TD Q72H Ibuprofen 800 Mg Tablet 800 Mg PO PRN Q8HRS PRN Omeprazole 20 Mg Capsule.dr 2 Cap PO DAILY Metformin Hcl 500 Mg Tablet 500 Mg PO BID Vitals/I & O Vital Sign - Last 24 Hours 02/08/19 02/08/19 02/08/19 02/08/19 11:36 11:46 15:30 19:00 Temp 98.4 98.4 98.4 98.4 Pulse 87 84 Resp 18 18 B/P (MAP) 96/44 (61) 115/48 (70) Pulse Ox 94 95 O2 Delivery Nasal Cannula Nasal Cannula Nasal Cannula Nasal Cannula O2 Flow Rate 3.0 3.0 3.0 3.0 02/08/19 02/08/19 02/08/19 02/09/19 20:00 20:44 23:00 03:00 Temp 98.9 98.2 98.9 98.2 Pulse 95 92 Resp 18 18 B/P (MAP) 139/63 (88) 114/54 (74) Pulse Ox 96 93 93 O2 Delivery Nasal Cannula Nasal Cannula Nasal Cannula Nasal Cannula O2 Flow Rate 3.0 3.0 3.0 3.0 02/09/19 02/09/19 07:00 08:37 Temp 97.8 97.8 Pulse 93 Resp 18 B/P (MAP) 126/57 (80) Pulse Ox 94 97 O2 Delivery Nasal Cannula Nasal Cannula O2 Flow Rate 3.0 3.0 ABRAHAM FAIRBANKS MD Feb 09, 2019 09:45
[2019-02-09] MEDS: ASPIRIN ENTERIC COATED 325 MG TABLET.DR. PO SCH (10:36)
[2019-02-09] MEDS: PANTOPRAZOLE 40 MG TABLET.DR. PO SCH (10:36)
[2019-02-09] MEDS: GABAPENTIN 300 MG CAPSULE. PO SCH ×3 (10:37→21:43)
[2019-02-09] MEDS: LACTOBACILLUS RHAMNOSUS GG 1 CAPSULE. PO SCH ×2 (10:37→21:43)
[2019-02-09] MEDS: METOPROLOL TART IMMED RELEASE 25 MG TABLET. PO SCH ×2 (10:44→21:43)
--- NOTE | 2019-02-09 10:44 | NUR ---
JANETTE following pt. Acceptance at [facility] still pending- They still won't be able to do TPN but daughter prefers facility due to previous experience and location as she does not think TPN is necessary. Pt has been accepted at [facility] but they won't have a bed open until tomorrow (They can do TPN). Per RN, pt did not eat breakfast even after encouragement but per daughter pt is not a 'breakfast person' and does not like scrambled eggs. Per chart review, pt ate 50% of dinner yesterday. Physician will need to address whether TPN will be continued or needs to be dc'd. Refer to previous notes regarding discussion about this. Discussed with RN. Addendum: 02/09/19 at 1226 by ERICA SAVAGE Pt has been accepted at [facility] but not able to do TPN. They are able to take pt today. Discussed with Physician regarding this.
[2019-02-09 11:12] VITALS: BP 132/64
--- NOTE | 2019-02-09 12:46 | PDOC ---
PROGRESS NOTES Chief Complaint Chief Complaint impression Acute CVA - s/p tPA on 02/03/19 -Acute small to moderate territory infarct is noted involving the left parietal lobe with involvement of the left post central gyrus. ie , Acute small to moderate territory infarct is noted involving the left parietal lobe with involvement of the left post central gyrus. Acute small territory infarct noted in the right parietal lobe. There is associated cytotoxic edema without significant mass effect or midline shift. No acute intracranial hemorrhage. mild pulmonary hypertension Cerebral cytotoxic edema Metabolic encephalopathy Respiratory failure/distress trace tricuspid regurgitation with an estimated PAP of 44 mmHg. HTN. HLD. DM Thrombocytosis Obesity PErsistent dysphagia - TPN, plus dysphagia 1 diet, still not eating well poor dentition cognitive decline plan transesophageal echo 02/07/No atrial septal defect on TTE cont TPN 02/09 cOGNITIVE DECLINE, needs screening for memory loss 26 min pt exam, chart review, > 50% of time spent with exam, chart review, pt care coordination History of Present Illness History of Present Illness History of Present Illness History of Present Illness Still < 50% poor PO intake on dysphagia diet Tpn running ONly pPLace can take TPN BEing screened for [place] full code Vitals Vitals Vital Signs Date Time Temp Pulse Resp B/P (MAP) Pulse Ox O2 Delivery O2 Flow Rate FiO2 02/09/19 12:03 97 Nasal Cannula 3.0 02/09/19 11:12 97.7 90 18 132/64 (86) 97.7 Physical Exam General: Alert, Cooperative, No acute distress Lungs: Clear Abdomen: Normal bowel sounds, Soft Extremities: No clubbing, No cyanosis Skin: No rashes, No breakdown Labs LABS MITRAL VALVE The mitral valve is normal in structure and function. There is no evidence of mitral valve prolapse. There is no mitral valve stenosis. Doppler and Color-flow revealed trace mitral regurgitation. TRICUSPID VALVE The tricuspid valve is not well visualized. Doppler and Color Flow revealed trace tricuspid regurgitation with an estimated PAP of 44 mmHg. There is no tricuspid valve stenosis. PULMONIC VALVE The pulmonic valve is not well visualized. Doppler and Color Flow revealed no pulmonic valvular regurgitation. GREAT VESSELS The aortic root is normal in size. The IVC is normal in size and collapses >50% with inspiration. PERICARDIAL EFFUSION There is a trace pericardial effusion with no hemodynamic significance. Critical Notification Critical Value: No <Conclusion> The left ventricle is normal size. The left ventricular systolic function is normal and the ejection fraction is within normal range. The Ejection Fraction is 60-65%. There is borderline to mild concentric left ventricular hypertrophy. The left atrium is borderline dilated. The right atrium size is normal. The interatrial septum is intact with no evidence for an atrial septal defect or patent foramen ovale as noted on 2-D or Doppler imaging. Bubble study was negative. Doppler and Color Flow revealed no significant aortic regurgitation. There is no significant aortic valvular stenosis. Doppler and Color-flow revealed trace mitral regurgitation. Doppler and Color Flow revealed trace tricuspid regurgitation with an estimated PAP of 44 mmHg. Signed by : Bassam Lee MD Electronically Approved : 02/07/2019 09:34:28 DICTATED and SIGNED BY: BASSAM LEE MD DATE: 02/06/19 140 Laboratory Tests Test 02/08/19 17:37 02/08/19 21:06 02/09/19 00:32 02/09/19 06:15 Glucose (Fingerstick) 225 mg/dL (70-99) 305 mg/dL (70-99) 277 mg/dL (70-99) White Blood Count 6.8 x10^3/uL (4.0-11.0) Red Blood Count 2.81 x10^6/uL (3.50-5.40) Hemoglobin 7.6 g/dL (12.0-15.5) Hematocrit 24.0 % (36.0-47.0) Mean Corpuscular Volume 85 fL (79-100) Mean Corpuscular Hemoglobin 27 pg (25-35) Mean Corpuscular Hemoglobin Concent 32 g/dL (31-37) Red Cell Distribution Width 16.1 % (11.5-14.5) Platelet Count 453 x10^3/uL (140-400) Neutrophils (%) (Auto) 67 % (31-73) Lymphocytes (%) (Auto) 17 % (24-48) Monocytes (%) (Auto) 13 % (0-9) Eosinophils (%) (Auto) 2 % (0-3) Basophils (%) (Auto) 0 % (0-3) Neutrophils # (Auto) 4.5 x10^3/uL (1.8-7.7) Lymphocytes # (Auto) 1.2 x10^3/uL (1.0-4.8) Monocytes # (Auto) 0.9 x10^3/uL (0.0-1.1) Eosinophils # (Auto) 0.2 x10^3/uL (0.0-0.7) Basophils # (Auto) 0.0 x10^3/uL (0.0-0.2) Sodium Level 139 mmol/L (136-145) Potassium Level 5.1 mmol/L (3.5-5.1) Chloride Level 99 mmol/L (98-107) Carbon Dioxide Level 37 mmol/L (21-32) Anion Gap 3 (6-14) Blood Urea Nitrogen 14 mg/dL (7-20) Creatinine 1.1 mg/dL (0.6-1.0) Estimated GFR (Cockcroft-Gault) 58.1 BUN/Creatinine Ratio 13 (6-20) Glucose Level 298 mg/dL (70-99) Calcium Level 9.1 mg/dL (8.5-10.1) Phosphorus Level 3.5 mg/dL (2.6-4.7) Magnesium Level 1.8 mg/dL (1.8-2.4) Total Bilirubin 0.1 mg/dL (0.2-1.0) Aspartate Amino Transf (AST/SGOT) 19 U/L (15-37) Alanine Aminotransferase (ALT/SGPT) 8 U/L (14-59) Alkaline Phosphatase 48 U/L (46-116) Total Protein 7.3 g/dL (6.4-8.2) Albumin 2.6 g/dL (3.4-5.0) Albumin/Globulin Ratio 0.6 (1.0-1.7) Test 02/09/19 08:13 02/09/19 11:29 Glucose (Fingerstick) 309 mg/dL (70-99) 322 mg/dL (70-99) Assessment and Plan Assessmemt and Plan [employer]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 * Adm from [facility] p.TPA for CVA; respiratory failure at adm. PMHx: Asthma, hyperlipidemia, hypertension, neuropathy, diabetes. MRI 02/04: Acute small to moderate territory infarct is noted involving the left parietal lobe with involvement of the left post central gyrus. Acute small territory infarct noted in the right parietal lobe. There is associated cytotoxic edema without significant mass effect or midline shift. No acute intracranial hemorrhage. Current Chest Xray * none this adm Relevant Precautions * Communication Impaired O2 Requirements * Nasal Cannula Behavioral Characteristics * Alert * Cooperative Current Diet Consistency * Dysphagia I Current Liquid Consistency * thin Prior Functional Status * No known sp/sw deficit Other Related Factors * Single word responses to simple questions today. Mildly delayed. Pain Score * 0 Pain Scale Type * PAINAD Patient Stated Goal * Does not state Longterm Swallow Goal * Safe intake of least restrictive diet consistency. Swallow Goal 1 * Puree w/o s/s Aspiration * Goal Met * Discontinue Swallow Goal 2 * Appropriate - Continue * Thin w/o s/s Aspiration Swallow Goal 3 * Additional goals p.meeting goals 1 & 2 New goal: Safe and efficient swallow of mech soft solids. Currently, though mildly delayed r/t to lmtd dentition, mastication appeared functional for mech soft solids. No oral res. p.. Hyolaryngeal excursion WFLs at swallow per palp. No s/s aspiration x6/6 trials. Will adv to dysphagia II /mech soft solids. Goal 3 Assessment * Appropriate - Continue Pt. Agrees with POC * Yes Communicated Pt care with (name, title) * MONALISA Persaud Rehab Potential - To Achieve Goals * Fair Discharge Recommendations * Residential Unit Treatment Frequency (Days/Week) * 3x/wk over 7 days Additional Details/Impressions * Mild oropharyngeal delay con't across consistencies. Hyolaryngeal excursion grossly WNLs. Puree and thin liquids via cup appear safe. Solids now functional as outlined above. Limited verbalizations in response to questions, typically 1-2 words. IMPRESSIONS: Functional swallow for modified diet. Would advance diet to include solids based on today's findings. Mild oropharyngeal delay suspected but does not appear to result in aspiration across trilas of all consistencies. o overt s/s aspiration on puree, soft solids or thin liquids via cup. Suspect pt's inconsistent willingness to take po may negatively impact % po intake for nutrition, no matter what diet consistency is offered. May require supplemental non oral nutrition. Current deficits c/w recent acute infarcts. See also communication eval of 02/07. RECOMMENDATIONS: Adv to dysphagia II diet w/thin liquids. Precautions posted. Diet orders entered. 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 Comment Review of Relevant I have reviewed the following items myesha (where applicable) has been applied. Labs Laboratory Tests Test 02/07/19 17:32 02/07/19 21:08 02/08/19 06:17 02/08/19 06:40 Glucose (Fingerstick) 190 mg/dL (70-99) 211 mg/dL (70-99) 306 mg/dL (70-99) White Blood Count 7.8 x10^3/uL (4.0-11.0) Red Blood Count 2.86 x10^6/uL (3.50-5.40) Hemoglobin 7.8 g/dL (12.0-15.5) Hematocrit 24.3 % (36.0-47.0) Mean Corpuscular Volume 85 fL (79-100) Mean Corpuscular Hemoglobin 27 pg (25-35) Mean Corpuscular Hemoglobin Concent 32 g/dL (31-37) Red Cell Distribution Width 16.1 % (11.5-14.5) Platelet Count 432 x10^3/uL (140-400) Neutrophils (%) (Auto) 69 % (31-73) Lymphocytes (%) (Auto) 16 % (24-48) Monocytes (%) (Auto) 12 % (0-9) Eosinophils (%) (Auto) 3 % (0-3) Basophils (%) (Auto) 0 % (0-3) Neutrophils # (Auto) 5.4 x10^3/uL (1.8-7.7) Lymphocytes # (Auto) 1.2 x10^3/uL (1.0-4.8) Monocytes # (Auto) 0.9 x10^3/uL (0.0-1.1) Eosinophils # (Auto) 0.3 x10^3/uL (0.0-0.7) Basophils # (Auto) 0.0 x10^3/uL (0.0-0.2) Sodium Level 137 mmol/L (136-145) Potassium Level 4.5 mmol/L (3.5-5.1) Chloride Level 102 mmol/L (98-107) Carbon Dioxide Level 32 mmol/L (21-32) Anion Gap 3 (6-14) Blood Urea Nitrogen 12 mg/dL (7-20) Creatinine 1.0 mg/dL (0.6-1.0) Estimated GFR (Cockcroft-Gault) 64.9 BUN/Creatinine Ratio 12 (6-20) Glucose Level 312 mg/dL (70-99) Calcium Level 8.7 mg/dL (8.5-10.1) Phosphorus Level 3.1 mg/dL (2.6-4.7) Magnesium Level 2.3 mg/dL (1.8-2.4) Total Bilirubin 0.2 mg/dL (0.2-1.0) Aspartate Amino Transf (AST/SGOT) 14 U/L (15-37) Alanine Aminotransferase (ALT/SGPT) 8 U/L (14-59) Alkaline Phosphatase 44 U/L (46-116) Total Protein 7.2 g/dL (6.4-8.2) Albumin 2.6 g/dL (3.4-5.0) Albumin/Globulin Ratio 0.6 (1.0-1.7) Test 02/08/19 07:23 02/08/19 11:20 02/08/19 17:37 02/08/19 21:06 Glucose (Fingerstick) 286 mg/dL (70-99) 163 mg/dL (70-99) 225 mg/dL (70-99) 305 mg/dL (70-99) Test 02/09/19 00:32 02/09/19 06:15 02/09/19 08:13 02/09/19 11:29 Glucose (Fingerstick) 277 mg/dL (70-99) 309 mg/dL (70-99) 322 mg/dL (70-99) White Blood Count 6.8 x10^3/uL (4.0-11.0) Red Blood Count 2.81 x10^6/uL (3.50-5.40) Hemoglobin 7.6 g/dL (12.0-15.5) Hematocrit 24.0 % (36.0-47.0) Mean Corpuscular Volume 85 fL (79-100) Mean Corpuscular Hemoglobin 27 pg (25-35) Mean Corpuscular Hemoglobin Concent 32 g/dL (31-37) Red Cell Distribution Width 16.1 % (11.5-14.5) Platelet Count 453 x10^3/uL (140-400) Neutrophils (%) (Auto) 67 % (31-73) Lymphocytes (%) (Auto) 17 % (24-48) Monocytes (%) (Auto) 13 % (0-9) Eosinophils (%) (Auto) 2 % (0-3) Basophils (%) (Auto) 0 % (0-3) Neutrophils # (Auto) 4.5 x10^3/uL (1.8-7.7) Lymphocytes # (Auto) 1.2 x10^3/uL (1.0-4.8) Monocytes # (Auto) 0.9 x10^3/uL (0.0-1.1) Eosinophils # (Auto) 0.2 x10^3/uL (0.0-0.7) Basophils # (Auto) 0.0 x10^3/uL (0.0-0.2) Sodium Level 139 mmol/L (136-145) Potassium Level 5.1 mmol/L (3.5-5.1) Chloride Level 99 mmol/L (98-107) Carbon Dioxide Level 37 mmol/L (21-32) Anion Gap 3 (6-14) Blood Urea Nitrogen 14 mg/dL (7-20) Creatinine 1.1 mg/dL (0.6-1.0) Estimated GFR (Cockcroft-Gault) 58.1 BUN/Creatinine Ratio 13 (6-20) Glucose Level 298 mg/dL (70-99) Calcium Level 9.1 mg/dL (8.5-10.1) Phosphorus Level 3.5 mg/dL (2.6-4.7) Magnesium Level 1.8 mg/dL (1.8-2.4) Total Bilirubin 0.1 mg/dL (0.2-1.0) Aspartate Amino Transf (AST/SGOT) 19 U/L (15-37) Alanine Aminotransferase (ALT/SGPT) 8 U/L (14-59) Alkaline Phosphatase 48 U/L (46-116) Total Protein 7.3 g/dL (6.4-8.2) Albumin 2.6 g/dL (3.4-5.0) Albumin/Globulin Ratio 0.6 (1.0-1.7) Laboratory Tests Test 02/08/19 17:37 02/08/19 21:06 02/09/19 00:32 02/09/19 06:15 Glucose (Fingerstick) 225 mg/dL (70-99) 305 mg/dL (70-99) 277 mg/dL (70-99) White Blood Count 6.8 x10^3/uL (4.0-11.0) Red Blood Count 2.81 x10^6/uL (3.50-5.40) Hemoglobin 7.6 g/dL (12.0-15.5) Hematocrit 24.0 % (36.0-47.0) Mean Corpuscular Volume 85 fL (79-100) Mean Corpuscular Hemoglobin 27 pg (25-35) Mean Corpuscular Hemoglobin Concent 32 g/dL (31-37) Red Cell Distribution Width 16.1 % (11.5-14.5) Platelet Count 453 x10^3/uL (140-400) Neutrophils (%) (Auto) 67 % (31-73) Lymphocytes (%) (Auto) 17 % (24-48) Monocytes (%) (Auto) 13 % (0-9) Eosinophils (%) (Auto) 2 % (0-3) Basophils (%) (Auto) 0 % (0-3) Neutrophils # (Auto) 4.5 x10^3/uL (1.8-7.7) Lymphocytes # (Auto) 1.2 x10^3/uL (1.0-4.8) Monocytes # (Auto) 0.9 x10^3/uL (0.0-1.1) Eosinophils # (Auto) 0.2 x10^3/uL (0.0-0.7) Basophils # (Auto) 0.0 x10^3/uL (0.0-0.2) Sodium Level 139 mmol/L (136-145) Potassium Level 5.1 mmol/L (3.5-5.1) Chloride Level 99 mmol/L (98-107) Carbon Dioxide Level 37 mmol/L (21-32) Anion Gap 3 (6-14) Blood Urea Nitrogen 14 mg/dL (7-20) Creatinine 1.1 mg/dL (0.6-1.0) Estimated GFR (Cockcroft-Gault) 58.1 BUN/Creatinine Ratio 13 (6-20) Glucose Level 298 mg/dL (70-99) Calcium Level 9.1 mg/dL (8.5-10.1) Phosphorus Level 3.5 mg/dL (2.6-4.7) Magnesium Level 1.8 mg/dL (1.8-2.4) Total Bilirubin 0.1 mg/dL (0.2-1.0) Aspartate Amino Transf (AST/SGOT) 19 U/L (15-37) Alanine Aminotransferase (ALT/SGPT) 8 U/L (14-59) Alkaline Phosphatase 48 U/L (46-116) Total Protein 7.3 g/dL (6.4-8.2) Albumin 2.6 g/dL (3.4-5.0) Albumin/Globulin Ratio 0.6 (1.0-1.7) Test 02/09/19 08:13 02/09/19 11:29 Glucose (Fingerstick) 309 mg/dL (70-99) 322 mg/dL (70-99) Medications Current Medications Ondansetron HCl (Zofran) 4 mg PRN Q6HRS PRN IVP NAUSEA/VOMITING 1ST CHOICE; Start 02/04/19 at 02:30 Acetaminophen (Tylenol) 650 mg PRN Q6HRS PRN PO MILD PAIN 1-3; Start 02/04/19 at 02:30 Sodium Chloride 1,000 ml @ 80 mls/hr 1X ONCE IV Last administered on 02/04/19at 04:07; Start 02/04/19 at 03:00; Stop 02/04/19 at 15:29; Status DC Morphine Sulfate (Morphine Sulfate) 1 mg PRN Q2HR PRN IV PAIN Last administered on 02/05/19at 21:04; Start 02/04/19 at 02:30 Iohexol (Omnipaque 350 Mg/ml) 75 ml 1X ONCE IV Last administered on 02/04/19at 09:07; Start 02/04/19 at 09:00; Stop 02/04/19 at 09:01; Status DC Info (CONTRAST GIVEN -- Rx MONITORING) 1 each PRN DAILY PRN MC SEE COMMENTS; Start 02/04/19 at 09:00; Stop 02/06/19 at 08:59; Status DC Info (Tpn Per Pharmacy) 1 each PRN DAILY PRN MC SEE COMMENTS Last administered on 02/08/19at 13:28; Start 02/04/19 at 11:30 Sodium Chloride 45 meq/Potassium Chloride 50 meq/ Potassium Phosphate 13.6 mmol/Magnesium Sulfate 10 meq/ Calcium Gluconate 10 meq/ Multivitamins 10 ml/Chromium/ Copper/Manganese/ Seleni/Zn 1 ml/ Total Parenteral Nutrition/Amino Acids/Dextrose/ Fat Emulsion Intravenous 1,512 ml @ 63 mls/hr TPN CONT IV Last administered on 02/04/19at 22:37; Start 02/04/19 at 22:00; Stop 02/05/19 at 21:59; Status DC Aspirin (Aspirin Rectal Supp) 300 mg DAILY CO Last administered on 02/07/19at 08:38; Start 02/05/19 at 09:00; Stop 02/07/19 at 17:03; Status DC Simvastatin (Zocor) 10 mg QHS PO Last administered on 02/08/19at 21:00; Start 02/04/19 at 21:00 Fentanyl (Duragesic 50mcg/ Hr Patch) 1 patch Q72H TD Last administered on 02/07/19at 18:20; Start 02/04/19 at 18:45 Alteplase, Recombinant (Cathflo For Central Catheter Clearance) 1 mg 1X ONCE INT CAT Last administered on 02/05/19at 12:08; Start 02/05/19 at 11:00; Stop 02/05/19 at 11:01; Status DC Magnesium Sulfate 50 ml @ 25 mls/hr 1X ONCE IV Last administered on 02/05/19at 12:08; Start 02/05/19 at 11:30; Stop 02/05/19 at 13:29; Status DC Sodium Chloride 45 meq/Potassium Chloride 40 meq/ Potassium Phosphate 17 mmol/ Magnesium Sulfate 10 meq/Calcium Gluconate 10 meq/ Multivitamins 10 ml/Chromium/ Copper/Manganese/ Seleni/Zn 1 ml/ Total Parenteral Nutrition/Amino Acids/Dextrose/ Fat Emulsion Intravenous 1,512 ml @ 63 mls/hr TPN CONT IV Last administered on 02/05/19at 22:35; Start 02/05/19 at 22:00; Stop 02/06/19 at 21:59; Status DC Alteplase, Recombinant (Cathflo For Central Catheter Clearance) 1 mg 1X ONCE INT CAT Last administered on 02/06/19at 02:39; Start 02/06/19 at 02:30; Stop 02/06/19 at 02:31; Status DC Alteplase, Recombinant (Cathflo For Central Catheter Clearance) 1 mg 1X ONCE INT CAT Last administered on 02/06/19at 04:14; Start 02/06/19 at 05:00; Stop 02/06/19 at 05:01; Status DC Alteplase, Recombinant (Cathflo For Central Catheter Clearance) 1 mg 1X ONCE INT CAT Last administered on 02/06/19at 10:13; Start 02/06/19 at 10:30; Stop 02/06/19 at 10:31; Status DC Alteplase, Recombinant (Cathflo For Central Catheter Clearance) 1 mg 1X ONCE INT CAT Last administered on 02/06/19at 13:21; Start 02/06/19 at 13:00; Stop 02/06/19 at 13:01; Status DC Gabapentin (Neurontin) 300 mg TID PO Last administered on 02/09/19 10:37; Start 02/06/19 at 14:00 Insulin Human Lispro (HumaLOG) 8 units TIDWMEALS SQ Last administered on 02/09/19 08:24; Start 02/06/19 at 17:00 Albuterol/ Ipratropium (Duoneb) 3 ml RTQID NEB Last administered on 02/09/19at 12:02; Start 02/06/19 at 16:00 Lactobacillus Rhamnosus (Culturelle) 1 cap BID PO Last administered on 02/09/19at 10:37; Start 02/06/19 at 14:00 Lisinopril (Prinivil) 10 mg DAILY PO Last administered on 02/07/19at 08:39; Start 02/06/19 at 15:00; Stop 02/07/19 at 17:03; Status DC Polyethylene Glycol (miraLAX PACKET) 17 gm PRN BID PRN PO CONSTIPATION 1ST CHOICE Last administered on 02/09/19at 10:44; Start 02/06/19 at 13:15 Simvastatin (Zocor) 10 mg QHS PO ; Start 02/06/19 at 21:00; Stop 02/06/19 at 13:30; Status DC Insulin Glargine (Lantus Syringe) 10 unit QHS SQ Last administered on 02/08/19at 21:16; Start 02/06/19 at 21:00 Pantoprazole Sodium (Protonix) 40 mg DAILYAC PO Last administered on 02/09/19at 10:36; Start 02/06/19 at 14:00 Sodium Phosphate 20 mmol/Dextrose 256.6667 ml @ 64.167 m... 1X ONCE IV Last administered on 02/06/19at 19:14; Start 02/06/19 at 14:00; Stop 02/06/19 at 17:59; Status DC Sodium Chloride 45 meq/Potassium Chloride 40 meq/ Potassium Phosphate 27 mmol/ Magnesium Sulfate 15 meq/Calcium Gluconate 10 meq/ Multivitamins 10 ml/Chromium/ Copper/Manganese/ Seleni/Zn 1 ml/ Total Parenteral Nutrition/Amino Acids/Dextrose/ Fat Emulsion Intravenous 1,512 ml @ 63 mls/hr TPN CONT IV Last administered on 02/06/19at 22:32; Start 02/06/19 at 22:00; Stop 02/07/19 at 21:59; Status DC Clonidine HCl (Catapres) 0.1 mg PRN Q1HR PRN PO HYPERTENSION; Start 02/06/19 at 20:15 Ondansetron HCl (Zofran) 4 mg PRN Q6HRS PRN IVP NAUSEA/VOMITING; Start 02/06/19 at 20:15; Status UNV Insulin Human Lispro (HumaLOG) 0-9 UNITS TIDWMEALS SQ Last administered on 02/09/19at 10:56; Start 02/07/19 at 08:00 Dextrose (Dextrose 50%-Water Syringe) 12.5 gm PRN Q15MIN PRN IV SEE COMMENTS; Start 02/06/19 at 20:15 Magnesium Sulfate 100 ml @ 25 mls/hr 1X ONCE IV Last administered on at 08:39; Start 02/07/19 at 08:30; Stop 02/07/19 at 12:29; Status DC Sodium Phosphate 20 mmol/Dextrose 256.6667 ml @ 64.167 m... 1X ONCE IV Last administered on 02/07/19at 12:30; Start 02/07/19 at 12:00; Stop 02/07/19 at 15:59; Status DC Sodium Chloride 45 meq/Potassium Chloride 40 meq/ Potassium Phosphate 27 mmol/ Magnesium Sulfate 15 meq/Calcium Gluconate 10 meq/ Multivitamins 10 ml/Chromium/ Copper/Manganese/ Seleni/Zn 1 ml/ Total Parenteral Nutrition/Amino Acids/Dextrose/ Fat Emulsion Intravenous 1,512 ml @ 63 mls/hr TPN CONT IV Last administered on 02/07/19at 21:44; Start 02/07/19 at 22:00; Stop 02/08/19 at 21:59; Status DC Lisinopril (Prinivil) 20 mg DAILY PO Last administered on 02/08/19at 08:48; Start 02/08/19 at 09:00 Metoprolol Tartrate (Lopressor) 25 mg BID PO Last administered on 02/09/19at 10:44; Start 02/07/19 at 21:00 Aspirin (Ecotrin) 325 mg DAILYWBKFT PO Last administered on 02/09/19at 10:36; Start 02/08/19 at 08:00 Sodium Chloride 45 meq/Potassium Chloride 40 meq/ Potassium Phosphate 27 mmol/ Magnesium Sulfate 15 meq/Calcium Gluconate 10 meq/ Multivitamins 10 ml/Chromium/ Copper/Manganese/ Seleni/Zn 1 ml/ Total Parenteral Nutrition/Amino Acids/Dextrose/ Fat Emulsion Intravenous 1,512 ml @ 63 mls/hr TPN CONT IV [place] [facility] administered on 02/08/19at 22:40; Start 02/08/19 at 22:00; Stop 02/09/19 at 21:59 Active Scripts Active Doxycycline Hyclate 100 Mg Capsule 1 Cap PO BID 7 Days Prednisone 20 Mg Tablet 40 Mg PO DAILY 5 Days Humalog (Insulin Lispro) 100 Unit/1 Ml Insuln.pen 8 Units SQ TIDWMEALS 30 Days + Sliding scale 1u for every 50mg/dL > 150mg/dL Call MD for glucose > 350 If glucose < 100, sliding scale only Lantus Solostar (Insulin Glargine,Hum.rec.anlog) 100 Unit/1 Ml Insuln.pen 10 Units SQ QHS 30 Days Culturelle (Lactobacillus Rhamnosus Gg) 1 Each Cap.sprink 1 Cap PO BID 10 Days Polyethylene Glycol 3350 17 Gm Powd.pack 17 Gm PO PRN BID PRN 30 Days Duoneb 0.5-3(2.5) Mg/3 Ml (Albuterol/Ipratropium) 3 Ml Ampul.neb 3 Ml NEB RTQID 30 Days Simvastatin 10 Mg Tablet 1 Tab PO QHS 30 Days Glipizide 10 Mg Tablet 10 Mg PO DAILY 3 Days Gabapentin 300 Mg Capsule 300 Mg PO TID 30 Days Lisinopril 10 Mg Tablet 1 Tab PO DAILY Reported FENTANYL 50mcg/hr (Fentanyl) 1 Each Patch.td72 1 Patch TD Q72H Ibuprofen 800 Mg Tablet 800 Mg PO PRN Q8HRS PRN Omeprazole 20 Mg Capsule.dr 2 Cap PO DAILY Metformin Hcl 500 Mg Tablet 500 Mg PO BID Vitals/I & O Vital Sign - Last 24 Hours 02/08/19 02/08/19 02/08/19 02/08/19 15:30 19:00 20:00 20:44 Temp 98.4 98.4 Pulse 84 Resp 18 B/P (MAP) 115/48 (70) Pulse Ox 95 96 O2 Delivery Nasal Cannula Nasal Cannula Nasal Cannula Nasal Cannula O2 Flow Rate 3.0 3.0 3.0 3.0 02/08/19 02/09/19 02/09/19 02/09/19 23:00 03:00 07:00 08:37 Temp 98.9 98.2 97.8 98.9 98.2 97.8 Pulse 95 92 93 Resp 18 18 18 B/P (MAP) 139/63 (88) 114/54 (74) 126/57 (80) Pulse Ox 93 93 94 97 O2 Delivery Nasal Cannula Nasal Cannula Nasal Cannula Nasal Cannula O2 Flow Rate 3.0 3.0 3.0 3.0 02/09/19 02/09/19 02/09/19 02/09/19 09:00 10:44 11:12 12:03 Temp 97.7 97.7 Pulse 101 101 90 Resp 18 B/P (MAP) 123/63 123/63 132/64 (86) Pulse Ox 95 97 O2 Delivery Nasal Cannula Nasal Cannula O2 Flow Rate 3.0 3.0 MICHELLE PINZON MD Feb 09, 2019 12:46
[2019-02-09 15:00] VITALS: BP 129/68
--- NOTE | 2019-02-09 16:21 | NUR ---
SW following pt. Spoke with pt's daughter, she would like pt to go to [facility] at [place] with No TPN. Discussed with RN.
[2019-02-09 19:00] VITALS: BP 152/67
[2019-02-09] MEDS: SIMVASTATIN 10 MG TABLET PO SCH (21:42)
[2019-02-09] MEDS: INSULIN GLARGINE SYRINGE. SQ SCH (21:49)
[2019-02-09 23:00] VITALS: BP 152/67
[2019-02-10] VITALS: BP 127/60
[2019-02-10 03:00] VITALS: BP 122/58
[2019-02-10 06:24] LABS: BASO # 0.1 x10^3/uL (0.0-0.2); BASO % 1 % (0-3); EOS # 0.2 x10^3/uL (0.0-0.7); EOS % 2 % (0-3); HEMATOCRIT 25.4 % (36.0-47.0); LYMPH % 14 % (24-48); MEAN CORPUSCULAR HEMOGLOBIN 27 pg (25-35); MEAN CORPUSCULAR HGB CONC 31 g/dL (31-37); MEAN CORPUSCULAR VOLUME 85 fL (79-100); MONO % 13 % (0-9); NEUT # 5.3 x10^3/uL (1.8-7.7); NEUT % 71 % (31-73); PLATELET COUNT 447 x10^3/uL (140-400); RED BLOOD COUNT 2.99 x10^6/uL (3.50-5.40); RED CELL DISTRIBUTION WIDTH 15.9 % (11.5-14.5); WHITE BLOOD COUNT 7.6 x10^3/uL (4.0-11.0)
[2019-02-10 06:53] LABS: ALBUMIN 2.8 g/dL (3.4-5.0); ALBUMIN/GLOBULIN RATIO 0.6 (1.0-1.7); CALCIUM 9.5 mg/dL (8.5-10.1); CREATININE 1.1 mg/dL (0.6-1.0); GFR 58.1; MAGNESIUM 1.8 mg/dL (1.8-2.4); PHOSPHORUS 5.3 mg/dL (2.6-4.7); TOTAL BILIRUBIN 0.3 mg/dL (0.2-1.0); TOTAL PROTEIN 7.8 g/dL (6.4-8.2)
[2019-02-10 07:00] VITALS: BP 140/68
[2019-02-10] MEDS: IPRATRPIUM/ALBUTEROL 0.5/2.5MG 3 ML NEBU. NEB SCH ×3 (07:33→16:00)
--- NOTE | 2019-02-10 08:14 | PDOC ---
PROGRESS NOTES Chief Complaint Chief Complaint A/P: Acute CVA - s/p tPA on 02/03/19 -Acute small to moderate territory infarct is noted involving the left parietal lobe with involvement of the left post central gyrus. Pulmonary hypertension Cerebral cytotoxic edema Metabolic encephalopathy Respiratory failure/distress HTN. HLD. DM Thrombocytosis Obesity Tricuspid regurgitation with an estimated PAP of 44 mmHg. Persistent dysphagia - TPN, plus dysphagia 1 diet, still not eating well poor dentition cognitive decline 26 min pt exam, chart review, > 50% of time spent with exam, chart review, pt care coordination History of Present Illness History of Present Illness 78-year-old AA female who was brought to [place]'s ER with symptoms of chest pain. While in the ER of [place], she has symptoms of mental status changes and right side weakness. Her NIH scores were 17. After all criteria were met, TPA was offered and was administrated. She was then transferred to [facility]. Her symptoms slightly improved. CTA was performed in [facility] which did not showed acute abnormalities. 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 She has continued to be confused and have dysphagia for some time. Still < 50% poor PO intake on dysphagia diet. Have d/w family for wish to d/c to SNF not on TPN. She has no complaints, is pleasant currently. full code Vitals Vitals Vital Signs Date Time Temp Pulse Resp B/P (MAP) Pulse Ox O2 Delivery O2 Flow Rate FiO2 02/10/19 07:38 100 Nasal Cannula 2.0 02/10/19 03:00 98.3 85 18 122/58 (79) 98.3 Physical Exam General: Alert, Cooperative, No acute distress Lungs: Clear Abdomen: Normal bowel sounds, Soft Extremities: No clubbing, No cyanosis Skin: No rashes, No breakdown Labs LABS Laboratory Tests Test 02/09/19 08:13 02/09/19 11:29 02/09/19 16:22 02/09/19 21:26 Glucose (Fingerstick) 309 mg/dL (70-99) 322 mg/dL (70-99) 280 mg/dL (70-99) 296 mg/dL (70-99) Test 02/10/19 06:10 02/10/19 07:30 White Blood Count 7.6 x10^3/uL (4.0-11.0) Red Blood Count 2.99 x10^6/uL (3.50-5.40) Hemoglobin 8.0 g/dL (12.0-15.5) Hematocrit 25.4 % (36.0-47.0) Mean Corpuscular Volume 85 fL (79-100) Mean Corpuscular Hemoglobin 27 pg (25-35) Mean Corpuscular Hemoglobin Concent 31 g/dL (31-37) Red Cell Distribution Width 15.9 % (11.5-14.5) Platelet Count 447 x10^3/uL (140-400) Neutrophils (%) (Auto) 71 % (31-73) Lymphocytes (%) (Auto) 14 % (24-48) Monocytes (%) (Auto) 13 % (0-9) Eosinophils (%) (Auto) 2 % (0-3) Basophils (%) (Auto) 1 % (0-3) Neutrophils # (Auto) 5.3 x10^3/uL (1.8-7.7) Lymphocytes # (Auto) 1.0 x10^3/uL (1.0-4.8) Monocytes # (Auto) 1.0 x10^3/uL (0.0-1.1) Eosinophils # (Auto) 0.2 x10^3/uL (0.0-0.7) Basophils # (Auto) 0.1 x10^3/uL (0.0-0.2) Sodium Level 136 mmol/L (136-145) Potassium Level 5.0 mmol/L (3.5-5.1) Chloride Level 98 mmol/L (98-107) Carbon Dioxide Level 37 mmol/L (21-32) Anion Gap 1 (6-14) Blood Urea Nitrogen 16 mg/dL (7-20) Creatinine 1.1 mg/dL (0.6-1.0) Estimated GFR (Cockcroft-Gault) 58.1 BUN/Creatinine Ratio 15 (6-20) Glucose Level 189 mg/dL (70-99) Calcium Level 9.5 mg/dL (8.5-10.1) Phosphorus Level 5.3 mg/dL (2.6-4.7) Magnesium Level 1.8 mg/dL (1.8-2.4) Total Bilirubin 0.3 mg/dL (0.2-1.0) Aspartate Amino Transf (AST/SGOT) 17 U/L (15-37) Alanine Aminotransferase (ALT/SGPT) 11 U/L (14-59) Alkaline Phosphatase 53 U/L (46-116) Total Protein 7.8 g/dL (6.4-8.2) Albumin 2.8 g/dL (3.4-5.0) Albumin/Globulin Ratio 0.6 (1.0-1.7) Glucose (Fingerstick) 191 mg/dL (70-99) Comment Review of Relevant I have reviewed the following items myesha (where applicable) has been applied. Labs Laboratory Tests Test 02/08/19 11:20 02/08/19 17:37 02/08/19 21:06 02/09/19 00:32 Glucose (Fingerstick) 163 mg/dL (70-99) 225 mg/dL (70-99) 305 mg/dL (70-99) 277 mg/dL (70-99) Test 02/09/19 06:15 02/09/19 08:13 02/09/19 11:29 02/09/19 16:22 White Blood Count 6.8 x10^3/uL (4.0-11.0) Red Blood Count 2.81 x10^6/uL (3.50-5.40) Hemoglobin 7.6 g/dL (12.0-15.5) Hematocrit 24.0 % (36.0-47.0) Mean Corpuscular Volume 85 fL (79-100) Mean Corpuscular Hemoglobin 27 pg (25-35) Mean Corpuscular Hemoglobin Concent 32 g/dL (31-37) Red Cell Distribution Width 16.1 % (11.5-14.5) Platelet Count 453 x10^3/uL (140-400) Neutrophils (%) (Auto) 67 % (31-73) Lymphocytes (%) (Auto) 17 % (24-48) Monocytes (%) (Auto) 13 % (0-9) Eosinophils (%) (Auto) 2 % (0-3) Basophils (%) (Auto) 0 % (0-3) Neutrophils # (Auto) 4.5 x10^3/uL (1.8-7.7) Lymphocytes # (Auto) 1.2 x10^3/uL (1.0-4.8) Monocytes # (Auto) 0.9 x10^3/uL (0.0-1.1) Eosinophils # (Auto) 0.2 x10^3/uL (0.0-0.7) Basophils # (Auto) 0.0 x10^3/uL (0.0-0.2) Sodium Level 139 mmol/L (136-145) Potassium Level 5.1 mmol/L (3.5-5.1) Chloride Level 99 mmol/L (98-107) Carbon Dioxide Level 37 mmol/L (21-32) Anion Gap 3 (6-14) Blood Urea Nitrogen 14 mg/dL (7-20) Creatinine 1.1 mg/dL (0.6-1.0) Estimated GFR (Cockcroft-Gault) 58.1 BUN/Creatinine Ratio 13 (6-20) Glucose Level 298 mg/dL (70-99) Calcium Level 9.1 mg/dL (8.5-10.1) Phosphorus Level 3.5 mg/dL (2.6-4.7) Magnesium Level 1.8 mg/dL (1.8-2.4) Total Bilirubin 0.1 mg/dL (0.2-1.0) Aspartate Amino Transf (AST/SGOT) 19 U/L (15-37) Alanine Aminotransferase (ALT/SGPT) 8 U/L (14-59) Alkaline Phosphatase 48 U/L (46-116) Total Protein 7.3 g/dL (6.4-8.2) Albumin 2.6 g/dL (3.4-5.0) Albumin/Globulin Ratio 0.6 (1.0-1.7) Glucose (Fingerstick) 309 mg/dL (70-99) 322 mg/dL (70-99) 280 mg/dL (70-99) Test 02/09/19 21:26 02/10/19 06:10 02/10/19 07:30 Glucose (Fingerstick) 296 mg/dL (70-99) 191 mg/dL (70-99) White Blood Count 7.6 x10^3/uL (4.0-11.0) Red Blood Count 2.99 x10^6/uL (3.50-5.40) Hemoglobin 8.0 g/dL (12.0-15.5) Hematocrit 25.4 % (36.0-47.0) Mean Corpuscular Volume 85 fL (79-100) Mean Corpuscular Hemoglobin 27 pg (25-35) Mean Corpuscular Hemoglobin Concent 31 g/dL (31-37) Red Cell Distribution Width 15.9 % (11.5-14.5) Platelet Count 447 x10^3/uL (140-400) Neutrophils (%) (Auto) 71 % (31-73) Lymphocytes (%) (Auto) 14 % (24-48) Monocytes (%) (Auto) 13 % (0-9) Eosinophils (%) (Auto) 2 % (0-3) Basophils (%) (Auto) 1 % (0-3) Neutrophils # (Auto) 5.3 x10^3/uL (1.8-7.7) Lymphocytes # (Auto) 1.0 x10^3/uL (1.0-4.8) Monocytes # (Auto) 1.0 x10^3/uL (0.0-1.1) Eosinophils # (Auto) 0.2 x10^3/uL (0.0-0.7) Basophils # (Auto) 0.1 x10^3/uL (0.0-0.2) Sodium Level 136 mmol/L (136-145) Potassium Level 5.0 mmol/L (3.5-5.1) Chloride Level 98 mmol/L (98-107) Carbon Dioxide Level 37 mmol/L (21-32) Anion Gap 1 (6-14) Blood Urea Nitrogen 16 mg/dL (7-20) Creatinine 1.1 mg/dL (0.6-1.0) Estimated GFR (Cockcroft-Gault) 58.1 BUN/Creatinine Ratio 15 (6-20) Glucose Level 189 mg/dL (70-99) Calcium Level 9.5 mg/dL (8.5-10.1) Phosphorus Level 5.3 mg/dL (2.6-4.7) Magnesium Level 1.8 mg/dL (1.8-2.4) Total Bilirubin 0.3 mg/dL (0.2-1.0) Aspartate Amino Transf (AST/SGOT) 17 U/L (15-37) Alanine Aminotransferase (ALT/SGPT) 11 U/L (14-59) Alkaline Phosphatase 53 U/L (46-116) Total Protein 7.8 g/dL (6.4-8.2) Albumin 2.8 g/dL (3.4-5.0) Albumin/Globulin Ratio 0.6 (1.0-1.7) Laboratory Tests Test 02/09/19 08:13 02/09/19 11:29 02/09/19 16:22 02/09/19 21:26 Glucose (Fingerstick) 309 mg/dL (70-99) 322 mg/dL (70-99) 280 mg/dL (70-99) 296 mg/dL (70-99) Test 02/10/19 06:10 02/10/19 07:30 White Blood Count 7.6 x10^3/uL (4.0-11.0) Red Blood Count 2.99 x10^6/uL (3.50-5.40) Hemoglobin 8.0 g/dL (12.0-15.5) Hematocrit 25.4 % (36.0-47.0) Mean Corpuscular Volume 85 fL (79-100) Mean Corpuscular Hemoglobin 27 pg (25-35) Mean Corpuscular Hemoglobin Concent 31 g/dL (31-37) Red Cell Distribution Width 15.9 % (11.5-14.5) Platelet Count 447 x10^3/uL (140-400) Neutrophils (%) (Auto) 71 % (31-73) Lymphocytes (%) (Auto) 14 % (24-48) Monocytes (%) (Auto) 13 % (0-9) Eosinophils (%) (Auto) 2 % (0-3) Basophils (%) (Auto) 1 % (0-3) Neutrophils # (Auto) 5.3 x10^3/uL (1.8-7.7) Lymphocytes # (Auto) 1.0 x10^3/uL (1.0-4.8) Monocytes # (Auto) 1.0 x10^3/uL (0.0-1.1) Eosinophils # (Auto) 0.2 x10^3/uL (0.0-0.7) Basophils # (Auto) 0.1 x10^3/uL (0.0-0.2) Sodium Level 136 mmol/L (136-145) Potassium Level 5.0 mmol/L (3.5-5.1) Chloride Level 98 mmol/L (98-107) Carbon Dioxide Level 37 mmol/L (21-32) Anion Gap 1 (6-14) Blood Urea Nitrogen 16 mg/dL (7-20) Creatinine 1.1 mg/dL (0.6-1.0) Estimated GFR (Cockcroft-Gault) 58.1 BUN/Creatinine Ratio 15 (6-20) Glucose Level 189 mg/dL (70-99) Calcium Level 9.5 mg/dL (8.5-10.1) Phosphorus Level 5.3 mg/dL (2.6-4.7) Magnesium Level 1.8 mg/dL (1.8-2.4) Total Bilirubin 0.3 mg/dL (0.2-1.0) Aspartate Amino Transf (AST/SGOT) 17 U/L (15-37) Alanine Aminotransferase (ALT/SGPT) 11 U/L (14-59) Alkaline Phosphatase 53 U/L (46-116) Total Protein 7.8 g/dL (6.4-8.2) Albumin 2.8 g/dL (3.4-5.0) Albumin/Globulin Ratio 0.6 (1.0-1.7) Glucose (Fingerstick) 191 mg/dL (70-99) Medications Current Medications Ondansetron HCl (Zofran) 4 mg PRN Q6HRS PRN IVP NAUSEA/VOMITING 1ST CHOICE; Start 02/04/19 at 02:30 Acetaminophen (Tylenol) 650 mg PRN Q6HRS PRN PO MILD PAIN 1-3; Start 02/04/19 at 02:30 Sodium Chloride 1,000 ml @ 80 mls/hr 1X ONCE IV Last administered on 02/04/19at 04:07; Start 02/04/19 at 03:00; Stop 02/04/19 at 15:29; Status DC Morphine Sulfate (Morphine Sulfate) 1 mg PRN Q2HR PRN IV PAIN Last administered on 02/05/19at 21:04; Start 02/04/19 at 02:30 Iohexol (Omnipaque 350 Mg/ml) 75 ml 1X ONCE IV Last administered on 02/04/19at 09:07; Start 02/04/19 at 09:00; Stop 02/04/19 at 09:01; Status DC Info (CONTRAST GIVEN -- Rx MONITORING) 1 each PRN DAILY PRN MC SEE COMMENTS; Start 02/04/19 at 09:00; Stop 02/06/19 at 08:59; Status DC Info (Tpn Per Pharmacy) 1 each PRN DAILY PRN MC SEE COMMENTS Last administered on 02/08/19at 13:28; Start 02/04/19 at 11:30; Status Hold Sodium Chloride 45 meq/Potassium Chloride 50 meq/ Potassium Phosphate 13.6 mmol/Magnesium Sulfate 10 meq/ Calcium Gluconate 10 meq/ Multivitamins 10 ml/Chromium/ Copper/Manganese/ Seleni/Zn 1 ml/ Total Parenteral Nutrition/Amino Acids/Dextrose/ Fat Emulsion Intravenous 1,512 ml @ 63 mls/hr TPN CONT IV Last administered on 02/04/19at 22:37; Start 02/04/19 at 22:00; Stop 02/05/19 at 21:59; Status DC Aspirin (Aspirin Rectal Supp) 300 mg DAILY DC Last administered on 02/07/19at 08:38; Start 02/05/19 at 09:00; Stop 02/07/19 at 17:03; Status DC Simvastatin (Zocor) 10 mg QHS PO Last administered on 02/09/19at 21:42; Start 02/04/19 at 21:00 Fentanyl (Duragesic 50mcg/ Hr Patch) 1 patch Q72H TD Last administered on 02/07/19at 18:20; Start 02/04/19 at 18:45 Alteplase, Recombinant (Cathflo For Central Catheter Clearance) 1 mg 1X ONCE INT CAT Last administered on 02/05/19 12:08; Start 02/05/19 at 11:00; Stop 02/05/19 at 11:01; Status DC Magnesium Sulfate 50 ml @ 25 mls/hr 1X ONCE IV Last administered on 02/05/19at 12:08; Start 02/05/19 at 11:30; Stop 02/05/19 at 13:29; Status DC Sodium Chloride 45 meq/Potassium Chloride 40 meq/ Potassium Phosphate 17 mmol/ Magnesium Sulfate 10 meq/Calcium Gluconate 10 meq/ Multivitamins 10 ml/Chromium/ Copper/Manganese/ Seleni/Zn 1 ml/ Total Parenteral Nutrition/Amino Acids/Dextrose/ Fat Emulsion Intravenous 1,512 ml @ 63 mls/hr TPN CONT IV Last administered on 02/05/19at 22:35; Start 02/05/19 at 22:00; Stop 02/06/19 at 21:59; Status DC Alteplase, Recombinant (Cathflo For Central Catheter Clearance) 1 mg 1X ONCE INT CAT Last administered on 02/06/19at 02:39; Start 02/06/19 at 02:30; Stop 02/06/19 at 02:31; Status DC Alteplase, Recombinant (Cathflo For Central Catheter Clearance) 1 mg 1X ONCE INT CAT Last administered on 02/06/19at 04:14; Start 02/06/19 at 05:00; Stop 02/06/19 at 05:01; Status DC Alteplase, Recombinant (Cathflo For Central Catheter Clearance) 1 mg 1X ONCE INT CAT Last administered on 02/06/19at 10:13; Start 02/06/19 at 10:30; Stop 02/06/19 at 10:31; Status DC Alteplase, Recombinant (Cathflo For Central Catheter Clearance) 1 mg 1X ONCE INT CAT Last administered on 02/06/19at 13:21; Start 02/06/19 at 13:00; Stop 02/06/19 at 13:01; Status DC Gabapentin (Neurontin) 300 mg TID PO Last administered on 02/09/19 21:43; Start 02/06/19 at 14:00 Insulin Human Lispro (HumaLOG) 8 units TIDWMEALS SQ Last administered on 02/09/19 19:06; Start 02/06/19 at 17:00 Albuterol/ Ipratropium (Duoneb) 3 ml RTQID NEB Last administered on 02/10/19at 07:33; Start 02/06/19 at 16:00 Lactobacillus Rhamnosus (Culturelle) 1 cap BID PO Last administered on 02/09/19 21:43; Start 02/06/19 at 14:00 Lisinopril (Prinivil) 10 mg DAILY PO Last administered on 02/07/19at 08:39; Start 02/06/19 at 15:00; Stop 02/07/19 at 17:03; Status DC Polyethylene Glycol (miraLAX PACKET) 17 gm PRN BID PRN PO CONSTIPATION 1ST CHOICE Last administered on 02/09/19at 10:44; Start 02/06/19 at 13:15 Simvastatin (Zocor) 10 mg QHS PO ; Start 02/06/19 at 21:00; Stop 02/06/19 at 13:30; Status DC Insulin Glargine (Lantus Syringe) 10 unit QHS SQ Last administered on 02/09/19at 21:49; Start 02/06/19 at 21:00 Pantoprazole Sodium (Protonix) 40 mg DAILYAC PO Last administered on 02/09/19at 10:36; Start 02/06/19 at 14:00 Sodium Phosphate 20 mmol/Dextrose 256.6667 ml @ 64.167 m... 1X ONCE IV Last administered on 02/06/19at 19:14; Start 02/06/19 at 14:00; Stop 02/06/19 at 17:59; Status DC Sodium Chloride 45 meq/Potassium Chloride 40 meq/ Potassium Phosphate 27 mmol/ Magnesium Sulfate 15 meq/Calcium Gluconate 10 meq/ Multivitamins 10 ml/Chromium/ Copper/Manganese/ Seleni/Zn 1 ml/ Total Parenteral Nutrition/Amino Acids/Dextrose/ Fat Emulsion Intravenous 1,512 ml @ 63 mls/hr TPN CONT IV Last administered on 02/06/19at 22:32; Start 02/06/19 at 22:00; Stop 02/07/19 at 21:59; Status DC Clonidine HCl (Catapres) 0.1 mg PRN Q1HR PRN PO HYPERTENSION; Start 02/06/19 at 20:15 Ondansetron HCl (Zofran) 4 mg PRN Q6HRS PRN IVP NAUSEA/VOMITING; Start 02/06/19 at 20:15; Status UNV Insulin Human Lispro (HumaLOG) 0-9 UNITS TIDWMEALS SQ Last administered on 02/09/19at 19:06; Start 02/07/19 at 08:00 Dextrose (Dextrose 50%-Water Syringe) 12.5 gm PRN Q15MIN PRN IV SEE COMMENTS; Start 02/06/19 at 20:15 Magnesium Sulfate 100 ml @ 25 mls/hr 1X ONCE IV Last administered on 02/07/19at 08:39; Start 02/07/19 at 08:30; Stop 02/07/19 at 12:29; Status DC Sodium Phosphate 20 mmol/Dextrose 256.6667 ml @ 64.167 m... 1X ONCE IV Last administered on 02/07/19at 12:30; Start 02/07/19 at 12:00; Stop 02/07/19 at 15:59; Status DC Sodium Chloride 45 meq/Potassium Chloride 40 meq/ Potassium Phosphate 27 mmol/ Magnesium Sulfate 15 meq/Calcium Gluconate 10 meq/ Multivitamins 10 ml/Chromium/ Copper/Manganese/ Seleni/Zn 1 ml/ Total Parenteral Nutrition/Amino Acids/Dextrose/ Fat Emulsion Intravenous 1,512 ml @ 63 mls/hr TPN CONT IV Last administered on 02/07/19at 21:44; Start 02/07/19 at 22:00; Stop 02/08/19 at 21:59; Status DC Lisinopril (Prinivil) 20 mg DAILY PO Last administered on 02/08/19at 08:48; Start 02/08/19 at 09:00 Metoprolol Tartrate (Lopressor) 25 mg BID PO Last administered on 02/09/19at 21:43; Start 02/07/19 at 21:00 Aspirin (Ecotrin) 325 mg DAILYWBKFT PO Last administered on 02/09/19at 10:36; Start 02/08/19 at 08:00 Sodium Chloride 45 meq/Potassium Chloride 40 meq/ Potassium Phosphate 27 mmol/ Magnesium Sulfate 15 meq/Calcium Gluconate 10 meq/ Multivitamins 10 ml/Chromium/ Copper/Manganese/ Seleni/Zn 1 ml/ Total Parenteral Nutrition/Amino Acids/Dextrose/ Fat Emulsion Intravenous 1,512 ml @ 63 mls/hr TPN CONT IV Last administered on 02/08/19at 22:40; Start 02/08/19 at 22:00; Stop 02/09/19 at 21:59; Status DC Active Scripts Active Doxycycline Hyclate 100 Mg Capsule 1 Cap PO BID 7 Days Prednisone 20 Mg Tablet 40 Mg PO DAILY 5 Days Humalog (Insulin Lispro) 100 Unit/1 Ml Insuln.pen 8 Units SQ TIDWMEALS 30 Days + Sliding scale 1u for every 50mg/dL > 150mg/dL Call MD for glucose > 350 If glucose < 100, sliding scale only Lantus Solostar (Insulin Glargine,Hum.rec.anlog) 100 Unit/1 Ml Insuln.pen 10 Units SQ QHS 30 Days Culturelle (Lactobacillus Rhamnosus Gg) 1 Each Cap.sprink 1 Cap PO BID 10 Days Polyethylene Glycol 3350 17 Gm Powd.pack 17 Gm PO PRN BID PRN 30 Days Duoneb 0.5-3(2.5) Mg/3 Ml (Albuterol/Ipratropium) 3 Ml Ampul.neb 3 Ml NEB RTQID 30 Days Simvastatin 10 Mg Tablet 1 Tab PO QHS 30 Days Glipizide 10 Mg Tablet 10 Mg PO DAILY 3 Days Gabapentin 300 Mg Capsule 300 Mg PO TID 30 Days Lisinopril 10 Mg Tablet 1 Tab PO DAILY Reported FENTANYL 50mcg/hr (Fentanyl) 1 Each Patch.td72 1 Patch TD Q72H Ibuprofen 800 Mg Tablet 800 Mg PO PRN Q8HRS PRN Omeprazole 20 Mg Capsule.dr 2 Cap PO DAILY Metformin Hcl 500 Mg Tablet 500 Mg PO BID Vitals/I & O Vital Sign - Last 24 Hours 02/09/19 02/09/19 02/09/19 02/09/19 08:37 09:00 10:44 11:12 Temp 97.7 97.7 Pulse 101 101 90 Resp 18 B/P (MAP) 123/63 123/63 132/64 (86) Pulse Ox 97 95 O2 Delivery Nasal Cannula Nasal Cannula O2 Flow Rate 3.0 3.0 02/09/19 02/09/19 02/09/19 02/09/19 12:03 14:59 15:00 19:00 Temp 97.8 98.5 97.8 98.5 Pulse 89 95 Resp 18 18 B/P (MAP) 129/68 (88) 152/67 (95) Pulse Ox 97 98 95 92 O2 Delivery Nasal Cannula Nasal Cannula Nasal Cannula Nasal Cannula O2 Flow Rate 3.0 2.0 3.0 3.0 02/09/19 02/09/19 02/09/19 02/09/19 19:41 20:00 21:43 23:00 Temp 98.5 98.5 Pulse 95 95 Resp 18 B/P (MAP) 152/67 152/67 (95) Pulse Ox 98 92 O2 Delivery Nasal Cannula Nasal Cannula Nasal Cannula O2 Flow Rate 2.0 3.0 3.0 02/10/19 02/10/19 02/10/19 00:00 03:00 07:38 Temp 98.5 98.3 98.5 98.3 Pulse 83 85 Resp 18 18 B/P (MAP) 127/60 (82) 122/58 (79) Pulse Ox 93 96 100 O2 Delivery Nasal Cannula Nasal Cannula Nasal Cannula O2 Flow Rate 3.0 3.0 2.0 Intake and Output 02/09/19 02/09/19 02/10/19 14:59 22:59 06:59 Intake Total 200 ml 0 ml Balance 200 ml 0 ml EMRE HODGE MD Feb 10, 2019 08:14
[2019-02-10] MEDS: PANTOPRAZOLE 40 MG TABLET.DR. PO SCH (09:15)
[2019-02-10] MEDS: ASPIRIN ENTERIC COATED 325 MG TABLET.DR. PO SCH (09:15)
[2019-02-10] MEDS: GABAPENTIN 300 MG CAPSULE. PO SCH ×2 (09:15→15:14)
[2019-02-10] MEDS: LACTOBACILLUS RHAMNOSUS GG 1 CAPSULE. PO SCH (09:15)
[2019-02-10] MEDS: METOPROLOL TART IMMED RELEASE 25 MG TABLET. PO SCH (09:16)
[2019-02-10] MEDS: LISINOPRIL 20 MG TABLET PO SCH (09:16)
[2019-02-10] MEDS: INSULIN LISPRO 300 UNITS/3 ML VIAL. SQ SCH ×4 (09:22→12:32)
[2019-02-10 11:00] VITALS: BP 101/58
[2019-02-10] MEDS ORDERED: METO25TA4 PO (13:07)
[2019-02-10] MEDS ORDERED: FENT1PAT17 TD (13:07)
[2019-02-10] MEDS ORDERED: LISI10TA2 PO (13:07)
[2019-02-10] MEDS ORDERED: ACET325T9 PO (13:07)
--- NOTE | 2019-02-10 13:07 | SNU/HH DC ---
DISCHARGE ORDERS DISCHARGE INFORMATION: DISCHARGE DATE: Feb 10, 2019 CONDITION ON DISCHARGE: Stable CODE STATUS: Code Status: Full FDC: SNF STAY <30 DAYS: Yes POST DISCHARGE ORDERS: ACTIVITY ORDERS: Activity as tolerated WEIGHT BEARING STATUS: As tolerated DIET AFTER DISCHARGE: ADA CHECKS AFTER DISCHARGE: CHECKS AFTER DISCHARGE: Check blood press - daily, Check blood sugar, ac/hs, Weigh Yourself Daily TREATMENT/EQUIPMENT ORDERS: RESPIRATORY EQUIPMENT NEEDED: Oxygen, Nebulizer Physical Therapy For: Evalulation/Treatment Occupational Therapy For: Evaluation/Treatment Speech Language Pathology For: Evaluation/Treatment DISCHARGE MEDICATIONS: Home Meds Active Scripts Acetaminophen (TYLENOL) 325 Mg Tablet, 650 MG PO PRN Q6HRS PRN for MILD PAIN 1-3 for 30 Days, #120 TAB Prov:EMRE HODGE MD 02/10/19 Metoprolol Tartrate (METOPROLOL TARTRATE) 25 Mg Tablet, 25 MG PO BID for HTN for 30 Days, #60 TAB Prov:EMRE HODGE MD 02/10/19 Fentanyl (FENTANYL 50mcg/hr) 1 Each Patch.td72, 1 PATCH TD Q72H for PAIN for 30 Days, #10 PATCH Prov:EMRE HODGE MD 02/10/19 Lisinopril (LISINOPRIL) 10 Mg Tablet, 2 TAB PO DAILY for htn for 30 Days, #60 TAB 5 Refills Prov:EMRE HODGE MD 02/10/19 Insulin Lispro (HUMALOG) 100 Unit/1 Ml Insuln.pen, 8 UNITS SQ TIDWMEALS for DM2 for 30 Days, #1 EACH + Sliding scale 1u for every 50mg/dL > 150mg/dL Call MD for glucose > 350 If glucose < 100, sliding scale only Prov:EMRE HODGE MD 11/16/18 Insulin Glargine,Hum.rec.anlog (LANTUS SOLOSTAR) 100 Unit/1 Ml Insuln.pen, 10 UNITS SQ QHS for DM2 for 30 Days, #1 EACH Prov:EMRE HODGE MD 11/16/18 Lactobacillus Rhamnosus Gg (CULTURELLE) 1 Each Cap.sprink, 1 CAP PO BID for antibiotic diarrhea for 10 Days, #20 CAP Prov:EMRE HODGE MD 11/16/18 Polyethylene Glycol 3350 (POLYETHYLENE GLYCOL 3350) 17 Gm Powd.pack, 17 GM PO PRN BID PRN for CONSTIPATION 1ST CHOICE for 30 Days, #60 PKT Prov:EMRE HODGE MD 11/16/18 Ipratropium/Albuterol Sulfate (DUONEB 0.5-3(2.5) MG/3 ML) 3 Ml Ampul.neb, 3 ML NEB RTQID for COPD for 30 Days, #120 EACH Prov:EMRE HODGE MD 11/16/18 Simvastatin (SIMVASTATIN) 10 Mg Tablet, 1 TAB PO QHS for hld for 30 Days, #30 TAB 5 Refills Prov:WOODROW JACOB MD 10/23/18 Gabapentin (GABAPENTIN) 300 Mg Capsule, 300 MG PO TID for NEUROGENIC PAIN for 30 Days, #90 CAP Prov:WOODROW JACOB MD 10/23/18 Reported Medications Omeprazole (OMEPRAZOLE) 20 Mg Capsule.dr, 2 CAP PO DAILY for MEDICAL MANAGEMENT, #30 CAP 5 Refills 02/04/19 Discontinued Reported Medications Ibuprofen (IBUPROFEN) 800 Mg Tablet, 800 MG PO PRN Q8HRS PRN for INFLAMMATION, TAB 02/04/19 Metformin Hcl (METFORMIN HCL) 500 Mg Tablet, 500 MG PO BID for DM 07/18/13 Discontinued Scripts Doxycycline Hyclate (DOXYCYCLINE HYCLATE) 100 Mg Capsule, 1 CAP PO BID for COPD for 7 Days, #14 CAP Prov:EMRE HODGE MD 11/16/18 Prednisone (PREDNISONE) 20 Mg Tablet, 40 MG PO DAILY for COPD for 5 Days, #10 TAB Prov:EMRE HODGE MD 11/16/18 Glipizide (GLIPIZIDE) 10 Mg Tablet, 10 MG PO DAILY for dm for 3 Days, #3 TAB Prov:WOODROW JACOB MD 10/23/18 EMRE HODGE MD Feb 10, 2019 13:07
--- NOTE | 2019-02-10 13:18 | PDOC3 ---
Discharge Summary Visit Information Date of Admission: Feb 04, 2019 Date of Discharge: Feb 10, 2019 Admitting Diagnosis: Acute CVA Final Diagnosis Acute CVA Brief Hospital Course Allergies Allergies Coded Allergies Type Severity Reaction Last Updated Verified Penicillins Allergy Severe 11/13/18 Yes amoxicillin trihydrate Allergy Intermediate 10/22/18 Yes famotidine Allergy Intermediate 10/22/18 Yes potassium clavulanate Allergy Intermediate 10/22/18 Yes sulfamethoxazole Allergy Intermediate 10/22/18 Yes trimethoprim Allergy Intermediate 10/22/18 Yes I S O L A T I O N *CONTACT* Allergy Unknown 02/04/19 Yes Vital Signs Vital Signs Date Time Temp Pulse Resp B/P (MAP) Pulse Ox O2 Delivery O2 Flow Rate FiO2 02/10/19 12:02 100 Nasal Cannula 2.0 02/10/19 11:00 98.3 67 16 101/58 (72) 98.3 Lab Results Laboratory Tests Test 02/08/19 17:37 02/08/19 21:06 02/09/19 00:32 02/09/19 06:15 Glucose (Fingerstick) 225 mg/dL (70-99) 305 mg/dL (70-99) 277 mg/dL (70-99) White Blood Count 6.8 x10^3/uL (4.0-11.0) Red Blood Count 2.81 x10^6/uL (3.50-5.40) Hemoglobin 7.6 g/dL (12.0-15.5) Hematocrit 24.0 % (36.0-47.0) Mean Corpuscular Volume 85 fL (79-100) Mean Corpuscular Hemoglobin 27 pg (25-35) Mean Corpuscular Hemoglobin Concent 32 g/dL (31-37) Red Cell Distribution Width 16.1 % (11.5-14.5) Platelet Count 453 x10^3/uL (140-400) Neutrophils (%) (Auto) 67 % (31-73) Lymphocytes (%) (Auto) 17 % (24-48) Monocytes (%) (Auto) 13 % (0-9) Eosinophils (%) (Auto) 2 % (0-3) Basophils (%) (Auto) 0 % (0-3) Neutrophils # (Auto) 4.5 x10^3/uL (1.8-7.7) Lymphocytes # (Auto) 1.2 x10^3/uL (1.0-4.8) Monocytes # (Auto) 0.9 x10^3/uL (0.0-1.1) Eosinophils # (Auto) 0.2 x10^3/uL (0.0-0.7) Basophils # (Auto) 0.0 x10^3/uL (0.0-0.2) Sodium Level 139 mmol/L (136-145) Potassium Level 5.1 mmol/L (3.5-5.1) Chloride Level 99 mmol/L (98-107) Carbon Dioxide Level 37 mmol/L (21-32) Anion Gap 3 (6-14) Blood Urea Nitrogen 14 mg/dL (7-20) Creatinine 1.1 mg/dL (0.6-1.0) Estimated GFR (Cockcroft-Gault) 58.1 BUN/Creatinine Ratio 13 (6-20) Glucose Level 298 mg/dL (70-99) Calcium Level 9.1 mg/dL (8.5-10.1) Phosphorus Level 3.5 mg/dL (2.6-4.7) Magnesium Level 1.8 mg/dL (1.8-2.4) Total Bilirubin 0.1 mg/dL (0.2-1.0) Aspartate Amino Transf (AST/SGOT) 19 U/L (15-37) Alanine Aminotransferase (ALT/SGPT) 8 U/L (14-59) Alkaline Phosphatase 48 U/L (46-116) Total Protein 7.3 g/dL (6.4-8.2) Albumin 2.6 g/dL (3.4-5.0) Albumin/Globulin Ratio 0.6 (1.0-1.7) Test 02/09/19 08:13 02/09/19 11:29 02/09/19 16:22 02/09/19 21:26 Glucose (Fingerstick) 309 mg/dL (70-99) 322 mg/dL (70-99) 280 mg/dL (70-99) 296 mg/dL (70-99) Test 02/10/19 06:10 02/10/19 07:30 02/10/19 12:02 White Blood Count 7.6 x10^3/uL (4.0-11.0) Red Blood Count 2.99 x10^6/uL (3.50-5.40) Hemoglobin 8.0 g/dL (12.0-15.5) Hematocrit 25.4 % (36.0-47.0) Mean Corpuscular Volume 85 fL (79-100) Mean Corpuscular Hemoglobin 27 pg (25-35) Mean Corpuscular Hemoglobin Concent 31 g/dL (31-37) Red Cell Distribution Width 15.9 % (11.5-14.5) Platelet Count 447 x10^3/uL (140-400) Neutrophils (%) (Auto) 71 % (31-73) Lymphocytes (%) (Auto) 14 % (24-48) Monocytes (%) (Auto) 13 % (0-9) Eosinophils (%) (Auto) 2 % (0-3) Basophils (%) (Auto) 1 % (0-3) Neutrophils # (Auto) 5.3 x10^3/uL (1.8-7.7) Lymphocytes # (Auto) 1.0 x10^3/uL (1.0-4.8) Monocytes # (Auto) 1.0 x10^3/uL (0.0-1.1) Eosinophils # (Auto) 0.2 x10^3/uL (0.0-0.7) Basophils # (Auto) 0.1 x10^3/uL (0.0-0.2) Sodium Level 136 mmol/L (136-145) Potassium Level 5.0 mmol/L (3.5-5.1) Chloride Level 98 mmol/L (98-107) Carbon Dioxide Level 37 mmol/L (21-32) Anion Gap 1 (6-14) Blood Urea Nitrogen 16 mg/dL (7-20) Creatinine 1.1 mg/dL (0.6-1.0) Estimated GFR (Cockcroft-Gault) 58.1 BUN/Creatinine Ratio 15 (6-20) Glucose Level 189 mg/dL (70-99) Calcium Level 9.5 mg/dL (8.5-10.1) Phosphorus Level 5.3 mg/dL (2.6-4.7) Magnesium Level 1.8 mg/dL (1.8-2.4) Total Bilirubin 0.3 mg/dL (0.2-1.0) Aspartate Amino Transf (AST/SGOT) 17 U/L (15-37) Alanine Aminotransferase (ALT/SGPT) 11 U/L (14-59) Alkaline Phosphatase 53 U/L (46-116) Total Protein 7.8 g/dL (6.4-8.2) Albumin 2.8 g/dL (3.4-5.0) Albumin/Globulin Ratio 0.6 (1.0-1.7) Glucose (Fingerstick) 191 mg/dL (70-99) 188 mg/dL (70-99) Laboratory Tests Test 02/09/19 16:22 02/09/19 21:26 02/10/19 06:10 02/10/19 07:30 Glucose (Fingerstick) 280 mg/dL (70-99) 296 mg/dL (70-99) 191 mg/dL (70-99) White Blood Count 7.6 x10^3/uL (4.0-11.0) Red Blood Count 2.99 x10^6/uL (3.50-5.40) Hemoglobin 8.0 g/dL (12.0-15.5) Hematocrit 25.4 % (36.0-47.0) Mean Corpuscular Volume 85 fL (79-100) Mean Corpuscular Hemoglobin 27 pg (25-35) Mean Corpuscular Hemoglobin Concent 31 g/dL (31-37) Red Cell Distribution Width 15.9 % (11.5-14.5) Platelet Count 447 x10^3/uL (140-400) Neutrophils (%) (Auto) 71 % (31-73) Lymphocytes (%) (Auto) 14 % (24-48) Monocytes (%) (Auto) 13 % (0-9) Eosinophils (%) (Auto) 2 % (0-3) Basophils (%) (Auto) 1 % (0-3) Neutrophils # (Auto) 5.3 x10^3/uL (1.8-7.7) Lymphocytes # (Auto) 1.0 x10^3/uL (1.0-4.8) Monocytes # (Auto) 1.0 x10^3/uL (0.0-1.1) Eosinophils # (Auto) 0.2 x10^3/uL (0.0-0.7) Basophils # (Auto) 0.1 x10^3/uL (0.0-0.2) Sodium Level 136 mmol/L (136-145) Potassium Level 5.0 mmol/L (3.5-5.1) Chloride Level 98 mmol/L (98-107) Carbon Dioxide Level 37 mmol/L (21-32) Anion Gap 1 (6-14) Blood Urea Nitrogen 16 mg/dL (7-20) Creatinine 1.1 mg/dL (0.6-1.0) Estimated GFR (Cockcroft-Gault) 58.1 BUN/Creatinine Ratio 15 (6-20) Glucose Level 189 mg/dL (70-99) Calcium Level 9.5 mg/dL (8.5-10.1) Phosphorus Level 5.3 mg/dL (2.6-4.7) Magnesium Level 1.8 mg/dL (1.8-2.4) Total Bilirubin 0.3 mg/dL (0.2-1.0) Aspartate Amino Transf (AST/SGOT) 17 U/L (15-37) Alanine Aminotransferase (ALT/SGPT) 11 U/L (14-59) Alkaline Phosphatase 53 U/L (46-116) Total Protein 7.8 g/dL (6.4-8.2) Albumin 2.8 g/dL (3.4-5.0) Albumin/Globulin Ratio 0.6 (1.0-1.7) Test 02/10/19 12:02 Glucose (Fingerstick) 188 mg/dL (70-99) Brief Hospital Course 78-year-old AA female who was brought to [place]'s ER with symptoms of chest pain. While in the ER of [place], she has symptoms of mental status changes and right side weakness. Her NIH scores were 17. After all criteria were met, TPA was offered and was administrated. She was then transferred to [facility]. Her symptoms slightly improved. CTA was performed in [facility] which did not showed acute abnormalities. 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 She has continued to be confused and have dysphagia for some time. Seen by cardiology, neurology, palliative care in consultation. Had initial difficulty swallowing and required TPN as PEG tube is not desired. Still < 50% poor PO intake on dysphagia diet. Have d/w family for wish to d/c to SNF not on TPN. She has no complaints, is pleasant currently. Wishes for d/c to SNF. full code A/P: Acute CVA - s/p tPA on 02/03/19 -Acute small to moderate territory infarct is noted involving the left parietal lobe with involvement of the left post central gyrus. Pulmonary hypertension Cerebral cytotoxic edema Metabolic encephalopathy Respiratory failure/distress HTN. HLD. DM Thrombocytosis Obesity Tricuspid regurgitation with an estimated PAP of 44 mmHg. Persistent dysphagia - TPN, plus dysphagia 1 diet, still not eating well poor dentition cognitive decline Greater than 30 minutes spent on d/c Discharge Information Condition at Discharge: Improved Follow Up: Weeks (1) Disposition/Orders: D/C to Another Facility Scheduled Fentanyl (FENTANYL 50mcg/hr) 1 Each Patch.td72, 1 PATCH TD Q72H for PAIN for 30 Days, #10 Prescribed by: EMRE HODGE MD on 02/10/19 1307 Gabapentin (Gabapentin) 300 Mg Capsule, 300 MG PO TID for NEUROGENIC PAIN for 30 Days, #90 Prescribed by: NIDIA TROY on 10/23/18 1000 Last Action: Continued on 02/06/191312 by MICHELLE PINZON MD Insulin Glargine,Hum.rec.anlog (Lantus Solostar) 100 Unit/1 Ml Insuln.pen, 10 UNITS SQ QHS for DM2 for 30 Days, #1 Prescribed by: EMRE HODGE MD on 11/16/18 135 Last Action: Converted on 02/06/191313 by MICHELLE PINZON MD Insulin Lispro (Humalog) 100 Unit/1 Ml Insuln.pen, 8 UNITS SQ TIDWMEALS for DM2 for 30 Days, #1 + Sliding scale 1u for every 50mg/dL > 150mg/dL Call MD for glucose > 350 If glucose < 100, sliding scale only Prescribed by: EMRE HODGE MD on 11/16/18 135 Last Action: Continued on 02/06/191313 by MICHELLE PINZON MD Ipratropium/Albuterol Sulfate (Duoneb 0.5-3(2.5) Mg/3 Ml) 3 Ml Ampul.neb, 3 ML NEB RTQID for COPD for 30 Days, #120 Prescribed by: EMRE HODGE MD on 11/16/181355 Last Action: Continued on 02/06/191312 by MICHELLE PINZON MD Lactobacillus Rhamnosus Gg (Culturelle) 1 Each Cap.sprink, 1 CAP PO BID for antibiotic diarrhea for 10 Days, #20 Prescribed by: EMRE HODGE MD on 11/16/18 1356 Last Action: Continued on 02/06/191312 by MICHELLE PINZON MD Lisinopril (Lisinopril) 10 Mg Tablet, 2 TAB PO DAILY for htn for 30 Days, #60 Ref 5 Prescribed by: EMRE HODGE MD on 02/10/19 1307 Metoprolol Tartrate (Metoprolol Tartrate) 25 Mg Tablet, 25 MG PO BID for HTN for 30 Days, #60 Prescribed by: EMRE HODGE MD on 02/10/19 1307 Omeprazole (Omeprazole) 20 Mg Capsule.dr, 2 CAP PO DAILY for MEDICAL MANAGEMENT, #30 Ref 5 (Reported) Entered as Reported by: MORTEZA IGNACIO on 02/04/19 1712 Last Action: Converted on 02/06/191313 by MICHELLE PINZON MD Simvastatin (Simvastatin) 10 Mg Tablet, 1 TAB PO QHS for hld for 30 Days, #30 Ref 5 Prescribed by: NIDIA TROY on 10/23/18 1000 Last Action: Continued on 02/06/191312 by MICHELLE PINZON MD Scheduled PRN Acetaminophen (Tylenol) 325 Mg Tablet, 650 MG PO PRN Q6HRS PRN for MILD PAIN 1-3 for 30 Days, #120 Prescribed by: EMRE HODEG MD on 02/10/19 1307 Polyethylene Glycol 3350 (Polyethylene Glycol 3350) 17 Gm Powd.pack, 17 GM PO PRN BID PRN for CONSTIPATION 1ST CHOICE for 30 Days, #60 Prescribed by: EMRE HODGE MD on 11/16/18 1356 Last Action: Continued on 02/06/191312 by MICHELLE PINZON MD Discontinued Medications Doxycycline Hyclate (Doxycycline Hyclate) 100 Mg Capsule, 1 CAP PO BID for COPD for 7 Days, #14 Prescribed by: EMRE HODGE MD on 11/16/18 1356 Last Action: HELD on 02/06/191313 by MICHELLE PINZON MD Glipizide (Glipizide) 10 Mg Tablet, 10 MG PO DAILY for dm for 3 Days, #3 Prescribed by: NIDIA TROY on 10/23/18 1000 Last Action: HELD on 02/06/191312 by MICHELLE PINZON MD Ibuprofen (Ibuprofen) 800 Mg Tablet, 800 MG PO PRN Q8HRS PRN for INFLAMMATION, (Reported) Entered as Reported by: MORTEZA IGNACIO on 02/04/19 1712 Last Action: HELD on 02/06/191313 by MICHELLE PINZON MD Metformin Hcl (Metformin Hcl) 500 Mg Tablet, 500 MG PO BID for DM, (Reported) Entered as Reported by: DEXTER PRINCE on 07/18/13 1022 Last Action: HELD on 02/06/191312 by MICHELLE PINZON MD Prednisone (Prednisone) 20 Mg Tablet, 40 MG PO DAILY for COPD for 5 Days, #10 Prescribed by: EMRE HODGE MD on 11/16/18 1356 Last Action: HELD on 02/06/191313 by MD AYESHA QUINONES CHRISTOPHER S MD Feb 10, 2019 13:18
--- NOTE | 2019-02-10 13:50 | PDOC ---
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 Status-post alteplase HTN. HLD. DM? Thrombocytosis? Obesity. Is on dysphagia I diet No atrial septal defect on TTE Plan Oral aspirin Statin HS. Cardiology consult appreciated await placement of event monitor OT/PT/ST. SNU Subjective no complaints Objective Vital Signs Date Time Temp Pulse Resp B/P (MAP) Pulse Ox O2 Delivery O2 Flow Rate FiO2 02/10/19 12:02 100 Nasal Cannula 2.0 02/10/19 11:00 98.3 67 16 101/58 (72) 98.3 Intake and Output 02/10/19 07:00 Intake Total 200 ml Balance 200 ml Intake Oral 200 ml # Voids 3 PHYSICAL EXAM Alert. Names and repeats, follows commands, knows that she is in the hospital. PERRL. EOMI. CN: no focal findings. Muscle tone: normal. Muscle strength: 3/5, worse on right DTR: 1+ Plantar reflex: silent Gait: not examined in bed. Sensory exam: no abnormal findings. No cerebellar findings elicited Review of Relevant I have reviewed the following items myesha (where applicable) has been applied. Labs Laboratory Tests Test 02/08/19 17:37 02/08/19 21:06 02/09/19 00:32 02/09/19 06:15 Glucose (Fingerstick) 225 mg/dL (70-99) 305 mg/dL (70-99) 277 mg/dL (70-99) White Blood Count 6.8 x10^3/uL (4.0-11.0) Red Blood Count 2.81 x10^6/uL (3.50-5.40) Hemoglobin 7.6 g/dL (12.0-15.5) Hematocrit 24.0 % (36.0-47.0) Mean Corpuscular Volume 85 fL (79-100) Mean Corpuscular Hemoglobin 27 pg (25-35) Mean Corpuscular Hemoglobin Concent 32 g/dL (31-37) Red Cell Distribution Width 16.1 % (11.5-14.5) Platelet Count 453 x10^3/uL (140-400) Neutrophils (%) (Auto) 67 % (31-73) Lymphocytes (%) (Auto) 17 % (24-48) Monocytes (%) (Auto) 13 % (0-9) Eosinophils (%) (Auto) 2 % (0-3) Basophils (%) (Auto) 0 % (0-3) Neutrophils # (Auto) 4.5 x10^3/uL (1.8-7.7) Lymphocytes # (Auto) 1.2 x10^3/uL (1.0-4.8) Monocytes # (Auto) 0.9 x10^3/uL (0.0-1.1) Eosinophils # (Auto) 0.2 x10^3/uL (0.0-0.7) Basophils # (Auto) 0.0 x10^3/uL (0.0-0.2) Sodium Level 139 mmol/L (136-145) Potassium Level 5.1 mmol/L (3.5-5.1) Chloride Level 99 mmol/L (98-107) Carbon Dioxide Level 37 mmol/L (21-32) Anion Gap 3 (6-14) Blood Urea Nitrogen 14 mg/dL (7-20) Creatinine 1.1 mg/dL (0.6-1.0) Estimated GFR (Cockcroft-Gault) 58.1 BUN/Creatinine Ratio 13 (6-20) Glucose Level 298 mg/dL (70-99) Calcium Level 9.1 mg/dL (8.5-10.1) Phosphorus Level 3.5 mg/dL (2.6-4.7) Magnesium Level 1.8 mg/dL (1.8-2.4) Total Bilirubin 0.1 mg/dL (0.2-1.0) Aspartate Amino Transf (AST/SGOT) 19 U/L (15-37) Alanine Aminotransferase (ALT/SGPT) 8 U/L (14-59) Alkaline Phosphatase 48 U/L (46-116) Total Protein 7.3 g/dL (6.4-8.2) Albumin 2.6 g/dL (3.4-5.0) Albumin/Globulin Ratio 0.6 (1.0-1.7) Test 02/09/19 08:13 02/09/19 11:29 02/09/19 16:22 02/09/19 21:26 Glucose (Fingerstick) 309 mg/dL (70-99) 322 mg/dL (70-99) 280 mg/dL (70-99) 296 mg/dL (70-99) Test 02/10/19 06:10 02/10/19 07:30 02/10/19 12:02 White Blood Count 7.6 x10^3/uL (4.0-11.0) Red Blood Count 2.99 x10^6/uL (3.50-5.40) Hemoglobin 8.0 g/dL (12.0-15.5) Hematocrit 25.4 % (36.0-47.0) Mean Corpuscular Volume 85 fL (79-100) Mean Corpuscular Hemoglobin 27 pg (25-35) Mean Corpuscular Hemoglobin Concent 31 g/dL (31-37) Red Cell Distribution Width 15.9 % (11.5-14.5) Platelet Count 447 x10^3/uL (140-400) Neutrophils (%) (Auto) 71 % (31-73) Lymphocytes (%) (Auto) 14 % (24-48) Monocytes (%) (Auto) 13 % (0-9) Eosinophils (%) (Auto) 2 % (0-3) Basophils (%) (Auto) 1 % (0-3) Neutrophils # (Auto) 5.3 x10^3/uL (1.8-7.7) Lymphocytes # (Auto) 1.0 x10^3/uL (1.0-4.8) Monocytes # (Auto) 1.0 x10^3/uL (0.0-1.1) Eosinophils # (Auto) 0.2 x10^3/uL (0.0-0.7) Basophils # (Auto) 0.1 x10^3/uL (0.0-0.2) Sodium Level 136 mmol/L (136-145) Potassium Level 5.0 mmol/L (3.5-5.1) Chloride Level 98 mmol/L (98-107) Carbon Dioxide Level 37 mmol/L (21-32) Anion Gap 1 (6-14) Blood Urea Nitrogen 16 mg/dL (7-20) Creatinine 1.1 mg/dL (0.6-1.0) Estimated GFR (Cockcroft-Gault) 58.1 BUN/Creatinine Ratio 15 (6-20) Glucose Level 189 mg/dL (70-99) Calcium Level 9.5 mg/dL (8.5-10.1) Phosphorus Level 5.3 mg/dL (2.6-4.7) Magnesium Level 1.8 mg/dL (1.8-2.4) Total Bilirubin 0.3 mg/dL (0.2-1.0) Aspartate Amino Transf (AST/SGOT) 17 U/L (15-37) Alanine Aminotransferase (ALT/SGPT) 11 U/L (14-59) Alkaline Phosphatase 53 U/L (46-116) Total Protein 7.8 g/dL (6.4-8.2) Albumin 2.8 g/dL (3.4-5.0) Albumin/Globulin Ratio 0.6 (1.0-1.7) Glucose (Fingerstick) 191 mg/dL (70-99) 188 mg/dL (70-99) Laboratory Tests Test 02/09/19 16:22 02/09/19 21:26 02/10/19 06:10 02/10/19 07:30 Glucose (Fingerstick) 280 mg/dL (70-99) 296 mg/dL (70-99) 191 mg/dL (70-99) White Blood Count 7.6 x10^3/uL (4.0-11.0) Red Blood Count 2.99 x10^6/uL (3.50-5.40) Hemoglobin 8.0 g/dL (12.0-15.5) Hematocrit 25.4 % (36.0-47.0) Mean Corpuscular Volume 85 fL (79-100) Mean Corpuscular Hemoglobin 27 pg (25-35) Mean Corpuscular Hemoglobin Concent 31 g/dL (31-37) Red Cell Distribution Width 15.9 % (11.5-14.5) Platelet Count 447 x10^3/uL (140-400) Neutrophils (%) (Auto) 71 % (31-73) Lymphocytes (%) (Auto) 14 % (24-48) Monocytes (%) (Auto) 13 % (0-9) Eosinophils (%) (Auto) 2 % (0-3) Basophils (%) (Auto) 1 % (0-3) Neutrophils # (Auto) 5.3 x10^3/uL (1.8-7.7) Lymphocytes # (Auto) 1.0 x10^3/uL (1.0-4.8) Monocytes # (Auto) 1.0 x10^3/uL (0.0-1.1) Eosinophils # (Auto) 0.2 x10^3/uL (0.0-0.7) Basophils # (Auto) 0.1 x10^3/uL (0.0-0.2) Sodium Level 136 mmol/L (136-145) Potassium Level 5.0 mmol/L (3.5-5.1) Chloride Level 98 mmol/L (98-107) Carbon Dioxide Level 37 mmol/L (21-32) Anion Gap 1 (6-14) Blood Urea Nitrogen 16 mg/dL (7-20) Creatinine 1.1 mg/dL (0.6-1.0) Estimated GFR (Cockcroft-Gault) 58.1 BUN/Creatinine Ratio 15 (6-20) Glucose Level 189 mg/dL (70-99) Calcium Level 9.5 mg/dL (8.5-10.1) Phosphorus Level 5.3 mg/dL (2.6-4.7) Magnesium Level 1.8 mg/dL (1.8-2.4) Total Bilirubin 0.3 mg/dL (0.2-1.0) Aspartate Amino Transf (AST/SGOT) 17 U/L (15-37) Alanine Aminotransferase (ALT/SGPT) 11 U/L (14-59) Alkaline Phosphatase 53 U/L (46-116) Total Protein 7.8 g/dL (6.4-8.2) Albumin 2.8 g/dL (3.4-5.0) Albumin/Globulin Ratio 0.6 (1.0-1.7) Test 02/10/19 12:02 Glucose (Fingerstick) 188 mg/dL (70-99) Medications Current Medications Ondansetron HCl (Zofran) 4 mg PRN Q6HRS PRN IVP NAUSEA/VOMITING 1ST CHOICE; Start 02/04/19 at 02:30 Acetaminophen (Tylenol) 650 mg PRN Q6HRS PRN PO MILD PAIN 1-3; Start 02/04/19 at 02:30 Sodium Chloride 1,000 ml @ 80 mls/hr 1X ONCE IV Last administered on 02/04/19at 04:07; Start 02/04/19 at 03:00; Stop 02/04/19 at 15:29; Status DC Morphine Sulfate (Morphine Sulfate) 1 mg PRN Q2HR PRN IV PAIN Last administered on 02/05/19at 21:04; Start 02/04/19 at 02:30 Iohexol (Omnipaque 350 Mg/ml) 75 ml 1X ONCE IV Last administered on 02/04/19 09:07; Start 02/04/19 at 09:00; Stop 02/04/19 at 09:01; Status DC Info (CONTRAST GIVEN -- Rx MONITORING) 1 each PRN DAILY PRN MC SEE COMMENTS; Start 02/04/19 at 09:00; Stop 02/06/19 at 08:59; Status DC Info (Tpn Per Pharmacy) 1 each PRN DAILY PRN MC SEE COMMENTS Last administered on 02/08/19at 13:28; Start 02/04/19 at 11:30; Stop 02/10/19 at 09:46; Status DC Sodium Chloride 45 meq/Potassium Chloride 50 meq/ Potassium Phosphate 13.6 mmol/Magnesium Sulfate 10 meq/ Calcium Gluconate 10 meq/ Multivitamins 10 ml/Chromium/ Copper/Manganese/ Seleni/Zn 1 ml/ Total Parenteral Nutrition/Amino Acids/Dextrose/ Fat Emulsion Intravenous 1,512 ml @ 63 mls/hr TPN CONT IV Last administered on 02/04/19at 22:37; Start 02/04/19 at 22:00; Stop 02/05/19 at 21:59; Status DC Aspirin (Aspirin Rectal Supp) 300 mg DAILY AL Last administered on 02/07/19 08:38; Start 02/05/19 at 09:00; Stop 02/07/19 at 17:03; Status DC Simvastatin (Zocor) 10 mg QHS PO Last administered on 02/09/19at 21:42; Start 02/04/19 at 21:00 Fentanyl (Duragesic 50mcg/ Hr Patch) 1 patch Q72H TD Last administered on 02/07/19at 18:20; Start 02/04/19 at 18:45 Alteplase, Recombinant (Cathflo For Central Catheter Clearance) 1 mg 1X ONCE INT CAT Last administered on 02/05/19 12:08; Start 02/05/19 at 11:00; Stop 02/05/19 at 11:01; Status DC Magnesium Sulfate 50 ml @ 25 mls/hr 1X ONCE IV Last administered on 02/05/19at 12:08; Start 02/05/19 at 11:30; Stop 02/05/19 at 13:29; Status DC Sodium Chloride 45 meq/Potassium Chloride 40 meq/ Potassium Phosphate 17 mmol/ Magnesium Sulfate 10 meq/Calcium Gluconate 10 meq/ Multivitamins 10 ml/Chromium/ Copper/Manganese/ Seleni/Zn 1 ml/ Total Parenteral Nutrition/Amino Acids/Dext kisha/ Fat Emulsion Intravenous 1,512 ml @ 63 mls/hr TPN CONT IV Last administered on 02/05/19at 22:35; Start 02/05/19 at 22:00; Stop 02/06/19 at 21:59; Status DC Alteplase, Recombinant (Cathflo For Central Catheter Clearance) 1 mg 1X ONCE INT CAT Last administered on 02/06/19at 02:39; Start 02/06/19 at 02:30; Stop 02/06/19 at 02:31; Status DC Alteplase, Recombinant (Cathflo For Central Catheter Clearance) 1 mg 1X ONCE INT CAT Last administered on 02/06/19at 04:14; Start 02/06/19 at 05:00; Stop 02/06/19 at 05:01; Status DC Alteplase, Recombinant (Cathflo For Central Catheter Clearance) 1 mg 1X ONCE INT CAT Last administered on 02/06/19at 10:13; Start 02/06/19 at 10:30; Stop 02/06/19 at 10:31; Status DC Alteplase, Recombinant (Cathflo For Central Catheter Clearance) 1 mg 1X ONCE INT CAT Last administered on 02/06/19at 13:21; Start 02/06/19 at 13:00; Stop 02/06/19 at 13:01; Status DC Gabapentin (Neurontin) 300 mg TID PO Last administered on 02/10/19at 09:15; Start 02/06/19 at 14:00 Insulin Human Lispro (HumaLOG) 8 units TIDWMEALS SQ Last administered on 02/10/19at 12:31; Start 02/06/19 at 17:00 Albuterol/ Ipratropium (Duoneb) 3 ml RTQID NEB Last administered on 02/10/19at 12:00; Start 02/06/19 at 16:00 Lactobacillus Rhamnosus (Culturelle) 1 cap BID PO Last administered on 02/10/19 09:15; Start 02/06/19 at 14:00 Lisinopril (Prinivil) 10 mg DAILY PO Last administered on 02/07/19 08:39; Start 02/06/19 at 15:00; Stop 02/07/19 at 17:03; Status DC Polyethylene Glycol (miraLAX PACKET) 17 gm PRN BID PRN PO CONSTIPATION 1ST CHOICE Last administered on 02/09/19at 10:44; Start 02/06/19 at 13:15 Simvastatin (Zocor) 10 mg QHS PO ; Start 02/06/19 at 21:00; Stop 02/06/19 at 13:30; Status DC Insulin Glargine (Lantus Syringe) 10 unit QHS SQ Last administered on 02/09/19 21:49; Start 02/06/19 at 21:00 Pantoprazole Sodium (Protonix) 40 mg DAILYAC PO Last administered on 02/10/19 09:15; Start 02/06/19 at 14:00 Sodium Phosphate 20 mmol/Dextrose 256.6667 ml @ 64.167 m... 1X ONCE IV Last administered on 02/06/19 19:14; Start 02/06/19 at 14:00; Stop 02/06/19 at 17:59; Status DC Sodium Chloride 45 meq/Potassium Chloride 40 meq/ Potassium Phosphate 27 mmol/ Magnesium Sulfate 15 meq/Calcium Gluconate 10 meq/ Multivitamins 10 ml/Chromium/ Copper/Manganese/ Seleni/Zn 1 ml/ Total Parenteral Nutrition/Amino Acids/Dextrose/ Fat Emulsion Intravenous 1,512 ml @ 63 mls/hr TPN CONT IV Last administered on 02/06/19at 22:32; Start 02/06/19 at 22:00; Stop 02/07/19 at 21:59; Status DC Clonidine HCl (Catapres) 0.1 mg PRN Q1HR PRN PO HYPERTENSION; Start 02/06/19 at 20:15 Ondansetron HCl (Zofran) 4 mg PRN Q6HRS PRN IVP NAUSEA/VOMITING; Start 02/06/19 at 20:15; Status UNV Insulin Human Lispro (HumaLOG) 0-9 UNITS TIDWMEALS SQ Last administered on 02/10/19at 12:32; Start 02/07/19 at 08:00 Dextrose (Dextrose 50%-Water Syringe) 12.5 gm PRN Q15MIN PRN IV SEE COMMENTS; Start 02/06/19 at 20:15 Magnesium Sulfate 100 ml @ 25 mls/hr 1X ONCE IV Last administered on 02/07/19at 08:39; Start 02/07/19 at 08:30; Stop 02/07/19 at 12:29; Status DC Sodium Phosphate 20 mmol/Dextrose 256.6667 ml @ 64.167 m... 1X ONCE IV Last administered on 02/07/19at 12:30; Start 02/07/19 at 12:00; Stop 02/07/19 at 15:59; Status DC Sodium Chloride 45 meq/Potassium Chloride 40 meq/ Potassium Phosphate 27 mmol/ Magnesium Sulfate 15 meq/Calcium Gluconate 10 meq/ Multivitamins 10 ml/Chromium/ Copper/Manganese/ Seleni/Zn 1 ml/ Total Parenteral Nutrition/Amino Acids/Dextrose/ Fat Emulsion Intravenous 1,512 ml @ 63 mls/hr TPN CONT IV Last administered on 02/07/19at 21:44; Start 02/07/19 at 22:00; Stop 02/08/19 at 21:59; Status DC Lisinopril (Prinivil) 20 mg DAILY PO Last administered on 02/10/19at 09:16; Start 02/08/19 at 09:00 Metoprolol Tartrate (Lopressor) 25 mg BID PO Last administered on 02/10/19at 09:16; Start 02/07/19 at 21:00 Aspirin (Ecotrin) 325 mg DAILYWBKFT PO Last administered on 02/10/19at 09:15; Start 02/08/19 at 08:00 Sodium Chloride 45 meq/Potassium Chloride 40 meq/ Potassium Phosphate 27 mmol/ Magnesium Sulfate 15 meq/Calcium Gluconate 10 meq/ Multivitamins 10 ml/Chromium/ Copper/Manganese/ Seleni/Zn 1 ml/ Total Parenteral Nutrition/Amino Acids/Dextrose/ Fat Emulsion Intravenous 1,512 ml @ 63 mls/hr TPN CONT IV Last administered on 02/08/19at 22:40; Start 02/08/19 at 22:00; Stop 02/09/19 at 21:59; Status DC Active Scripts Active Tylenol (Acetaminophen) 325 Mg Tablet 650 Mg PO PRN Q6HRS PRN 30 Days Metoprolol Tartrate 25 Mg Tablet 25 Mg PO BID 30 Days FENTANYL 50mcg/hr (Fentanyl) 1 Each Patch.td72 1 Patch TD Q72H 30 Days Lisinopril 10 Mg Tablet 2 Tab PO DAILY 30 Days Humalog (Insulin Lispro) 100 Unit/1 Ml Insuln.pen 8 Units SQ TIDWMEALS 30 Days + Sliding scale 1u for every 50mg/dL > 150mg/dL Call MD for glucose > 350 If glucose < 100, sliding scale only Lantus Solostar (Insulin Glargine,Hum.rec.anlog) 100 Unit/1 Ml Insuln.pen 10 Units SQ QHS 30 Days Culturelle (Lactobacillus Rhamnosus Gg) 1 Each Cap.sprink 1 Cap PO BID 10 Days Polyethylene Glycol 3350 17 Gm Powd.pack 17 Gm PO PRN BID PRN 30 Days Duoneb 0.5-3(2.5) Mg/3 Ml (Albuterol/Ipratropium) 3 Ml Ampul.neb 3 Ml NEB RTQID 30 Days Simvastatin 10 Mg Tablet 1 Tab PO QHS 30 Days Gabapentin 300 Mg Capsule 300 Mg PO TID 30 Days Reported Omeprazole 20 Mg Capsule. 2 Cap PO DAILY Vitals/I & O Vital Sign - Last 24 Hours 02/09/19 02/09/19 02/09/19 02/09/19 14:59 15:00 19:00 19:41 Temp 97.8 98.5 97.8 98.5 Pulse 89 95 Resp 18 18 B/P (MAP) 129/68 (88) 152/67 (95) Pulse Ox 98 95 92 98 O2 Delivery Nasal Cannula Nasal Cannula Nasal Cannula Nasal Cannula O2 Flow Rate 2.0 3.0 3.0 2.0 02/09/19 02/09/19 02/09/19 02/10/19 20:00 21:43 23:00 00:00 Temp 98.5 98.5 98.5 98.5 Pulse 95 95 83 Resp 18 18 B/P (MAP) 152/67 152/67 (95) 127/60 (82) Pulse Ox 92 93 O2 Delivery Nasal Cannula Nasal Cannula Nasal Cannula O2 Flow Rate 3.0 3.0 3.0 10/17/19 10/17/19 10/17/19 10/17/19 03:00 07:00 07:38 08:30 Temp 98.3 98.0 98.3 98.0 Pulse 85 95 Resp 18 16 B/P (MAP) 122/58 (79) 140/68 (92) Pulse Ox 96 95 100 O2 Delivery Nasal Cannula Nasal Cannula Nasal Cannula Nasal Cannula O2 Flow Rate 3.0 3.0 2.0 2.0 02/10/19 02/10/19 02/10/19 02/10/19 09:16 09:16 11:00 12:02 Temp 98.3 98.3 Pulse 95 95 67 Resp 16 B/P (MAP) 140/68 140/68 101/58 (72) Pulse Ox 98 100 O2 Delivery Nasal Cannula Nasal Cannula O2 Flow Rate 3.0 2.0 Intake and Output 02/09/19 02/09/19 02/10/19 15:00 23:00 07:00 Intake Total 200 ml 0 ml Balance 200 ml 0 ml ABRAHAM FAIRBANKS MD Feb 10, 2019 13:50
--- NOTE | 2019-02-10 14:33 | NUR ---
JANETTE following pt. JANETTE phoned and faxed orders to [facility], confirmed pt is able to wear event monitor at facility. Pt will transport via facility arranged w/c van between [id number]. RN and pt's daughter notified.
[2019-02-10] MEDS: fentaNYL 50MCG/HR PATCH 1 PATCH PATCH.TD72 TD SCH (15:14)
--- NOTE | 2019-02-10 16:30 | NUR ---
Discharge Note: LINDA IRBY [facility] Discharge instructions and discharge home medications reviewed with Other facility and a copy given. All questions have been answered and understanding verbalized. The following instructions and handouts were given: discharge instruction, report of patient, copy of chart and medications. Discontinued lines and drains: PICC Line DL discontinued intact. Patient discharged to [facility] with Transport Personnel via Wheelchair
[2019-02-15] MEDS ORDERED: FENT1PAT17 TD (09:27)
[2019-02-15] MEDS ORDERED: ALBU2.5V8 NEB (09:27)
== END 2019-02-10 16:30 | DRG 64 ==
LOC: 1 WEST ICU 02-04 00:41 → 5 SOUTH 02-05 14:52 → 6 SOUTH 02-05 15:47 → 5 SOUTH 02-08 16:01
PROVIDERS: ADMIT Internal Medicine; ATTEND Internal Medicine
PROC: 02HV33Z Insertion of Infusion Device into Superior Vena Cava, Percutaneous Approach (ICD-10-PCS; principal; 2019-02-03)
DX: I63.40 Cerebral infarction due to embolism of unspecified cerebral artery (principal); G93.41 Metabolic encephalopathy; J96.90 Respiratory failure, unspecified, unspecified whether with hypoxia or hypercapnia; G93.6 Cerebral edema; E43 Unspecified severe protein-calorie malnutrition; I50.32 Chronic diastolic (congestive) heart failure; I47.1 Supraventricular tachycardia; G81.91 Hemiplegia, unspecified affecting right dominant side; E11.40 Type 2 diabetes mellitus with diabetic neuropathy, unspecified; E78.5 Hyperlipidemia, unspecified; I11.0 Hypertensive heart disease with heart failure; J44.9 Chronic obstructive pulmonary disease, unspecified; Z51.5 Encounter for palliative care; I27.20 Pulmonary hypertension, unspecified; R13.10 Dysphagia, unspecified; E83.42 Hypomagnesemia; I07.1 Rheumatic tricuspid insufficiency; E66.01 Morbid (severe) obesity due to excess calories; Z92.21 Personal history of antineoplastic chemotherapy; Z92.3 Personal history of irradiation; Z85.118 Personal history of other malignant neoplasm of bronchus and lung; Z79.82 Long term (current) use of aspirin; Z68.35 Body mass index [BMI] 35.0-35.9, adult; Z88.0 Allergy status to penicillin; Z88.2 Allergy status to sulfonamides; Z88.8 Allergy status to other drugs, medicaments and biological substances; Z91.041 Radiographic dye allergy status; Z82.49 Family history of ischemic heart disease and other diseases of the circulatory system
CPT/HCPCS: 36415; 36569; 70496; 70498; 70551; 71045; 80048; 80053; 80061; 82607; 82962; 83735; 84100; 84443; 84478; 85025; 93306; 94640; 94760; J0610; J1815; J2270; J3475; J3480; J7030; J7620; Q9967; 92507; 92523; 92526; 92610; 97110; 97530; 97535; G0378

== ENCOUNTER 2019-02-11 23:03 | Inpatient (IN) | payer MEDICARE, OTHER ==
[~2019-02-11] VITALS: Ht 160 cm; Wt 85.0 kg
[~2019-02-11 23:03] MED LIST changes: +ACET325T9 PO; +FENT1PAT17 TD; +IBUP-1060 PO; +METO25TA4 PO; +OMEP20CA10 PO; -SIMV10TA15 PO; +SIMV10TA3 PO
[2019-02-12] VITALS (7 sets, daily range): BP systolic 109–149; BP diastolic 49–74
--- NOTE | 2019-02-12 01:10 | NUR ---
The patient, JOHN IRBY, 78 y/o, F admitted by KYRIE HUSSEIN MD, was given written information regarding hospital policies, unit procedures and contact persons. RN received report from Mela SHELDON at [place] at [phone]. Patient was transported from [place] to [facility] room 656 at 0110. RN performed a head to toe assessment at that time, VSS, afebrile, O2 saturation was 94% on 3L NC. Bed is in lowest locked position, bed alarm on, and call light is within reach. Valuables were checked and left in the room with the patient. RN will continue to monitor patient closely.
[2019-02-12] MEDS ORDERED: DEXTROSE 50% 25 GM / 50ML DISP.SYRIN. IV PRN (02:45)
[2019-02-12] MEDS ORDERED: IV NORMAL SALINE 1000ML BAG 1,000 ML IV ONE (03:00)
[2019-02-12] MEDS ORDERED: POLYETHYLENE GLYCOL 3350 17 GM PACKET. PO PRN (06:15)
[2019-02-12] MEDS ORDERED: DICL100G18 TP (06:35)
[2019-02-12] MEDS ORDERED: albuterol INH (06:35)
[2019-02-12] MEDS ORDERED: FLUT1DIS3 IH (06:35)
[2019-02-12] MEDS: PANTOPRAZOLE 40 MG TABLET.DR. PO SCH (07:14)
[2019-02-12] MEDS ORDERED: IPRATRPIUM/ALBUTEROL 0.5/2.5MG 3 ML NEBU. NEB SCH (08:00)
[2019-02-12] MEDS: IPRATRPIUM/ALBUTEROL 0.5/2.5MG 3 ML NEBU. NEB SCH ×4 (08:03→20:09)
[2019-02-12] MEDS: fentaNYL 50MCG/HR PATCH 1 PATCH PATCH.TD72 TD SCH (08:38)
[2019-02-12] MEDS: METOPROLOL TART IMMED RELEASE 25 MG TABLET. PO SCH ×2 (08:39→21:02)
[2019-02-12] MEDS: GABAPENTIN 300 MG CAPSULE. PO SCH ×3 (08:39→21:02)
[2019-02-12] MEDS: LISINOPRIL 20 MG TABLET PO SCH (08:39)
[2019-02-12] MEDS: LACTOBACILLUS RHAMNOSUS GG 1 CAPSULE. PO SCH ×2 (08:39→21:02)
[2019-02-12] MEDS: methylPREDNISolone SOD SUCC PF 40 MG/ML VIAL. IV SCH ×2 (08:40→21:02)
[2019-02-12] MEDS: INSULIN LISPRO 300 UNITS/3 ML VIAL. SQ SCH ×6 (08:48→17:44)
[2019-02-12] MEDS ORDERED: C.DIFF MED SCREEN BY RX. MC SCH (09:00)
--- NOTE | 2019-02-12 09:11 | PDOC1 ---
History and Physical Date of Admission Date of Admission DATE: 02/12/19 TIME: 09:06 Identification/Chief Complaint Chief Complaint Altered mental status Source Source: Caregiver, Chart review, Patient History of Present Illness History of Present Illness Ms Abbott is a 78-year-old AA female w/ PMHx HTNwho was brought to [facility] ER with symptoms of mental status changes, hypoxia, and right side weakness. She was just discharged to SNF on 02/11/19 and returned to the ED this morning at [facility] with hypoxia and confusion and was immediately transferred to [facility] for concern for another CVA. On her prior hospital stay she was admitted for chest pain, found with similar symptoms with NIH scores were 17. After all criteria were met, TPA was offered and was administrated. She was then transferred to [facility]. Her symptoms slightly improved. CTA was performed in [facility] which did not showed acute abnormalities. 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 She has continued to be confused and have dysphagia for some time. Seen by cardiology, neurology, palliative care in consultation. Had initial difficulty swallowing and required TPN as PEG tube is not desired and she was discharged to SNF for further care. EKG shows a sinus rhythm at 85 bpm, normal axis, QTC of 424 ms, no ST elevation. Inverted T waves in the anterolateral leads. She has been confused and had same right sided weakness for me, pleasant. She did have an ABG showing 7.34/64/66. Last ABG was this past October 2018 7.33/56/73. Cr bumped to 1.3 from 1.1 from her hospital stay previous. She is admitted for concern for hypercapnea and hypoxia, worsening mental status and MATTHEW. Incidentally, she had 2 fentanyl patches on. Past Medical History Cardiovascular: CHF, HTN Pulmonary: COPD, Other GI: GERD Musculoskeletal: Osteoarthritis Rheumatologic: Fibromyalgia Endocrine: Diabetes Past Surgical History Past Surgical History: Total hip replacement, Hysterectomy Family History Family History: Diabetes, Hypertension Social History Smoke: No ALCOHOL: none Drugs: None Current Medications Current Medications Current Medications Methylprednisolone Sodium Succinate (SOLU-Medrol 40MG VIAL) 60 mg BID IV Last administered on 02/12/19at 08:40; Start 02/12/19 at 09:00 Sodium Chloride 1,000 ml @ 75 mls/hr 1X ONCE IV Last administered on 02/12/19at 03:09; Start 02/12/19 at 03:00; Stop 02/12/19 at 16:19 Albuterol/ Ipratropium (Duoneb) 3 ml RTQID NEB ; Start 02/12/19 at 08:00; Status Cancel Insulin Human Lispro (HumaLOG) 0-7 UNITS TIDWMEALS SQ Last administered on 01/25 01/13at 08:48; Start 02/12/19 at 08:00 Dextrose (Dextrose 50%-Water Syringe) 12.5 gm PRN Q15MIN PRN IV SEE COMMENTS; Start 02/12/19 at 02:45 Pharmacy Consult (C.diff Med Screen By Rx) 1 each 0403 [facility] ; Start 02/12/19 at 09:00 Acetaminophen (Tylenol) 650 mg PRN Q6HRS PRN PO MILD PAIN 1-3; Start 02/12/19 at 06:15 Fentanyl (Duragesic 50mcg/ Hr Patch) 1 patch Q72H TD Last administered on 02/12/19 08:38; Start 02/12/19 at 07:00 Gabapentin (Neurontin) 300 mg TID PO Last administered on 02/12/19at 08:39; Start 02/12/19 at 09:00 Insulin Human Lispro (HumaLOG) 8 units TIDWMEALS SQ Last administered on 02/12/19 08:50; Start 02/12/19 at 08:00 Albuterol/ Ipratropium (Duoneb) 3 ml RTQID NEB Last administered on 02/12/19at 08:03; Start 02/12/19 at 08:00 Lactobacillus Rhamnosus (Culturelle) 1 cap BID PO Last administered on 02/12/19at 08:39; Start 02/12/19 at 09:00 Lisinopril (Prinivil) 20 mg DAILY PO Last administered on 02/12/19 08:39; Start 02/12/19 at 09:00 Metoprolol Tartrate (Lopressor) 25 mg BID PO Last administered on 02/12/19at 08:39; Start 02/12/19 at 09:00 Polyethylene Glycol (miraLAX PACKET) 17 gm PRN BID PRN PO CONSTIPATION 1ST CHOICE; Start 02/12/19 at 06:15 Simvastatin (Zocor) 10 mg QHS PO ; Start 02/12/19 at 21:00 Non-Formulary Medication (Insulin Glargine,Hum.rec.anlog (Lantus Solostar)) 10 units QHS SQ ; Start 02/12/19 at 21:00; Status UNV Pantoprazole Sodium (Protonix) 40 mg DAILYAC PO ; Start 02/12/19 at 07:30 Insulin Glargine (Lantus Syringe) 10 unit QHS SQ ; Start 02/12/19 at 21:00 Active Scripts Active Tylenol (Acetaminophen) 325 Mg Tablet 650 Mg PO PRN Q6HRS PRN 30 Days Metoprolol Tartrate 25 Mg Tablet 25 Mg PO BID 30 Days FENTANYL 50mcg/hr (Fentanyl) 1 Each Patch.td72 1 Patch TD Q72H 30 Days Lisinopril 10 Mg Tablet 2 Tab PO DAILY 30 Days Humalog (Insulin Lispro) 100 Unit/1 Ml Insuln.pen 8 Units SQ TIDWMEALS 30 Days + Sliding scale 1u for every 50mg/dL > 150mg/dL Call MD for glucose > 350 If glucose < 100, sliding scale only Lantus Solostar (Insulin Glargine,Hum.rec.anlog) 100 Unit/1 Ml Insuln.pen 10 Units SQ QHS 30 Days Culturelle (Lactobacillus Rhamnosus Gg) 1 Each Cap.sprink 1 Cap PO BID 10 Days Polyethylene Glycol 3350 17 Gm Powd.pack 17 Gm PO PRN BID PRN 30 Days Duoneb 0.5-3(2.5) Mg/3 Ml (Albuterol/Ipratropium) 3 Ml Ampul.neb 3 Ml NEB RTQID 30 Days Simvastatin 10 Mg Tablet 1 Tab PO QHS 30 Days Gabapentin 300 Mg Capsule 300 Mg PO TID 30 Days Reported [albuterol ] 108 Mcg INH Q6HRS PRN Advair 250-50 Diskus (Fluticasone/Salmeterol) 1 Each Disk.w.dev 2 Puff IH BID Voltaren (Diclofenac Sodium) 100 Gm Gel..gram. 2 Gm TP BID 30 Days apply to affected area(s) Omeprazole 20 Mg Capsule. 2 Cap PO DAILY Allergies Allergies: Coded Allergies: Penicillins (Verified Allergy, Severe, 11/13/18) THROAT SWELL amoxicillin trihydrate (Verified Allergy, Intermediate, 10/22/18) famotidine (Verified Allergy, Intermediate, 10/22/18) potassium clavulanate (Verified Allergy, Intermediate, 10/22/18) sulfamethoxazole (Verified Allergy, Intermediate, 10/22/18) trimethoprim (Verified Allergy, Intermediate, 10/22/18) I S O L A T I O N *CONTACT* (Verified Allergy, Unknown, 02/04/19) mrsa ROS Review of System Difficult to get accurate ROS due to confused state. General: No: Chills, Night Sweats, Fatigue, Malaise, Appetite, Other PSYCHOLOGICAL ROS: No: Anxiety, Behavioral Disorder, Concentration difficultie, Decreased libido, Depression, Disorientation, Hallucinations, Hostility, Irritablity, Memory difficulties, Mood Swings, Obsessive thoughts, Physical abuse, Sexual abuse, Sleep disturbances, Suicidal ideation, Other Eyes: No Blurry vision, No Decreased vision, No Double vision, No Dry eyes, No Excessive tearing, No Eye Pain, No Itchy Eyes, No Loss of vision, No Photophobia, No Scotomata, No Uses contacts, No Uses glasses, No Other HEENT: No: Heacaches, Visual Changes, Hearing change, Nasal congestion, Nasal discharge, Oral lesions, Sinus pain, Sore Throat, Epistaxis, Sneezing, Snoring, Tinnitus, Vertigo, Vocal changes, Other ALLERGY AND IMMUNOLOGY: No: Hives, Insect Bite Sensitivity, Itchy/Watery Eyes, Nasal Congestion, Post Nasal Drip, Seasonal Allergies, Other Hematological and Lymphatic: No: Bleeding Problems, Blood Clots, Blood Transfusions, Brusing, Night Sweats, Pallor, Swollen Lymph Nodes, Other ENDOCRINE: No: Breast Changes, Galactorrhea, Hair Pattern Changes, Hot Flashes, Malaise/lethargy, Mood Swings, Palpitations, Polydipsia/polyuria, Skin Changes, Temperature Intolerance, Unexpected Weight Changes, Other Breast: No New/Changing Breast Lumps, No Nipple changes, No Nipple discharge, No Other Respiratory: No: Cough, Hemoptysis, Orthopnea, Pleuritic Pain, Shortness of breath, SOB with excertion, Sputum Changes, Stridor, Tachypnea, Wheezing, Other Cardiovascular: No Chest Pain, No Palpitations, No Orthopnea, No Paroxysmal Noc. Dyspnea, No Edema, No Lt Headedness, No Other Gastrointestinal: No Nausea, No Vomiting, No Abdominal Pain, No Diarrhea, No Constipation, No Melena, No Hematochezia, No Other Genitourinary: No Dysuria, No Frequency, No Incontinence, No Hematuria, No Retention, No Discharge, No Urgency, No Pain, No Flank Pain, No Other, No , No , No , No , No , No , No Musculoskeletal: No Gait Disturbance, No Joint Pain, No Joint Stiffness, No Joint Swelling, No Muscle Pain, No Muscular Weakness, No Pain In:, No Swelling In:, No Other Neurological: No Behavorial Changes, No Bowel/Bladder ControlChng, No Confusion, No Dizziness, No Gait Disturbance, No Headaches, No Impaired Coord/balance, No Memory Loss, No Numbness/Tingling, No Seizures, No Speech Problems, No Tremors, No Visual Changes, No Weakness, No Other Skin: No Dry Skin, No Eczema, No Hair Changes, No Lumps, No Mole Changes, No Mottling, No Nail Changes, No Pruritus, No Rash, No Skin Lesion Changes, No Other, No Acne Physical Exam General: Alert, Cooperative, No acute distress HEENT: Atraumatic, PERRLA, EOMI, Mucous membr. moist/pink Lungs: Other (Scattered wheezes, prolonged expiratory phase) Heart: S1S2, RRR, no thrills, no rubs, no gallops, no murmurs Abdomen: Normal bowel sounds, Soft, No tenderness, No hepatosplenomegaly, No masses Rectal Exam: not examined Extremities: No clubbing, No cyanosis, No edema, Normal pulses, No tenderness/swelling Skin: No rashes, No breakdown, No significant lesion Neuro: Cranial nerves 3-12 NL, Other (Right sided weakness) Psych/Mental Status: Other (Confused) Vitals Vitals Vital Signs Date Time Temp Pulse Resp B/P (MAP) Pulse Ox O2 Delivery O2 Flow Rate FiO2 02/12/19 08:39 88 128/64 02/12/19 08:38 19 Room Air 02/12/19 08:06 97 3.0 02/12/19 07:00 98.9 98.9 VTE Prophylaxis Ordered VTE Prophylaxis Devices: No VTE Pharmacological Prophylaxi: Yes Assessment/Plan Assessment/Plan A/P: Acute hypercapnea - likely 2/2 increased oxygenation, she was 100% on pulse oximetry. O2 was removed for her ABG, however, she also had [address], likely inadvertently overdosed on opioids Acute hypoxia - does not seem to worse than her baseline hypoxia. Will consult pulm for her worsening CO2 retention Prior Acute CVA - s/p tPA on 02/03/19 -Acute small to moderate territory infarct is noted involving the left parietal lobe with involvement of the left post central gyrus. On ASA and had rectal ASA if she will not take PO Pulmonary hypertension - will consult pulm. 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 Will consult pulm HTN - cont meds HLD - on statin DM - with hyperglycemia - will place on basal bolus plus regimen. Thrombocytosis - will monitor. No Jak2 testing as levels are not tremendously high Obesity - previously counseled on proper diet Tricuspid regurgitation with an estimated PAP of 44 mmHg. Persistent dysphagia - dysphagia 1 diet, still not eating well poor dentition - needs dental evaluation, we do not have dental services until 03/07/2019. Cognitive decline - multifactorial, complicated by CVA MATTHEW - likely vasomotor, she was taking PO ok prior to previously d/c but required significant prompting. She has already refused breakfast, will initiate procalamine FEN - Dysphagia 1 diet PPX - Lovenox FULL CODE Dispo - inpatient for respiratory failure in patient recently admitted for acute CVA. Likely home in the next day or 2 EMRE HODGE MD Feb 12, 2019 09:11
[2019-02-12] MEDS ORDERED: ASPIRIN RECTAL 300 MG SUPP. PR PRN (11:30)
[2019-02-12] MEDS ORDERED: AMINO AC 3%/ELECTROLYTE/GLYCER 1,000 ML IV SCH (11:30)
[2019-02-12] MEDS: ALBUTEROL SULFATE 2.5 MG/3 ML NEBU. NEB SCH ×3 (12:00→20:00)
[2019-02-12] MEDS: ASPIRIN 325 MG TABLET PO SCH (12:04)
[2019-02-12] MEDS: ENOXAPARIN 40 MG/0.4 ML SYRINGE. SQ SCH (12:06)
--- NOTE | 2019-02-12 15:14 | NUR ---
Pharmacy Medication Review S: Consulted for medication review re: C.diff Risk Assessment score of 7 O: JOHN IRBY is a 78 year old with: Previous C.diff infection: No Previous hospitalization: Within 30 days Recent antibiotics: Within 30 days Use of gastric acid suppressor: Yes Transfer from MD/LTAC: Yes Current antibiotic regimen: NONE Current acid suppression regimen: pantoprazole 40mg dialy A: Patient has been identified as having risk factors for C.diff infection as noted above. P: Antibiotic Regimen recommendation made: n/a Probiotic ordered: no PPI changed to [id number]: no - allergic to famotidine Nessa Amaral RPH, 02/12/19 [id number]
[2019-02-12] MEDS: BUDESONIDE 0.5 MG/2 ML NEBU. NEB SCH (20:09)
[2019-02-12] MEDS ORDERED: INSULIN GLARGINE HUM REC ANLOG 10 UNIT SQ SCH (21:00)
[2019-02-12] MEDS: SIMVASTATIN 10 MG TABLET PO SCH (21:02)
[2019-02-12] MEDS: INSULIN GLARGINE SYRINGE. SQ SCH (21:04)
[2019-02-12] MEDS: DICLOFENAC SODIUM 1% TOPICAL GEL 100GM TUBE. TP SCH (21:04)
[2019-02-12] MEDS ORDERED: INSULIN LISPRO 300 UNITS/3 ML VIAL. SQ SCH (21:45)
[2019-02-12] MEDS ORDERED: INSULIN LISPRO 300 UNITS/3 ML VIAL. SQ ONE (22:15)
[2019-02-13] VITALS (7 sets, daily range): BP systolic 119–173; BP diastolic 53–82
[2019-02-13 05:23] LABS: BASO % 0 % (0-3); EOS % 0 % (0-3); HEMATOCRIT 26.7 % (36.0-47.0); HEMOGLOBIN 8.4 g/dL (12.0-15.5); LYMPH # 0.7 x10^3/uL (1.0-4.8); LYMPH % 10 % (24-48); MEAN CORPUSCULAR HEMOGLOBIN 26 pg (25-35); MEAN CORPUSCULAR HGB CONC 31 g/dL (31-37); MEAN CORPUSCULAR VOLUME 84 fL (79-100); MONO # 0.4 x10^3/uL (0.0-1.1); MONO % 5 % (0-9); NEUT # 5.6 x10^3/uL (1.8-7.7); NEUT % 85 % (31-73); PLATELET COUNT 520 x10^3/uL (140-400); RED BLOOD COUNT 3.17 x10^6/uL (3.50-5.40); RED CELL DISTRIBUTION WIDTH 15.9 % (11.5-14.5); WHITE BLOOD COUNT 6.7 x10^3/uL (4.0-11.0)
[2019-02-13 05:39] LABS: CALCIUM 9.4 mg/dL (8.5-10.1); CREATININE 1.3 mg/dL (0.6-1.0); GFR 47.9; PHOSPHORUS 3.4 mg/dL (2.6-4.7); POTASSIUM 5.2 mmol/L (3.5-5.1)
[2019-02-13] MEDS: BUDESONIDE 0.5 MG/2 ML NEBU. NEB SCH ×2 (07:34→20:32)
[2019-02-13] MEDS: IPRATRPIUM/ALBUTEROL 0.5/2.5MG 3 ML NEBU. NEB SCH ×4 (07:34→20:32)
[2019-02-13] MEDS: ALBUTEROL SULFATE 2.5 MG/3 ML NEBU. NEB SCH ×3 (07:35→16:00)
--- NOTE | 2019-02-13 08:19 | PDOC ---
Provider Note Provider Note [id number] acute on chronic resp fail ae of copd abnl cxr cxr SPENCER Beatty MD Feb 13, 2019 08:19
[2019-02-13] MEDS: GABAPENTIN 300 MG CAPSULE. PO SCH ×3 (08:26→21:19)
[2019-02-13] MEDS: LACTOBACILLUS RHAMNOSUS GG 1 CAPSULE. PO SCH ×2 (08:26→21:19)
[2019-02-13] MEDS: LISINOPRIL 20 MG TABLET PO SCH (08:27)
[2019-02-13] MEDS: METOPROLOL TART IMMED RELEASE 25 MG TABLET. PO SCH ×2 (08:28→21:19)
[2019-02-13] MEDS: ASPIRIN 325 MG TABLET PO SCH (08:32)
[2019-02-13] MEDS: PANTOPRAZOLE 40 MG TABLET.DR. PO SCH (08:32)
[2019-02-13] MEDS: ENOXAPARIN 40 MG/0.4 ML SYRINGE. SQ SCH (08:33)
[2019-02-13] MEDS: INSULIN LISPRO 300 UNITS/3 ML VIAL. SQ SCH ×6 (08:49→17:10)
[2019-02-13] MEDS: DICLOFENAC SODIUM 1% TOPICAL GEL 100GM TUBE. TP SCH ×3 (09:00→21:20)
[2019-02-13] MEDS ORDERED: methylPREDNISolone SOD SUCC PF 40 MG/ML VIAL. IV SCH (09:00)
[2019-02-13] MEDS ORDERED: IV NORMAL SALINE 1000ML BAG 1,000 ML IV ONE (09:00)
--- NOTE | 2019-02-13 09:02 | PDOC ---
PROGRESS NOTES Chief Complaint Chief Complaint A/P: Acute hypercapnea - likely 2/2 increased oxygenation, she was 100% on pulse oximetry. O2 was removed for her ABG, however, she also had [address], likely inadvertently overdosed on opioids Acute hypoxia - does not seem to worse than her baseline hypoxia. Will consult pulm for her worsening CO2 retention Prior Acute CVA - s/p tPA on 02/03/19 -Acute small to moderate territory infarct is noted involving the left parietal lobe with involvement of the left post central gyrus. On ASA and had rectal ASA if she will not take PO Pulmonary hypertension - will consult pulm. 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 Will consult pulm HTN - cont meds HLD - on statin DM - with hyperglycemia - will place on basal bolus plus regimen. Thrombocytosis - will monitor. No Jak2 testing as levels are not tremendously high Obesity - previously counseled on proper diet Tricuspid regurgitation with an estimated PAP of 44 mmHg. Persistent dysphagia - dysphagia 1 diet, still not eating well poor dentition - needs dental evaluation, we do not have dental services until 03/07/2019. Cognitive decline - multifactorial, complicated by CVA MATTHEW - likely vasomotor, she was taking PO ok prior to previously d/c but required significant prompting. FEN - Dysphagia 1 diet PPX - Lovenox FULL CODE Dispo - inpatient for respiratory failure in patient recently admitted for acute CVA. Likely home today with only 1 fentanyl patch History of Present Illness History of Present Illness Ms Abbott is a 78-year-old AA female w/ PMHx HTNwho was brought to [facility] ER with symptoms of mental status changes, hypoxia, and right side weakness. She was just discharged to SNF on 02/11/19 and returned to the ED this morning at [place] with hypoxia and confusion and was immediately transferred to [facility] for concern for another CVA. On her prior hospital stay she was admitted for chest pain, found with similar symptoms with NIH scores were 17. After all criteria were met, TPA was offered and was administrated. She was then transferred to [facility]. Her symptoms slightly improved. CTA was performed in [facility] which did not showed acute abnormalities. 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 She has continued to be confused and have dysphagia for some time. Seen by cardiology, neurology, palliative care in consultation. Had initial difficulty swallowing and required TPN as PEG tube is not desired and she was discharged to SNF for further care. EKG shows a sinus rhythm at 85 bpm, normal axis, QTC of 424 ms, no ST elevation. Inverted T waves in the anterolateral leads. She has been confused and had same right sided weakness for me, pleasant. She did have an ABG showing 7.34/64/66. Last ABG was this past October 2018 7.33/56/73. Cr bumped to 1.3 from 1.1 from her hospital stay previous. She is admitted for concern for hypercapnea and hypoxia, worsening mental status and MATTHEW. Incidentally, she had 2 fentanyl patches on, which were removed Vitals Vitals Vital Signs Date Time Temp Pulse Resp B/P (MAP) Pulse Ox O2 Delivery O2 Flow Rate FiO2 02/13/19 08:28 78 119/53 02/13/19 07:36 Nasal Cannula 3.0 02/13/19 07:00 97.8 17 93 97.8 Physical Exam General: Alert, Cooperative, No acute distress Lungs: Clear Abdomen: Normal bowel sounds, Soft, No tenderness, No hepatosplenomegaly, No masses Extremities: No clubbing, No cyanosis, No edema, Normal pulses, No tenderness/swelling Skin: No rashes, No breakdown, No significant lesion Labs LABS Laboratory Tests Test 02/12/19 17:02 02/12/19 20:54 02/12/19 23:42 02/13/19 04:00 Glucose (Fingerstick) 328 mg/dL (70-99) 320 mg/dL (70-99) 300 mg/dL (70-99) White Blood Count 6.7 x10^3/uL (4.0-11.0) Red Blood Count 3.17 x10^6/uL (3.50-5.40) Hemoglobin 8.4 g/dL (12.0-15.5) Hematocrit 26.7 % (36.0-47.0) Mean Corpuscular Volume 84 fL (79-100) Mean Corpuscular Hemoglobin 26 pg (25-35) Mean Corpuscular Hemoglobin Concent 31 g/dL (31-37) Red Cell Distribution Width 15.9 % (11.5-14.5) Platelet Count 520 x10^3/uL (140-400) Neutrophils (%) (Auto) 85 % (31-73) Lymphocytes (%) (Auto) 10 % (24-48) Monocytes (%) (Auto) 5 % (0-9) Eosinophils (%) (Auto) 0 % (0-3) Basophils (%) (Auto) 0 % (0-3) Neutrophils # (Auto) 5.6 x10^3/uL (1.8-7.7) Lymphocytes # (Auto) 0.7 x10^3/uL (1.0-4.8) Monocytes # (Auto) 0.4 x10^3/uL (0.0-1.1) Eosinophils # (Auto) 0.0 x10^3/uL (0.0-0.7) Basophils # (Auto) 0.0 x10^3/uL (0.0-0.2) Sodium Level 135 mmol/L (136-145) Potassium Level 5.2 mmol/L (3.5-5.1) Chloride Level 97 mmol/L (98-107) Carbon Dioxide Level 32 mmol/L (21-32) Anion Gap 6 (6-14) Blood Urea Nitrogen 29 mg/dL (7-20) Creatinine 1.3 mg/dL (0.6-1.0) Estimated GFR (Cockcroft-Gault) 47.9 Glucose Level 300 mg/dL (70-99) Calcium Level 9.4 mg/dL (8.5-10.1) Phosphorus Level 3.4 mg/dL (2.6-4.7) Albumin 3.0 g/dL (3.4-5.0) Test 02/13/19 07:29 Glucose (Fingerstick) 295 mg/dL (70-99) Comment Review of Relevant I have reviewed the following items myesha (where applicable) has been applied. Labs Laboratory Tests Test 02/12/19 04:03 02/12/19 07:27 02/12/19 17:02 02/12/19 20:54 Nasal Screen MRSA (PCR) Negative (Negative) Glucose (Fingerstick) 337 mg/dL (70-99) 328 mg/dL (70-99) 320 mg/dL (70-99) Test 02/12/19 23:42 02/13/19 04:00 02/13/19 07:29 Glucose (Fingerstick) 300 mg/dL (70-99) 295 mg/dL (70-99) White Blood Count 6.7 x10^3/uL (4.0-11.0) Red Blood Count 3.17 x10^6/uL (3.50-5.40) Hemoglobin 8.4 g/dL (12.0-15.5) Hematocrit 26.7 % (36.0-47.0) Mean Corpuscular Volume 84 fL (79-100) Mean Corpuscular Hemoglobin 26 pg (25-35) Mean Corpuscular Hemoglobin Concent 31 g/dL (31-37) Red Cell Distribution Width 15.9 % (11.5-14.5) Platelet Count 520 x10^3/uL (140-400) Neutrophils (%) (Auto) 85 % (31-73) Lymphocytes (%) (Auto) 10 % (24-48) Monocytes (%) (Auto) 5 % (0-9) Eosinophils (%) (Auto) 0 % (0-3) Basophils (%) (Auto) 0 % (0-3) Neutrophils # (Auto) 5.6 x10^3/uL (1.8-7.7) Lymphocytes # (Auto) 0.7 x10^3/uL (1.0-4.8) Monocytes # (Auto) 0.4 x10^3/uL (0.0-1.1) Eosinophils # (Auto) 0.0 x10^3/uL (0.0-0.7) Basophils # (Auto) 0.0 x10^3/uL (0.0-0.2) Sodium Level 135 mmol/L (136-145) Potassium Level 5.2 mmol/L (3.5-5.1) Chloride Level 97 mmol/L (98-107) Carbon Dioxide Level 32 mmol/L (21-32) Anion Gap 6 (6-14) Blood Urea Nitrogen 29 mg/dL (7-20) Creatinine 1.3 mg/dL (0.6-1.0) Estimated GFR (Cockcroft-Gault) 47.9 Glucose Level 300 mg/dL (70-99) Calcium Level 9.4 mg/dL (8.5-10.1) Phosphorus Level 3.4 mg/dL (2.6-4.7) Albumin 3.0 g/dL (3.4-5.0) Laboratory Tests Test 02/12/19 17:02 02/12/19 20:54 02/12/19 23:42 02/13/19 04:00 Glucose (Fingerstick) 328 mg/dL (70-99) 320 mg/dL (70-99) 300 mg/dL (70-99) White Blood Count 6.7 x10^3/uL (4.0-11.0) Red Blood Count 3.17 x10^6/uL (3.50-5.40) Hemoglobin 8.4 g/dL (12.0-15.5) Hematocrit 26.7 % (36.0-47.0) Mean Corpuscular Volume 84 fL (79-100) Mean Corpuscular Hemoglobin 26 pg (25-35) Mean Corpuscular Hemoglobin Concent 31 g/dL (31-37) Red Cell Distribution Width 15.9 % (11.5-14.5) Platelet Count 520 x10^3/uL (140-400) Neutrophils (%) (Auto) 85 % (31-73) Lymphocytes (%) (Auto) 10 % (24-48) Monocytes (%) (Auto) 5 % (0-9) Eosinophils (%) (Auto) 0 % (0-3) Basophils (%) (Auto) 0 % (0-3) Neutrophils # (Auto) 5.6 x10^3/uL (1.8-7.7) Lymphocytes # (Auto) 0.7 x10^3/uL (1.0-4.8) Monocytes # (Auto) 0.4 x10^3/uL (0.0-1.1) Eosinophils # (Auto) 0.0 x10^3/uL (0.0-0.7) Basophils # (Auto) 0.0 x10^3/uL (0.0-0.2) Sodium Level 135 mmol/L (136-145) Potassium Level 5.2 mmol/L (3.5-5.1) Chloride Level 97 mmol/L (98-107) Carbon Dioxide Level 32 mmol/L (21-32) Anion Gap 6 (6-14) Blood Urea Nitrogen 29 mg/dL (7-20) Creatinine 1.3 mg/dL (0.6-1.0) Estimated GFR (Cockcroft-Gault) 47.9 Glucose Level 300 mg/dL (70-99) Calcium Level 9.4 mg/dL (8.5-10.1) Phosphorus Level 3.4 mg/dL (2.6-4.7) Albumin 3.0 g/dL (3.4-5.0) Test 02/13/19 07:29 Glucose (Fingerstick) 295 mg/dL (70-99) Medications Current Medications Methylprednisolone Sodium Succinate (SOLU-Medrol 40MG VIAL) 60 mg BID IV Last administered on 02/12/19 21:02; Start 02/12/19 at 09:00; Stop 02/13/19 at 08:11; Status DC Sodium Chloride 1,000 ml @ 75 mls/hr 1X ONCE IV Last administered on 02/12/19 03:09; Start 02/12/19 at 03:00; Stop 02/12/19 at 16:19; Status DC Albuterol/ Ipratropium (Duoneb) 3 ml RTQID NEB ; Start 02/12/19 at 08:00; Status Cancel Insulin Human Lispro (HumaLOG) 0-7 UNITS TIDWMEALS SQ Last administered on 02/13/19at 08:49; Start 02/12/19 at 08:00 Dextrose (Dextrose 50%-Water Syringe) 12.5 gm PRN Q15MIN PRN IV SEE COMMENTS; Start 02/12/19 at 02:45 Pharmacy Consult (C.diff Med Screen By Rx) 1 each 0403 [facility] ; Start 02/12/19 at 09:00; Status Cancel Acetaminophen (Tylenol) 650 mg PRN Q6HRS PRN PO MILD PAIN 1-3; Start 02/12/19 at 06:15 Fentanyl (Duragesic 50mcg/ Hr Patch) 1 patch Q72H TD Last administered on 02/12/19at 08:38; Start 02/12/19 at 07:00 Gabapentin (Neurontin) 300 mg TID PO Last administered on 02/13/19 08:26; Start 02/12/19 at 09:00 Insulin Human Lispro (HumaLOG) 8 units TIDWMEALS SQ Last administered on 02/13/19at 08:50; Start 02/12/19 at 08:00 Albuterol/ Ipratropium (Duoneb) 3 ml RTQID NEB Last administered on 02/13/19 07:34; Start 02/12/19 at 08:00 Lactobacillus Rhamnosus (Culturelle) 1 cap BID PO Last administered on 02/13/19 08:26; Start 02/12/19 at 09:00 Lisinopril (Prinivil) 20 mg DAILY PO Last administered on 02/13/19 08:27; Start 02/12/19 at 09:00 Metoprolol Tartrate (Lopressor) 25 mg BID PO Last administered on 02/13/19 08:28; Start 02/12/19 at 09:00 Polyethylene Glycol (miraLAX PACKET) 17 gm PRN BID PRN PO CONSTIPATION 1ST CHOICE; Start 02/12/19 at 06:15 Simvastatin (Zocor) 10 mg QHS PO Last administered on 02/12/19at 21:02; Start 02/12/19 at 21:00 Non-Formulary Medication (Insulin Glargine,Hum.rec.anlog (Lantus Solostar)) 10 units QHS SQ ; Start 02/12/19 at 21:00; Status UNV Pantoprazole Sodium (Protonix) 40 mg DAILYAC PO Last administered on 02/13/19at 08:32; Start 02/12/19 at 07:30 Insulin Glargine (Lantus Syringe) 10 unit QHS SQ Last administered on 02/12/19at 21:04; Start 02/12/19 at 21:00 Amino Acids/ Glycerin/ Electrolytes 1,000 ml @ 80 mls/hr [id number] IV Last administered on 02/12/19 12:04; Start 02/12/19 at 11:30; Stop 02/12/19 at 14:56; Status DC Diclofenac Sodium (Voltaren) 2 lucius BID TP Last administered on 02/12/19 21:04; Start 02/12/19 at 21:00 Albuterol Sulfate (Ventolin Neb Soln) 2.5 mg RTQID NEB Last administered on 02/12/19at 16:46; Start 02/12/19 at 12:00 Aspirin (Aspirin Rectal Supp) 300 mg PRN DAILY PRN OK CVA; Start 02/12/19 at 11:30 Aspirin (Dominick Aspirin) 325 mg DAILYWBKFT PO Last administered on 02/13/19at 08:32; Start 02/12/19 at 11:30 Enoxaparin Sodium (Lovenox 40mg Syringe) 40 mg DAILY SQ Last administered on 02/13/19at 08:33; Start 02/12/19 at 11:45 Budesonide (Pulmicort) 0.5 mg RTBID NEB Last administered on 02/13/19at 07:34; Start 02/12/19 at 20:00 Insulin Human Lispro (HumaLOG) 8 units 1X SQ ; Start 02/12/19 at 21:45; Stop 02/12/19 at 22:08; Status DC Insulin Human Lispro (HumaLOG) 8 units 1X ONCE SQ Last administered on 02/12/19at 22:20; Start 02/12/19 at 22:15; Stop 02/12/19 at 22:16; Status DC Methylprednisolone Sodium Succinate (SOLU-Medrol 40MG VIAL) 40 mg BID IV Last administered on 02/13/19at 08:28; Start 02/13/19 at 09:00 Active Scripts Active Tylenol (Acetaminophen) 325 Mg Tablet 650 Mg PO PRN Q6HRS PRN 30 Days Metoprolol Tartrate 25 Mg Tablet 25 Mg PO BID 30 Days FENTANYL 50mcg/hr (Fentanyl) 1 Each Patch.td72 1 Patch TD Q72H 30 Days Lisinopril 10 Mg Tablet 2 Tab PO DAILY 30 Days Humalog (Insulin Lispro) 100 Unit/1 Ml Insuln.pen 8 Units SQ TIDWMEALS 30 Days + Sliding scale 1u for every 50mg/dL > 150mg/dL Call MD for glucose > 350 If glucose < 100, sliding scale only Lantus Solostar (Insulin Glargine,Hum.rec.anlog) 100 Unit/1 Ml Insuln.pen 10 Units SQ QHS 30 Days Culturelle (Lactobacillus Rhamnosus Gg) 1 Each Cap.sprink 1 Cap PO BID 10 Days Polyethylene Glycol 3350 17 Gm Powd.pack 17 Gm PO PRN BID PRN 30 Days Duoneb 0.5-3(2.5) Mg/3 Ml (Albuterol/Ipratropium) 3 Ml Ampul.neb 3 Ml NEB RTQID 30 Days Simvastatin 10 Mg Tablet 1 Tab PO QHS 30 Days Gabapentin 300 Mg Capsule 300 Mg PO TID 30 Days Reported [albuterol ] 108 Mcg INH Q6HRS PRN Advair 250-50 Diskus (Fluticasone/Salmeterol) 1 Each Disk.w.dev 2 Puff IH BID Voltaren (Diclofenac Sodium) 100 Gm Gel..gram. 2 Gm TP BID 30 Days apply to affected area(s) Omeprazole 20 Mg Capsule.dr 2 Cap PO DAILY Vitals/I & O Vital Sign - Last 24 Hours 02/12/19 02/12/19 02/12/19 02/12/19 11:00 12:00 12:40 15:59 Temp 98.4 98.3 98.4 98.3 Pulse 73 73 Resp 16 19 16 B/P (MAP) 128/74 (92) 144/67 (92) Pulse Ox 91 96 96 95 O2 Delivery Nasal Cannula Nasal Cannula Nasal Cannula Nasal Cannula O2 Flow Rate 3.0 3.0 3.0 3.0 02/12/19 02/12/19 02/12/19 02/12/19 16:47 19:25 20:00 20:12 Temp 98.3 98.3 Pulse 89 Resp 14 B/P (MAP) 109/49 (69) Pulse Ox 92 94 O2 Delivery Nasal Cannula Nasal Cannula Nasal Cannula Nasal Cannula O2 Flow Rate 3.0 3.0 3.0 3.0 02/12/19 02/12/19 02/13/19 02/13/19 21:02 23:25 03:25 05:17 Temp 98.2 98.2 98.2 98.2 Pulse 73 86 87 82 Resp 16 18 B/P (MAP) 144/67 125/60 (81) 173/82 (112) 129/61 (83) Pulse Ox 95 95 O2 Delivery Nasal Cannula Nasal Cannula O2 Flow Rate 3.0 3.0 02/13/19 02/13/19 02/13/19 02/13/19 07:00 07:36 08:27 08:28 Temp 97.8 97.8 Pulse 78 78 78 Resp 17 B/P (MAP) 119/53 (75) 119/53 119/53 Pulse Ox 93 O2 Delivery Nasal Cannula Nasal Cannula O2 Flow Rate 3.0 3.0 l Intake and Output 02/12/19 02/12/19 02/13/19 15:00 23:00 07:00 Intake Total 390 ml 720 ml Balance 390 ml 720 ml EMRE HODGE MD Feb 13, 2019 09:02
[2019-02-13 10:08] LABS: BASE EXCESS ABG 8 mmol/L (-3-3); HCO3 ABG 34 mmol/L (21-28); PO2 ABG 79 mmHg (65-108); SAT O2 ABG 95 % (92-99)
--- NOTE | 2019-02-13 10:19 | NUR ---
Critical ABG results relayed to Dr. Henry at 1015, new order received.
--- NOTE | 2019-02-13 11:18 | RAD ---
CHEST AP ONLY Clinical History: Technique: AP view of the chest was obtained at 02/13/2019 8:06 AM. Comparison: February 06, 2019. Findings: The pulmonary vessels are somewhat cephalized. There is hazy opacity left lung base and obscuration left hemidiaphragm. The heart is top normal limits in size. The right PICC is no longer present. Impression: Mild CHF and small left effusion. This appears slightly improved. Electronically signed by: Vega Alvarez III, MD (02/13/2019 11:15 AM) [facility]
--- NOTE | 2019-02-13 11:38 | CONS ---
DATE OF CONSULTATION: 02/13/2019 REASON FOR CONSULTATION: I was asked to see this 78-year-old lady for hypercarbia. HISTORY OF PRESENT ILLNESS: The patient is able to answer some of my questions. Most of the information was obtained from chart. She was admitted to [place] recently, was discharged to long-term facility on 02/11, returned to the Emergency Room in [facility] yesterday with hypoxia and confusion, and transferred to [facility]. Apparently during her last hospital stay, TPA was given. CT at [facility] showed acute abnormalities. A MRI did reveal left parietal and left postcentral gyrus CVA. She continued to be confused and has had dysphagia. She was discharged to long-term facility. Her ABG at [facility]; pH 7.34, pCO2 of 64, pO2 of 66 and bicarbonate 35. She states that she has been on oxygen at 3 liters per minute via nasal cannula. She does not have shortness of breath today. She does not remember why she was brought to the Emergency Room. She denies pain. She feels weak. PAST MEDICAL HISTORY: Multiple CVAs, hypertension, CHF, COPD, chronic respiratory failure and diabetes mellitus. ALLERGIES: PENICILLIN, AMOXICILLIN, PEPCID, POTASSIUM, SULFAMETHOXAZOLE-TRIMETHOPRIM. MEDICATIONS: Currently, she is on DuoNeb, Pulmicort, Lovenox, aspirin, Lopressor, Prinivil, Solu-Medrol 60 mg IV every 12 hours, Protonix and insulin. SOCIAL HISTORY: Positive for smoking, details are not known. REVIEW OF SYSTEMS: As mentioned as above, other systems otherwise negative. PHYSICAL EXAMINATION: GENERAL: This is a well-developed lady. VITAL SIGNS: Her O2 saturation on 3 liters of oxygen 93%, respiratory rate 17, heart rate 78, blood pressure 119/53 and temperature 97.8. HEENT: Normocephalic, atraumatic. Pupils are equal, round and reactive to light. Throat is clear. She has poor dentition. Nose is clear. NECK: There is no lymphadenopathy or thyromegaly. CARDIOVASCULAR: Regular rate and rhythm. PMI is nondisplaced. CHEST: Inspection is normal. LUNGS: There are bibasilar crackles, dullness at the bases. ABDOMEN: Soft. Bowel sounds are good. There is no mass. EXTREMITIES: There is no edema. LYMPHATICS: There is no lymphadenopathy. NEUROLOGIC: Alert. SKIN: Chronic changes. LABORATORY DATA: I reviewed the following lab data: Chest x-ray done on 02/06 shows cardiomegaly, bilateral infiltrates/effusion. Today's WBC 6.7, hemoglobin 8.4 and platelets 520. Sodium 135, potassium 5.2, chloride 97, CO2 of 37, BUN 29 and creatinine 1.3. IMPRESSION: 1. Acute on chronic hypoxemic respiratory failure, suspect secondary to acute exacerbation of chronic obstructive pulmonary disease, cannot rule out congestive heart failure. She has a history of CHF. I suspect she has a chronic hypercarbia due to chronic obstructive pulmonary disease. 2. Abnormal chest x-ray. 3. Acute exacerbation of chronic obstructive pulmonary disease. 4. Congestive heart failure. 5. Encephalopathy, questionable etiology. 6. History of multiple cerebrovascular accidents. 7. Diabetes mellitus. 8. Hypertension. 9. Acute versus chronic kidney injury. PLAN AND RECOMMENDATIONS: 1. Titrate FiO2 to keep O2 saturation 92%. 2. I will repeat her ABG today. 3. I will do chest x-ray. 4. I will change Solu-Medrol to 40 mg IV every 12 hours. 5. Continue bronchodilator. 6. Continue inhaled corticosteroid. 7. Elevate head of bed. 8. Monitor respiratory status very closely. 9. Review chest x-ray and ABG. 10. The findings and recommendations were discussed with RN and the patient. Thank you very much for allowing me to participate in care of this very nice lady. SPENCER SHEIKH M.D. : MONCHO/doug JOB#: [id number] / [id number] HORACIO
[2019-02-13 11:58] LABS: PCO2 ABG 64 mmHg (35-46)
--- NOTE | 2019-02-13 12:23 | NUR ---
The patient's prelunch glucose was 359 mg/dl. Result relayed to Dr. Pederson, order for total of 18 units of insulin lispro received.
[2019-02-13] MEDS ORDERED: INSULIN LISPRO 300 UNITS/3 ML VIAL. SQ ONE (12:30)
--- NOTE | 2019-02-13 14:00 | PDOC ---
PROGRESS NOTES Assessment Assessment Right side weakness. Metabolic encephalopathy. Recent Acute small to moderate territory infarct involving the left parietal lobe, left post central gyrus revealed on 02/03/19. Recent acute small territory infarct in the right parietal lobe. Embolic stroke etiology likely. Recent cerebral cytotoxic edema. HTN. HLD. DM. Pulmonary hypertension. Obesity. RECOMMENDATIONS/PLAN: ASA 325 mg daily. Continue Statin HS. Treat medical diseases. Please consult Cardiology. OT/PT. Discussed with her daughter at bedside on 02/13/19. CTA on 02/04/19: No acute large vessel blockage. MRI on 02/04/19: See above infarcts. Echo + Bubble study: PA pressure 44 HISTORY OF PRESENT ILLNESS: The patient is a 78-year-old AA female who was brought to [facility] ER with symptoms of mental status changes and increased weakness in her right side UE and LE, then was transferred to [facility]. She had symptoms of mental status changes and right side weakness on 02/03/19 and received TPA at that. Further evaluation revealed above infarcts and she has been treated here then sent for rehab. Her weakness was improved but became weak again yesterday, so she was brought in on 02/12/19. On 02/13/19, she stated her weakness improved. PAST MEDICAL HISTORY: Asthma, hyperlipidemia, hypertension, neuropathy, diabetes. PAST SURGERY HISTORY: No major surgery recently. ALLERGIES: MULTIPLE, INCLUDING PENICILLIN, AMOXICILLIN, FAMOTIDINE, CLAVULANIC ACID, SULFA, TRIMETHOPRIM. FAMILY HISTORY: Hypertension. MEDICATIONS: Refer to [facility] SOCIAL HISTORY: Lives at home. Denies current smoking, drinking, and illicit drug use. REVIEW OF SYSTEMS: Constitutional: Obesity. Head: No traumatic brain or head injury. Skin: No edema, or rash. Ear: No infection. Eyes: No vision loss or color blindness. Nose: No bleeding or purulent discharges. Hearing: Hearing decrease. Neck: No injury. Breast: No history of cancer, masses,or discharges. Cardiac: HTN, HLD. Pulmonary: No COPD. GI: No GI ulcer, GI bleeding. Urinary/genital: UTI. Endocrinologic: Diabetes Mellitus? Obesity. Skeletomuscular: Generalized weakness. Neurological: see HP. Psychiatric: Denies drug use/abuse. Otherwise, not [id number] review of systems. PHYSICAL EXAMINATION: General appearance is in subacute distress. HEENT: Normocephalic and nontraumatic. Eyes, nose, ears, and throat are unremarkable. Neck is supple. No lymphadenopathy. No crepitus. Cardiovascular: S1, S2, seemed regular rate and rhythm. Pulmonary: Decreased to auscultation bilaterally. Abdomen: Bowel sounds are positive. Extremities: No rash, lesions, or edema. No restriction of range of motion NEUROLOGICAL EXAMINATION: Awake.. Not oriented to time, but know place and person. PERRL. EOMI. CN: no acute focal findings. Muscle tone: mildly decreased. Muscle strength: 4 right UE, the rest 4+ to 5. DTR: 1 Plantar reflex: Neutral response bilaterally Gait: not examined in bed. Sensory exam: Withdraw response noted to stimuli.. Not able to access cerebellar signs.. F-T-N test not performed due to not follow commands. Objective Objective Vital Signs Date Time Temp Pulse Resp B/P (MAP) Pulse Ox O2 Delivery O2 Flow Rate FiO2 02/13/19 11:13 93 Nasal Cannula 2.0 02/13/19 10:46 97.8 85 17 128/65 (86) 97.8 Intake and Output 02/13/19 07:00 Intake Total 1110 ml Balance 1110 ml Intake Oral 1110 ml # Voids 6 Vitals Signs Vitals VS - Last 72 Hours, by Label Date Time Temp Pulse Resp B/P (MAP) Pulse Ox O2 Delivery O2 Flow Rate FiO2 02/13/19 11:13 93 Nasal Cannula 2.0 02/13/19 10:46 97.8 85 17 128/65 (86) 91 Nasal Cannula 3.0 97.8 02/13/19 08:28 78 119/53 02/13/19 08:27 78 119/53 02/13/19 08:00 Nasal Cannula 02/13/19 07:36 Nasal Cannula 3.0 02/13/19 07:00 97.8 78 17 119/53 (75) 93 Nasal Cannula 3.0 97.8 02/13/19 05:17 82 129/61 (83) 02/13/19 03:25 98.2 87 18 173/82 (112) 95 Nasal Cannula 3.0 98.2 02/12/19 23:25 98.2 86 16 125/60 (81) 95 Nasal Cannula 3.0 98.2 02/12/19 21:02 73 144/67 02/12/19 20:12 Nasal Cannula 3.0 02/12/19 20:00 Nasal Cannula 3.0 02/12/19 19:25 98.3 89 14 109/49 (69) 94 Nasal Cannula 3.0 98.3 02/12/19 16:47 92 Nasal Cannula 3.0 02/12/19 15:59 98.3 73 16 144/67 (92) 95 Nasal Cannula 3.0 98.3 02/12/19 12:40 19 96 Nasal Cannula 3.0 02/12/19 12:00 96 Nasal Cannula 3.0 02/12/19 11:00 98.4 73 16 128/74 (92) 91 Nasal Cannula 3.0 98.4 02/12/19 08:39 88 128/64 02/12/19 08:39 88 128/64 02/12/19 08:38 19 Room Air 02/12/19 08:06 97 Nasal Cannula 3.0 02/12/19 08:00 Nasal Cannula 3.0 02/12/19 07:00 98.9 88 16 128/64 (85) 92 Nasal Cannula 3.0 98.9 Laboratory Laboratory Laboratory Tests Test 02/12/19 17:02 02/12/19 20:54 02/12/19 23:42 02/13/19 04:00 Glucose (Fingerstick) 328 mg/dL (70-99) 320 mg/dL (70-99) 300 mg/dL (70-99) White Blood Count 6.7 x10^3/uL (4.0-11.0) Red Blood Count 3.17 x10^6/uL (3.50-5.40) Hemoglobin 8.4 g/dL (12.0-15.5) Hematocrit 26.7 % (36.0-47.0) Mean Corpuscular Volume 84 fL (79-100) Mean Corpuscular Hemoglobin 26 pg (25-35) Mean Corpuscular Hemoglobin Concent 31 g/dL (31-37) Red Cell Distribution Width 15.9 % (11.5-14.5) Platelet Count 520 x10^3/uL (140-400) Neutrophils (%) (Auto) 85 % (31-73) Lymphocytes (%) (Auto) 10 % (24-48) Monocytes (%) (Auto) 5 % (0-9) Eosinophils (%) (Auto) 0 % (0-3) Basophils (%) (Auto) 0 % (0-3) Neutrophils # (Auto) 5.6 x10^3/uL (1.8-7.7) Lymphocytes # (Auto) 0.7 x10^3/uL (1.0-4.8) Monocytes # (Auto) 0.4 x10^3/uL (0.0-1.1) Eosinophils # (Auto) 0.0 x10^3/uL (0.0-0.7) Basophils # (Auto) 0.0 x10^3/uL (0.0-0.2) Sodium Level 135 mmol/L (136-145) Potassium Level 5.2 mmol/L (3.5-5.1) Chloride Level 97 mmol/L (98-107) Carbon Dioxide Level 32 mmol/L (21-32) Anion Gap 6 (6-14) Blood Urea Nitrogen 29 mg/dL (7-20) Creatinine 1.3 mg/dL (0.6-1.0) Estimated GFR (Cockcroft-Gault) 47.9 Glucose Level 300 mg/dL (70-99) Calcium Level 9.4 mg/dL (8.5-10.1) Phosphorus Level 3.4 mg/dL (2.6-4.7) Albumin 3.0 g/dL (3.4-5.0) Test 02/13/19 07:29 02/13/19 09:45 02/13/19 11:01 Glucose (Fingerstick) 295 mg/dL (70-99) 359 mg/dL (70-99) O2 Saturation 95 % (92-99) Arterial Blood pH 7.35 (7.35-7.45) Arterial Blood pCO2 at Patient Temp 64 mmHg (35-46) Arterial Blood pO2 at Patient Temp 79 mmHg (65-108) Arterial Blood HCO3 34 mmol/L (21-28) Arterial Blood Base Excess 8 mmol/L (-3-3) FiO2 3 lpm nc Medication Medications Current Medications Budesonide (Pulmicort) 0.5 mg RTBID NEB Last administered on 02/13/19at 07:34; Start 02/12/19 at 20:00 Diclofenac Sodium (Voltaren) 2 lucius BID TP Last administered on 02/12/19at 21:04; Start 02/12/19 at 21:00 Insulin Glargine (Lantus Syringe) 10 unit QHS SQ Last administered on 9at 21:04; Start 02/12/19 at 21:00 Insulin Human Lispro (HumaLOG) 8 units 1X SQ ; Start 02/12/19 at 21:45; Stop 02/12/19 at 22:08; Status DC Insulin Human Lispro (HumaLOG) 8 units 1X ONCE SQ Last administered on 02/12/19at 22:20; Start 02/12/19 at 22:15; Stop 02/12/19 at 22:16; Status DC Insulin Human Lispro (HumaLOG) 10 units 1X ONCE SQ Last administered on 02/13/19at 12:26; Start 02/13/19 at 12:30; Stop 02/13/19 at 12:31; Status DC Methylprednisolone Sodium Succinate (SOLU-Medrol 40MG VIAL) 40 mg BID IV Last administered on 02/13/19at 08:28; Start 02/13/19 at 09:00; Stop 02/13/19 at 08:59; Status DC Non-Formulary Medication (Insulin Glargine,Hum.rec.anlog (Lantus Solostar)) 10 units QHS SQ ; Start 02/12/19 at 21:00; Status UNV Simvastatin (Zocor) 10 mg QHS PO Last administered on 02/12/19at 21:02; Start 02/12/19 at 21:00 Sodium Chloride 1,000 ml @ 125 mls/hr 1X ONCE IV Last administered on 02/13/19at 09:26; Start 02/13/19 at 09:00; Stop 02/13/19 at 16:59 Comment Review of Relevant I have reviewed the following items myesha (where applicable) has been applied. SUSAN GU MD Feb 13, 2019 14:00
[2019-02-13] MEDS: SIMVASTATIN 10 MG TABLET PO SCH (21:19)
[2019-02-13] MEDS: INSULIN GLARGINE SYRINGE. SQ SCH (21:20)
[2019-02-13] MEDS ORDERED: ALBUTEROL SULFATE 2.5 MG/3 ML NEBU. NEB PRN (22:00)
[2019-02-14 03:25] VITALS: BP 157/91
[2019-02-14 05:57] LABS: CALCIUM 9.1 mg/dL (8.5-10.1); CREATININE 1.1 mg/dL (0.6-1.0); GFR 58.1; POTASSIUM 4.6 mmol/L (3.5-5.1)
[2019-02-14 07:38] VITALS: BP 154/81
[2019-02-14] MEDS: IPRATRPIUM/ALBUTEROL 0.5/2.5MG 3 ML NEBU. NEB SCH ×4 (08:00→18:52)
[2019-02-14] MEDS: BUDESONIDE 0.5 MG/2 ML NEBU. NEB SCH ×2 (08:00→18:52)
[2019-02-14] MEDS: PANTOPRAZOLE 40 MG TABLET.DR. PO SCH (09:05)
[2019-02-14] MEDS: GABAPENTIN 300 MG CAPSULE. PO SCH ×3 (09:05→21:35)
[2019-02-14] MEDS: LISINOPRIL 20 MG TABLET PO SCH (09:05)
[2019-02-14] MEDS: LACTOBACILLUS RHAMNOSUS GG 1 CAPSULE. PO SCH ×2 (09:05→21:35)
[2019-02-14] MEDS: ENOXAPARIN 40 MG/0.4 ML SYRINGE. SQ SCH (09:06)
[2019-02-14] MEDS: ASPIRIN 325 MG TABLET PO SCH (09:06)
[2019-02-14] MEDS: METOPROLOL TART IMMED RELEASE 25 MG TABLET. PO SCH ×2 (09:06→21:36)
--- NOTE | 2019-02-14 09:20 | PDOC ---
PULMONARY PROGRESS NOTES Subjective PT AT TIMES WITH COUGH AND CONGESTION Vitals Vital Signs Date Time Temp Pulse Resp B/P (MAP) Pulse Ox O2 Delivery O2 Flow Rate FiO2 02/14/19 08:19 95 Nasal Cannula 2.0 02/14/19 07:38 98.2 78 18 154/81 (105) 98.2 ROS: No Nausea, No Chest Pain, No Abdominal Pain General: Alert, No acute distress HEENT: Cervical Dz Lungs: Clear Cardiovascular: S1, S2 Abdomen: Soft, Non-tender Extremities: No Edema Labs Laboratory Tests Test 02/12/19 11:33 02/12/19 17:02 02/12/19 20:54 02/12/19 23:42 Glucose (Fingerstick) 322 mg/dL (70-99) 328 mg/dL (70-99) 320 mg/dL (70-99) 300 mg/dL (70-99) Test 02/13/19 04:00 02/13/19 07:29 02/13/19 09:45 02/13/19 11:01 White Blood Count 6.7 x10^3/uL (4.0-11.0) Red Blood Count 3.17 x10^6/uL (3.50-5.40) Hemoglobin 8.4 g/dL (12.0-15.5) Hematocrit 26.7 % (36.0-47.0) Mean Corpuscular Volume 84 fL (79-100) Mean Corpuscular Hemoglobin 26 pg (25-35) Mean Corpuscular Hemoglobin Concent 31 g/dL (31-37) Red Cell Distribution Width 15.9 % (11.5-14.5) Platelet Count 520 x10^3/uL (140-400) Neutrophils (%) (Auto) 85 % (31-73) Lymphocytes (%) (Auto) 10 % (24-48) Monocytes (%) (Auto) 5 % (0-9) Eosinophils (%) (Auto) 0 % (0-3) Basophils (%) (Auto) 0 % (0-3) Neutrophils # (Auto) 5.6 x10^3/uL (1.8-7.7) Lymphocytes # (Auto) 0.7 x10^3/uL (1.0-4.8) Monocytes # (Auto) 0.4 x10^3/uL (0.0-1.1) Eosinophils # (Auto) 0.0 x10^3/uL (0.0-0.7) Basophils # (Auto) 0.0 x10^3/uL (0.0-0.2) Sodium Level 135 mmol/L (136-145) Potassium Level 5.2 mmol/L (3.5-5.1) Chloride Level 97 mmol/L (98-107) Carbon Dioxide Level 32 mmol/L (21-32) Anion Gap 6 (6-14) Blood Urea Nitrogen 29 mg/dL (7-20) Creatinine 1.3 mg/dL (0.6-1.0) Estimated GFR (Cockcroft-Gault) 47.9 Glucose Level 300 mg/dL (70-99) Calcium Level 9.4 mg/dL (8.5-10.1) Phosphorus Level 3.4 mg/dL (2.6-4.7) Albumin 3.0 g/dL (3.4-5.0) Glucose (Fingerstick) 295 mg/dL (70-99) 359 mg/dL (70-99) O2 Saturation 95 % (92-99) Arterial Blood pH 7.35 (7.35-7.45) Arterial Blood pCO2 at Patient Temp 64 mmHg (35-46) Arterial Blood pO2 at Patient Temp 79 mmHg (65-108) Arterial Blood HCO3 34 mmol/L (21-28) Arterial Blood Base Excess 8 mmol/L (-3-3) FiO2 3 lpm nc Test 02/13/19 16:33 02/13/19 21:08 02/14/19 04:46 02/14/19 07:11 Glucose (Fingerstick) 278 mg/dL (70-99) 315 mg/dL (70-99) 188 mg/dL (70-99) Sodium Level 139 mmol/L (136-145) Potassium Level 4.6 mmol/L (3.5-5.1) Chloride Level 102 mmol/L (98-107) Carbon Dioxide Level 33 mmol/L (21-32) Anion Gap 4 (6-14) Blood Urea Nitrogen 23 mg/dL (7-20) Creatinine 1.1 mg/dL (0.6-1.0) Estimated GFR (Cockcroft-Gault) 58.1 Glucose Level 231 mg/dL (70-99) Calcium Level 9.1 mg/dL (8.5-10.1) Laboratory Tests Test 02/13/19 09:45 02/13/19 11:01 02/13/19 16:33 02/13/19 21:08 O2 Saturation 95 % (92-99) Arterial Blood pH 7.35 (7.35-7.45) Arterial Blood pCO2 at Patient Temp 64 mmHg (35-46) Arterial Blood pO2 at Patient Temp 79 mmHg (65-108) Arterial Blood HCO3 34 mmol/L (21-28) Arterial Blood Base Excess 8 mmol/L (-3-3) FiO2 3 lpm nc Glucose (Fingerstick) 359 mg/dL (70-99) 278 mg/dL (70-99) 315 mg/dL (70-99) Test 02/14/19 04:46 02/14/19 07:11 Sodium Level 139 mmol/L (136-145) Potassium Level 4.6 mmol/L (3.5-5.1) Chloride Level 102 mmol/L (98-107) Carbon Dioxide Level 33 mmol/L (21-32) Anion Gap 4 (6-14) Blood Urea Nitrogen 23 mg/dL (7-20) Creatinine 1.1 mg/dL (0.6-1.0) Estimated GFR (Cockcroft-Gault) 58.1 Glucose Level 231 mg/dL (70-99) Calcium Level 9.1 mg/dL (8.5-10.1) Glucose (Fingerstick) 188 mg/dL (70-99) Medications Active Scripts Medications Dose Route/Sig Max Daily Dose Days Date Category Dose Instructions [albuterol ] 108 Mcg INH Q6HRS PRN 02/12/19 Reported Advair 250-50 Diskus (Fluticasone/Salmeterol) 1 Each Disk.w.dev 2 Puff IH BID 02/12/19 Reported Voltaren (Diclofenac Sodium) 100 Gm Gel..gram. 2 Gm TP BID 30 02/12/19 Reported apply to affected area(s) Tylenol (Acetaminophen) 325 Mg Tablet 650 Mg PO PRN Q6HRS PRN 30 02/10/19 Rx Metoprolol Tartrate 25 Mg Tablet 25 Mg PO BID 30 02/10/19 Rx FENTANYL 50mcg/hr (Fentanyl) 1 Each Patch.td72 1 Patch TD Q72H 30 02/10/19 Rx Lisinopril 10 Mg Tablet 2 Tab PO DAILY 30 02/10/19 Rx Omeprazole 20 Mg Capsule.dr 2 Cap PO DAILY 02/04/19 Reported Humalog (Insulin Lispro) 100 Unit/1 Ml Insuln.pen 8 Units SQ TIDWMEALS 11/16/18 Rx + Sliding scale 1u for every 50mg/dL > 150mg/dL Call MD for glucose > 350 If glucose < 100, sliding scale only Lantus Solostar (Insulin Glargine,Hum.rec.anlog) 100 Unit/1 Ml Insuln.pen 10 Units SQ QHS 30 11/16/18 Rx Culturelle (Lactobacillus Rhamnosus Gg) 1 Each Cap.sprink 1 Cap PO BID 11/16/18 Rx Polyethylene Glycol 3350 17 Gm Powd.pack 17 Gm PO PRN BID PRN 11/16/18 Rx Duoneb 0.5-3(2.5) Mg/3 Ml (Albuterol/Ipratropium) 3 Ml Ampul.neb 3 Ml NEB RTQID 11/16/18 Rx Simvastatin 10 Mg Tablet 1 Tab PO QHS 30 10/23/18 Rx Gabapentin 300 Mg Capsule 300 Mg PO TID 30 10/23/18 Rx Impression . IMPRESSION: 1. Acute on chronic hypoxemic respiratory failure, suspect secondary to acute exacerbation of chronic obstructive pulmonary disease/ acute/chronic chf diastolic 2. Abnormal chest x-ray. 3. Acute exacerbation of chronic obstructive pulmonary disease. 4. Congestive heart failure. 5. Encephalopathy, multifactorial 6. History of multiple cerebrovascular accidents. 7. Diabetes mellitus. 8. Hypertension. 9. Acute versus chronic kidney injury. CXR Impression: Mild CHF and small left effusion. This appears slightly improved. Plan . diurese 02 steroids BD JOO GUILLEN MD Feb 14, 2019 09:20
[2019-02-14] MEDS: DICLOFENAC SODIUM 1% TOPICAL GEL 100GM TUBE. TP SCH ×2 (09:28→21:00)
[2019-02-14] MEDS: INSULIN LISPRO 300 UNITS/3 ML VIAL. SQ SCH ×6 (09:30→17:06)
[2019-02-14 11:41] VITALS: BP 148/76
[2019-02-14] MEDS ORDERED: ONDANSETRON PF 4 MG/2 ML VIAL. IVP PRN (12:15)
[2019-02-14] MEDS ORDERED: cloNIDine HCL 0.1 MG TABLET PO PRN (12:15)
--- NOTE | 2019-02-14 13:20 | NUR ---
JANETTE consulted for dc planning. Chart reviewed. Pt is known to [facility] from previous visit and was recently discharged to [facility]. PT/OT ordered, pending. JANETTE phoned and faxed to [facility]. JANETTE will continue to follow. Addendum: 02/14/19 at 1322 by ERICA SAVAGE faxed Clinicals*
--- NOTE | 2019-02-14 13:56 | PDOC ---
PROGRESS NOTES Chief Complaint Chief Complaint SOA, acute bronchitis COPD Home o2 dependent Recent CVA Obesity BMI 33 HTN. HLD. DM. Pulmonary hypertension. Obesity. History of Present Illness History of Present Illness Family at bedside Slated for lucero urrutia and agreeable She had a recent CVA (quite remarkable) HOme O2 dependent, no inc in soa on exertion Both pulmo and neuro on board Referral to [facility] ren[facility] just sent today Pulm HTN per recent echo? (i could not find read) PLAN Lucero urrutia tmr CPM for now I provided a copy of her CXR dw sister at bedside Vitals Vitals Vital Signs Date Time Temp Pulse Resp B/P (MAP) Pulse Ox O2 Delivery O2 Flow Rate FiO2 02/14/19 13:11 97 Nasal Cannula 2.0 02/14/19 11:41 98.4 82 18 148/76 (100) 98.4 Physical Exam General: Alert, Cooperative, No acute distress Lungs: Clear Abdomen: Normal bowel sounds, Soft, No tenderness, No hepatosplenomegaly, No masses Extremities: No clubbing, No cyanosis, No edema, Normal pulses, No tenderness/swelling Skin: No rashes, No breakdown, No significant lesion Labs LABS Laboratory Tests Test 02/13/19 16:33 02/13/19 21:08 02/14/19 04:46 02/14/19 07:11 Glucose (Fingerstick) 278 mg/dL (70-99) 315 mg/dL (70-99) 188 mg/dL (70-99) Sodium Level 139 mmol/L (136-145) Potassium Level 4.6 mmol/L (3.5-5.1) Chloride Level 102 mmol/L (98-107) Carbon Dioxide Level 33 mmol/L (21-32) Anion Gap 4 (6-14) Blood Urea Nitrogen 23 mg/dL (7-20) Creatinine 1.1 mg/dL (0.6-1.0) Estimated GFR (Cockcroft-Gault) 58.1 Glucose Level 231 mg/dL (70-99) Calcium Level 9.1 mg/dL (8.5-10.1) Test 02/14/19 11:23 Glucose (Fingerstick) 127 mg/dL (70-99) Review of Systems Review of Systems weak, no inc in soa, occ cough, rest 14 pt neg Comment Review of Relevant I have reviewed the following items myesha (where applicable) has been applied. Labs Laboratory Tests Test 02/12/19 17:02 02/12/19 20:54 02/12/19 23:42 02/13/19 04:00 Glucose (Fingerstick) 328 mg/dL (70-99) 320 mg/dL (70-99) 300 mg/dL (70-99) White Blood Count 6.7 x10^3/uL (4.0-11.0) Red Blood Count 3.17 x10^6/uL (3.50-5.40) Hemoglobin 8.4 g/dL (12.0-15.5) Hematocrit 26.7 % (36.0-47.0) Mean Corpuscular Volume 84 fL (79-100) Mean Corpuscular Hemoglobin 26 pg (25-35) Mean Corpuscular Hemoglobin Concent 31 g/dL (31-37) Red Cell Distribution Width 15.9 % (11.5-14.5) Platelet Count 520 x10^3/uL (140-400) Neutrophils (%) (Auto) 85 % (31-73) Lymphocytes (%) (Auto) 10 % (24-48) Monocytes (%) (Auto) 5 % (0-9) Eosinophils (%) (Auto) 0 % (0-3) Basophils (%) (Auto) 0 % (0-3) Neutrophils # (Auto) 5.6 x10^3/uL (1.8-7.7) Lymphocytes # (Auto) 0.7 x10^3/uL (1.0-4.8) Monocytes # (Auto) 0.4 x10^3/uL (0.0-1.1) Eosinophils # (Auto) 0.0 x10^3/uL (0.0-0.7) Basophils # (Auto) 0.0 x10^3/uL (0.0-0.2) Sodium Level 135 mmol/L (136-145) Potassium Level 5.2 mmol/L (3.5-5.1) Chloride Level 97 mmol/L (98-107) Carbon Dioxide Level 32 mmol/L (21-32) Anion Gap 6 (6-14) Blood Urea Nitrogen 29 mg/dL (7-20) Creatinine 1.3 mg/dL (0.6-1.0) Estimated GFR (Cockcroft-Gault) 47.9 Glucose Level 300 mg/dL (70-99) Calcium Level 9.4 mg/dL (8.5-10.1) Phosphorus Level 3.4 mg/dL (2.6-4.7) Albumin 3.0 g/dL (3.4-5.0) Test 02/13/19 07:29 02/13/19 09:45 02/13/19 11:01 02/13/19 16:33 Glucose (Fingerstick) 295 mg/dL (70-99) 359 mg/dL (70-99) 278 mg/dL (70-99) O2 Saturation 95 % (92-99) Arterial Blood pH 7.35 (7.35-7.45) Arterial Blood pCO2 at Patient Temp 64 mmHg (35-46) Arterial Blood pO2 at Patient Temp 79 mmHg (65-108) Arterial Blood HCO3 34 mmol/L (21-28) Arterial Blood Base Excess 8 mmol/L (-3-3) FiO2 3 lpm nc Test 02/13/19 21:08 02/14/19 04:46 02/14/19 07:11 02/14/19 11:23 Glucose (Fingerstick) 315 mg/dL (70-99) 188 mg/dL (70-99) 127 mg/dL (70-99) Sodium Level 139 mmol/L (136-145) Potassium Level 4.6 mmol/L (3.5-5.1) Chloride Level 102 mmol/L (98-107) Carbon Dioxide Level 33 mmol/L (21-32) Anion Gap 4 (6-14) Blood Urea Nitrogen 23 mg/dL (7-20) Creatinine 1.1 mg/dL (0.6-1.0) Estimated GFR (Cockcroft-Gault) 58.1 Glucose Level 231 mg/dL (70-99) Calcium Level 9.1 mg/dL (8.5-10.1) Laboratory Tests Test 02/13/19 16:33 02/13/19 21:08 02/14/19 04:46 02/14/19 07:11 Glucose (Fingerstick) 278 mg/dL (70-99) 315 mg/dL (70-99) 188 mg/dL (70-99) Sodium Level 139 mmol/L (136-145) Potassium Level 4.6 mmol/L (3.5-5.1) Chloride Level 102 mmol/L (98-107) Carbon Dioxide Level 33 mmol/L (21-32) Anion Gap 4 (6-14) Blood Urea Nitrogen 23 mg/dL (7-20) Creatinine 1.1 mg/dL (0.6-1.0) Estimated GFR (Cockcroft-Gault) 58.1 Glucose Level 231 mg/dL (70-99) Calcium Level 9.1 mg/dL (8.5-10.1) Test 02/14/19 11:23 Glucose (Fingerstick) 127 mg/dL (70-99) Medications Current Medications Methylprednisolone Sodium Succinate (SOLU-Medrol 40MG VIAL) 60 mg BID IV Last administered on 02/12/19at 21:02; Start 02/12/19 at 09:00; Stop 02/13/19 at 08:11; Status DC Sodium Chloride 1,000 ml @ 75 mls/hr 1X ONCE IV Last administered on 02/12/19 at 03:09; Start 02/12/19 at 03:00; Stop 02/12/19 at 16:19; Status DC Albuterol/ Ipratropium (Duoneb) 3 ml RTQID NEB ; Start 02/12/19 at 08:00; Status Cancel Insulin Human Lispro (HumaLOG) 0-7 UNITS TIDWMEALS SQ Last administered on 02/14/19at 09:30; Start 02/12/19 at 08:00 Dextrose (Dextrose 50%-Water Syringe) 12.5 gm PRN Q15MIN PRN IV SEE COMMENTS; Start 02/12/19 at 02:45 Pharmacy Consult (C.diff Med Screen By Rx) 1 each 0403 [facility] ; Start 02/12/19 at 09:00; Status Cancel Acetaminophen (Tylenol) 650 mg PRN Q6HRS PRN PO MILD PAIN 1-3; Start 02/12/19 at 06:15 Fentanyl (Duragesic 50mcg/ Hr Patch) 1 patch Q72H TD Last administered on 02/12/19at 08:38; Start 02/12/19 at 07:00 Gabapentin (Neurontin) 300 mg TID PO Last administered on 02/14/19at 13:08; Start 02/12/19 at 09:00 Insulin Human Lispro (HumaLOG) 8 units TIDWMEALS SQ Last administered on 02/14/19 09:30; Start 02/12/19 at 08:00 Albuterol/ Ipratropium (Duoneb) 3 ml RTQID NEB Last administered on 02/14/19 13:09; Start 02/12/19 at 08:00 Lactobacillus Rhamnosus (Culturelle) 1 cap BID PO Last administered on 02/14/19 09:05; Start 02/12/19 at 09:00 Lisinopril (Prinivil) 20 mg DAILY PO Last administered on 02/14/19 09:05; Start 02/12/19 at 09:00 Metoprolol Tartrate (Lopressor) 25 mg BID PO Last administered on 02/14/19 09:06; Start 02/12/19 at 09:00 Polyethylene Glycol (miraLAX PACKET) 17 gm PRN BID PRN PO CONSTIPATION 1ST CHOICE; Start 02/12/19 at 06:15 Simvastatin (Zocor) 10 mg QHS PO Last administered on 02/13/19 21:19; Start 02/12/19 at 21:00 Non-Formulary Medication (Insulin Glargine,Hum.rec.anlog (Lantus Solostar)) 10 units QHS SQ ; Start 02/12/19 at 21:00; Status UNV Pantoprazole Sodium (Protonix) 40 mg DAILYAC PO Last administered on 02/14/19 09:05; Start 02/12/19 at 07:30 Insulin Glargine (Lantus Syringe) 10 unit QHS SQ Last administered on 02/13/19at 21:20; Start 02/12/19 at 21:00 Amino Acids/ Glycerin/ Electrolytes 1,000 ml @ 80 mls/hr [id number] IV Last administered on 02/12/19 12:04; Start 02/12/19 at 11:30; Stop 02/12/19 at 14:56; Status DC Diclofenac Sodium (Voltaren) 2 lucius BID TP Last administered on 02/14/19 09:28; Start 02/12/19 at 21:00 Albuterol Sulfate (Ventolin Neb Soln) 2.5 mg RTQID NEB Last administered on 02/12/19at 16:46; Start 02/12/19 at 12:00; Stop 02/13/19 at 21:51; Status DC Aspirin (Aspirin Rectal Supp) 300 mg PRN DAILY PRN SD CVA; Start 02/12/19 at 1 1:30 Aspirin (Dominick Aspirin) 325 mg DAILYWBKFT PO Last administered on 02/14/19at 09:06; Start 02/12/19 at 11:30 Enoxaparin Sodium (Lovenox 40mg Syringe) 40 mg DAILY SQ Last administered on 02/14/19at 09:06; Start 02/12/19 at 11:45 Budesonide (Pulmicort) 0.5 mg RTBID NEB Last administered on 02/14/19at 08:00; Start 02/12/19 at 20:00 Insulin Human Lispro (HumaLOG) 8 units 1X SQ ; Start 02/12/19 at 21:45; Stop 02/12/19 at 22:08; Status DC Insulin Human Lispro (HumaLOG) 8 units 1X ONCE SQ Last administered on 02/12/19at 22:20; Start 02/12/19 at 22:15; Stop 02/12/19 at 22:16; Status DC Methylprednisolone Sodium Succinate (SOLU-Medrol 40MG VIAL) 40 mg BID IV Last administered on 02/13/19at 08:28; Start 02/13/19 at 09:00; Stop 02/13/19 at 08:59; Status DC Sodium Chloride 1,000 ml @ 125 mls/hr 1X ONCE IV Last administered on 02/13/19at 09:26; Start 02/13/19 at 09:00; Stop 02/13/19 at 16:59; Status DC Insulin Human Lispro (HumaLOG) 10 units 1X ONCE SQ Last administered on 02/13/19at 12:26; Start 02/13/19 at 12:30; Stop 02/13/19 at 12:31; Status DC Albuterol Sulfate (Ventolin Neb Soln) 2.5 mg PRN QID PRN NEB SHORTNESS OF BREATH; Start 02/13/19 at 22:00 Ondansetron HCl (Zofran) 4 mg PRN Q6HRS PRN IVP NAUSEA/VOMITING; Start 02/14/19 at 12:15 Clonidine HCl (Catapres) 0.1 mg PRN Q1HR PRN PO HYPERTENSION; Start 02/14/19 at 12:15 Active Scripts Active Tylenol (Acetaminophen) 325 Mg Tablet 650 Mg PO PRN Q6HRS PRN 30 Days Metoprolol Tartrate 25 Mg Tablet 25 Mg PO BID 30 Days FENTANYL 50mcg/hr (Fentanyl) 1 Each Patch.td72 1 Patch TD Q72H 30 Days Lisinopril 10 Mg Tablet 2 Tab PO DAILY 30 Days Humalog (Insulin Lispro) 100 Unit/1 Ml Insuln.pen 8 Units SQ TIDWMEALS 30 Days + Sliding scale 1u for every 50mg/dL > 150mg/dL Call MD for glucose > 350 If glucose < 100, sliding scale only Lantus Solostar (Insulin Glargine,Hum.rec.anlog) 100 Unit/1 Ml Insuln.pen 10 Units SQ QHS 30 Days Culturelle (Lactobacillus Rhamnosus Gg) 1 Each Cap.sprink 1 Cap PO BID 10 Days Polyethylene Glycol 3350 17 Gm Powd.pack 17 Gm PO PRN BID PRN 30 Days Duoneb 0.5-3(2.5) Mg/3 Ml (Albuterol/Ipratropium) 3 Ml Ampul.neb 3 Ml NEB RTQID 30 Days Simvastatin 10 Mg Tablet 1 Tab PO QHS 30 Days Gabapentin 300 Mg Capsule 300 Mg PO TID 30 Days Reported [albuterol ] 108 Mcg INH Q6HRS PRN Advair 250-50 Diskus (Fluticasone/Salmeterol) 1 Each Disk.w.dev 2 Puff IH BID Voltaren (Diclofenac Sodium) 100 Gm Gel..gram. 2 Gm TP BID 30 Days apply to affected area(s) Omeprazole 20 Mg Capsule. 2 Cap PO DAILY Vitals/I & O Vital Sign - Last 24 Hours 02/13/19 02/13/19 02/13/19 02/13/19 14:45 16:46 19:25 20:08 Temp 97.8 98.4 97.8 98.4 Pulse 84 92 Resp 17 17 B/P (MAP) 122/64 (83) 140/65 (90) Pulse Ox 96 93 O2 Delivery Room Air Nasal Cannula Nasal Cannula Nasal Cannula O2 Flow Rate 2.0 2.0 2.0 02/13/19 02/13/19 02/14/19 02/14/19 21:19 23:25 03:25 07:38 Temp 98.3 98.1 98.2 98.3 98.1 98.2 Pulse 92 95 86 78 Resp 17 17 18 B/P (MAP) 140/65 142/62 (88) 157/91 (113) 154/81 (105) Pulse Ox 91 95 94 O2 Delivery Nasal Cannula Nasal Cannula Nasal Cannula O2 Flow Rate 2.0 2.0 2.0 02/14/19 02/14/19 02/14/19 02/14/19 08:00 08:18 08:19 09:05 Pulse 78 B/P (MAP) 154/81 Pulse Ox 95 95 O2 Delivery Nasal Cannula Nasal Cannula Nasal Cannula O2 Flow Rate 2.0 2.0 2.0 02/14/19 02/14/19 02/14/19 09:06 11:41 13:11 Temp 98.4 98.4 Pulse 78 82 Resp 18 B/P (MAP) 154/81 148/76 (100) Pulse Ox 94 97 O2 Delivery Nasal Cannula Nasal Cannula O2 Flow Rate 2.0 2.0 Intake and Output 02/13/19 02/13/19 02/14/19 15:00 23:00 07:00 Intake Total 500 ml 240 ml 300 ml Balance 500 ml 240 ml 300 ml STEFFANY SILVA MD Feb 14, 2019 13:56
--- NOTE | 2019-02-14 14:28 | PDOC ---
PROGRESS NOTES Assessment Assessment Right side weakness. Metabolic encephalopathy. Recent Acute small to moderate territory infarct involving the left parietal lobe, left post central gyrus revealed on 02/03/19. Recent acute small territory infarct in the right parietal lobe. Embolic stroke etiology likely. Recent cerebral cytotoxic edema. HTN. HLD. DM. Pulmonary hypertension. Obesity. RECOMMENDATIONS/PLAN: ASA 325 mg daily. Continue Statin HS. Treat medical diseases. OT/PT. FU with PCP. Discussed with her daughter again at bedside on 02/14/19. CTA on 02/04/19: No acute large vessel blockage. MRI on 02/04/19: See above infarcts. Echo + Bubble study: PA pressure 44 HISTORY OF PRESENT ILLNESS: The patient is a 78-year-old AA female who was brought to [facility] ER with symptoms of mental status changes and increased weakness in her right side UE and LE, then was transferred to [facility]. She had symptoms of mental status changes and right side weakness on 02/03/19 and received TPA at that. Further evaluation revealed above infarcts and she has been treated here then sent for rehab. Her weakness was improved but became weak again yesterday, so she was brought in on 02/12/19. On 02/13/19, she stated her weakness improved. Weakness further improved on 02/14/19. PAST MEDICAL HISTORY: Asthma, hyperlipidemia, hypertension, neuropathy, diabetes. PAST SURGERY HISTORY: No major surgery recently. ALLERGIES: MULTIPLE, INCLUDING PENICILLIN, AMOXICILLIN, FAMOTIDINE, CLAVULANIC ACID, SULFA, TRIMETHOPRIM. FAMILY HISTORY: Hypertension. MEDICATIONS: Refer to [facility] SOCIAL HISTORY: Lives at home. Denies current smoking, drinking, and illicit drug use. REVIEW OF SYSTEMS: Constitutional: Obesity. Head: No traumatic brain or head injury. Skin: No edema, or rash. Ear: No infection. Eyes: No vision loss or color blindness. Nose: No bleeding or purulent discharges. Hearing: Hearing decrease. Neck: No injury. Breast: No history of cancer, masses,or discharges. Cardiac: HTN, HLD. Pulmonary: No COPD. GI: No GI ulcer, GI bleeding. Urinary/genital: UTI. Endocrinologic: Diabetes Mellitus? Obesity. Skeletomuscular: Generalized weakness. Neurological: see HP. Psychiatric: Denies drug use/abuse. Otherwise, not [id number] review of systems. PHYSICAL EXAMINATION: General appearance is in subacute distress. HEENT: Normocephalic and nontraumatic. Eyes, nose, ears, and throat are unremarkable. Neck is supple. No lymphadenopathy. No crepitus. Cardiovascular: S1, S2, seemed regular rate and rhythm. Pulmonary: Decreased to auscultation bilaterally. Abdomen: Bowel sounds are positive. Extremities: No rash, lesions, or edema. No restriction of range of motion NEUROLOGICAL EXAMINATION: Awake.. Not oriented to time, but know place and person. PERRL. EOMI. CN: no acute focal findings. Muscle tone: mildly decreased. Muscle strength: 4 right UE, the rest 4+ to 5. DTR: 1 Plantar reflex: Neutral response bilaterally Gait: not examined in bed. Sensory exam: Withdraw response noted to stimuli.. Not able to access cerebellar signs.. F-T-N test not performed due to not follow commands. Objective Objective Vital Signs Date Time Temp Pulse Resp B/P (MAP) Pulse Ox O2 Delivery O2 Flow Rate FiO2 02/14/19 13:11 97 Nasal Cannula 2.0 02/14/19 11:41 98.4 82 18 148/76 (100) 98.4 Intake and Output 02/14/19 07:00 Intake Total 1040 ml Balance 1040 ml Intake Oral 1040 ml # Voids 8 Vitals Signs Vitals VS - Last 72 Hours, by Label Date Time Temp Pulse Resp B/P (MAP) Pulse Ox O2 Delivery O2 Flow Rate FiO2 02/14/19 13:11 97 Nasal Cannula 2.0 02/14/19 11:41 98.4 82 18 148/76 (100) 94 Nasal Cannula 2.0 98.4 02/14/19 09:06 78 154/81 02/14/19 09:05 78 154/81 02/14/19 08:19 95 Nasal Cannula 2.0 02/14/19 08:18 95 Nasal Cannula 2.0 02/14/19 08:00 Nasal Cannula 2.0 02/14/19 07:38 98.2 78 18 154/81 (105) 94 Nasal Cannula 2.0 98.2 02/14/19 03:25 98.1 86 17 157/91 (113) 95 Nasal Cannula 2.0 98.1 02/13/19 23:25 98.3 95 17 142/62 (88) 91 Nasal Cannula 2.0 98.3 02/13/19 21:19 92 140/65 02/13/19 20:08 Nasal Cannula 2.0 02/13/19 19:25 98.4 92 17 140/65 (90) 93 Nasal Cannula 2.0 98.4 02/13/19 16:46 96 Nasal Cannula 2.0 02/13/19 14:45 97.8 84 17 122/64 (83) Room Air 97.8 02/13/19 11:13 93 Nasal Cannula 2.0 02/13/19 10:46 97.8 85 17 128/65 (86) 91 Nasal Cannula 3.0 97.8 02/13/19 08:28 78 119/53 02/13/19 08:27 78 119/53 02/13/19 08:00 Nasal Cannula 02/13/19 07:36 Nasal Cannula 3.0 02/13/19 07:00 97.8 78 17 119/53 (75) 93 Nasal Cannula 3.0 97.8 Laboratory Laboratory Laboratory Tests Test 02/13/19 16:33 02/13/19 21:08 02/14/19 04:46 02/14/19 07:11 Glucose (Fingerstick) 278 mg/dL (70-99) 315 mg/dL (70-99) 188 mg/dL (70-99) Sodium Level 139 mmol/L (136-145) Potassium Level 4.6 mmol/L (3.5-5.1) Chloride Level 102 mmol/L (98-107) Carbon Dioxide Level 33 mmol/L (21-32) Anion Gap 4 (6-14) Blood Urea Nitrogen 23 mg/dL (7-20) Creatinine 1.1 mg/dL (0.6-1.0) Estimated GFR (Cockcroft-Gault) 58.1 Glucose Level 231 mg/dL (70-99) Calcium Level 9.1 mg/dL (8.5-10.1) Test 02/14/19 11:23 Glucose (Fingerstick) 127 mg/dL (70-99) Medication Medications Current Medications Albuterol Sulfate (Ventolin Neb Soln) 2.5 mg PRN QID PRN NEB SHORTNESS OF BREATH; Start 02/13/19 at 22:00 Clonidine HCl (Catapres) 0.1 mg PRN Q1HR PRN PO HYPERTENSION; Start 02/14/19 at 12:15 Ondansetron HCl (Zofran) 4 mg PRN Q6HRS PRN IVP NAUSEA/VOMITING; Start 02/14/19 at 12:15 Comment Review of Relevant I have reviewed the following items myesha (where applicable) has been applied. SUSAN GU MD Feb 14, 2019 14:28
[2019-02-14 14:45] VITALS: BP 125/61
[2019-02-14] MEDS: ACETAMINOPHEN 325 MG TABLET. PO PRN (18:39)
[2019-02-14] MEDS ORDERED: ALBUTEROL SULFATE 2.5 MG/3 ML NEBU. NEB PRN (18:45)
[2019-02-14 19:53] VITALS: BP 132/64
[2019-02-14] MEDS: ALBUTEROL SULFATE 2.5 MG/3 ML NEBU. NEB SCH (20:00)
[2019-02-14] MEDS: SIMVASTATIN 10 MG TABLET PO SCH (21:35)
[2019-02-14] MEDS: INSULIN GLARGINE SYRINGE. SQ SCH (21:37)
[2019-02-14 23:11] VITALS: BP 134/65
[2019-02-15 03:35] VITALS: BP 146/72
[2019-02-15] MEDS: fentaNYL 50MCG/HR PATCH 1 PATCH PATCH.TD72 TD SCH (07:00)
[2019-02-15 07:30] VITALS: BP 147/60
[2019-02-15] MEDS: PANTOPRAZOLE 40 MG TABLET.DR. PO SCH (07:30)
[2019-02-15] MEDS: IPRATRPIUM/ALBUTEROL 0.5/2.5MG 3 ML NEBU. NEB SCH ×2 (07:38→11:24)
[2019-02-15] MEDS: BUDESONIDE 0.5 MG/2 ML NEBU. NEB SCH (07:38)
[2019-02-15] MEDS: ALBUTEROL SULFATE 2.5 MG/3 ML NEBU. NEB SCH (08:00)
[2019-02-15] MEDS: ASPIRIN 325 MG TABLET PO SCH (08:00)
[2019-02-15] MEDS: INSULIN LISPRO 300 UNITS/3 ML VIAL. SQ SCH ×4 (08:00→12:00)
[2019-02-15] MEDS: ENOXAPARIN 40 MG/0.4 ML SYRINGE. SQ SCH (09:00)
[2019-02-15] MEDS: GABAPENTIN 300 MG CAPSULE. PO SCH (09:00)
[2019-02-15] MEDS: METOPROLOL TART IMMED RELEASE 25 MG TABLET. PO SCH (09:00)
[2019-02-15] MEDS: DICLOFENAC SODIUM 1% TOPICAL GEL 100GM TUBE. TP SCH (09:00)
[2019-02-15] MEDS: LACTOBACILLUS RHAMNOSUS GG 1 CAPSULE. PO SCH (09:00)
[2019-02-15] MEDS: LISINOPRIL 20 MG TABLET PO SCH (09:00)
[2019-02-15] MEDS ORDERED: ALBU2.5V8 NEB (09:27)
[2019-02-15] MEDS ORDERED: FENT1PAT17 TD (09:27)
--- NOTE | 2019-02-15 09:27 | SNU/HH DC ---
DISCHARGE ORDERS DISCHARGE INFORMATION: DISCHARGE DATE: Feb 15, 2019 CONDITION ON DISCHARGE: Stable CODE STATUS: Code Status: Full LONG TERM: SNF STAY <30 DAYS: Yes HOSPICE: HOSPICE: No HOSPICE EVAL & TREAT: No LTAC: ADMIT TO LTAC: No POST DISCHARGE ORDERS: ACTIVITY ORDERS: Activity as tolerated WEIGHT BEARING STATUS: As tolerated DIET AFTER DISCHARGE: ADA CHECKS AFTER DISCHARGE: CHECKS AFTER DISCHARGE: Check blood press - daily, Check blood sugar, ac/hs, Weigh Yourself Daily FOLLOW-UP: PHYSICIAN FOLLOW-UP: pcp upon snu dc - pna, after signif cva TREATMENT/EQUIPMENT ORDERS: RESPIRATORY EQUIPMENT NEEDED: Oxygen, Nebulizer Physical Therapy For: Evalulation/Treatment Occupational Therapy For: Evaluation/Treatment Speech Language Pathology For: Evaluation/Treatment DISCHARGE MEDICATIONS: Home Meds Active Scripts Albuterol Sulfate (Proair Hfa) 8.5 Gm Hfa.aer.ad, 2.5 MG NEB RTQID for copd, #1 INHALER Prov:STEFFANY SILVA MD 02/15/19 Fentanyl (FENTANYL 50mcg/hr) 1 Each Patch.td72, 1 PATCH TD Q72H for PAIN for 30 Days, #10 PATCH Prov:STEFFANY SILVA MD 02/15/19 Acetaminophen (TYLENOL) 325 Mg Tablet, 650 MG PO PRN Q6HRS PRN for MILD PAIN 1-3 for 30 Days, #120 TAB Prov:EMRE HODGE MD 02/10/19 Metoprolol Tartrate (METOPROLOL TARTRATE) 25 Mg Tablet, 25 MG PO BID for HTN for 30 Days, #60 TAB Prov:EMRE HODGE MD 02/10/19 Lisinopril (LISINOPRIL) 10 Mg Tablet, 2 TAB PO DAILY for htn for 30 Days, #60 TAB 5 Refills Prov:EMRE HODGE MD 02/10/19 Insulin Lispro (HUMALOG) 100 Unit/1 Ml Insuln.pen, 8 UNITS SQ TIDWMEALS for DM2 for 30 Days, #1 EACH + Sliding scale 1u for every 50mg/dL > 150mg/dL Call MD for glucose > 350 If glucose < 100, sliding scale only Prov:EMRE HODGE MD 11/16/18 Insulin Glargine,Hum.rec.anlog (LANTUS SOLOSTAR) 100 Unit/1 Ml Insuln.pen, 10 UNITS SQ QHS for DM2 for 30 Days, #1 EACH Prov:EMRE HODGE MD 11/16/18 Lactobacillus Rhamnosus Gg (CULTURELLE) 1 Each Cap.sprink, 1 CAP PO BID for antibiotic diarrhea for 10 Days, #20 CAP Prov:EMRE HODGE MD 11/16/18 Polyethylene Glycol 3350 (POLYETHYLENE GLYCOL 3350) 17 Gm Powd.pack, 17 GM PO PRN BID PRN for CONSTIPATION 1ST CHOICE for 30 Days, #60 PKT Prov:EMRE HODGE MD 11/16/18 Ipratropium/Albuterol Sulfate (DUONEB 0.5-3(2.5) MG/3 ML) 3 Ml Ampul.neb, 3 ML NEB RTQID for COPD for 30 Days, #120 EACH Prov:EMRE HODGE MD 11/16/18 Simvastatin (SIMVASTATIN) 10 Mg Tablet, 1 TAB PO QHS for hld for 30 Days, #30 TAB 5 Refills Prov:WOODROW JACOB MD 10/23/18 Gabapentin (GABAPENTIN) 300 Mg Capsule, 300 MG PO TID for NEUROGENIC PAIN for 30 Days, #90 CAP Prov:WOODROW JACOB MD 10/23/18 Reported Medications [albuterol ] No Conflict Check, 108 MCG INH Q6HRS PRN for WHEEZING 02/12/19 Fluticasone/Salmeterol (ADVAIR 250-50 DISKUS) 1 Each Disk.w.dev, 2 PUFF IH BID for copd, #2 INHALER 3 Refills 02/12/19 Diclofenac Sodium (VOLTAREN) 100 Gm Gel..gram., 2 GM TP BID for pain for 30 Days, #1 EACH 0 Refills apply to affected area(s) 02/12/19 Omeprazole (OMEPRAZOLE) 20 Mg Capsule.dr, 2 CAP PO DAILY for MEDICAL MANAGEMENT, #30 CAP 5 Refills 02/04/19 Discontinued Reported Medications Fentanyl (FENTANYL 50mcg/hr) 1 Each Patch.td72, 1 PATCH TD Q72H for PAIN, PATCH 02/04/19 Ibuprofen (IBUPROFEN) 800 Mg Tablet, 800 MG PO PRN Q8HRS PRN for INFLAMMATION, TAB 02/04/19 Metformin Hcl (METFORMIN HCL) 500 Mg Tablet, 500 MG PO BID for DM 07/18/13 Discontinued Scripts Doxycycline Hyclate (DOXYCYCLINE HYCLATE) 100 Mg Capsule, 1 CAP PO BID for COPD for 7 Days, #14 CAP Prov:EMRE HODGE MD 11/16/18 Prednisone (PREDNISONE) 20 Mg Tablet, 40 MG PO DAILY for COPD for 5 Days, #10 TAB Prov:EMRE HODGE MD 11/16/18 Glipizide (GLIPIZIDE) 10 Mg Tablet, 10 MG PO DAILY for dm for 3 Days, #3 TAB Prov:WOODROW JACOB MD 10/23/18 STEFFANY SILVA MD Feb 15, 2019 09:27
--- NOTE | 2019-02-15 09:37 | PDOC ---
PULMONARY PROGRESS NOTES Subjective pt feel less soa Vitals Vital Signs Date Time Temp Pulse Resp B/P (MAP) Pulse Ox O2 Delivery O2 Flow Rate FiO2 02/15/19 07:40 97 Nasal Cannula 2.0 02/15/19 07:30 97.6 77 18 147/60 (89) 97.6 ROS: No Nausea, No Chest Pain, No Abdominal Pain General: Alert, No acute distress HEENT: Cervical Dz Lungs: Clear Cardiovascular: S1, S2 Abdomen: Soft, Non-tender Extremities: No Edema Labs Laboratory Tests Test 02/13/19 09:45 02/13/19 11:01 02/13/19 16:33 02/13/19 21:08 O2 Saturation 95 % (92-99) Arterial Blood pH 7.35 (7.35-7.45) Arterial Blood pCO2 at Patient Temp 64 mmHg (35-46) Arterial Blood pO2 at Patient Temp 79 mmHg (65-108) Arterial Blood HCO3 34 mmol/L (21-28) Arterial Blood Base Excess 8 mmol/L (-3-3) FiO2 3 lpm nc Glucose (Fingerstick) 359 mg/dL (70-99) 278 mg/dL (70-99) 315 mg/dL (70-99) Test 02/14/19 04:46 02/14/19 07:11 02/14/19 11:23 02/14/19 16:51 Sodium Level 139 mmol/L (136-145) Potassium Level 4.6 mmol/L (3.5-5.1) Chloride Level 102 mmol/L (98-107) Carbon Dioxide Level 33 mmol/L (21-32) Anion Gap 4 (6-14) Blood Urea Nitrogen 23 mg/dL (7-20) Creatinine 1.1 mg/dL (0.6-1.0) Estimated GFR (Cockcroft-Gault) 58.1 Glucose Level 231 mg/dL (70-99) Calcium Level 9.1 mg/dL (8.5-10.1) Glucose (Fingerstick) 188 mg/dL (70-99) 127 mg/dL (70-99) 183 mg/dL (70-99) Test 02/14/19 20:57 02/15/19 08:02 Glucose (Fingerstick) 131 mg/dL (70-99) 149 mg/dL (70-99) Laboratory Tests Test 02/14/19 11:23 02/14/19 16:51 02/14/19 20:57 02/15/19 08:02 Glucose (Fingerstick) 127 mg/dL (70-99) 183 mg/dL (70-99) 131 mg/dL (70-99) 149 mg/dL (70-99) Medications Active Scripts Medications Dose Route/Sig Max Daily Dose Days Date Category Dose Instructions [albuterol ] 108 Mcg INH Q6HRS PRN 02/12/19 Reported Advair 250-50 Diskus (Fluticasone/Salmeterol) 1 Each Disk.w.dev 2 Puff IH BID 02/12/19 Reported Voltaren (Diclofenac Sodium) 100 Gm Gel..gram. 2 Gm TP BID 30 02/12/19 Reported apply to affected area(s) Tylenol (Acetaminophen) 325 Mg Tablet 650 Mg PO PRN Q6HRS PRN 30 02/10/19 Rx Metoprolol Tartrate 25 Mg Tablet 25 Mg PO BID 30 02/10/19 Rx FENTANYL 50mcg/hr (Fentanyl) 1 Each Patch.td72 1 Patch TD Q72H 02/10/19 Rx Lisinopril 10 Mg Tablet 2 Tab PO DAILY 30 02/10/19 Rx Omeprazole 20 Mg Capsule.dr 2 Cap PO DAILY 02/04/19 Reported Humalog (Insulin Lispro) 100 Unit/1 Ml Insuln.pen 8 Units SQ TIDWMEALS 11/16/18 Rx + Sliding scale 1u for every 50mg/dL > 150mg/dL Call MD for glucose > 350 If glucose < 100, sliding scale only Lantus Solostar (Insulin Glargine,Hum.rec.anlog) 100 Unit/1 Ml Insuln.pen 10 Units SQ QHS 11/16/18 Rx Culturelle (Lactobacillus Rhamnosus Gg) 1 Each Cap.sprink 1 Cap PO BID 11/16/18 Rx Polyethylene Glycol 3350 17 Gm Powd.pack 17 Gm PO PRN BID PRN 11/16/18 Rx Duoneb 0.5-3(2.5) Mg/3 Ml (Albuterol/Ipratropium) 3 Ml Ampul.neb 3 Ml NEB RTQID 11/16/18 Rx Simvastatin 10 Mg Tablet 1 Tab PO QHS 30 10/23/18 Rx Gabapentin 300 Mg Capsule 300 Mg PO TID 30 10/23/18 Rx Impression . IMPRESSION: 1. Acute on chronic hypoxemic respiratory failure, suspect secondary to acute exacerbation of chronic obstructive pulmonary disease/ acute/chronic chf diastolic 2. Abnormal chest x-ray. 3. Acute exacerbation of chronic obstructive pulmonary disease. 4. Congestive heart failure. 5. Encephalopathy, multifactorial 6. History of multiple cerebrovascular accidents. 7. Diabetes mellitus. 8. Hypertension. 9. Acute versus chronic kidney injury. CXR Impression: Mild CHF and small left effusion. This appears slightly improved. Plan . d/c home d/w team JOO GUILLEN MD Feb 15, 2019 09:37
--- NOTE | 2019-02-15 11:00 | PDOC3 ---
Discharge Summary Visit Information Date of Admission: Feb 12, 2019 Date of Discharge: Feb 15, 2019 Admitting Diagnosis Comment: SOA, acute bronchitis COPD Home o2 dependent Recent CVA Obesity BMI 33 HTN. HLD. DM. Pulmonary hypertension. Obesity. Brief Hospital Course Allergies Allergies Coded Allergies Type Severity Reaction Last Updated Verified Penicillins Allergy Severe 11/13/18 Yes amoxicillin trihydrate Allergy Intermediate 10/22/18 Yes famotidine Allergy Intermediate 10/22/18 Yes potassium clavulanate Allergy Intermediate 10/22/18 Yes sulfamethoxazole Allergy Intermediate 10/22/18 Yes trimethoprim Allergy Intermediate 10/22/18 Yes I S O L A T I O N *CONTACT* Allergy Unknown 02/04/19 Yes Vital Signs Vital Signs Date Time Temp Pulse Resp B/P (MAP) Pulse Ox O2 Delivery O2 Flow Rate FiO2 02/15/19 07:40 97 Nasal Cannula 2.0 02/15/19 07:30 97.6 77 18 147/60 (89) 97.6 Lab Results Laboratory Tests Test 02/13/19 11:01 02/13/19 16:33 02/13/19 21:08 02/14/19 04:46 Glucose (Fingerstick) 359 mg/dL (70-99) 278 mg/dL (70-99) 315 mg/dL (70-99) Sodium Level 139 mmol/L (136-145) Potassium Level 4.6 mmol/L (3.5-5.1) Chloride Level 102 mmol/L (98-107) Carbon Dioxide Level 33 mmol/L (21-32) Anion Gap 4 (6-14) Blood Urea Nitrogen 23 mg/dL (7-20) Creatinine 1.1 mg/dL (0.6-1.0) Estimated GFR (Cockcroft-Gault) 58.1 Glucose Level 231 mg/dL (70-99) Calcium Level 9.1 mg/dL (8.5-10.1) Test 02/14/19 07:11 02/14/19 11:23 02/14/19 16:51 02/14/19 20:57 Glucose (Fingerstick) 188 mg/dL (70-99) 127 mg/dL (70-99) 183 mg/dL (70-99) 131 mg/dL (70-99) Test 02/15/19 08:02 Glucose (Fingerstick) 149 mg/dL (70-99) Laboratory Tests Test 02/14/19 11:23 02/14/19 16:51 02/14/19 20:57 02/15/19 08:02 Glucose (Fingerstick) 127 mg/dL (70-99) 183 mg/dL (70-99) 131 mg/dL (70-99) 149 mg/dL (70-99) Brief Hospital Course Ms. Abbott is a 78 old AA female who recently had a signif CVA, but she is admitted for a different medical issue this time, PNA, co managed with Pulmo, I do believe she has hx COPD home O2 dependent, She has had no inc soa or O2 requirements here, She meets SNU criteria and pleasant family is agreeable so she is slated [facility] today, I do believe she is a full code, There is some element of dementia vs cognitive impairment but there are no swallow issues Pt seen and examined,raegan paz RN at bedside consults: pullinus Proc: none Discharge Information Condition at Discharge: Improved, Stable Disposition/Orders: Other (snu) Scheduled Albuterol Sulfate (Proair Hfa) 8.5 Gm Hfa.aer.ad, 2.5 MG NEB RTQID for copd, #1 Prescribed by: STEFFANY SILVA on 02/15/19926 Diclofenac Sodium (Voltaren) 100 Gm Gel..gram., 2 GM TP BID for pain for 30 Days, #1 Ref 0 (Reported) apply to affected area(s) Entered as Reported by: MARIA DEL CARMEN RUIZ on 02/12/19634 Last Action: Continued on 02/12/191126 by EMRE HODGE MD Fentanyl (FENTANYL 50mcg/hr) 1 Each Patch.td72, 1 PATCH TD Q72H for PAIN for 30 Days, #10 Prescribed by: STEFFANY SILVA on 02/15/19926 Fluticasone/Salmeterol (Advair 250-50 Diskus) 1 Each Disk.w.dev, 2 PUFF IH BID for copd, #2 Ref 3 (Reported) Entered as Reported by: MARIA DEL CARMEN RUIZ on 02/12/19634 Last Action: Converted on 02/12/191126 by EMRE HODGE MD Gabapentin (Gabapentin) 300 Mg Capsule, 300 MG PO TID for NEUROGENIC PAIN for 30 Days, #90 Prescribed by: NIDIA TROY on 10/23/18 1000 Last Action: Continued on 02/12/19634 by MARIA DEL CARMEN RUIZ Insulin Glargine,Hum.rec.anlog (Lantus Solostar) 100 Unit/1 Ml Insuln.pen, 10 UNITS SQ QHS for DM2 for 30 Days, #1 Prescribed by: EMRE HODGE MD on 11/16/181355 Last Action: Converted on 02/12/19634 by MARIA DEL CARMEN RUIZ Insulin Lispro (Humalog) 100 Unit/1 Ml Insuln.pen, 8 UNITS SQ TIDWMEALS for DM2 for 30 Days, #1 + Sliding scale 1u for every 50mg/dL > 150mg/dL Call MD for glucose > 350 If glucose < 100, sliding scale only Prescribed by: EMRE HODGE MD on 11/16/181355 Last Action: Continued on 02/12/19634 by MARIA DEL CARMEN RUIZ Ipratropium/Albuterol Sulfate (Duoneb 0.5-3(2.5) Mg/3 Ml) 3 Ml Ampul.neb, 3 ML NEB RTQID for COPD for 30 Days, #120 Prescribed by: EMRE HODGE MD on 11/16/181355 Last Action: Continued on 02/12/19634 by MARIA DEL CARMEN RUIZ Lactobacillus Rhamnosus Gg (Culturelle) 1 Each Cap.sprink, 1 CAP PO BID for antibiotic diarrhea for 10 Days, #20 Prescribed by: EMRE HODGE MD on 11/16/181355 Last Action: Continued on 02/12/19634 by MARIA DEL CARMEN RUIZ Lisinopril (Lisinopril) 10 Mg Tablet, 2 TAB PO DAILY for htn for 30 Days, #60 Ref 5 Prescribed by: EMRE HODGE MD on 02/10/191306 Last Action: Continued on 02/12/19634 by MARIA DEL CARMEN RUIZ Metoprolol Tartrate (Metoprolol Tartrate) 25 Mg Tablet, 25 MG PO BID for HTN for 30 Days, #60 Prescribed by: EMRE HODGE MD on 10/17/19 1307 Last Action: Continued on 02/12/19634 by MARIA DEL CARMEN RUIZ Omeprazole (Omeprazole) 20 Mg Capsule.dr, 2 CAP PO DAILY for MEDICAL MANAGEMENT, #30 Ref 5 (Reported) Entered as Reported by: MORTEZA IGNACIO on 02/04/191711 Last Action: Converted on 02/12/19634 by MARIA DEL CARMEN RUIZ Simvastatin (Simvastatin) 10 Mg Tablet, 1 TAB PO QHS for hld for 30 Days, #30 Ref 5 Prescribed by: NIDIA TROY on 10/23/18 1000 Last Action: Continued on 02/12/19634 by MARIA DEL CARMEN RUIZ Scheduled PRN Acetaminophen (Tylenol) 325 Mg Tablet, 650 MG PO PRN Q6HRS PRN for MILD PAIN 1-3 for 30 Days, #120 Prescribed by: EMRE HODGE MD on 02/10/19 1307 Last Action: Continued on 02/12/19634 by MARIA DEL CARMEN RUIZ Polyethylene Glycol 3350 (Polyethylene Glycol 3350) 17 Gm Powd.pack, 17 GM PO PRN BID PRN for CONSTIPATION 1ST CHOICE for 30 Days, #60 Prescribed by: EMRE HODGE MD on 11/16/18 1356 Last Action: Continued on 02/12/19634 by MARIA DEL CARMEN RUIZ [albuterol ] , 108 MCG INH Q6HRS PRN for WHEEZING, (Reported) Entered as Reported by: MARIA DEL CARMEN RUIZ on 02/12/19634 Last Action: New Order on 02/12/19634 by MARIA DEL CARMEN RUIZ Discontinued Medications Doxycycline Hyclate (Doxycycline Hyclate) 100 Mg Capsule, 1 CAP PO BID for COPD for 7 Days, #14 Prescribed by: EMRE HODGE MD on 11/16/18 1356 Fentanyl (FENTANYL 50mcg/hr) 1 Each Patch.td72, 1 PATCH TD Q72H for PAIN, (Reported) Discontinued Reason: Prescription changed Entered as Reported by: MORTEZA IGNACIO on 02/04/191711 Glipizide (Glipizide) 10 Mg Tablet, 10 MG PO DAILY for dm for 3 Days, #3 Prescribed by: NIDIA TROY on 10/23/18 1000 Ibuprofen (Ibuprofen) 800 Mg Tablet, 800 MG PO PRN Q8HRS PRN for INFLAMMATION, (Reported) Entered as Reported by: MORTEZA IGNACIO on 02/04/19 1712 Metformin Hcl (Metformin Hcl) 500 Mg Tablet, 500 MG PO BID for DM, (Reported) Entered as Reported by: DEXTER PRINCE on 07/18/13 1022 Prednisone (Prednisone) 20 Mg Tablet, 40 MG PO DAILY for COPD for 5 Days, #10 Prescribed by: EMRE HODGE MD on 11/16/18 1356 STEFFANY SILVA MD Feb 15, 2019 10:59
[2019-02-15 11:38] VITALS: BP 123/53
[2019-02-15] MEDS: ACETAMINOPHEN 325 MG TABLET. PO PRN (12:28)
--- NOTE | 2019-02-15 13:27 | NUR ---
SW following Pt. SW phoned and faxed orders to [facility]. Pt will transport via facility arranged w/c van at 1330. Pt's daughter, notified and agreeable.
--- NOTE | 2019-02-15 13:43 | PDOC ---
PROGRESS NOTES Assessment Assessment Right side weakness. Metabolic encephalopathy. Recent Acute small to moderate territory infarct involving the left parietal lobe, left post central gyrus revealed on 02/03/19. Recent acute small territory infarct in the right parietal lobe. Embolic stroke etiology likely. Recent cerebral cytotoxic edema. HTN. HLD. DM. Pulmonary hypertension. Obesity. RECOMMENDATIONS/PLAN: Continue ASA 325 mg daily. Continue Statin HS. Treat medical diseases. OT/PT. FU with PCP. CTA on 02/04/19: No acute large vessel blockage. MRI on 02/04/19: See above infarcts. Echo + Bubble study: PA pressure 44 HISTORY OF PRESENT ILLNESS: The patient is a 78-year-old AA female who was brought to [facility] ER with symptoms of mental status changes and increased weakness in her right side UE and LE, then was transferred to [facility]. She had symptoms of mental status changes and right side weakness on 02/03/19 and received TPA at that. Further evaluation revealed above infarcts and she has been treated here then sent for rehab. Her weakness was improved but became weak again yesterday, so she was brought in on 02/12/19. On 02/13/19, she stated her weakness improved. Weakness further continued improving on 02/15/19. PAST MEDICAL HISTORY: Asthma, hyperlipidemia, hypertension, neuropathy, diabetes. PAST SURGERY HISTORY: No major surgery recently. ALLERGIES: MULTIPLE, INCLUDING PENICILLIN, AMOXICILLIN, FAMOTIDINE, CLAVULANIC ACID, SULFA, TRIMETHOPRIM. FAMILY HISTORY: Hypertension. MEDICATIONS: Refer to [facility] SOCIAL HISTORY: Lives at home. Denies current smoking, drinking, and illicit drug use. REVIEW OF SYSTEMS: Constitutional: Obesity. Head: No traumatic brain or head injury. Skin: No edema, or rash. Ear: No infection. Eyes: No vision loss or color blindness. Nose: No bleeding or purulent discharges. Hearing: Hearing decrease. Neck: No injury. Breast: No history of cancer, masses,or discharges. Cardiac: HTN, HLD. Pulmonary: No COPD. GI: No GI ulcer, GI bleeding. Urinary/genital: UTI. Endocrinologic: Diabetes Mellitus? Obesity. Skeletomuscular: Generalized weakness. Neurological: see HP. Psychiatric: Denies drug use/abuse. Otherwise, not [id number] review of systems. PHYSICAL EXAMINATION: General appearance is in subacute distress. HEENT: Normocephalic and nontraumatic. Eyes, nose, ears, and throat are unremarkable. Neck is supple. No lymphadenopathy. No crepitus. Cardiovascular: S1, S2, seemed regular rate and rhythm. Pulmonary: Decreased to auscultation bilaterally. Abdomen: Bowel sounds are positive. Extremities: No rash, lesions, or edema. No restriction of range of motion NEUROLOGICAL EXAMINATION: Awake. Oriented to time, place and person. PERRL. EOMI. CN: no acute focal findings. Muscle tone: mildly decreased. Muscle strength: 4 right UE and LE, Left side 5. DTR: 1 Plantar reflex: Neutral response bilaterally Gait: not examined in bed. Sensory exam: Withdraw response noted to stimuli.. Not able to access cerebellar signs.. F-T-N test fine. Objective Objective Vital Signs Date Time Temp Pulse Resp B/P (MAP) Pulse Ox O2 Delivery O2 Flow Rate FiO2 02/15/19 12:24 91 Nasal Cannula 2.0 02/15/19 11:38 98.5 77 18 123/53 (76) 98.5 Intake and Output 02/15/19 07:00 Intake Total 540 ml Output Total 0 ml Balance 540 ml Intake Oral 540 ml Output Urine Total 0 ml # Voids 5 # Bowel Movements 1 Vitals Signs Vitals VS - Last 72 Hours, by Label Date Time Temp Pulse Resp B/P (MAP) Pulse Ox O2 Delivery O2 Flow Rate FiO2 02/15/19 12:24 91 Nasal Cannula 2.0 02/15/19 11:38 98.5 77 18 123/53 (76) 91 Nasal Cannula 2.0 98.5 02/15/19 11:25 97 Nasal Cannula 2.0 02/15/19 09:00 77 123/53 02/15/19 09:00 77 123/53 02/15/19 08:00 Nasal Cannula 2.0 02/15/19 07:40 97 Nasal Cannula 2.0 02/15/19 07:30 97.6 77 18 147/60 (89) 97 Nasal Cannula 2.0 97.6 02/15/19 07:00 91 Nasal Cannula 2.0 02/15/19 03:35 98.0 69 16 146/72 (96) 94 Nasal Cannula 2.0 98.0 02/14/19 23:11 98.2 71 18 134/65 (88) 96 Nasal Cannula 2.0 98.2 02/14/19 21:36 78 132/64 02/14/19 20:00 Nasal Cannula 2.0 02/14/19 19:53 98.5 78 18 132/64 (86) 96 Nasal Cannula 2.0 98.5 02/14/19 18:53 97 Nasal Cannula 2.0 02/14/19 16:17 97 Nasal Cannula 2.0 02/14/19 14:45 98.6 79 18 125/61 (82) 94 Nasal Cannula 2.0 98.6 02/14/19 13:11 97 Nasal Cannula 2.0 02/14/19 11:41 98.4 82 18 148/76 (100) 94 Nasal Cannula 2.0 98.4 02/14/19 09:06 78 154/81 02/14/19 09:05 78 154/81 02/14/19 08:19 95 Nasal Cannula 2.0 02/14/19 08:18 95 Nasal Cannula 2.0 02/14/19 08:00 Nasal Cannula 2.0 02/14/19 07:38 98.2 78 18 154/81 (105) 94 Nasal Cannula 2.0 98.2 Laboratory Laboratory Laboratory Tests Test 02/14/19 16:51 02/14/19 20:57 02/15/19 08:02 02/15/19 12:12 Glucose (Fingerstick) 183 mg/dL (70-99) 131 mg/dL (70-99) 149 mg/dL (70-99) 120 mg/dL (70-99) Medication Medications Current Medications Albuterol Sulfate (Ventolin Neb Soln) 2.5 mg PRN Q4HRS PRN NEB SHORTNESS OF BREATH; Start 02/14/19 at 18:45 Albuterol Sulfate (Ventolin Neb Soln) 2.5 mg RTQID NEB ; Start 02/14/19 at 20:00 Comment Review of Relevant I have reviewed the following items myesha (where applicable) has been applied. SUSAN GU MD Feb 15, 2019 13:43
--- NOTE | 2019-02-15 14:39 | NUR ---
Gave report to [facility] at [facility], pt was escorted with oxygen and wheelchair with her daughter pealow to the [facility] vehicle. Patient faired well.
== END 2019-02-15 14:25 | disposition home or self-care (01) | DRG 189 ==
LOC: 6 SOUTH 02-12 01:03
PROVIDERS: ADMIT Internal Medicine; ATTEND Internal Medicine
DX: J96.21 Acute and chronic respiratory failure with hypoxia (principal); G93.41 Metabolic encephalopathy; J18.9 Pneumonia, unspecified organism; J44.0 Chronic obstructive pulmonary disease with (acute) lower respiratory infection; N17.9 Acute kidney failure, unspecified; J44.1 Chronic obstructive pulmonary disease with (acute) exacerbation; M19.90 Unspecified osteoarthritis, unspecified site; I11.0 Hypertensive heart disease with heart failure; I50.9 Heart failure, unspecified; I07.1 Rheumatic tricuspid insufficiency; E78.5 Hyperlipidemia, unspecified; I27.20 Pulmonary hypertension, unspecified; E11.40 Type 2 diabetes mellitus with diabetic neuropathy, unspecified; J20.9 Acute bronchitis, unspecified; E11.65 Type 2 diabetes mellitus with hyperglycemia; E66.9 Obesity, unspecified; R13.10 Dysphagia, unspecified; K21.9 Gastro-esophageal reflux disease without esophagitis; Z51.5 Encounter for palliative care; M79.7 Fibromyalgia; Z96.649 Presence of unspecified artificial hip joint; Z90.710 Acquired absence of both cervix and uterus; Z88.0 Allergy status to penicillin; Z88.8 Allergy status to other drugs, medicaments and biological substances; Z91.041 Radiographic dye allergy status; Z68.33 Body mass index [BMI] 33.0-33.9, adult; Z86.73 Personal history of transient ischemic attack (TIA), and cerebral infarction without residual deficits; Z79.82 Long term (current) use of aspirin; Z99.81 Dependence on supplemental oxygen; Z83.3 Family history of diabetes mellitus; Z82.49 Family history of ischemic heart disease and other diseases of the circulatory system
CPT/HCPCS: 36415; 36600; 71045; 80048; 80069; 82805; 82962; 85025; 87641; 94640; J1650; J1815; J2920; J7030; J7613; J7620; J7626; 97535; G0378